=== PATIENT | female | born 1945 | race Caucasian/White ===

== ENCOUNTER 2016-11-09 03:08 | Inpatient (IN) | payer OTHER, BC ==
[2016-11-09 03:23] VITALS: BMI 29.2
[2016-11-09] MEDS ORDERED: SODIUM CHLORIDE 1,000 ML IV STA (03:28)
[2016-11-09] MEDS ORDERED: methylPREDNISolone NA SUCC 125 MG/2 ML VIAL IVPB ONE (03:28)
[2016-11-09] MEDS: ALBUTEROL SO4 2.5/IPRATROPIUM 0.5 INH SOL 3 ML VIAL.NEB. NEB SCH ×4 (03:33→04:15)
[2016-11-09 04:14] LABS: BASOPHIL 1.5 % (0-2.0); EOSINOPHIL 2.9 % (0-4.5); MCH 30.6 pg (25.7-33.7); MCHC 33.2 g/dl (32.0-36.0); MEAN CELL VOLUME 92.1 fl (80-96); MEAN PLT VOLUME 7.7 fl (7.5-11.1); NEUTROPHILS 60.7 % (42.8-82.8); PLATELET COUNT 187 K/MM3 (134-434); RDW 13.5 % (11.6-15.6); WHITE BLOOD COUNT 6.5 K/mm3 (4.0-10.0)
[2016-11-09 04:20] LABS: URINE APPEARANCE CLOUDY; URINE BILIRUBIN NEGATIVE (NEGATIVE); URINE COLOR LTYELLOW; URINE GLUCOSE (UA) 3+ (NEGATIVE); URINE KETONE NEGATIVE (NEGATIVE); URINE NITRITE NEGATIVE (NEGATIVE); URINE UROBILINOGEN NEGATIVE E.U./dl (0.2-1.0)
[2016-11-09 04:21] LABS: URINE BLOOD 3+ (NEGATIVE); URINE LEUK ESTERASE 3+ (NEGATIVE); URINE PROTEIN 2+ (NEGATIVE)
[2016-11-09 04:24] LABS: URINE BACTERIA FEW /hpf (NONE SEEN); URINE MUCUS RARE; URINE RBC 262 /hpf (0-3); URINE WBC 175 /hpf (3-5)
[2016-11-09] MEDS ORDERED: methylPREDNISolone NA SUCC 125 MG/2 ML VIAL ONE (04:27)
[2016-11-09 04:36] LABS: ALBUMIN 3.7 g/dl (3.4-5.0); ANION GAP 14 (8-16); BILIRUBIN,TOTAL 0.4 mg/dL (0.2-1.0); CALCIUM 9.4 mg/dL (8.5-10.1); CO2 23 mmol/L (21-32); COCKROFT - GAULT 104.5585; CREATININE 0.7 mg/dL (0.55-1.02); GLUCOSE,RANDOM 262 mg/dL (74-106); SGOT/AST 34 U/L (15-37); SGPT/ALT 48 U/L (12-78); TOT PROT 7.5 g/dl (6.4-8.2)
[2016-11-09 04:38] LABS: ALK PHOS 98 U/L (45-117); TROPONIN I 0.09 ng/ml (0.00-0.05)
--- NOTE | 2016-11-09 05:02 | PDOC ---
History of Present Illness - General Chief Complaint: Chest Pain Stated Complaint: BACK PAIN/CHEST PAIN Time Seen by Provider: 11/09/16 03:19 History Source: Patient Exam Limitations: No Limitations - History of Present Illness Initial Comments: 11/09/16 04:57 71yo Female patient w/ PmHx: DM, Pancreatitis, 4 Stent placement w/ 1 closed stent presents to ED c/o Chest Pain, Diff breathing, Nausea x 2 weeks. She reports persistent coughing began today. Patient took Nitro x1 prior to arrival with no relief. Patient state she was being treated for UTI recently with Macrobid, but this medication makes her stomach upset, so she takes it every now and then. Patient denies fever, back pain, abd pain, dysuria, hematuria, rectal bleeding, or any other complaints at this time. Anticoagulation: Plavix. PCP- Dr. Alexander Presenting Symptoms: Chest Pain, Short of Breath, Other (Cough) Timing/Duration: reports: getting worse Severity/Quality: reports: moderate Location: reports: central Chest Pain Radiation: reports: no radiation Activities at Onset: reports: no specific activity Prior Chest Pain/Cardiac Workup: reports: Other (4 Stent Placement) Modifying Factors: worse with: antacids, breathing, coughing, defecating, eating , exercise, lying down, morphine, movement, nitroglycerin, oxygen, palpation, rest, other Nitro Today/Relief: Yes: 0.4 mg x 1, provided at home Past History - Travel Traveled outside of the country in the last 30 days: No Close contact w/someone who was outside of country & ill: No - Past Medical History Allergies/Adverse Reactions: Allergies Allergy/AdvReac Type Severity Reaction Status Date / Time levofloxacin [From Levaquin] Allergy Mild PAIN Verified 11/09/16 03:58 ciprofloxacin [From Cipro] Allergy PAIN Verified 11/09/16 03:58 doxycycline Allergy DIZZY Verified 11/09/16 03:58 Metronidazole HCl Allergy PAIN Verified 11/09/16 03:58 [From Flagyl] Penicillins Allergy Swelling Verified 11/09/16 03:58 Home Medications: Ambulatory Orders Azelastine/Fluticasone [Dymista Nasal [place]] 23 gm NS PRN 09/08/14 Docusate Sodium [Dulcolax Stool Softener] 1 tab PO ASDIR 09/08/14 Ergocalciferol (Vitamin D2) [Vitamin D2] 50,000 unit PO WEEKLY 02/28/16 Insulin Detemir [Levemir Flextouch] 22 unit SQ DAILY 02/28/16 Nitroglycerin Sublingual [Nitrostat -] 0.3 mg SL PRN 02/28/16 Insulin Aspart [Novolog] See Protocol SQ DAILY PRN MDD Sliding scale 04/21/16 Dexlansoprazole [Dexilant] 60 mg PO DAILY 04/24/16 Clopidogrel Bisulfate [Plavix -] 75 mg PO DAILY 11/09/16 Triamterene/Hydrochlorothiazid [Triamterene-Hctz 37.5-25 mg Cp] 1 each PO DAILY 11/09/16 Anemia: No Asthma: No Cancer: No Cardiac Disorders: Yes (4 stents, [place]) CVA: No COPD: Yes CHF: No Dementia: No Diabetes: No GI Disorders: Yes (CONSTIPATION,, EGD, H PYLORI) Disorders: No HTN: Yes Hypercholesterolemia: No Liver Disease: No Seizures: No Thyroid Disease: No - Surgical History Abdominal Surgery: No Appendectomy: Yes Cardiac Surgery: Yes (CARDIAC STENTS X 4) Cholecystectomy: Yes ('06) Lung Surgery: No Neurologic Surgery: No Orthopedic Surgery: No - Psycho/Social/Smoking Cessation Hx Anxiety: No Suicidal Ideation: No Smoking Status: Yes Smoking History: Current some day smoker Have you smoked in the past 12 months: Yes Number of Cigarettes Smoked Daily: 10 Information on smoking cessation initiated: No 'Breaking Loose' booklet given: 02/28/16 Hx Alcohol Use: No Drug/Substance Use Hx: No Substance Use Type: None Hx Substance Use Treatment: No Cardiac Specific PMH - Complaint Specific PMHX Abdominal Aortic Aneurysm: No Angina: No Cardiac Arrhythmia: No Cardiac Stent: No GERD: No Myocardial Infarction: No Pacemaker: No Pulmonary Embolus: No Valvular Heart Disease: No Peripheral Vascular Disease: No Review of Systems - Review of Systems Able to Perform ROS?: Yes Is the patient limited [place] proficient: No Constitutional: No: Chills, Diaphoresis, Fever Respiratory: Yes: Cough, Shortness of Breath, Wheezing. No: Hemoptysis Cardiac (ROS): Yes: Chest Pain, Edema. No: Lightheadedness, Palpitations, Syncope, Chest Tightness ABD/GI: No: Diarrhea, Nausea, Poor Appetite, Poor Fluid Intake, Rectal Bleeding , Vomiting, Abdominal cramping : No: Burning, Dysuria, Discharge, Frequency, Flank Pain, Hematuria, Pain Musculoskeletal: No: Back Pain Integumentary: No: Erythema, Rash, Sweating Neurological: No: Headache, Seizure, Dizziness All Other Systems: Reviewed and Negative *Physical Exam - Vital Signs Last Vital Signs Temp Pulse Resp BP Pulse Ox 97.3 F L 112 H 20 135/115 94 L 11/09/16 03:21 11/09/16 03:21 11/09/16 03:21 11/09/16 03:21 11/09/16 03:21 - Physical Exam General Appearance: Yes: Nourished, Appropriately Dressed, Mild Distress. No: Apparent Distress, Moderate Distress, Severe Distress HEENT: positive: EOMI, DONNA, Normal ENT Inspection, Normal Voice, Symmetrical, TMs Normal, Pharynx Normal. negative: Pharyngeal Erythema, Tonsillar Exudate, Tonsillar Erythema, Nasal Congestion, Rhinorrhea, Sinus Tenderness, TM Bulging, TM Dull, TM Erythema Neck: positive: Trachea midline, Supple. negative: Decreased range of motion, Stridor, Lymphadenopathy (R), Lymphadenopathy (L) Respiratory/Chest: positive: Wheezing Cardiovascular: positive: Tachycardia Gastrointestinal/Abdominal: positive: Normal Bowel Sounds, Soft. negative: Distended, Guarding, Rebound, Tenderness Musculoskeletal: positive: Normal Inspection. negative: CVA Tenderness Extremity: positive: Normal Capillary Refill, Normal Inspection, Normal Range of Motion. negative: Calf Tenderness, Erythema, Inflammation Integumentary: positive: Normal Color, Dry, Warm Neurologic: positive: builder beam II-XII NML intact, Fully Oriented, Alert, Normal Mood/ Affect, Normal Response, Motor Strength / ED Treatment Course - LABORATORY CBC & Chemistry Diagram: 11/09/16 03:33 11/09/16 03:33 - ADDITIONAL ORDERS Additional order review: Laboratory Results 11/09/16 11/09/16 04:11 03:33 Sodium 142 Potassium 3.8 Chloride 105 Carbon Dioxide 23 Anion Gap 14 BUN 14 Creatinine 0.7 Creat Clearance w eGFR > 60 Random Glucose 262 H D Calcium 9.4 Total Bilirubin 0.4 D AST 34 D ALT 48 D Alkaline Phosphatase 98 Creatine Kinase 114 Troponin I 0.09 H B-Natriuretic Peptide 138.66 H Total Protein 7.5 Albumin 3.7 Urine Color Ltyellow Urine Appearance Cloudy Urine pH 6.0 Ur Specific [place] 1.017 Urine Protein 2+ H Urine Glucose (UA) 3+ H Urine Ketones Negative Urine Blood 3+ H Urine Nitrite Negative Urine Bilirubin Negative Urine Urobilinogen Negative Ur Leukocyte Esterase 3+ H Urine RBC 262 Urine WBC 175 Ur Epithelial Cells Moderate Urine Bacteria Few Urine Mucus Rare 11/09/16 03:33 RBC 5.10 MCV 92.1 MCHC 33.2 RDW 13.5 MPV 7.7 Neutrophils % 60.7 D Lymphocytes % 21.4 D Monocytes % 13.5 H Eosinophils % 2.9 Basophils % 1.5 - RADIOLOGY Radiology Studies Ordered: Category Date Time Status CHEST PA & LAT [RAD] Stat Radiology 11/09/16 03:28 Taken - Medications Given in the ED: ED Medications Discontinued Medications Generic Name Dose Route Start Last Admin Trade Name Freq PRN Reason Stop Dose Admin Albuterol/Ipratropium 1 amp 11/09/16 03:30 11/09/16 04:15 Duoneb - NEB 11/09/16 04:16 1 amp Q15M AIDE Administration Sodium Chloride 1,000 mls @ 1,000 mls/hr 11/09/16 03:28 11/09/16 04:47 Normal Saline - IV 11/09/16 04:27 1,000 mls/hr ASDIR STA Administration Methylprednisolone Sodium Succinate 125 mg 11/09/16 03:28 11/09/16 04:00 Solu-Medrol - IVPB 11/09/16 03:29 125 mg ONCE ONE Administration *DC/Admit/Observation/Transfer Diagnosis at time of Disposition: Elevated troponin level, Bronchitis Chest pain Qualifiers: Chest pain type: other chest pain Qualified Code(s): R07.89 - Other chest pain ; R07.8 - Other chest pain - Discharge Dispostion Condition at time of disposition: Fair Admit: Yes
[2016-11-09] MEDS ORDERED: morphine CARPU-JECT 2 MG/1 ML DISP.SYRIN IVPUSH ONE (05:52)
[2016-11-09] MEDS ORDERED: CEFTRIAXONE 1 GM in DEXTROSE 5%-WATER - 50 ML IVPB ONE (05:52)
[2016-11-09] MEDS ORDERED: ONDANSETRON 4 MG/2 ML VIAL IVPB ONE (05:52)
[2016-11-09] MEDS ORDERED: ASPIRIN 81 MG CHEWABLE TABLETS PO ONE ×2 (06:00→14:10)
[2016-11-09] MEDS ORDERED: METOPROLOL TARTRATE 25 MG TABLET (FP) PO ONE (06:02)
[2016-11-09] MEDS ORDERED: ENOXAPARIN NA (PORCINE) 100 MG/1 ML DISP.SYRIN SQ ONE ×2 (06:02→06:19)
[2016-11-09] MEDS ORDERED: morphine CARPU-JECT 2 MG/1 ML DISP.SYRIN IVPUSH PRN (06:03)
[2016-11-09] MEDS ORDERED: ONDANSETRON 4 MG/2 ML VIAL IVPB PRN (06:03)
[2016-11-09] MEDS ORDERED: ASPIRIN 325 MG TABLET ONE (06:19)
[2016-11-09] MEDS ORDERED: METOPROLOL TARTRATE 25 MG TABLET (FP) ONE (06:19)
[2016-11-09] MEDS ORDERED: CEFTRIAXONE 50 ML ONE (06:20)
[2016-11-09 07:24] LABS: INR 1.15 (0.82-1.09); PROTHROMBIN TIME (PATIENT) 12.7 SEC (9.98-11.88)
[2016-11-09] MEDS ORDERED: ALBUTEROL SO4 2.5/IPRATROPIUM 0.5 INH SOL 3 ML VIAL.NEB. NEB PRN (07:58)
[2016-11-09] MEDS ORDERED: NITROGLYCERIN SUBLINGUAL 1/200 0.3 MG BTL SL SCH (08:00)
[2016-11-09] MEDS ORDERED: DOCUSATE SODIUM 100 MG CAPSULE (FP) PO SCH (08:00)
[2016-11-09] MEDS ORDERED: FAMOTIDINE 20 MG/50 ML IVPB 50 ML IVPB ONE (08:41)
[2016-11-09 08:57] LABS: MAGNESIUM 1.9 mg/dL (1.8-2.4)
[2016-11-09 08:58] LABS: TROPONIN I 0.46 ng/ml (0.00-0.05)
[2016-11-09] MEDS ORDERED: NITROGLYCERIN SUBLINGUAL 1/200 0.3 MG BTL SL PRN (09:06)
[2016-11-09] MEDS ORDERED: DIPYRIDAMOLE STRESS TEST 50 MG in DEXTROSE 5%-WATER - 40 ML IVPB ONE (10:30)
[2016-11-09] MEDS: DOCUSATE SODIUM 100 MG CAPSULE (FP) PO SCH ×2 (10:51→21:06)
[2016-11-09] MEDS: TRIAMTERENE AND HCTZ - 37.5 MG/25 MG CAPSULE PO SCH (10:51)
[2016-11-09] MEDS: INSULIN SLIDING SCALE (NOVOLOG) 1 VIAL SQ SCH ×3 (10:52→21:52)
[2016-11-09] MEDS: FLUTICASONE PROP 0.05% 16 GM NASAL SPRAY NS SCH ×2 (10:52→21:06)
[2016-11-09] MEDS: ASPIRIN COATED 81 MG TABLET.EC PO SCH (10:52)
[2016-11-09] MEDS: CLOPIDOGREL BISULFATE 75 MG TABLET (FP) PO SCH (10:52)
[2016-11-09] MEDS: PANTOPRAZOLE 40 MG TABLET (FP) PO SCH (10:52)
--- NOTE | 2016-11-09 13:25 | EKG ---
Test Reason : Blood Pressure : / mmHG Vent. Rate : 112 BPM Atrial Rate : 112 BPM P-R Int : 196 ms QRS Dur : 104 ms QT Int : 326 ms P-R-T Axes : 064 -45 096 degrees QTc Int : 444 ms SINUS TACHYCARDIA POSSIBLE LEFT ATRIAL ENLARGEMENT LEFT AXIS DEVIATION SEPTAL INFARCT (CITED ON OR BEFORE 20-MAR-2013) ABNORMAL ECG WHEN COMPARED WITH ECG OF 25-FEB-2014 18:43, VENT. RATE HAS INCREASED BY [address] NOW DEPRESSED IN LATERAL LEADS INVERTED T WAVES HAVE REPLACED NONSPECIFIC T WAVE ABNORMALITY IN LATERAL LEADS Confirmed by MOHAN QUIJANO MD ([id number]) on 11/09/2016 1:25:03 PM Referred By: Confirmed By:MOHAN QUIJANO MD
--- NOTE | 2016-11-09 13:35 | HP ---
Admitting History and Physical - Primary Care Physician PCP: Terri Thompson - Admission Chief Complaint: I was having heartburn History of Present Illness: Ms Ocasio is a pleasant 71 year old female who comes in with chest pain. She says she was recently diagnosed with a UTI and was taking bactrim. She has a lot of medication intolerance and says when she takes bactrim she gets heartburn. Last night she took the bactrim and went to bed. She woke with burning in her stomach and chest. She said it radiated to her neck, jaw, and both arms. She had shortness of breath associated with it. She had nausea but no vomiting. She says the pain and shortness of breath became so severe she had to come in. The pain is still present. She denies fevers, chills, lightheadedness, dizziness, passing out, diarrhea, difficulty or pain on urination, or swelling. History Source: Patient Limitations to Obtaining History: No Limitations - Past Medical History Cardiovascular: Yes: CAD Renal/: Yes: Renal Calculi Endocrine: Yes: Diabetes Mellitus - Past Surgical History Past Surgical History: Yes: Cholecystectomy, Stent - Smoking History Smoking history: Current some day smoker Have you smoked in the past 12 months: Yes Aproximately how many cigarettes per day: 10 - Alcohol/Substance Use Hx Alcohol Use: No History of Substance Use: reports: None - Social History ADL: Independent History of Recent Travel: No Home Medications - Allergies Allergies/Adverse Reactions: Allergies Allergy/AdvReac Type Severity Reaction Status Date / Time levofloxacin [From Levaquin] Allergy Mild PAIN Verified 11/09/16 03:58 ciprofloxacin [From Cipro] Allergy PAIN Verified 11/09/16 03:58 doxycycline Allergy DIZZY Verified 11/09/16 03:58 Metronidazole HCl Allergy PAIN Verified 11/09/16 03:58 [From Flagyl] Penicillins Allergy Swelling Verified 11/09/16 03:58 - Home Medications Home Medications: Ambulatory Orders Azelastine/Fluticasone [Dymista Nasal [place]] 23 gm NS PRN 09/08/14 Docusate Sodium [Dulcolax Stool Softener] 1 tab PO ASDIR 09/08/14 Ergocalciferol (Vitamin D2) [Vitamin D2] 50,000 unit PO WEEKLY 02/28/16 Insulin Detemir [Levemir Flextouch] 22 unit SQ DAILY 02/28/16 Nitroglycerin Sublingual [Nitrostat -] 0.3 mg SL PRN 02/28/16 Insulin Aspart [Novolog] See Protocol SQ DAILY PRN MDD Sliding scale 04/21/16 Dexlansoprazole [Dexilant] 60 mg PO DAILY 04/24/16 Clopidogrel Bisulfate [Plavix -] 75 mg PO DAILY 11/09/16 Triamterene/Hydrochlorothiazid [Triamterene-Hctz 37.5-25 mg Cp] 1 each PO DAILY 11/09/16 Family Disease History - Family Disease History Family Disease History: Diabetes: Mother, Heart Disease: Mother, CA: Father, Mother Review of Systems Findings/Remarks: full review of systems obtained, as per HPI and otherwise negative Physical Examination Vital Signs: Vital Signs Temperature 97.3 F L 11/09/16 03:21 Pulse Rate 95 H 11/09/16 07:30 Respiratory Rate 21 11/09/16 07:30 Blood Pressure 116/96 11/09/16 07:30 O2 Sat by Pulse Oximetry (%) 95 11/09/16 07:30 Constitutional: Yes: Well Nourished, No Distress, Calm Eyes: Yes: Conjunctiva Clear, EOM Intact, PERRL HENT: Yes: Atraumatic, Normocephalic Cardiovascular: Yes: Regular Rate and Rhythm. No: Gallop, Murmur, Rub Respiratory: Yes: Regular, CTA Bilaterally. No: Rales, Rhonchi, Wheezes Gastrointestinal: Yes: Normal Bowel Sounds, Soft. No: Distention, Tenderness Extremities: Yes: WNL Edema: No Labs: Laboratory Results - last 24 hr 11/09/16 11/09/16 11/09/16 03:33 03:33 04:11 WBC 6.5 RBC 5.10 Hgb 15.6 H Hct 47.0 H MCV 92.1 MCHC 33.2 RDW 13.5 Plt Count 187 D MPV 7.7 Neutrophils % 60.7 D Lymphocytes % 21.4 D Monocytes % 13.5 H Eosinophils % 2.9 Basophils % 1.5 INR PTT (Actin FS) Sodium 142 Potassium 3.8 Chloride 105 Carbon Dioxide 23 Anion Gap 14 BUN 14 Creatinine 0.7 Creat Clearance w eGFR > 60 Random Glucose 262 H D Calcium 9.4 Phosphorus Magnesium Total Bilirubin 0.4 D AST 34 D ALT 48 D Alkaline Phosphatase 98 Creatine Kinase 114 Troponin I 0.09 H B-Natriuretic Peptide 138.66 H Total Protein 7.5 Albumin 3.7 Urine Color Ltyellow Urine Appearance Cloudy Urine pH 6.0 Ur Specific [place] 1.017 Urine Protein 2+ H Urine Glucose (UA) 3+ H Urine Ketones Negative Urine Blood 3+ H Urine Nitrite Negative Urine Bilirubin Negative Urine Urobilinogen Negative Ur Leukocyte Esterase 3+ H Urine RBC 262 Urine WBC 175 Ur Epithelial Cells Moderate Urine Bacteria Few Urine Mucus Rare 11/09/16 11/09/16 11/09/16 06:57 06:57 08:15 WBC RBC Hgb Hct MCV MCHC RDW Plt Count MPV Neutrophils % Lymphocytes % Monocytes % Eosinophils % Basophils % INR 1.15 H PTT (Actin FS) 40.3 H Sodium Potassium Chloride Carbon Dioxide Anion Gap BUN Creatinine Creat Clearance w eGFR Random Glucose Calcium Phosphorus 3.0 Magnesium 1.9 Total Bilirubin AST ALT Alkaline Phosphatase Creatine Kinase 129 Troponin I 0.46 H B-Natriuretic Peptide Total Protein Albumin Urine Color Urine Appearance Urine pH Ur Specific [place] Urine Protein Urine Glucose (UA) Urine Ketones Urine Blood Urine Nitrite Urine Bilirubin Urine Urobilinogen Ur Leukocyte Esterase Urine RBC Urine WBC Ur Epithelial Cells Urine Bacteria Urine Mucus 11/09/16 12:50 WBC RBC Hgb Hct MCV MCHC RDW Plt Count MPV Neutrophils % Lymphocytes % Monocytes % Eosinophils % Basophils % INR PTT (Actin FS) Sodium Potassium Chloride Carbon Dioxide Anion Gap BUN Creatinine Creat Clearance w eGFR Random Glucose Calcium Phosphorus Magnesium Total Bilirubin AST ALT Alkaline Phosphatase Creatine Kinase 121 Troponin I 1.20 H* B-Natriuretic Peptide Total Protein Albumin Urine Color Urine Appearance Urine pH Ur Specific [place] Urine Protein Urine Glucose (UA) Urine Ketones Urine Blood Urine Nitrite Urine Bilirubin Urine Urobilinogen Ur Leukocyte Esterase Urine RBC Urine WBC Ur Epithelial Cells Urine Bacteria Urine Mucus Imaging - Results Chest X-ray: Report Reviewed, Image Reviewed EKG: Image Reviewed Problem List - Problems (1) NSTEMI (non-ST elevated myocardial infarction) Assessment/Plan: -patient presented with chest pain, found to have NSTEMI -admit to telemetry -cardiology consulted -patient with multiple "intolerances", will d/w cardiology about proper medication use Code(s): I21.4 - NON-ST ELEVATION (NSTEMI) MYOCARDIAL INFARCTION (2) UTI (urinary tract infection) Assessment/Plan: -taking bactrim at home -urinalysis positive for UTI -change to rocephin -follow up urine culture Code(s): N39.0 - URINARY TRACT INFECTION, SITE NOT SPECIFIED (3) HTN (hypertension) Assessment/Plan: -continue triamterene/HCTZ -metoprolol added for NSTEMI Code(s): I10 - ESSENTIAL (PRIMARY) HYPERTENSION (4) Diabetes mellitus Assessment/Plan: -diabetic diet -SSI Code(s): E11.9 - TYPE 2 DIABETES MELLITUS WITHOUT COMPLICATIONS Qualifiers: Diabetes mellitus type: type 2 Diabetes mellitus termite control servicer insulin use : with penitentiary use (5) CAD (coronary artery disease) Assessment/Plan: -with 4 stents placed Code(s): I25.10 - ATHSCL HEART DISEASE OF [place] CORONARY ARTERY W/O ANG PCTRS
[2016-11-09 13:44] LABS: TROPONIN I 1.2 ng/ml (0.00-0.05)
[2016-11-09] MEDS ORDERED: CLOPIDOGREL BISULFATE 75 MG TABLET (FP) PO ONE (14:11)
--- NOTE | 2016-11-09 15:49 | CON.CARD ---
Cardiology Consult (text) - Consultation Consultation Note: cc: CP 71 smoker with h/o CAD s/p multiple PCI, chronic pain syndrome with chronic pain of chest, throat, back, abdomen, joints, mouth, HTN, HL, copd, fatty liver , congenital pancreatic abnormality, IDDM, grade I esophageal varices without hx of cirrhosis, gastritis, and recent hematuria p/w recurrent cp + throat CP/burning radiating to left shoulder and back while dancing at a wedding this weekend. associated fatigue. resolved with rest. Two further severe episodes that woke her from sleep in the night. Worse than her usual pain and progressive in frequency. Also with cough, congestion, wheezing over the past few days. no f/c/s, n/v/d, headache, rash. + chronic joint pain and burning paresthesias of mouth. Recently resumed 1/2 tab of plavix QOD and with recurrence of hematuria (last episode a few days ago). Has workup ongoing with urology. pmhx/pshx :per hpi fam hx: mother with mi in 70's social hx: + tobacco ros: per hpi Ambulatory Orders Azelastine/Fluticasone [Dymista Nasal [place]] 23 gm NS PRN 09/08/14 Docusate Sodium [Dulcolax Stool Softener] 1 tab PO ASDIR 09/08/14 Ergocalciferol (Vitamin D2) [Vitamin D2] 50,000 unit PO WEEKLY 02/28/16 Insulin Detemir [Levemir Flextouch] 22 unit SQ DAILY 02/28/16 Nitroglycerin Sublingual [Nitrostat -] 0.3 mg SL PRN 02/28/16 Insulin Aspart [Novolog] See Protocol SQ DAILY PRN MDD Sliding scale 04/21/16 Dexlansoprazole [Dexilant] 60 mg PO DAILY 04/24/16 Clopidogrel Bisulfate [Plavix -] 75 mg PO DAILY 11/09/16 Triamterene/Hydrochlorothiazid [Triamterene-Hctz 37.5-25 mg Cp] 1 each PO DAILY 11/09/16 Current Medications Albuterol/Ipratropium (Duoneb -) 1 amp NEB Q4H PRN PRN Reason: SHORTNESS OF BREATH Aspirin (Ecotrin -) 162 mg PO DAILY AIDE Last Admin: 11/09/16 10:52 Dose: Not Given Clopidogrel Bisulfate (Plavix -) 75 mg PO DAILY [facility] Last Admin: 11/09/16 10:52 Dose: 75 mg Docusate Sodium (Colace -) 100 mg PO BID [facility] Last Admin: 11/09/16 10:51 Dose: Not Given Fluticasone Propionate (Flonase -) 1 spray NS BID [facility] Last Admin: 11/09/16 10:52 Dose: Not Given Ceftriaxone Sodium (Rocephin 1gm Ivpb (Pre-Docked)) 50 mls @ 100 mls/hr IVPB DAILY [facility] Insulin Aspart (Novolog Vial Sliding Scale -) 1 vial SQ ACHS AIDE PRN Reason: Protocol Last Admin: 11/09/16 10:52 Dose: Not Given Metoprolol Tartrate (Lopressor -) 25 mg PO BID [facility] Morphine Sulfate (Morphine Injection -) 2 mg IVPUSH Q4H PRN PRN Reason: PAIN Nitroglycerin (Nitrostat -) 0.4 mg SL Q5M PRN PRN Reason: FOR CHEST PAIN Non-Formulary Medication (Ergocalciferol (Vitamin D2) [Vitamin D2]) 50,000 unit PO WEEKLY [facility] Ondansetron HCl (Zofran Injection) 4 mg IVPB Q6H PRN PRN Reason: NAUSEA Pantoprazole Sodium (Protonix -) 40 mg PO DAILY [facility] Last Admin: 11/09/16 10:52 Dose: 40 mg Triamterene/HCTZ (Dyazide 25/37.5mg) 1 cap PO DAILY [facility] Last Admin: 11/09/16 10:51 Dose: Not Given Vital Signs - 24 hr 11/09/16 11/09/16 11/09/16 03:21 07:30 12:50 Temperature 97.3 F L Pulse Rate 112 H Pulse Rate [ 95 H 84 Apical] Respiratory 20 21 16 Rate Blood Pressure 135/115 Blood Pressure 116/96 131/75 [Left Arm] O2 Sat by Pulse 94 L 95 95 Oximetry (%) 11/09/16 15:00 Temperature Pulse Rate Pulse Rate [ 87 Apical] Respiratory 18 Rate Blood Pressure Blood Pressure 140/81 [Left Arm] O2 Sat by Pulse 97 Oximetry (%) Intake & Output 11/07/16 11/08/16 11/09/16 11/10/16 07:59 07:59 07:59 07:59 Weight 204 lb nad, calm jvd flat, neck supple bibasilar trace rales, nl effort rrr nl s1, s2 no mrg + bs soft nt nd ttp of generalized body ext with e/c/c + dp/pt aaoxe no jaundice, diaphoresis. CBC, BMP 11/09/16 03:33 11/09/16 03:33 Laboratory Tests 11/09/16 11/09/16 11/09/16 03:33 04:11 08:15 Magnesium 1.9 Total Bilirubin 0.4 D AST 34 D ALT 48 D Alkaline Phosphatase 98 Creatine Kinase 114 129 Troponin I 0.09 H 0.46 H B-Natriuretic Peptide 138.66 H Albumin 3.7 Urine Protein 2+ H Urine Glucose (UA) 3+ H Urine Blood 3+ H Ur Leukocyte Esterase 3+ H Urine RBC 262 11/09/16 12:50 Magnesium Total Bilirubin AST ALT Alkaline Phosphatase Creatine Kinase 121 Troponin I 1.20 H* B-Natriuretic Peptide Albumin Urine Protein Urine Glucose (UA) Urine Blood Ur Leukocyte Esterase Urine RBC prior med intolerances: plavix/ASA--diffuse, severe pain ("whole body on fire") and nausea every day for 12 mo of taking this; also recent hematuria crestor--body on fire, nausea, dizzy zocor--severe diarrhea simvastatin, atorva, prava--nausea, "something closes up and hard to breathe...i can feel it in my blood" ranexa: stomach upset Ziac--severe MANZANO, pancreatitis Bystolic--"i felt sick" Echo nl lv/rv/valves EKG: stach. lae. anterolateral twi (new) tele: nsr [facility] 07/24 (staged PCI): 70-80% dRCA--Xience; +IVUS of mLAD--Xience; prior stents patent [facility] 06/22: 50-60% mLAD, 90% D1--Taxus; 60-70% OM1, 90-95% high lateral--Xience x 2; 30-50% mRCA, 60-70% dRCA; nl EDP and EF MPI 03/31 (pers): no STs; medium/moderate ischemia IW/inferolateral; nl EF; no TID 71 smoker with h/o CAD s/p multiple PCI, chronic pain syndrome with chronic pain of chest, throat, back, abdomen, joints, mouth, HTN, HL, copd, fatty liver , congenital pancreatic abnormality, IDDM, grade I esophageal varices without hx of cirrhosis, gastritis, and recent hematuria p/w recurrent cp CAD: - patient with recent inferior/inflat ischemia on stress test this past fall. But had managed medically due to multiple med intolerances. Recently Dr. Ayers had been considering further ischemic evaluation b/c of ongoing throat discomfort (could not exclude angina). However had been deferring due to recent hematuria. - Patient with known CAD as above, now with recurrence of chest discomfort at rest with mild ekg changes and mildly elevated troponin. Will treat as NSTEMI with ASA, plavix, hep drip, statin as tolerated. Patient with multiple medication intolerances and currently being worked up for ongoing hematuria as above. Discussed with her outpatient financial sales consultant and will plan for diagnostic cardiac catheterization only (if 3vd, pt may be candidate for cabg which would circumvent need for anti-platelet therapy). Otherwise, will at least know extent of CAD disease and can come up with plan for subsequent intervention once hematuria is resolved (assuming patient willing to adhere to regimen). Discussed with patient and patient amenable to plan - monitor for recurrence of hematuria - patient with acute intermittent red urine (currently with RBC's, but in past years + blood on dip without rbc's) with associated abdominal discomfort, chronic pain and paresthesia. Will send spot urine for pbg to screen for porphyria. HTN - controlled on current regimen HL - will try statin
[2016-11-09] MEDS ORDERED: ACETAMINOPHEN 325 MG TABLET (FP) PO PRN (16:21)
[2016-11-09] MEDS: METOPROLOL TARTRATE 25 MG TABLET (FP) PO SCH ×2 (17:17→21:06)
[2016-11-09] MEDS ORDERED: HEPARIN NA (PORCINE) 5,000 UNITS/ML 1ML VIAL IVPUSH PRN (19:03)
[2016-11-09] MEDS: HEPARIN - 25,000 UNIT in SODIUM CHLORIDE 495 ML IV SCH (21:12)
[2016-11-09 22:05] LABS: TROPONIN I 1.26 ng/ml (0.00-0.05)
[2016-11-09] MEDS ORDERED: NITROGLYCERIN SUBLINGUAL 1/150 0.4 MG TAB ONE (22:29)
[2016-11-10] MEDS ORDERED: NITROGLYCERIN 2% OINTMENT - 1GM PACKET TD ONE (03:15)
[2016-11-10] MEDS ORDERED: NITROGLYCERIN 2% OINTMENT - 1GM PACKET TD PRN (03:29)
[2016-11-10] MEDS ORDERED: PT OWN MED DRAWER 7, Y5N ONE ×2 (03:40→09:51)
[2016-11-10] MEDS: INSULIN SLIDING SCALE (NOVOLOG) 1 VIAL SQ SCH ×2 (06:04→12:23)
[2016-11-10 06:36] LABS: MCH 30.6 pg (25.7-33.7); MCHC 33.9 g/dl (32.0-36.0); MEAN CELL VOLUME 90.4 fl (80-96); MEAN PLT VOLUME 7.6 fl (7.5-11.1); PLATELET COUNT 238 K/MM3 (134-434); RDW 13.5 % (11.6-15.6); WHITE BLOOD COUNT 11.4 K/mm3 (4.0-10.0)
[2016-11-10 07:00] LABS: ANION GAP 10 (8-16); BILIRUBIN,TOTAL 0.6 mg/dL (0.2-1.0); CALCIUM 9.2 mg/dL (8.5-10.1); CHOLESTEROL 226 mg/dL (50-200); CO2 26 mmol/L (21-32); CREATININE 0.9 mg/dL (0.55-1.02); GLUCOSE,RANDOM 150 mg/dL (74-106); LDL CHOLESTEROL (ONLY SJRH) 163 mg/dL (5-100); SGOT/AST 28 U/L (15-37); SGPT/ALT 42 U/L (12-78); TOT PROT 7.5 g/dl (6.4-8.2)
[2016-11-10 07:13] LABS: ALK PHOS 81 U/L (45-117)
[2016-11-10 07:18] VITALS: BP 114/60; PULSE 78; TEMP 97.8
[2016-11-10 07:18] LABS: COCKROFT - GAULT 82.195
[2016-11-10 07:20] LABS: TROPONIN I 1.06 ng/ml (0.00-0.05)
[2016-11-10] MEDS ORDERED: CEFTRIAXONE 50 ML IVPB SCH (10:00)
[2016-11-10] MEDS: DOCUSATE SODIUM 100 MG CAPSULE (FP) PO SCH (10:08)
[2016-11-10] MEDS: CLOPIDOGREL BISULFATE 75 MG TABLET (FP) PO SCH (10:08)
[2016-11-10] MEDS: ASPIRIN COATED 81 MG TABLET.EC PO SCH (10:09)
[2016-11-10] MEDS: PANTOPRAZOLE 40 MG TABLET (FP) PO SCH (10:09)
[2016-11-10] MEDS: TRIAMTERENE AND HCTZ - 37.5 MG/25 MG CAPSULE PO SCH (10:10)
[2016-11-10] MEDS: FLUTICASONE PROP 0.05% 16 GM NASAL SPRAY NS SCH (10:18)
[2016-11-10] MEDS: METOPROLOL TARTRATE 25 MG TABLET (FP) PO SCH (10:19)
--- NOTE | 2016-11-10 10:46 | PN ---
Progress Note (short form) - Note Progress Note: s: no palps dizzy sob; still with intermittent cp/jaw pain overnight o: Vital Signs Period Temp Pulse Resp BP Sys/Johnson Pulse Ox Last 24 Hr 97.8 F-98.0 F 76-87 16-20 114-142/60-84 95-97 nad, calm jvd flat, neck supple cta bl nl eff rrr nl s1, s2 no mrg + bs soft nt nd ext without e/c/c aaox3 no jaundice, diaphoresis. Current Medications Generic Name Dose Route Start Last Admin Trade Name Freq PRN Reason Stop Dose Admin Acetaminophen 650 mg 11/09/16 16:21 11/09/16 17:05 Tylenol - PO 650 mg Q4H PRN Administration FEVER OR PAIN Albuterol/Ipratropium 1 amp 11/09/16 07:58 Duoneb - NEB Q4H PRN SHORTNESS OF BREATH Aspirin 162 mg 11/09/16 10:00 11/10/16 10:09 Ecotrin - PO 162 mg DAILY AIDE Administration Clopidogrel Bisulfate 75 mg 11/09/16 10:00 11/10/16 10:08 Plavix - PO 75 mg DAILY AIDE Administration Docusate Sodium 100 mg 11/09/16 10:00 11/10/16 10:08 Colace - PO 100 mg BID AIDE Administration Fluticasone Propionate 1 spray 11/09/16 10:00 11/10/16 10:18 Flonase - NS 1 spray BID AIDE Administration Heparin Sodium (Porcine) 1,000 unit 11/09/16 19:03 Heparin - IVPUSH PRN PRN Heparin Ceftriaxone Sodium 50 mls @ 100 mls/hr 11/10/16 10:00 11/10/16 10:12 Rocephin 1gm Ivpb (Pre-Docked) IVPB 100 mls/hr DAILY AIDE Administration Heparin Sodium (Porcine) 25, 500 mls @ 20 mls/hr 11/09/16 19:15 11/10/16 04:55 000 unit/ Sodium Chloride IV 950 unit/hr TITR AIDE Titration Protocol 1,000 UNIT/HR Insulin Aspart 1 vial 11/09/16 11:00 11/10/16 06:04 Novolog Vial Sliding Scale - SQ Not Given ACHS AIDE Protocol Metoprolol Tartrate 25 mg 11/09/16 18:00 11/10/16 10:19 Lopressor - PO Not Given BID AIDE Morphine Sulfate 2 mg 11/09/16 06:03 11/10/16 01:40 Morphine Injection - IVPUSH 2 mg Q4H PRN Administration PAIN Nitroglycerin 0.4 mg 11/09/16 09:06 Nitrostat - SL Q5M PRN FOR CHEST PAIN Nitroglycerin 1 inch 11/10/16 03:29 11/10/16 03:35 Nitro-Bid 2% Paste - TD 1 inch Q6H PRN Administration Non-Formulary Medication 50,000 unit 11/09/16 08:00 Ergocalciferol (Vitamin D2) [Vitamin D2] PO WEEKLY AIDE Ondansetron HCl 4 mg 11/09/16 06:03 11/10/16 03:57 Zofran Injection IVPB 4 mg Q6H PRN Administration NAUSEA Pantoprazole Sodium 40 mg 11/09/16 10:00 11/10/16 10:09 Protonix - PO 40 mg DAILY AIDE Administration Triamterene/HCTZ 1 cap 11/09/16 10:00 11/10/16 10:10 Dyazide 25/37.5mg PO 1 cap DAILY AIDE Administration CBC, BMP 11/10/16 05:35 11/10/16 05:35 prior med intolerances: plavix/ASA--diffuse, severe pain ("whole body on fire") and nausea every day for 12 mo of taking this; also recent hematuria crestor--body on fire, nausea, dizzy zocor--severe diarrhea simvastatin, atorva, prava--nausea, "something closes up and hard to breathe...i can feel it in my blood" ranexa: stomach upset Ziac--severe MANZANO, pancreatitis Bystolic--"i felt sick" Echo nl lv/rv/valves EKG: stach. lae. anterolateral twi (new) tele: nsr [facility] 07/24 (staged PCI): 70-80% dRCA--Xience; +IVUS of mLAD--Xience; prior stents patent [facility] 06/22: 50-60% mLAD, 90% D1--Taxus; 60-70% OM1, 90-95% high lateral--Xience x 2; 30-50% mRCA, 60-70% dRCA; nl EDP and EF MPI 03/31 (pers): no STs; medium/moderate ischemia IW/inferolateral; nl EF; no TID a/p: 71 smoker with h/o CAD s/p multiple PCI, chronic pain syndrome with chronic pain of chest, throat, back, abdomen, joints, mouth, HTN, HL, copd, fatty liver, congenital pancreatic abnormality, IDDM, grade I esophageal varices without hx of cirrhosis, gastritis, and recent hematuria p/w recurrent cp CAD: - patient with recent inferior/inflat ischemia on stress test this past fall. But had managed medically due to multiple med intolerances. Recently Dr. Ayers had been considering further ischemic evaluation b/c of ongoing throat discomfort (could not exclude angina). However had been deferring due to recent hematuria. - Patient with known CAD as above, now with recurrence of chest discomfort at rest with mild ekg changes and mildly elevated troponin. Will treat as NSTEMI with ASA, plavix, hep drip, statin as tolerated. Patient with multiple medication intolerances and currently being worked up for ongoing hematuria as above. Discussed with her outpatient respiratory care technician and will plan for diagnostic cardiac catheterization only (if 3vd, pt may be candidate for cabg which would circumvent need for anti-platelet therapy). Otherwise, will at least know extent of CAD disease and can come up with plan for subsequent intervention once hematuria is resolved (assuming patient willing to adhere to regimen). Discussed with patient and patient amenable to plan--scheduled for cath today at [facility]. HTN - controlled on current regimen HL - intolerant to statin
--- NOTE | 2016-11-10 11:16 | EKG ---
Test Reason : Blood Pressure : / mmHG Vent. Rate : 076 BPM Atrial Rate : 076 BPM P-R Int : 204 ms QRS Dur : 108 ms QT Int : 422 ms P-R-T Axes : 037 -28 060 degrees QTc Int : 474 ms NORMAL SINUS RHYTHM NONSPECIFIC T WAVE ABNORMALITY POOR R WAVE PROGRESSION PROLONGED QT ABNORMAL ECG Confirmed by EDUARDO DAVIS MD ([id number]) on 11/10/2016 11:15:48 AM Referred By: ТАТЬЯНА MORRIS Confirmed By:EDUARDO DAVIS MD
[2016-11-10] MEDS: HEPARIN - 25,000 UNIT in SODIUM CHLORIDE 495 ML IV SCH (11:44)
--- NOTE | 2016-11-13 16:20 | DS ---
Physical Examination Vital Signs: Vital Signs Temperature 97.8 F 11/10/16 06:00 Pulse Rate 78 11/10/16 06:00 Respiratory Rate 20 11/10/16 06:00 Blood Pressure 114/60 11/10/16 06:00 O2 Sat by Pulse Oximetry (%) 96 11/10/16 09:00 Constitutional: Yes: Well Nourished, No Distress, Calm Cardiovascular: Yes: Regular Rate and Rhythm. No: Gallop, Murmur, Rub Respiratory: Yes: Regular, Diminished. No: Rales, Rhonchi, Wheezes Gastrointestinal: Yes: Normal Bowel Sounds, Soft. No: Distention, Tenderness Extremities: Yes: WNL Edema: No Labs: CBC, BMP 11/10/16 05:35 11/10/16 05:35 Discharge Summary Reason For Visit: CHEST PAIN BRONCHITIS ELEVATED TROPONIN Hospital Course: (1) NSTEMI (non-ST elevated myocardial infarction) Code(s): I21.4 - NON-ST ELEVATION (NSTEMI) MYOCARDIAL INFARCTION (2) UTI (urinary tract infection) Code(s): N39.0 - URINARY TRACT INFECTION, SITE NOT SPECIFIED (3) HTN (hypertension) Code(s): I10 - ESSENTIAL (PRIMARY) HYPERTENSION (4) Diabetes mellitus Code(s): E11.9 - TYPE 2 DIABETES MELLITUS WITHOUT COMPLICATIONS Qualifiers: Diabetes mellitus type: type 2 Diabetes mellitus mcfp insulin use : with mcfp use (5) CAD (coronary artery disease) Code(s): I25.10 - ATHSCL HEART DISEASE OF [place] CORONARY ARTERY W/O ANG PCTRS Ms Ocasio is a pleasant 71 year old female who presented with NSTEMI and also a UTI. She was started on rocephin which she tolerated. She underwent stress test and it was found to be abnormal. Because of this she was transferred to [facility] for cardiac catheterization. Condition: Fair - Instructions Referrals: Terri Thompson MD [Primary Care Provider] - Disposition: TRANSFER ACUTE CARE/OTHER HOSP - Home Medications Comprehensive Discharge Medication List: Ambulatory Orders Azelastine/Fluticasone [Dymista Nasal [place]] 23 gm NS PRN 09/08/14 Docusate Sodium [Dulcolax Stool Softener] 1 tab PO ASDIR 09/08/14 Ergocalciferol (Vitamin D2) [Vitamin D2] 50,000 unit PO WEEKLY 02/28/16 Insulin Detemir [Levemir Flextouch] 25 unit SQ DAILY 02/28/16 Nitroglycerin Sublingual [Nitrostat -] 0.3 mg SL PRN 02/28/16 Insulin Aspart [Novolog] See Protocol SQ DAILY PRN MDD Sliding scale 04/21/16 Dexlansoprazole [Dexilant] 60 mg PO DAILY 04/24/16 Clopidogrel Bisulfate [Plavix -] 75 mg PO DAILY 11/09/16 Triamterene/Hydrochlorothiazid [Triamterene-Hctz 37.5-25 mg Cp] 1 each PO DAILY 11/09/16
== END 2016-11-10 13:54 | disposition short-term general hospital (02) | DRG 281 ==
LOC: JER 03:08 → JERBED 06:12 → UNDOADMIN 06:37 → JERBED 06:37 → J4S 15:55
PROVIDERS: ADMIT Internal Medicine; ATTEND Internal Medicine
DX: I21.4 Non-ST elevation (NSTEMI) myocardial infarction (principal); N39.0 Urinary tract infection, site not specified; Q45.3 Other congenital malformations of pancreas and pancreatic duct; I85.00 Esophageal varices without bleeding; I25.10 Atherosclerotic heart disease of native coronary artery without angina pectoris; N20.0 Calculus of kidney; E11.9 Type 2 diabetes mellitus without complications; I10 Essential (primary) hypertension; G89.4 Chronic pain syndrome; J44.9 Chronic obstructive pulmonary disease, unspecified; K76.0 Fatty (change of) liver, not elsewhere classified; K29.60 Other gastritis without bleeding; E78.5 Hyperlipidemia, unspecified; F17.210 Nicotine dependence, cigarettes, uncomplicated; Z95.5 Presence of coronary angioplasty implant and graft
CPT/HCPCS: 36415; 71020-TC; 78452-TC; 80053; 80061; 81003; 81015; 82550; 83721; 83735; 83880; 84100; 84110; 84484; 85025; 85027; 85610; 85730; 87086; 93005; 93010; 93017; 93306-TC; 99285-25; A9502; J1245; J1644

== ENCOUNTER 2016-12-05 07:49 | Inpatient (IN) | payer OTHER, BC ==
[2016-12-05 08:05] VITALS: BMI 30.4
--- NOTE | 2016-12-05 08:18 | PDOC ---
History of Present Illness - General History Source: Patient, Old Records Exam Limitations: No Limitations <Kaya Harrison - Last Filed: 12/05/16 14:03> <Darrion Rowan - Last Filed: 12/05/16 14:53> - General Chief Complaint: Chest Pain Stated Complaint: NAUSEA, SOB, DIZZINESS Time Seen by Provider: 12/05/16 08:16 - History of Present Illness Initial Comments: 12/05/16 08:38 The patient is a 71-year-old woman, accompanied by her neighbor, with a significant past medical history of hypertension, [id number] myocardial infarction (November 10 2016; s/p 2 stent placements), diabetes mellitus, chronic constipation, H. Pylori and pancreatitis who presents to the emergency department via walk-in for further evaluation of shortness of breath. Patient reports that ever since her [place] and stent placement, she has been feeling mildly short of breath. She also reports experiencing right sided chest pressure constant sensations that radiate up to her neck since her surgery. She reports explaining this to her Automobile Service Station Attendant. She states that over the past week, as she reports orthopnea and states that she has been needing to sleep in an upright position with 2-3 pillows for her shortness of breath. She denies fever, chills , cough, hemoptysis, diaphoresis, headache, jaw/ back pain lower extremity pain/ swelling, calf tenderness/pain. She also reports her chronic constipation. She notes associated symptoms of diffuse abdominal discomfort. He last bowel movement was a few days ago. She denies nausea, vomiting, diarrhea, dysuria, hematuria, urinary frequency and urgency, flank pain. Allergies: Levofloxacin. Ciprofloxacin. Doxycycline. Metronidazole. Penicillin. Past Surgical History: Stent Placement x6 (2 were placed recently at [facility] as a result of an [place] in 11/10/2016). Esophagogastroduodenoscopy Social History: Former smoker (half a pack/day for 30 years). No EtOH and recreational drug use. Primary Care Physician: Dr. Terri Thompson Automobile Service Station Attendant: Dr. Naveen Ayers (Kaya Harrison) Past History <Kaya Harrison - Last Filed: 12/05/16 14:03> - Past Medical History Anemia: No Asthma: No Cancer: No Cardiac Disorders: Yes (4 stents, [place]) CVA: No COPD: Yes CHF: No Dementia: No Diabetes: No GI Disorders: Yes (CONSTIPATION,, EGD, H PYLORI) Disorders: No HTN: Yes Hypercholesterolemia: No Liver Disease: No Seizures: No Thyroid Disease: No - Surgical History Abdominal Surgery: No Appendectomy: Yes Cardiac Surgery: Yes (CARDIAC STENTS X 4) Cholecystectomy: Yes ('06) Lung Surgery: No Neurologic Surgery: No Orthopedic Surgery: No - Immunization History Immunization Up to Date: No - Psycho/Social/Smoking Cessation Hx Anxiety: No Suicidal Ideation: No Smoking Status: Yes Smoking History: Former smoker Have you smoked in the past 12 months: No Number of Cigarettes Smoked Daily: 10 Information on smoking cessation initiated: No 'Breaking Loose' booklet given: 11/09/16 Hx Alcohol Use: No Drug/Substance Use Hx: No Substance Use Type: None Hx Substance Use Treatment: No <Darrion Rowan - Last Filed: 12/05/16 14:53> - Past Medical History Allergies/Adverse Reactions: Allergies Allergy/AdvReac Type Severity Reaction Status Date / Time levofloxacin [From Levaquin] Allergy Mild PAIN Verified 12/05/16 08:05 ciprofloxacin [From Cipro] Allergy PAIN Verified 12/05/16 08:05 doxycycline Allergy DIZZY Verified 12/05/16 08:05 Metronidazole HCl Allergy PAIN Verified 12/05/16 08:05 [From Flagyl] Penicillins Allergy Swelling Verified 12/05/16 08:05 Home Medications: Ambulatory Orders Albuterol Sulfate Inhaler - [Ventolin Hfa Inhaler -] 1 - 2 inh PO QID 12/05/16 Bimatoprost [Lumigan] 1 drop OU DAILY 12/05/16 Clopidogrel Bisulfate [Plavix -] 75 mg PO DAILY 12/05/16 Docusate Sodium [Dulcolax Stool Softener] 100 mg PO DAILY PRN 12/05/16 Ergocalciferol [Drisdol -] 50,000 unit PO Q7D@1000 12/05/16 Insulin (Levemir) [Levemir Flexpen -] 0 units SQ BID 12/05/16 Insulin (Novolog) [Novolog Flexpen] 0 units SQ AC 12/05/16 Metoprolol Succinate [Toprol Xl -] 25 mg PO DAILY 12/05/16 Olopatadine HCl [Pazeo] 1 drop OP DAILY 12/05/16 Pantoprazole Sodium [Protonix] 40 mg PO DAILY 12/05/16 Cardiac Specific PMH - Complaint Specific PMHX Abdominal Aortic Aneurysm: No Angina: No Cardiac Arrhythmia: No Cardiac Stent: No GERD: No Pacemaker: No Pulmonary Embolus: No Valvular Heart Disease: No Peripheral Vascular Disease: No <Darrion Rowan - Last Filed: 12/05/16 14:53> Review of Systems - Review of Systems Able to Perform ROS?: Yes <Kaya Harrison - Last Filed: 12/05/16 14:03> <Darrion Rowan - Last Filed: 12/05/16 14:53> - Review of Systems Comments:: 12/05/16 08:38 CONSTITUTIONAL: No fever, no chills, no fatigue EYES: No visual changes ENT: No ear pain, no sore throat CARDIOVASCULAR: Yes: Chest pressure. No palpitations RESPIRATORY: Yes: Shortness of breath. No cough. GI: Yes: Abdominal pain. Chronic constipation. No nausea, no vomiting, no diarrhea GENITOURINARY: No dysuria, no frequency, no hematuria MUSKULOSKELETAL: No back pain, no joint pain, no myalgias SKIN: No rash NEURO: No headache (Kaya Harrison) *Physical Exam <Kaya Harrison - Last Filed: 12/05/16 14:03> <Darrion Rowan - Last Filed: 12/05/16 14:53> - Vital Signs Last Vital Signs Temp Pulse Resp BP Pulse Ox 97.9 F 80 20 116/73 95 12/05/16 08:02 12/05/16 12:13 12/05/16 12:13 12/05/16 12:13 12/05/16 12:13 - Physical Exam Comments: 12/05/16 12:58 EXAMINATION CONSTITUTIONAL: Awake and alert, obese, in no apparent distress HEAD: Normocephalic; atraumatic EYES: PERRL; patient is unable to completely abduct the eyeball on the left consistent with partial cranial nerve palsy; ENMT: External appears normal; normal oropharynx NECK: Supple; non-tender; no JVD CARD: Normal S1, S2; 1/6 se murmur, no rubs, or gallops RESP: Normal chest excursion with respiration; breath sounds clear and equal bilaterally; no wheezes, rhonchi, or rales ABD: Soft, non-distended; non-tender; no palpable organomegaly, no palpable hernias EXT: Normal ROM in all four extremities; non-tender to palpation; distal pulses intact; no edema SKIN: Warm, dry, no rash NEURO: No focal neurological deficiencies. (Darrion Rowan) Heart Score/ECG Review <Kaya Harrison - Last Filed: 12/05/16 14:03> <Darrion oRwan - Last Filed: 12/05/16 14:53> #1 12/05/16 09:48 Reviewed and interpreted by Dr. Darrion Rowan IMPRESSION: Sinus rhythm with a rate of 71 bpm with 1rst degree AV block ( Kaya Harrison) ED Treatment Course - LABORATORY CBC & Chemistry Diagram: 12/05/16 08:37 12/05/16 08:37 <Kaya Harrison - Last Filed: 12/05/16 14:03> - LABORATORY CBC & Chemistry Diagram: 12/05/16 08:37 12/05/16 08:37 <Darrion Rowan - Last Filed: 12/05/16 14:53> - ADDITIONAL ORDERS Additional order review: Laboratory Results 12/05/16 12/05/16 12/05/16 08:39 08:37 08:37 INR 1.12 D-Dimer < 200 Sodium 141 Potassium 3.9 Chloride 103 Carbon Dioxide 29 Anion Gap 9 BUN 15 D Creatinine 0.8 Creat Clearance w eGFR > 60 Random Glucose 139 H Calcium 9.3 Total Bilirubin 0.5 AST 24 ALT 39 Alkaline Phosphatase 81 Creatine Kinase 84 Troponin I < 0.02 Total Protein 7.6 Albumin 4.0 Lipase 474 H 12/05/16 08:37 RBC 5.04 MCV 92.2 MCHC 33.8 RDW 14.1 MPV 7.6 Neutrophils % 53.1 Lymphocytes % 30.4 D Monocytes % 11.7 H Eosinophils % 3.4 Basophils % 1.4 - RADIOLOGY Radiology Studies Ordered: Category Date Time Status CHEST X-RAY PORTABLE* [RAD] Stat Radiology 12/05/16 08:34 Completed Radiograph Interpretation: 12/05/16 09:35 EXAM: RAD/CHEST X-RAY PORTABLE Interpreted by Dr. Tello Meza IMPRESSION: Paranasal study November 09, 2016. Unchanged contour of the cardiomediastinal silhouette. Limited evaluation of the lung parenchyma in the left lower lung zone, obscured by the cardiac silhouette, left breast. No airspace opacities are seen in the visualized lungs. Bilateral platelike atelectasis No evidence of CHF, pneumothorax. No large pleural effusion is seen within limitation of examination. Intact visualized osseous structures. EKG leads are noted. (Kaya Harrison) - Medications Given in the ED: ED Medications Discontinued Medications Generic Name Dose Route Start Last Admin Trade Name Freq PRN Reason Stop Dose Admin Al Hydroxide/Mg Hydroxide 30 ml 12/05/16 08:36 12/05/16 08:55 Mylanta Oral Suspension - PO 12/05/16 08:37 30 ml ONCE ONE Administration Aspirin 324 mg 12/05/16 08:34 12/05/16 08:54 Asa - PO 12/05/16 08:35 324 mg ONCE ONE Administration Clopidogrel Bisulfate 75 mg 12/05/16 08:35 12/05/16 08:55 Plavix - PO 12/05/16 08:36 75 mg ONCE ONE Administration Nitroglycerin 1 inch 12/05/16 08:35 12/05/16 08:55 Nitro-Bid 2% Paste - TD 12/05/16 08:36 1 inch ONCE ONE Administration Ondansetron HCl 8 mg 12/05/16 11:45 12/05/16 11:47 Zofran Injection IVPB 12/05/16 11:46 8 mg ONCE ONE Administration Ranitidine HCl 150 mg 12/05/16 08:36 12/05/16 08:55 Zantac - PO 12/05/16 08:37 150 mg ONCE ONE Administration Medical Decision Making <Kaya Harrison - Last Filed: 12/05/16 14:03> <Darrion Rowan - Last Filed: 12/05/16 14:53> - Medical Decision Making 12/05/16 09:53 Paged Automobile Service Station Attendant, Dr. Naveen Ayers. Informed that Dr. Juliana Khan is covering. 09:[address] Juliana Khan. Immediate response. Case was discussed. 12/05/16 10:[address] Vern Noble. Immediate response. Case was discussed. 12/05/16 14:[address] Juliana Khan. (Kaya Harrison) *DC/Admit/Observation/Transfer <Kaya Harrison - Last Filed: 12/05/16 14:03> - Discharge Dispostion Admit: Yes <Darrion Rowan - Last Filed: 12/05/16 14:53> Diagnosis at time of Disposition: Nausea Chest pain Qualifiers: Chest pain type: unspecified Qualified Code(s): R07.9 - Chest pain, unspecified - Discharge Dispostion Condition at time of disposition: Fair - Referrals Referrals: Terri Thompson MD [Primary Care Provider] - - Attestations Scribe Attestion: 12/05/16 08:39 Documentation prepared by Kaya Harrison, acting as medical billing and coding specialist for Darrion Rowan MD. (Kaya Harrison) Physician Attestion: 12/05/16 12:58 The documentation was prepared by the scribe under my direct supervision. I have reviewed the documentation which correctly represents the findings, medical decision-making and critical action taken by me. (Darrion Rowan)
[2016-12-05] MEDS ORDERED: ASPIRIN 81 MG CHEWABLE TABLETS PO ONE (08:34)
[2016-12-05] MEDS ORDERED: NITROGLYCERIN 2% OINTMENT - 1GM PACKET TD ONE ×2 (08:35→08:46)
[2016-12-05] MEDS ORDERED: CLOPIDOGREL BISULFATE 75 MG TABLET (FP) PO ONE (08:35)
[2016-12-05] MEDS ORDERED: MAG HYDROX/AL HYDROX/SIMETH 30 ML UNIT-DOSE CUP PO ONE (08:36)
[2016-12-05] MEDS ORDERED: RANITIDINE HCL 150 MG TABLET (FP) PO ONE (08:36)
[2016-12-05] MEDS ORDERED: ASPIRIN 81 MG CHEWABLE TABLETS ONE (08:45)
[2016-12-05] MEDS ORDERED: RANITIDINE HCL 150 MG TABLET (FP) ONE (08:45)
[2016-12-05] MEDS ORDERED: CLOPIDOGREL BISULFATE 75 MG TABLET (FP) ONE (08:46)
[2016-12-05] MEDS ORDERED: MAG HYDROX/AL HYDROX/SIMETH 30 ML UNIT-DOSE CUP ONE (08:47)
[2016-12-05 09:08] LABS: BASOPHIL 1.4 % (0-2.0); EOSINOPHIL 3.4 % (0-4.5); MCH 31.2 pg (25.7-33.7); MCHC 33.8 g/dl (32.0-36.0); MEAN CELL VOLUME 92.2 fl (80-96); MEAN PLT VOLUME 7.6 fl (7.5-11.1); NEUTROPHILS 53.1 % (42.8-82.8); PLATELET COUNT 190 K/MM3 (134-434); RDW 14.1 % (11.6-15.6)
[2016-12-05 09:26] LABS: ANION GAP 9 (8-16); BILIRUBIN,TOTAL 0.5 mg/dL (0.2-1.0); CALCIUM 9.3 mg/dL (8.5-10.1); CO2 29 mmol/L (21-32); CREATININE 0.8 mg/dL (0.55-1.02); GLUCOSE,RANDOM 139 mg/dL (74-106); SGOT/AST 24 U/L (15-37); SGPT/ALT 39 U/L (12-78); TOT PROT 7.6 g/dl (6.4-8.2)
[2016-12-05 09:29] LABS: ALK PHOS 81 U/L (45-117); TROPONIN I < 0.02 ng/ml (0.00-0.05)
[2016-12-05 10:32] LABS: INR 1.12 (0.82-1.09); PROTHROMBIN TIME (PATIENT) 12.4 SEC (9.98-11.88)
--- NOTE | 2016-12-05 11:18 | EKG ---
Test Reason : Blood Pressure : / mmHG Vent. Rate : 071 BPM Atrial Rate : 071 BPM P-R Int : 220 ms QRS Dur : 102 ms QT Int : 422 ms P-R-T Axes : 064 -27 040 degrees QTc Int : 458 ms SINUS RHYTHM WITH 1ST DEGREE A-V BLOCK CANNOT RULE OUT SEPTAL INFARCT , AGE UNDETERMINED ABNORMAL ECG WHEN COMPARED WITH ECG OF 10-NOV-2016 08:32, T WAVE VARIATION Confirmed by ROBERTO STEIN, DEX ([id number]) on 12/05/2016 11:18:29 AM Referred By: Confirmed By:DEX MEJIA MD
[2016-12-05] MEDS ORDERED: ONDANSETRON 4 MG/2 ML VIAL IVPB ONE (11:45)
[2016-12-05] MEDS ORDERED: ONDANSETRON 4 MG/2 ML VIAL ONE (11:50)
--- NOTE | 2016-12-05 12:19 | CON.CARD ---
Cardiology Consult (text) - Consultation Consultation Note: cc: CP 71 smoker with h/o CAD s/p multiple PCI (most recent in October), chronic pain syndrome with chronic pain of chest, throat, back, abdomen, joints, mouth, HTN, HL, copd, fatty liver, congenital pancreatic abnormality, IDDM, grade I esophageal varices without hx of cirrhosis, gastritis, and recent hematuria p/w abdominal pain. + throat CP/burning radiating to right shoulder and back. different from prior anginal sx's. Sx's for the past week. + associated nausea and soft stools no response to ntg in the past. + chronic joint pain and burning paresthesias of mouth. 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 no headache, rash. no orthopnea, pnd, le edema, palps, dizziness, sob. endorses adherence to DAPT and statin pmhx/pshx :per hpi fam hx: mother with mi in 70's social hx: + tobacco ros: per hpi Ambulatory Orders Albuterol Sulfate Inhaler - [Ventolin Hfa Inhaler -] 1 - 2 inh PO QID 12/05/16 Bimatoprost [Lumigan] 1 drop OU DAILY 12/05/16 Clopidogrel Bisulfate [Plavix -] 75 mg PO DAILY 12/05/16 Docusate Sodium [Dulcolax Stool Softener] 100 mg PO DAILY PRN 12/05/16 Ergocalciferol [Drisdol -] 50,000 unit PO Q7D@1000 12/05/16 Insulin (Levemir) [Levemir Flexpen -] 0 units SQ BID 12/05/16 Insulin (Novolog) [Novolog Flexpen] 0 units SQ AC 12/05/16 Metoprolol Succinate [Toprol Xl -] 25 mg PO DAILY 12/05/16 Olopatadine HCl [Pazeo] 1 drop OP DAILY 12/05/16 Pantoprazole Sodium [Protonix] 40 mg PO DAILY 12/05/16 Vital Signs - 24 hr 12/05/16 12/05/16 08:02 12:13 Temperature 97.9 F Pulse Rate 75 Pulse Rate [ 80 Left Radial] Respiratory 20 20 Rate Blood Pressure 155/91 Blood Pressure 116/73 [Right Arm] O2 Sat by Pulse 95 95 Oximetry (%) Intake & Output 12/03/16 12/04/16 12/05/16 12/06/16 07:59 07:59 07:59 07:59 Weight 200 lb nad, calm jvd flat, neck supple bibasilar trace rales, nl effort rrr nl s1, s2 no mrg + bs soft nt nd ext with e/c/c + dp/pt, no carotid bruits aaox3 no jaundice, diaphoresis. CBC, BMP 12/05/16 08:37 12/05/16 08:37 Laboratory Tests 11/10/16 12/05/16 12/05/16 05:35 08:37 08:37 INR D-Dimer < 200 Total Bilirubin 0.5 AST 24 ALT 39 Creatine Kinase 84 Troponin I < 0.02 Albumin 4.0 Total LDL Cholesterol 163 H Lipase 474 H 12/05/16 08:39 INR 1.12 D-Dimer Total Bilirubin AST ALT Creatine Kinase Troponin I Albumin Total LDL Cholesterol Lipase prior med intolerances: plavix/ASA--diffuse, severe pain ("whole body on fire") and nausea every day for 12 mo of taking this; also recent hematuria crestor--body on fire, nausea, dizzy zocor--severe diarrhea simvastatin, atorva, prava--nausea, "something closes up and hard to breathe...i can feel it in my blood" ranexa: stomach upset Ziac--severe MANZANO, pancreatitis Bystolic--"i felt sick" EKG: sr, av delay. leftward axis. ivcd. anterior q waves tele: nsr Echo 10/2016 nl lv/rv/valves [facility] 10/30: 70-80% pRCA--Synergy ROGE; 30-50% mRCA; 90-95% thrombotic dRCA-- Synergy ROGE; 70-80% pLAD; patent mLAD stent; patent D1 stent with 50-60% D1 disease; 60-70% OM1 (SMALL VESSEL); 80-90% ISR (prior xience) in [place]; EDP 15, EF 50%; mild HK diaphragmatic and posterobasal monahan [facility] 07/24 (staged PCI): 70-80% dRCA--Xience; +IVUS of mLAD--Xience; prior stents patent [facility] 06/22: 50-60% mLAD, 90% D1--Taxus; 60-70% OM1, 90-95% high lateral--Xience x 2; 30-50% mRCA, 60-70% dRCA; nl EDP and EF MPI 03/31 (pers): no STs; medium/moderate ischemia IW/inferolateral; nl EF; no TID 71 smoker with h/o CAD s/p multiple PCI (most recent in October), chronic pain syndrome with chronic pain of chest, throat, back, abdomen, joints, mouth, HTN, HL, copd, fatty liver, congenital pancreatic abnormality, IDDM, grade I esophageal varices without hx of cirrhosis, gastritis, and recent hematuria p/w abdominal pain. CP/CAD - recent stent in October. Sx's atypical, would likely have more of an acute event if this were in stent thrombosis, but at risk for cardiac event. Con't jany - con't dapt, statin, bb - lipase elevated. work up per pmd. HTN - controlled on current regimen HL - statin If patient rules out can be safe for discharge from CV perspective in the morning. Follow up with emergency room nurse.
--- NOTE | 2016-12-05 15:31 | HP ---
CHIEF COMPLAINT: Chest Pain PCP: Jay Ayers HISTORY OF PRESENT ILLNESS: The patient is a 71-year-old woman, accompanied by her neighbor, with a significant past medical history of hypertension, [id number] myocardial infarction (November 10 2016; s/p 2 stent placements and 4 more back in 2007 and 2008), insulin diabetes mellitus, chronic constipation, H. Pylori and pancreatitis who presents to the emergency department via walk-in for further evaluation of shortness of breath. Patient reports that ever since her MS and stent placement, she has been feeling mildly short of breath. She also reports experiencing right sided chest pressure constant sensations that radiate up to her neck since her surgery. She reports explaining this to her Surgical Technologist. She states that over the past week, as she reports orthopnea and states that she has been needing to sleep in an upright position with 2-3 pillows for her shortness of breath. She denies fever, chills, cough, hemoptysis, diaphoresis, headache, jaw/ back pain lower extremity pain/swelling, calf tenderness/pain. She also reports her chronic constipation. She notes associated symptoms of diffuse abdominal discomfort. He last bowel movement was a few days ago. She denies nausea, vomiting, diarrhea, dysuria, hematuria, urinary frequency and urgency, flank pain. Allergies: Levofloxacin. Ciprofloxacin. Doxycycline. Metronidazole. Penicillin. Past Surgical History: Stent Placement x6 (2 were placed recently at [facility] as a result of an MS in 11/10/2016). Esophagogastroduodenoscopy Social History: Former smoker (half a pack/day for 30 years). No EtOH and recreational drug use. ER course was notable for: (1) chest pain, first trop neg (2) cardiology saw patient requesting obs/telel for three trop trend and observation of pt (3) Recent Travel: PMH: smoker with h/o CAD s/p multiple PCI (most recent in October), chronic pain syndrome with chronic pain of chest, throat, back, abdomen, joints, mouth, HTN, HL, copd, fatty liver, congenital pancreatic abnormality, IDDM, grade I esophageal varices without hx of cirrhosis, gastritis, and recent hematuria p/w abdominal pain. Family History: Allergies levofloxacin [From Levaquin] Allergy (Mild, Verified 12/05/16 08:05) PAIN PAIN ALL OVER THE BODY ciprofloxacin [From Cipro] Allergy (Verified 12/05/16 08:05) PAIN PAIN ALL OVER BODY doxycycline Allergy (Verified 12/05/16 08:05) DIZZY Metronidazole HCl [From Flagyl] Allergy (Verified 12/05/16 08:05) PAIN PAIN ALL OVER BODY. SENSATION THAT THROAT IS CLOSING Penicillins Allergy (Verified 12/05/16 08:05) Swelling THROAT CLOSE HOME MEDICATIONS: Home Medications Medication Instructions Recorded Albuterol Sulfate Inhaler - 1 - 2 inh PO QID 12/05/16 [Ventolin Hfa Inhaler -] Bimatoprost [Lumigan] 1 drop OU DAILY 12/05/16 Clopidogrel Bisulfate [Plavix -] 75 mg PO DAILY 12/05/16 Docusate Sodium [Dulcolax Stool 100 mg PO DAILY PRN 12/05/16 Softener] Ergocalciferol [Drisdol -] 50,000 unit PO Q7D@1000 12/05/16 Insulin (Levemir) [Levemir Flexpen 0 units SQ BID 12/05/16 -] Insulin (Novolog) [Novolog Flexpen] 0 units SQ AC 12/05/16 Metoprolol Succinate [Toprol Xl -] 25 mg PO DAILY 12/05/16 Olopatadine HCl [Pazeo] 1 drop OP DAILY 12/05/16 Pantoprazole Sodium [Protonix] 40 mg PO DAILY 12/05/16 REVIEW OF SYSTEMS CONSTITUTIONAL: Absent: fever, chills, diaphoresis, generalized weakness, malaise, loss of appetite, weight change HEENT: Absent: rhinorrhea, nasal congestion, throat pain, throat swelling, difficulty swallowing, mouth swelling, ear pain, eye pain, visual changes CARDIOVASCULAR: Absent: (+)chest pain, syncope, palpitations, irregular heart rate, lightheadedness, peripheral edema RESPIRATORY: Absent: cough,(+) shortness of breath, dyspnea with exertion,(+)orthopnea, wheezing, stridor, hemoptysis GASTROINTESTINAL: Absent: abdominal pain, abdominal distension, nausea, vomiting, diarrhea, (+) chronic constipation, melena, hematochezia GENITOURINARY: Absent: dysuria, frequency, urgency, hesitancy, hematuria, flank pain, genital pain MUSCULOSKELETAL: Absent: myalgia, arthralgia, joint swelling, back pain, neck pain SKIN: Absent: rash, itching, pallor HEMATOLOGIC/IMMUNOLOGIC: Absent: easy bleeding, easy bruising, lymphadenopathy, frequent infections ENDOCRINE: Absent: unexplained weight gain, unexplained weight loss, heat intolerance, cold intolerance NEUROLOGIC: Absent: headache, focal weakness or paresthesias, dizziness, unsteady gait, seizure, mental status changes, bladder or bowel incontinence PSYCHIATRIC: Absent: anxiety, depression, suicidal or homicidal ideation, hallucinations. PHYSICAL EXAMINATION GENERAL: Awake, alert, and fully oriented, in no acute distress. HEAD: Normal with no signs of trauma. NECK: Normal range of motion, supple without lymphadenopathy, JVD, or masses. LUNGS: Breath sounds equal, clear to auscultation bilaterally. No wheezes, and no crackles. No accessory muscle use. HEART: Regular rate and rhythm, normal S1 and S2 without murmur, rub or gallop. ABDOMEN: Soft, nontender, not distended, normoactive bowel sounds, no guarding, no rebound, no masses. No hepatomegaly or splenomegaly. MUSCULOSKELETAL: Normal range of motion at all joints. No bony deformities or tenderness. No CVA tenderness. UPPER EXTREMITIES: 2+ pulses, warm, well-perfused. No cyanosis. No clubbing. No peripheral edema. LOWER EXTREMITIES: 2+ pulses, warm, well-perfused. No calf tenderness. No peripheral edema. NEUROLOGICAL: Cranial nerves II-XII intact. Normal speech. Normal gait. PSYCHIATRIC: Cooperative. Good eye contact. Appropriate mood and affect. SKIN: Warm, dry, normal turgor, no rashes or lesions noted, normal capillary refill. ASSESSMENT/PLAN: This 71 yr old female presents with c/o chest pain from jaw to abdominal area. Recent stent placement in October. EKG WNL, First trop neg 1. Chest pain -trend trops x 3 -appreciate ruby engineer consult and note. -tele obs -monitor labs 2. History of pancreatitis -trend lipase, currently hx shows this is lower end for pt trend Visit type - Emergency Visit Emergency Visit: Yes ED Registration Date: 12/05/16 Care time: The patient presented to the Emergency Department on the above date and was hospitalized for further evaluation of their emergent condition. - New Patient This patient is new to me today: Yes Date on this admission: 12/05/16 - Critical Care Critical Care patient: No
[2016-12-05] MEDS ORDERED: ALBUTEROL SO4 6.7 GM HFA INHALER IH PRN ×2 (17:07→18:00)
[2016-12-05] MEDS: ACETAMINOPHEN 325 MG TABLET (FP) PO PRN (19:50)
[2016-12-05] MEDS: ERGOCALCIFEROL (VITAMIN D2) 50,000 UNIT CAPSULE (FP) PO SCH (20:01)
[2016-12-05] MEDS: INSULIN SLIDING SCALE (NOVOLOG) 1 VIAL SQ SCH (21:10)
[2016-12-05] MEDS: LATANOPROST 0.005% OPHTH SOLN 2.5ML BOTTLE OU SCH (21:10)
[2016-12-05] MEDS ORDERED: INSULIN SLIDING SCALE (NOVOLOG) 1 VIAL SQ SCH ×3 (22:00)
[2016-12-06] MEDS: ACETAMINOPHEN 325 MG TABLET (FP) PO PRN (02:08)
[2016-12-06] MEDS: DOCUSATE SODIUM 100 MG CAPSULE (FP) PO PRN (02:09)
[2016-12-06] MEDS: INSULIN SLIDING SCALE (NOVOLOG) 1 VIAL SQ SCH ×4 (06:33→22:19)
[2016-12-06 07:36] LABS: ANION GAP 12 (8-16); CO2 26 mmol/L (21-32); COCKROFT - GAULT 79.7215; CREATININE 0.9 mg/dL (0.55-1.02); GLUCOSE,RANDOM 143 mg/dL (74-106)
[2016-12-06 07:37] LABS: MCH 31.9 pg (25.7-33.7); MCHC 34.7 g/dl (32.0-36.0); MEAN CELL VOLUME 92.1 fl (80-96); MEAN PLT VOLUME 7.7 fl (7.5-11.1); PLATELET COUNT 174 K/MM3 (134-434); RDW 13.9 % (11.6-15.6); WHITE BLOOD COUNT 5.9 K/mm3 (4.0-10.0)
[2016-12-06 07:39] LABS: TROPONIN I < 0.02 ng/ml (0.00-0.05)
[2016-12-06] MEDS: CLOPIDOGREL BISULFATE 75 MG TABLET (FP) PO SCH (09:12)
[2016-12-06] MEDS: METOPROLOL SUCCINATE 25 MG TAB.SR.24H (FP) PO SCH (09:12)
[2016-12-06] MEDS: PANTOPRAZOLE 40 MG TABLET (FP) PO SCH (09:12)
[2016-12-06] MEDS: ASPIRIN COATED 81 MG TABLET.EC PO SCH (09:12)
[2016-12-06] MEDS ORDERED: PATIENT'S OWN MEDICATION (NON-FORMULARY) (Olopatadine Hcl [Pazeo] 1 DROP) OP SCH (10:00)
--- NOTE | 2016-12-06 11:52 | PN ---
Progress Note (short form) - Note Progress Note: s: no palps dizzy loc le edema; still with congestion in chest and sinuses, + cough. still with abd pain o: Vital Signs Period Temp Pulse Resp BP Sys/Johnson Pulse Ox Last 24 Hr 97.7 F-98.7 F 72-88 18-20 113-137/63-78 95-95 nad, calm jvd flat, neck supple cta bl, nl effort rrr nl s1, s2 no mrg + bs soft nt nd ext without e/c/c aaox3 no jaundice, diaphoresis. Current Medications Generic Name Dose Route Start Last Admin Trade Name Freq PRN Reason Stop Dose Admin Acetaminophen 650 mg 12/05/16 16:35 12/06/16 02:08 Tylenol - PO 650 mg Q4H PRN Administration FEVER OR PAIN Albuterol Sulfate 1 puff 12/05/16 18:00 Ventolin Hfa Inhaler - IH Q6H PRN Albuterol Sulfate 2 puff 12/05/16 17:27 Ventolin Hfa Inhaler - IH Q6H PRN SHORTNESS OF BREATH Aspirin 81 mg 12/06/16 10:00 12/06/16 09:12 Ecotrin - PO 81 mg DAILY AIDE Administration Atorvastatin Calcium 20 mg 12/06/16 22:00 Lipitor - PO HS AIDE Clopidogrel Bisulfate 75 mg 12/06/16 10:00 12/06/16 09:12 Plavix - PO 75 mg DAILY AIDE Administration Docusate Sodium 100 mg 12/05/16 16:26 12/06/16 02:09 Colace - PO 100 mg DAILY PRN Administration CONSTIPATION Ergocalciferol 50,000 unit 12/05/16 17:30 12/05/16 20:01 Drisdol - PO 50,000 unit Tu@1000 AIDE Administration Insulin Aspart 1 vial 12/05/16 22:00 12/06/16 11:17 Novolog Vial Sliding Scale - SQ Not Given ACHS [facility] Protocol Latanoprost 1 drop 12/05/16 22:00 12/05/16 21:10 Xalatan 0.005% Eye Drops - OU 1 drop HS AIDE Administration Metoprolol Succinate 25 mg 12/06/16 10:00 12/06/16 09:12 Toprol Xl - PO 25 mg DAILY AIDE Administration Non-Formulary Medication 1 drop 12/06/16 10:00 Olopatadine Hcl [Pazeo] OP DAILY AIDE Pantoprazole Sodium 40 mg 12/06/16 10:00 12/06/16 09:12 Protonix - PO 40 mg DAILY AIDE Administration CBC, BMP 12/06/16 05:35 12/06/16 05:35 prior med intolerances: plavix/ASA--diffuse, severe pain ("whole body on fire") and nausea every day for 12 mo of taking this; also recent hematuria crestor--body on fire, nausea, dizzy zocor--severe diarrhea simvastatin, atorva, prava--nausea, "something closes up and hard to breathe...i can feel it in my blood" ranexa: stomach upset Ziac--severe MANZANO, pancreatitis Bystolic--"i felt sick" EKG: sr, av delay. leftward axis. ivcd. anterior q waves tele: sr, occ pvcs Echo 10/2016 nl lv/rv/valves [facility] 10/30: 70-80% pRCA--Synergy ROGE; 30-50% mRCA; 90-95% thrombotic dRCA-- Synergy ROGE; 70-80% pLAD; patent mLAD stent; patent D1 stent with 50-60% D1 disease; 60-70% OM1 (SMALL VESSEL); 80-90% ISR (prior xience) in [place]; EDP 15, EF 50%; mild HK diaphragmatic and posterobasal monahan [facility] 07/24 (staged PCI): 70-80% dRCA--Xience; +IVUS of mLAD--Xience; prior stents patent [facility] 06/22: 50-60% mLAD, 90% D1--Taxus; 60-70% OM1, 90-95% high lateral--Xience x 2; 30-50% mRCA, 60-70% dRCA; nl EDP and EF MPI 03/31 (pers): no STs; medium/moderate ischemia IW/inferolateral; nl EF; no TID a/p: 71 smoker with h/o CAD s/p multiple PCI (most recent in October), chronic pain syndrome with chronic pain of chest, throat, back, abdomen, joints, mouth, HTN, HL, copd, fatty liver, congenital pancreatic abnormality, IDDM, grade I esophageal varices without hx of cirrhosis, gastritis, and recent hematuria p/w abdominal pain. CP/CAD - recent stent in October. Sx's now atypical. - trop neg x3 - no signs acs - con't dapt, statin, bb HTN - controlled on current regimen HL - cont statin pts current nonspecific symptoms do not seem cardiac related. cardiac poole remains stable
--- NOTE | 2016-12-06 16:15 | PN ---
Progress Note, Physician Chief Complaint: Ms Ocasio has a lot of non-specific complaints. She says she has sinus pain and cannot breathe. She says she has pain that extends from the front of her face down to her feet, including chest and abdominal pain. She says she cannot walk secondary to the pain. She says she felt a "pop" in her abdomen prior to admission which caused back pain. She says that there has been blood in her urine as well. - Current Medication List Current Medications: Active Medications Acetaminophen (Tylenol -) 650 mg PO Q4H PRN PRN Reason: FEVER OR PAIN Last Admin: 12/06/16 02:08 Dose: 650 mg Albuterol Sulfate (Ventolin Hfa Inhaler -) 1 puff IH Q6H PRN Albuterol Sulfate (Ventolin Hfa Inhaler -) 2 puff IH Q6H PRN PRN Reason: SHORTNESS OF BREATH Aspirin (Ecotrin -) 81 mg PO DAILY [facility] Last Admin: 12/06/16 09:12 Dose: 81 mg Atorvastatin Calcium (Lipitor -) 20 mg PO HS [facility] Clopidogrel Bisulfate (Plavix -) 75 mg PO DAILY [facility] Last Admin: 12/06/16 09:12 Dose: 75 mg Docusate Sodium (Colace -) 100 mg PO DAILY PRN PRN Reason: CONSTIPATION Last Admin: 12/06/16 02:09 Dose: 100 mg Ergocalciferol (Drisdol -) 50,000 unit PO Tu@1000 [facility] Last Admin: 12/05/16 20:01 Dose: 50,000 unit Insulin Aspart (Novolog Vial Sliding Scale -) 1 vial SQ ACHS [facility] PRN Reason: Protocol Last Admin: 12/06/16 11:17 Dose: Not Given Latanoprost (Xalatan 0.005% Eye Drops -) 1 drop OU HS [facility] Last Admin: 12/05/16 21:10 Dose: 1 drop Metoprolol Succinate (Toprol Xl -) 25 mg PO DAILY [facility] Last Admin: 12/06/16 09:12 Dose: 25 mg Non-Formulary Medication (Olopatadine Hcl [Pazeo]) 1 drop OP DAILY [facility] Pantoprazole Sodium (Protonix -) 40 mg PO DAILY [facility] Last Admin: 12/06/16 09:12 Dose: 40 mg - Objective Vital Signs: Vital Signs Temperature 98.4 F 12/06/16 14:45 Pulse Rate 92 H 12/06/16 14:45 Respiratory Rate 20 12/06/16 14:45 Blood Pressure 119/65 12/06/16 14:45 O2 Sat by Pulse Oximetry (%) 95 12/05/16 17:15 Constitutional: Yes: Well Nourished, No Distress, Calm Cardiovascular: Yes: Regular Rate and Rhythm. No: Gallop, Murmur, Rub Respiratory: Yes: Regular, CTA Bilaterally. No: Rales, Rhonchi, Wheezes Gastrointestinal: Yes: Normal Bowel Sounds, Soft. No: Distention, Tenderness Extremities: Yes: WNL Edema: No Labs: CBC, BMP 12/06/16 05:35 12/06/16 05:35 INR, PTT INR 1.12 (0.82-1.09) 12/05/16 08:39 Problem List - Problems (1) Chest pain Assessment/Plan: -appreciate cardiology assistance -cardiac enzymes negative -cleared from a cardiology standpoint Code(s): R07.9 - CHEST PAIN, UNSPECIFIED Qualifiers: Chest pain type: unspecified Qualified Code(s): R07.9 - Chest pain, unspecified (2) Abdominal pain Assessment/Plan: -difficult to ascertain, as she has multiple areas of pain that is very diffuse and non-specific -has been followed by Dr Noble, will place a consult for evaluation Code(s): R10.9 - UNSPECIFIED ABDOMINAL PAIN (3) Bronchitis Assessment/Plan: -lung exam clear -normal saturations and not appearing short of breath -monitor Code(s): J40 - BRONCHITIS, NOT SPECIFIED ACUTE OR CHRONIC (4) CAD (coronary artery disease) Assessment/Plan: -continue home regimen Code(s): I25.10 - ATHSCL HEART DISEASE OF [place] CORONARY ARTERY W/O ANG PCTRS (5) Diabetes mellitus Assessment/Plan: -continue home regimen -diabetic diet Code(s): E11.9 - TYPE 2 DIABETES MELLITUS WITHOUT COMPLICATIONS Qualifiers: Diabetes mellitus type: type 2 Diabetes mellitus correction insulin use : with correction use (6) HTN (hypertension) Assessment/Plan: -continue toprol xl Code(s): I10 - ESSENTIAL (PRIMARY) HYPERTENSION (7) Hematuria Assessment/Plan: -from history -will check urinalysis Code(s): R31.9 - HEMATURIA, UNSPECIFIED
[2016-12-06] MEDS ORDERED: ONDANSETRON 4 MG/2 ML VIAL IVPB PRN (18:56)
[2016-12-06] MEDS ORDERED: ATORVASTATIN CA 20 MG TABLET (FP) PO SCH (22:00)
[2016-12-06] MEDS: traMADol HCL 50 MG TABLET PO PRN (22:18)
[2016-12-06] MEDS: LATANOPROST 0.005% OPHTH SOLN 2.5ML BOTTLE OU SCH (22:19)
[2016-12-07] MEDS: INSULIN SLIDING SCALE (NOVOLOG) 1 VIAL SQ SCH ×4 (06:12→21:51)
[2016-12-07 07:56] LABS: CALCIUM 9.2 mg/dL (8.5-10.1); COCKROFT - GAULT 89.692; CREATININE 0.8 mg/dL (0.55-1.02); MAGNESIUM 2.2 mg/dL (1.8-2.4); PHOSPHOROUS 3.4 mg/dL (2.5-4.9)
[2016-12-07 08:14] LABS: BASOPHIL 0.8 % (0-2.0); EOSINOPHIL 2.5 % (0-4.5); MCH 31.4 pg (25.7-33.7); MCHC 33.9 g/dl (32.0-36.0); MEAN CELL VOLUME 92.4 fl (80-96); MEAN PLT VOLUME 7.8 fl (7.5-11.1); PLATELET COUNT 171 K/MM3 (134-434); RDW 13.5 % (11.6-15.6); WHITE BLOOD COUNT 5.5 K/mm3 (4.0-10.0)
[2016-12-07] MEDS: DOCUSATE SODIUM 100 MG CAPSULE (FP) PO PRN (09:07)
[2016-12-07] MEDS: ASPIRIN COATED 81 MG TABLET.EC PO SCH (09:08)
[2016-12-07] MEDS: traMADol HCL 50 MG TABLET PO PRN (09:08)
[2016-12-07] MEDS: METOPROLOL SUCCINATE 25 MG TAB.SR.24H (FP) PO SCH (09:08)
[2016-12-07] MEDS: PANTOPRAZOLE 40 MG TABLET (FP) PO SCH (09:08)
[2016-12-07] MEDS: CLOPIDOGREL BISULFATE 75 MG TABLET (FP) PO SCH (09:08)
--- NOTE | 2016-12-07 11:53 | PN ---
Progress Note (short form) - Note Progress Note: s: no palps dizzy loc le edema; still with congestion in chest and sinuses, + cough. still with abd pain o: Vital Signs Period Temp Pulse Resp BP Sys/Johnson Pulse Ox Last 24 Hr 97.6 F-98.5 F 75-92 18-20 119-136/65-90 96-96 nad calm jvd flat, neck supple cta bl, nl effort rrr nl s1, s2 no mrg + bs soft nt nd ext without e/c/c aaox3 no jaundice, diaphoresis. Current Medications Generic Name Dose Route Start Last Admin Trade Name Freq PRN Reason Stop Dose Admin Acetaminophen 650 mg 12/05/16 16:35 12/06/16 02:08 Tylenol - PO 650 mg Q4H PRN Administration FEVER OR PAIN Albuterol Sulfate 1 puff 12/05/16 18:00 Ventolin Hfa Inhaler - IH Q6H PRN Albuterol Sulfate 2 puff 12/05/16 17:27 Ventolin Hfa Inhaler - IH Q6H PRN SHORTNESS OF BREATH Aspirin 81 mg 12/06/16 10:00 12/07/16 09:08 Ecotrin - PO 81 mg DAILY AIDE Administration Atorvastatin Calcium 20 mg 12/06/16 22:00 12/06/16 22:19 Lipitor - PO Not Given HS AIDE Clopidogrel Bisulfate 75 mg 12/06/16 10:00 12/07/16 09:08 Plavix - PO 75 mg DAILY AIDE Administration Docusate Sodium 100 mg 12/05/16 16:26 12/07/16 09:07 Colace - PO 100 mg DAILY PRN Administration CONSTIPATION Ergocalciferol 50,000 unit 12/05/16 17:30 12/05/16 20:01 Drisdol - PO 50,000 unit Tu@1000 AIDE Administration Insulin Aspart 1 vial 12/05/16 22:00 12/07/16 11:36 Novolog Vial Sliding Scale - SQ Not Given ACHS [facility] Protocol Latanoprost 1 drop 12/05/16 22:00 12/06/16 22:19 Xalatan 0.005% Eye Drops - OU 1 drop HS AIDE Administration Metoprolol Succinate 25 mg 12/06/16 10:00 12/07/16 09:08 Toprol Xl - PO 25 mg DAILY AIDE Administration Non-Formulary Medication 1 drop 12/06/16 10:00 Olopatadine Hcl [Pazeo] OP DAILY AIDE Ondansetron HCl 4 mg 12/06/16 18:56 Zofran Injection IVPB Q6H PRN NAUSEA AND/OR VOMITING Pantoprazole Sodium 40 mg 12/06/16 10:00 12/07/16 09:08 Protonix - PO 40 mg DAILY AIDE Administration Tramadol HCl 50 mg 12/06/16 18:56 12/07/16 09:08 Ultram - PO 50 mg Q8H PRN Administration CBC, BMP 12/07/16 05:35 12/07/16 05:35 prior med intolerances: plavix/ASA--diffuse, severe pain ("whole body on fire") and nausea every day for 12 mo of taking this; also recent hematuria crestor--body on fire, nausea, dizzy zocor--severe diarrhea simvastatin, atorva, prava--nausea, "something closes up and hard to breathe...i can feel it in my blood" ranexa: stomach upset Ziac--severe MANZANO, pancreatitis Bystolic--"i felt sick" EKG: sr, av delay. leftward axis. ivcd. anterior q waves tele: sr Echo 10/2016 nl lv/rv/valves [facility] 10/30: 70-80% pRCA--Synergy ROGE; 30-50% mRCA; 90-95% thrombotic dRCA-- Synergy ROGE; 70-80% pLAD; patent mLAD stent; patent D1 stent with 50-60% D1 disease; 60-70% OM1 (SMALL VESSEL); 80-90% ISR (prior xience) in [place]; EDP 15, EF 50%; mild HK diaphragmatic and posterobasal monahan [facility] 07/24 (staged PCI): 70-80% dRCA--Xience; +IVUS of mLAD--Xience; prior stents patent [facility] 06/22: 50-60% mLAD, 90% D1--Taxus; 60-70% OM1, 90-95% high lateral--Xience x 2; 30-50% mRCA, 60-70% dRCA; nl EDP and EF MPI 03/31 (pers): no STs; medium/moderate ischemia IW/inferolateral; nl EF; no TID a/p: 71 smoker with h/o CAD s/p multiple PCI (most recent in October), chronic pain syndrome with chronic pain of chest, throat, back, abdomen, joints, mouth, HTN, HL, copd, fatty liver, congenital pancreatic abnormality, IDDM, grade I esophageal varices without hx of cirrhosis, gastritis, and recent hematuria p/w abdominal pain. CP/CAD - recent stent in October. Sx's now atypical. - trop neg x3 - no signs acs - con't dapt, bb HTN - controlled on current regimen HL - pt reports that no longer on statin, now getting injections of praluent as outpt pts current nonspecific symptoms do not seem cardiac related. cardiac poole remains stable dc tele
--- NOTE | 2016-12-07 14:39 | DS ---
Physical Examination Vital Signs: Vital Signs Temperature 98.5 F 12/07/16 07:38 Pulse Rate 81 12/07/16 07:38 Respiratory Rate 18 12/07/16 07:41 Blood Pressure 122/73 12/07/16 07:38 O2 Sat by Pulse Oximetry (%) 96 12/07/16 07:41 Constitutional: Yes: Well Nourished, No Distress, Calm Cardiovascular: Yes: Regular Rate and Rhythm. No: Gallop, Murmur, Rub Respiratory: Yes: Regular, CTA Bilaterally. No: Rales, Rhonchi, Wheezes Gastrointestinal: Yes: Normal Bowel Sounds, Soft. No: Distention, Tenderness Extremities: Yes: WNL Edema: No Labs: CBC, BMP 12/07/16 05:35 12/07/16 05:35 Discharge Summary Reason For Visit: CHEST PAIN Current Active Problems Abdominal pain (Acute) Chest pain (Acute) Hematuria (Acute) Nausea (Acute) Hospital Course: (1) Chest pain Code(s): R07.9 - CHEST PAIN, UNSPECIFIED Qualifiers: Chest pain type: unspecified Qualified Code(s): R07.9 - Chest pain, unspecified (2) Abdominal pain Code(s): R10.9 - UNSPECIFIED ABDOMINAL PAIN (3) Bronchitis Code(s): J40 - BRONCHITIS, NOT SPECIFIED ACUTE OR CHRONIC (4) CAD (coronary artery disease) Code(s): I25.10 - ATHSCL HEART DISEASE OF [place] CORONARY ARTERY W/O ANG PCTRS (5) Diabetes mellitus Code(s): E11.9 - TYPE 2 DIABETES MELLITUS WITHOUT COMPLICATIONS Qualifiers: Diabetes mellitus type: type 2 Diabetes mellitus ad terminal makeup operator insulin use : with residential use (6) HTN (hypertension) Code(s): I10 - ESSENTIAL (PRIMARY) HYPERTENSION (7) Hematuria Code(s): R31.9 - HEMATURIA, UNSPECIFIED Ms Ocasio is a 71 year old female who comes in with diffuse pain. She was admitted for chest pain and admitted under observation. She was seen by cardiology and cleared. Since she has abdominal pain, Dr Noble was consulted as she follows with him as an outpatient. I am awaiting recommendation. She says she has pain from head to toe, that she cannot walk, and that she cannot breathe. However her lungs were clear and she has normal saturations on room air. She is also ambulating in the torres. At this point since all her labs are normal and her vital signs are normal she is safe for discharge home with follow up. Condition: Good - Instructions Diet, Activity, Other Instructions: resume previous diet and activity Referrals: Terri Thompson MD [Primary Care Provider] - Vern Noble MD [Staff Physician] - Disposition: HOME - Home Medications Comprehensive Discharge Medication List: Ambulatory Orders Albuterol Sulfate Inhaler - [Ventolin HFA Inhaler -] 1 - 2 inh PO QID 12/05/16 Bimatoprost [Lumigan] 1 drop OU DAILY 12/05/16 Clopidogrel Bisulfate [Plavix -] 75 mg PO DAILY 12/05/16 Docusate Sodium [Dulcolax Stool Softener] 100 mg PO DAILY PRN 12/05/16 Ergocalciferol [Drisdol -] 50,000 unit PO Q7D@1000 12/05/16 Insulin (Levemir) [Levemir Flexpen -] 0 units SQ BID 12/05/16 Insulin (Novolog) [Novolog Flexpen -] 0 units SQ AC 12/05/16 Metoprolol Succinate [Toprol XL -] 25 mg PO DAILY 12/05/16 Olopatadine HCl [Pazeo] 1 drop OP DAILY 12/05/16 Pantoprazole Sodium [Protonix] 40 mg PO DAILY 12/05/16 Aspirin Coated [Ecotrin -] 81 mg PO DAILY tab.ec 12/07/16 Atorvastatin Ca [Lipitor] 20 mg PO HS #30 tablet 12/07/16
[2016-12-07] MEDS ORDERED: MAGNESIUM HYDROX 2400MG/30ML ORAL SUSPENSION 30 ML CUP PO ONE (19:32)
--- NOTE | 2016-12-07 19:46 | CON.GI ---
Consult Consult Specialty:: GASTROENTEROLOGY Reason for Consultation:: ABDOMINAL PAIN - History of Present Illness Chief Complaint: ABDOMINAL PAIN History of Present Illness: 71 YEAR OLD FEMALE WITH PANCREATIC DIVISUM/RECURRENT PANCREATITIS / CHRONIC ABDOMINAL PAIN/IBS AND CAD/STENTS ADMITTED WITH CHEST PAIN AND ABDOMINAL PAIN. HER DESCRIPTION OF HER ABDOMINAL PAIN I HAVE HEARD BEFORE. HER DESCRIPTIONS ARE CONFUSING AND VAGUE AND THEY HAVE BEEN THIS WAY FOR YEARS. SHE HAS PANCREATIC DIVISIUM BUT HAS ONLY HAD ONE EPISODE OF SIGNIFICANT PANCREATITIS. I FOLLOW HER WITH CT AND MRI'S. THESE STUDIES HAVE NEVER REVEALED A PANCREATIC MASS. SHE HAS HAD AN ENDOSCOPIC ULTRASOUND WHICH WAS ALSO NEGATIVE FOR MASS. SHE DOES HAVE CONSTIPATION AND REFLUX. SHE STATES THAT SHE HAS DIFFICULTY WITH BM BUT NO RECTAL BLEEDING. SHE IS ALSO COMPLAINING OF NAUSEA. HER LIPASE IS SLIGHTLY ELEVATED (400'S). SHE IS ON NEW MEDICATIONS INCLUDING TRAMADOL. SHE HAS A NEW CN6 PALSY. - History Source History Provided By: Patient Limitations to Obtaining History: No Limitations - Past Medical History Cardio/Vascular: Yes: CAD Gastrointestinal: Yes: Constipation, GERD, Irritable Bowel Disease, Pancreatitis , Other (PANCREATIC DIVISUM) Renal/: Yes: Renal Calculi Endocrine: Yes: Diabetes Mellitus - Past Surgical History Past Surgical History: Yes: Cholecystectomy, Stent - Alcohol/Substance Use Hx Alcohol Use: No History of Substance Use: reports: None - Smoking History Smoking history: Former smoker Have you smoked in the past 12 months: No Aproximately how many cigarettes per day: 10 - Social History ADL: Independent History of Recent Travel: No Home Medications - Allergies Allergies/Adverse Reactions: Allergies Allergy/AdvReac Type Severity Reaction Status Date / Time levofloxacin [From Levaquin] Allergy Mild PAIN Verified 12/05/16 08:05 ciprofloxacin [From Cipro] Allergy PAIN Verified 12/05/16 08:05 doxycycline Allergy DIZZY Verified 12/05/16 08:05 Metronidazole HCl Allergy PAIN Verified 12/05/16 08:05 [From Flagyl] Penicillins Allergy Swelling Verified 12/05/16 08:05 - Home Medications Home Medications: Ambulatory Orders Albuterol Sulfate Inhaler - [Ventolin HFA Inhaler -] 1 - 2 inh PO QID 12/05/16 Bimatoprost [Lumigan] 1 drop OU DAILY 12/05/16 Clopidogrel Bisulfate [Plavix -] 75 mg PO DAILY 12/05/16 Docusate Sodium [Dulcolax Stool Softener] 100 mg PO DAILY PRN 12/05/16 Ergocalciferol [Drisdol -] 50,000 unit PO Q7D@1000 12/05/16 Insulin (Levemir) [Levemir Flexpen -] 0 units SQ BID 12/05/16 Insulin (Novolog) [Novolog Flexpen -] 0 units SQ AC 12/05/16 Metoprolol Succinate [Toprol XL -] 25 mg PO DAILY 12/05/16 Olopatadine HCl [Pazeo] 1 drop OP DAILY 12/05/16 Pantoprazole Sodium [Protonix] 40 mg PO DAILY 12/05/16 Aspirin Coated [Ecotrin -] 81 mg PO DAILY tab.ec 12/07/16 Atorvastatin Ca [Lipitor] 20 mg PO HS #30 tablet 12/07/16 Family Disease History - Family Disease History Family Disease History: Diabetes: Mother, Heart Disease: Mother, CA: Father, Mother Review of Systems - Review of Systems Constitutional: reports: Malaise, Weakness Eyes: reports: Other (CN 6 PALSY) Neck: reports: Decreased ROM, Pain on Movement Cardiovascular: reports: Chest Pain, Shortness of Breath Respiratory: reports: SOB, SOB on Exertion Gastrointestinal: reports: Abdominal Pain, Constipation, Nausea Genitourinary: reports: Burning, Other ("URINE SMELLS LIKE FISH!") Musculoskeletal: reports: Back Pain, Extremity Pain, Muscle Pain, Muscle Cramps Neurological: reports: Headache, Other (CHANGE IN VISION WITH CRANIAL NERVE 6 PALSY) Hematology/Lymphatic: reports: No Symptoms Psychiatric: reports: Anxiety Physical Exam-GI Vital Signs: Vital Signs Temperature 98 F 12/07/16 14:00 Pulse Rate 70 12/07/16 14:00 Respiratory Rate 20 12/07/16 16:00 Blood Pressure 127/69 12/07/16 14:00 O2 Sat by Pulse Oximetry (%) 96 12/07/16 16:00 Constitutional: Yes: Well Nourished, Calm, Anxious Eyes: Yes: Conjunctiva Clear, Other (LEFT EYE DEVIATION) Neck: Yes: WNL Cardiovascular: Yes: Regular Rate and Rhythm Respiratory: Yes: Regular Gastrointestinal Inspection: Yes: Distention ...Auscultate: Yes: Normoactive Bowel Sounds ...Palpate: Yes: Soft, Other (NO TENDERNESS) Musculoskeletal: Yes: WNL Extremities: Yes: WNL Neurological: Yes: Alert, Oriented Psychiatric: Yes: WNL Labs: CBC, BMP 12/07/16 05:35 12/07/16 05:35 INR, PTT INR 1.12 (0.82-1.09) 12/05/16 08:39 Laboratory Tests 12/05/16 12/07/16 12/07/16 08:39 05:35 05:35 WBC 5.5 RBC 4.68 Hgb 14.7 Hct 43.2 MCV 92.4 MCHC 33.9 RDW 13.5 Plt Count 171 MPV 7.8 Neutrophils % 47.0 Lymphocytes % 39.2 D Monocytes % 10.5 H Eosinophils % 2.5 Basophils % 0.8 INR 1.12 Sodium 142 Potassium 3.9 Chloride 102 Carbon Dioxide 29 Anion Gap 11 BUN 23 H D Creatinine 0.8 Random Glucose 142 H Calcium 9.2 Phosphorus 3.4 Magnesium 2.2 Problem List - Problems (1) Constipation Assessment/Plan: HER SYMPTOMS ARE CHRONIC BUT HAVE WORSENED PROBABLY DUE TO STRESS, CONSTIPATION AND MEDICATIONS. HER LIPASE IS SLIGHTLY ELEVATED AND I HAVE ORDERED A CT SCAN FOR THE EVENING TO RULE OUT OTHER CAUSES OF HER PAIN. I AGREE WITH MIRALAX DAILY AND I HAVE GIVEN HER A DOSE OF MOM TONIGHT. IF CT SCAN IS UNREVEALING SHE CAN BE DISCHARGED IN THE AM. Code(s): K59.00 - CONSTIPATION, UNSPECIFIED (2) GERD (gastroesophageal reflux disease) Code(s): K21.9 - GASTRO-ESOPHAGEAL REFLUX DISEASE WITHOUT ESOPHAGITIS (3) Pancreatic divisum Code(s): Q45.3 - [facility] CONGENITAL MALFORMATIONS OF PANCREAS AND PANCREATIC DUCT (4) Chronic pancreatitis Code(s): K86.1 - OTHER CHRONIC PANCREATITIS (5) IBS (irritable bowel syndrome) Code(s): K58.9 - IRRITABLE BOWEL SYNDROME WITHOUT DIARRHEA (6) Abdominal pain Code(s): R10.9 - UNSPECIFIED ABDOMINAL PAIN (7) Chest pain Code(s): R07.9 - CHEST PAIN, UNSPECIFIED Qualifiers: Chest pain type: unspecified Qualified Code(s): R07.9 - Chest pain, unspecified (8) Nausea Code(s): R11.0 - NAUSEA (9) Diabetes mellitus Code(s): E11.9 - TYPE 2 DIABETES MELLITUS WITHOUT COMPLICATIONS Qualifiers: Diabetes mellitus type: type 2 Diabetes mellitus 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
[2016-12-07] MEDS: LATANOPROST 0.005% OPHTH SOLN 2.5ML BOTTLE OU SCH (21:50)
[2016-12-08] MEDS: ACETAMINOPHEN 325 MG TABLET (FP) PO PRN (02:11)
[2016-12-08 02:32] LABS: URINE APPEARANCE CLOUDY; URINE BILIRUBIN NEGATIVE (NEGATIVE); URINE COLOR DKYELLOW; URINE GLUCOSE (UA) NEGATIVE (NEGATIVE); URINE KETONE NEGATIVE (NEGATIVE); URINE NITRITE POSITIVE (NEGATIVE); URINE UROBILINOGEN NEGATIVE E.U./dl (0.2-1.0)
[2016-12-08 02:33] LABS: URINE BLOOD 3+ (NEGATIVE); URINE LEUK ESTERASE 3+ (NEGATIVE); URINE PROTEIN 2+ (NEGATIVE)
[2016-12-08 02:41] LABS: CALCIUM OXALATE CRYSTALS MODERATE /hpf (NONE SEEN); URINE BACTERIA MODERATE /hpf (NONE SEEN); URINE MUCUS RARE; URINE RBC 136 /hpf (0-3); URINE WBC 405 /hpf (3-5)
[2016-12-08] MEDS: DOCUSATE SODIUM 100 MG CAPSULE (FP) PO PRN (05:33)
[2016-12-08] MEDS: INSULIN SLIDING SCALE (NOVOLOG) 1 VIAL SQ SCH ×4 (06:02→21:46)
[2016-12-08] MEDS: PANTOPRAZOLE 40 MG TABLET (FP) PO SCH (09:15)
[2016-12-08] MEDS: CLOPIDOGREL BISULFATE 75 MG TABLET (FP) PO SCH (09:15)
[2016-12-08] MEDS: METOPROLOL SUCCINATE 25 MG TAB.SR.24H (FP) PO SCH (09:15)
[2016-12-08] MEDS: ASPIRIN COATED 81 MG TABLET.EC PO SCH (09:15)
[2016-12-08] MEDS ORDERED: PT OWN MED DRAWER 7, Y5N ONE ×2 (10:59→21:53)
[2016-12-08] MEDS ORDERED: BISACODYL 10 MG SUPP.RECT RC ONE (11:00)
--- NOTE | 2016-12-08 11:22 | PN ---
Progress Note (short form) - Note Progress Note: s: no palps dizzy loc le edema; still with congestion in chest and sinuses, + cough. still with abd pain o: Vital Signs Period Temp Pulse Resp BP Sys/Johnson Pulse Ox Last 24 Hr 97.5 F-98.0 F 63-79 18-20 127-146/69-80 96-96 nad calm jvd flat, neck supple cta bl, nl effort rrr nl s1, s2 no mrg + bs soft nt nd ext without e/c/c aaox3 no jaundice, diaphoresis. Current Medications Generic Name Dose Route Start Last Admin Trade Name Freq PRN Reason Stop Dose Admin Acetaminophen 650 mg 12/05/16 16:35 12/08/16 02:11 Tylenol - PO 650 mg Q4H PRN Administration FEVER OR PAIN Albuterol Sulfate 1 puff 12/05/16 18:00 Ventolin Hfa Inhaler - IH Q6H PRN Albuterol Sulfate 2 puff 12/05/16 17:27 Ventolin Hfa Inhaler - IH Q6H PRN SHORTNESS OF BREATH Aspirin 81 mg 12/06/16 10:00 12/08/16 09:15 Ecotrin - PO 81 mg DAILY AIDE Administration Clopidogrel Bisulfate 75 mg 12/06/16 10:00 12/08/16 09:15 Plavix - PO 75 mg DAILY AIDE Administration Docusate Sodium 100 mg 12/05/16 16:26 12/08/16 05:33 Colace - PO 100 mg DAILY PRN Administration CONSTIPATION Ergocalciferol 50,000 unit 12/05/16 17:30 12/05/16 20:01 Drisdol - PO 50,000 unit Tu@1000 AIDE Administration Insulin Aspart 1 vial 12/05/16 22:00 12/08/16 06:02 Novolog Vial Sliding Scale - SQ Not Given ACHS [facility] Protocol Latanoprost 1 drop 12/05/16 22:00 12/07/16 21:50 Xalatan 0.005% Eye Drops - OU 1 drop HS AIDE Administration Metoprolol Succinate 25 mg 12/06/16 10:00 12/08/16 09:15 Toprol Xl - PO 25 mg DAILY AIDE Administration Non-Formulary Medication 1 drop 12/06/16 10:00 Olopatadine Hcl [Pazeo] OP DAILY AIDE Ondansetron HCl 4 mg 12/06/16 18:56 Zofran Injection IVPB Q6H PRN NAUSEA AND/OR VOMITING Pantoprazole Sodium 40 mg 12/06/16 10:00 12/08/16 09:15 Protonix - PO 40 mg DAILY AIDE Administration Polyethylene Glycol 17 gm 12/08/16 10:00 Miralax (For Daily Use) - PO DAILY AIDE Tramadol HCl 50 mg 12/06/16 18:56 12/07/16 09:08 Ultram - PO 50 mg Q8H PRN Administration CBC, BMP 12/07/16 05:35 12/07/16 05:35 prior med intolerances: plavix/ASA--diffuse, severe pain ("whole body on fire") and nausea every day for 12 mo of taking this; also recent hematuria crestor--body on fire, nausea, dizzy zocor--severe diarrhea simvastatin, atorva, prava--nausea, "something closes up and hard to breathe...i can feel it in my blood" ranexa: stomach upset Ziac--severe MANZANO, pancreatitis Bystolic--"i felt sick" EKG: sr, av delay. leftward axis. ivcd. anterior q waves tele: sr (nsvt 5 beats) Echo 10/2016 nl lv/rv/valves [facility] 10/30: 70-80% pRCA--Synergy ROGE; 30-50% mRCA; 90-95% thrombotic dRCA-- Synergy ROGE; 70-80% pLAD; patent mLAD stent; patent D1 stent with 50-60% D1 disease; 60-70% OM1 (SMALL VESSEL); 80-90% ISR (prior xience) in Ramus; EDP 15, EF 50%; mild HK diaphragmatic and posterobasal monahan [facility] 07/24 (staged PCI): 70-80% dRCA--Xience; +IVUS of mLAD--Xience; prior stents patent [facility] 06/22: 50-60% mLAD, 90% D1--Taxus; 60-70% OM1, 90-95% high lateral--Xience x 2; 30-50% mRCA, 60-70% dRCA; nl EDP and EF [facility] 03/31 (pers): no STs; medium/moderate ischemia IW/inferolateral; nl EF; no TID a/p: 71 smoker with h/o CAD s/p multiple PCI (most recent in October), chronic pain syndrome with chronic pain of chest, throat, back, abdomen, joints, mouth, HTN, HL, copd, fatty liver, congenital pancreatic abnormality, IDDM, grade I esophageal varices without hx of cirrhosis, gastritis, and recent hematuria p/w abdominal pain. CP/CAD - recent stent in October. Sx's now atypical. - trop neg x3 - no signs acs - con't dapt, bb HTN - controlled on current regimen HL - pt reports that no longer on statin, now getting injections of praluent as outpt pts current nonspecific symptoms do not seem cardiac related (ct with renal stone and hydro, ?cause). cardiac poole remains stable dc tele
[2016-12-08] MEDS: POLYETHYLENE GLYCOL 3350 119 GM BTL PO SCH (11:25)
--- NOTE | 2016-12-08 11:37 | PN ---
Progress Note, Physician Chief Complaint: Ms Ocasio still complains of diffuse pain. She says she is having pain in her chest, stomach, back, and legs. - Current Medication List Current Medications: Active Medications Acetaminophen (Tylenol -) 650 mg PO Q4H PRN PRN Reason: FEVER OR PAIN Last Admin: 12/08/16 02:11 Dose: 650 mg Albuterol Sulfate (Ventolin Hfa Inhaler -) 1 puff IH Q6H PRN Albuterol Sulfate (Ventolin Hfa Inhaler -) 2 puff IH Q6H PRN PRN Reason: SHORTNESS OF BREATH Aspirin (Ecotrin -) 81 mg PO DAILY [facility] Last Admin: 12/08/16 09:15 Dose: 81 mg Clopidogrel Bisulfate (Plavix -) 75 mg PO DAILY [facility] Last Admin: 12/08/16 09:15 Dose: 75 mg Docusate Sodium (Colace -) 100 mg PO DAILY PRN PRN Reason: CONSTIPATION Last Admin: 12/08/16 05:33 Dose: 100 mg Ergocalciferol (Drisdol -) 50,000 unit PO Tu@1000 [facility] Last Admin: 12/05/16 20:01 Dose: 50,000 unit Insulin Aspart (Novolog Vial Sliding Scale -) 1 vial SQ ACHS [facility] PRN Reason: Protocol Last Admin: 12/08/16 11:31 Dose: Not Given Latanoprost (Xalatan 0.005% Eye Drops -) 1 drop OU HS [facility] Last Admin: 12/07/16 21:50 Dose: 1 drop Metoprolol Succinate (Toprol Xl -) 25 mg PO DAILY [facility] Last Admin: 12/08/16 09:15 Dose: 25 mg Non-Formulary Medication (Olopatadine Hcl [Pazeo]) 1 drop OP DAILY [facility] Ondansetron HCl (Zofran Injection) 4 mg IVPB Q6H PRN PRN Reason: NAUSEA AND/OR VOMITING Pantoprazole Sodium (Protonix -) 40 mg PO DAILY [facility] Last Admin: 12/08/16 09:15 Dose: 40 mg Polyethylene Glycol (Miralax (For Daily Use) -) 17 gm PO DAILY [facility] Last Admin: 12/08/16 11:25 Dose: 17 gm Tramadol HCl (Ultram -) 50 mg PO Q8H PRN Last Admin: 12/07/16 09:08 Dose: 50 mg - Objective Vital Signs: Vital Signs Temperature 97.5 F L 12/08/16 05:00 Pulse Rate 68 12/08/16 05:00 Respiratory Rate 20 12/08/16 05:00 Blood Pressure 140/75 12/08/16 05:00 O2 Sat by Pulse Oximetry (%) 96 12/07/16 21:00 Constitutional: Yes: Well Nourished, No Distress, Calm Cardiovascular: Yes: Regular Rate and Rhythm. No: Gallop, Murmur, Rub Respiratory: Yes: Regular, CTA Bilaterally. No: Rales, Rhonchi, Wheezes Gastrointestinal: Yes: Normal Bowel Sounds, Soft. No: Distention, Tenderness Extremities: Yes: WNL Edema: No Labs: CBC, BMP 12/07/16 05:35 12/07/16 05:35 INR, PTT INR 1.12 (0.82-1.09) 12/05/16 08:39 Problem List - Problems (1) Hydronephrosis Code(s): N13.30 - UNSPECIFIED HYDRONEPHROSIS Qualifiers: Hydronephrosis type: with ureteral calculous obstruction Qualified Code(s): N13.2 - Hydronephrosis with renal and ureteral calculous obstruction (2) Nephrolithiasis Code(s): N20.0 - CALCULUS OF KIDNEY (3) Chest pain Code(s): R07.9 - CHEST PAIN, UNSPECIFIED Qualifiers: Chest pain type: unspecified Qualified Code(s): R07.9 - Chest pain, unspecified (4) Abdominal pain Code(s): R10.9 - UNSPECIFIED ABDOMINAL PAIN (5) Bronchitis Code(s): J40 - BRONCHITIS, NOT SPECIFIED ACUTE OR CHRONIC (6) CAD (coronary artery disease) Code(s): I25.10 - ATHSCL HEART DISEASE OF [place] CORONARY ARTERY W/O ANG PCTRS (7) Diabetes mellitus Code(s): E11.9 - TYPE 2 DIABETES MELLITUS WITHOUT COMPLICATIONS Qualifiers: Diabetes mellitus type: type 2 Diabetes mellitus 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 cause of pain -consult urology Code(s): R07.9 - CHEST PAIN, UNSPECIFIED Qualifiers: Chest pain type: unspecified Qualified Code(s): R07.9 - Chest pain, unspecified (2) Abdominal pain Assessment/Plan: -appreciate GI assistance Code(s): R10.9 - UNSPECIFIED ABDOMINAL PAIN (3) Bronchitis Assessment/Plan: -lung exam clear -normal saturations and not appearing short of breath -monitor Code(s): J40 - BRONCHITIS, NOT SPECIFIED ACUTE OR CHRONIC (4) CAD (coronary artery disease) Assessment/Plan: -continue home regimen Code(s): I25.10 - ATHSCL HEART DISEASE OF [place] CORONARY ARTERY W/O ANG PCTRS (5) Diabetes mellitus Assessment/Plan: -continue home regimen -diabetic diet Code(s): E11.9 - TYPE 2 DIABETES MELLITUS WITHOUT COMPLICATIONS Qualifiers: Diabetes mellitus type: type 2 Diabetes mellitus 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
--- NOTE | 2016-12-08 15:18 | CONSULT ---
Consult Consult Specialty:: urology Referred by:: medicine Reason for Consultation:: obstructing stone - History of Present Illness Chief Complaint: right sided flank pain History of Present Illness: 71 year old female with history of nephrolithiasis who noticed right sided flank pain radiating to the groin last night with chills. Urine is nitrite positive today. CT done today reveals a 2.0cm stone with mild hydronephrosis. - History Source History Provided By: Patient Limitations to Obtaining History: No Limitations - Past Medical History Cardio/Vascular: Yes: CAD Gastrointestinal: Yes: Constipation, GERD, Irritable Bowel Disease, Pancreatitis , Other (PANCREATIC DIVISUM) Renal/: Yes: Renal Calculi Endocrine: Yes: Diabetes Mellitus - Past Surgical History Past Surgical History: Yes: Cholecystectomy, Stent - Alcohol/Substance Use Hx Alcohol Use: No History of Substance Use: reports: None - Smoking History Smoking history: Former smoker Have you smoked in the past 12 months: No Aproximately how many cigarettes per day: 10 - Social History ADL: Independent History of Recent Travel: No Home Medications - Allergies Allergies/Adverse Reactions: Allergies Allergy/AdvReac Type Severity Reaction Status Date / Time levofloxacin [From Levaquin] Allergy Mild PAIN Verified 12/05/16 08:05 ciprofloxacin [From Cipro] Allergy PAIN Verified 12/05/16 08:05 doxycycline Allergy DIZZY Verified 12/05/16 08:05 Metronidazole HCl Allergy PAIN Verified 12/05/16 08:05 [From Flagyl] Penicillins Allergy Swelling Verified 12/05/16 08:05 - Home Medications Home Medications: Ambulatory Orders Albuterol Sulfate Inhaler - [Ventolin HFA Inhaler -] 1 - 2 inh PO QID 12/05/16 Bimatoprost [Lumigan] 1 drop OU DAILY 12/05/16 Clopidogrel Bisulfate [Plavix -] 75 mg PO DAILY 12/05/16 Docusate Sodium [Dulcolax Stool Softener] 100 mg PO DAILY PRN 12/05/16 Ergocalciferol [Drisdol -] 50,000 unit PO Q7D@1000 12/05/16 Insulin (Levemir) [Levemir Flexpen -] 0 units SQ BID 12/05/16 Insulin (Novolog) [Novolog Flexpen -] 0 units SQ AC 12/05/16 Metoprolol Succinate [Toprol XL -] 25 mg PO DAILY 12/05/16 Olopatadine HCl [Pazeo] 1 drop OP DAILY 12/05/16 Pantoprazole Sodium [Protonix] 40 mg PO DAILY 12/05/16 Aspirin Coated [Ecotrin -] 81 mg PO DAILY tab.ec 12/07/16 Atorvastatin Ca [Lipitor] 20 mg PO HS #30 tablet 12/07/16 Family Disease History - Family Disease History Family Disease History: Diabetes: Mother, Heart Disease: Mother, CA: Father, Mother Review of Systems - Review of Systems Constitutional: reports: Chills, Diaphoresis Genitourinary: reports: Burning, Dysuria, Flank Pain Physical Exam Vital Signs: Vital Signs Temperature 98.1 F 12/08/16 14:00 Pulse Rate 76 12/08/16 14:00 Respiratory Rate 20 12/08/16 14:00 Blood Pressure 133/70 12/08/16 14:00 O2 Sat by Pulse Oximetry (%) 96 12/08/16 08:00 Constitutional: Yes: Well Nourished Renal/: Yes: CVA Tenderness - Right. No: Bladder Distention, CVA Tenderness - Left, [place] Present Imaging - Results Cat Scan: Report Reviewed Problem List - Problems (1) Hydronephrosis Assessment/Plan: needs a stent Code(s): N13.30 - UNSPECIFIED HYDRONEPHROSIS Qualifiers: Hydronephrosis type: with ureteral calculous obstruction Qualified Code(s): N13.2 - Hydronephrosis with renal and ureteral calculous obstruction (2) UTI (urinary tract infection) Assessment/Plan: nitrite positive urine with subjective signs of infection and obstructing calculus. She is at high risk to develop urosepsis and needs emergent decompression. She is on antiplatelet agents so retrograde ureteral stenting is required. OR called. Code(s): N39.0 - URINARY TRACT INFECTION, SITE NOT SPECIFIED (3) Calculus of ureter Assessment/Plan: see above Code(s): N20.1 - CALCULUS OF URETER
--- NOTE | 2016-12-08 15:33 | PN ---
GI Progress Note Subjective: GASTROENTEROLOGY CT WITH RENAL PELVIS STONE AND HYDRONEPHROSIS PLUS URINE IS POSITIVE FOR NITRATES RIGHT FLANK PAIN WITH FEVER LAST NIGHT - Objective Vital Signs: Vital Signs Temperature 98.1 F 12/08/16 14:00 Pulse Rate 76 12/08/16 14:00 Respiratory Rate 20 12/08/16 14:00 Blood Pressure 133/70 12/08/16 14:00 O2 Sat by Pulse Oximetry (%) 96 12/08/16 08:00 Constitutional: Well Nourished Eyes: Yes: WNL HENT: Yes: WNL Neck: Yes: WNL Cardiovascular: Yes: Regular Rate and Rhythm Respiratory: Yes: Regular Gastrointestinal Inspection: Yes: WNL ...Auscultate: Yes: Normoactive Bowel Sounds ...Palpate: Yes: Soft Extremities: Yes: WNL Labs: INR, PTT INR 1.12 (0.82-1.09) 12/05/16 08:39 Problem List - Problems (1) Calculus of ureter Assessment/Plan: SYNDROME APPEARS TO BE RELATED TO RENAL STONE, OBSTRUCTION. PER UROLOGY FOR DECOMPRESSION TODAY THIS ALL APPEARS TO BE NON GI RELATED WILL SIGN OFF CASE TODAY. RECALL NEEDED Code(s): N20.1 - CALCULUS OF URETER (2) Hematuria Code(s): R31.9 - HEMATURIA, UNSPECIFIED (3) Hydronephrosis Code(s): N13.30 - UNSPECIFIED HYDRONEPHROSIS Qualifiers: Hydronephrosis type: with ureteral calculous obstruction Qualified Code(s): N13.2 - Hydronephrosis with renal and ureteral calculous obstruction (4) Constipation Code(s): K59.00 - CONSTIPATION, UNSPECIFIED (5) GERD (gastroesophageal reflux disease) Code(s): K21.9 - GASTRO-ESOPHAGEAL REFLUX DISEASE WITHOUT ESOPHAGITIS (6) Pancreatic divisum Code(s): Q45.3 - OTH CONGENITAL MALFORMATIONS OF PANCREAS AND PANCREATIC DUCT (7) Chronic pancreatitis Code(s): K86.1 - OTHER CHRONIC PANCREATITIS (8) IBS (irritable bowel syndrome) Code(s): K58.9 - IRRITABLE BOWEL SYNDROME WITHOUT DIARRHEA (9) Abdominal pain Code(s): R10.9 - UNSPECIFIED ABDOMINAL PAIN (10) Chest pain Code(s): R07.9 - CHEST PAIN, UNSPECIFIED Qualifiers: Chest pain type: unspecified Qualified Code(s): R07.9 - Chest pain, unspecified (11) Nausea Code(s): R11.0 - NAUSEA (12) Diabetes mellitus Code(s): E11.9 - TYPE 2 DIABETES MELLITUS WITHOUT COMPLICATIONS Qualifiers: Diabetes mellitus type: type 2 Diabetes mellitus 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
[2016-12-08] MEDS ORDERED: DESFLURANE GAS 240 ML BOTTLE IH ONE (16:26)
[2016-12-08] MEDS ORDERED: ROCURONIUM BROMIDE 50 MG/5 ML VIAL ONE (16:53)
[2016-12-08] MEDS ORDERED: PROPOFOL 20 ML ONE (16:53)
[2016-12-08] MEDS ORDERED: ETOMIDATE 20 MG/10 ML AMPUL IVPUSH ONE ×2 (16:53)
[2016-12-08] MEDS ORDERED: INSULIN (NOVOLOG) ASPART 100 UNITS/ML 10ML VIAL ONE (16:56)
[2016-12-08] MEDS ORDERED: CLINDAMYCIN 600 MG PREMIX BAG IVPB ONE (17:26)
[2016-12-08] MEDS ORDERED: CLINDAMYCIN PHOSPHATE 600 MG/4 ML VIAL ONE (17:27)
[2016-12-08] MEDS ORDERED: NEOSTIGMINE METHYLSULFATE 0.5 MG/1 ML - 10 ML MDV ONE (17:35)
[2016-12-08] MEDS ORDERED: CEFTRIAXONE 1 MG in DEXTROSE 5%-WATER - 50 ML IVPB ONE (17:47)
[2016-12-08] MEDS ORDERED: METOPROLOL TARTRATE 5 MG/5 ML VIAL ONE (17:59)
[2016-12-08] MEDS ORDERED: ONDANSETRON 4 MG/2 ML VIAL ONE (18:14)
[2016-12-08] MEDS ORDERED: ALBUTEROL SO4 2.5/IPRATROPIUM 0.5 INH SOL 3 ML VIAL.NEB. NEB ONE (18:15)
[2016-12-08] MEDS ORDERED: METOPROLOL TARTRATE 5 MG/5 ML VIAL IVPUSH ONE (18:15)
[2016-12-08] MEDS ORDERED: ONDANSETRON 4 MG/2 ML VIAL IVPUSH PRN ×2 (18:15→21:03)
[2016-12-08] MEDS ORDERED: LACTATED RINGERS SOLUTION 1,000 ML IV SCH (18:15)
[2016-12-08] MEDS ORDERED: CEFTRIAXONE 50 ML ONE (18:58)
[2016-12-08] MEDS ORDERED: ONDANSETRON 4 MG/2 ML VIAL IVPB STA (21:06)
[2016-12-08] MEDS: LATANOPROST 0.005% OPHTH SOLN 2.5ML BOTTLE OU SCH (22:24)
[2016-12-08] MEDS: traMADol HCL 50 MG TABLET PO PRN (23:08)
[2016-12-09] MEDS: INSULIN SLIDING SCALE (NOVOLOG) 1 VIAL SQ SCH ×3 (06:34→22:23)
[2016-12-09 08:16] LABS: BASOPHIL 0.5 % (0-2.0); EOSINOPHIL 1.8 % (0-4.5); MCH 31.8 pg (25.7-33.7); MCHC 34.2 g/dl (32.0-36.0); MEAN PLT VOLUME 7.6 fl (7.5-11.1); NEUTROPHILS 61.4 % (42.8-82.8); PLATELET COUNT 167 K/MM3 (134-434); RDW 14.1 % (11.6-15.6); WHITE BLOOD COUNT 6.9 K/mm3 (4.0-10.0)
[2016-12-09 09:57] LABS: CALCIUM 8.8 mg/dL (8.5-10.1); COCKROFT - GAULT 89.692; CREATININE 0.8 mg/dL (0.55-1.02); MAGNESIUM 2.4 mg/dL (1.8-2.4); PHOSPHOROUS 2.9 mg/dL (2.5-4.9)
--- NOTE | 2016-12-09 11:43 | PN ---
Progress Note (short form) - Note Progress Note: afebrile s/p rt stent placement yesterday urine dark brown abd soft may d/c mulligan in am tomorrow
--- NOTE | 2016-12-09 11:51 | PN ---
Progress Note (short form) - Note Progress Note: No fever No pain Has nasal and head congestion O/E Vital Signs Period Temp Pulse Resp BP Sys/Johnson Pulse Ox Last 24 Hr 97.4 F-98.6 F 64-86 16-24 112-162/60-90 94-98 Heart regular Lungs VN, b/l ll rales+ Abd soft' Ext b/l trace edema+ Current Medications Acetaminophen (Tylenol -) 650 mg PO Q4H PRN PRN Reason: FEVER OR PAIN Last Admin: 12/08/16 02:11 Dose: 650 mg Albuterol Sulfate (Ventolin Hfa Inhaler -) 1 puff IH Q6H PRN Albuterol Sulfate (Ventolin Hfa Inhaler -) 2 puff IH Q6H PRN PRN Reason: SHORTNESS OF BREATH Aspirin (Ecotrin -) 81 mg PO DAILY [facility] Last Admin: 12/08/16 09:15 Dose: 81 mg Clopidogrel Bisulfate (Plavix -) 75 mg PO DAILY [facility] Last Admin: 12/08/16 09:15 Dose: 75 mg Docusate Sodium (Colace -) 100 mg PO DAILY PRN PRN Reason: CONSTIPATION Last Admin: 12/08/16 05:33 Dose: 100 mg Ergocalciferol (Drisdol -) 50,000 unit PO Tu@1000 [facility] Last Admin: 12/05/16 20:01 Dose: 50,000 unit Fentanyl (Sublimaze Injection -) 50 mcg IVPUSH [id number] PRN PRN Reason: PAIN Stop: 12/11/16 18:16 Fluticasone Propionate (Flonase -) 1 spray NS BID [facility] Furosemide (Lasix Injection -) 60 mg IVPUSH DAILY ONE Stop: 12/09/16 11:43 Insulin Aspart (Novolog Vial Sliding Scale -) 1 vial SQ ACHS [facility] PRN Reason: Protocol Last Admin: 12/09/16 06:34 Dose: Not Given Latanoprost (Xalatan 0.005% Eye Drops -) 1 drop OU HS [facility] Last Admin: 12/08/16 22:24 Dose: 1 drop Metoprolol Succinate (Toprol Xl -) 25 mg PO DAILY [facility] Last Admin: 12/08/16 09:15 Dose: 25 mg Non-Formulary Medication (Olopatadine Hcl [Pazeo]) 1 drop OP DAILY [facility] Ondansetron HCl (Zofran Injection) 4 mg IVPB Q6H PRN PRN Reason: NAUSEA AND/OR VOMITING Last Admin: 12/08/16 18:15 Dose: 4 mg Pantoprazole Sodium (Protonix -) 40 mg PO DAILY [facility] Last Admin: 12/08/16 09:15 Dose: 40 mg Polyethylene Glycol (Miralax (For Daily Use) -) 17 gm PO DAILY [facility] Last Admin: 12/08/16 11:25 Dose: 17 gm Tramadol HCl (Ultram -) 50 mg PO Q8H PRN Last Admin: 12/08/16 23:08 Dose: 50 mg Laboratory Results - last 24 hr 12/08/16 12/08/16 12/09/16 11:27 21:45 05:43 WBC 6.9 RBC 4.29 Hgb 13.7 Hct 39.9 MCV 93.0 MCHC 34.2 RDW 14.1 Plt Count 167 MPV 7.6 Neutrophils % 61.4 D Lymphocytes % 24.9 D Monocytes % 11.4 H Eosinophils % 1.8 Basophils % 0.5 Sodium Potassium Chloride Carbon Dioxide Anion Gap BUN Creatinine POC Glucometer 145 130 Random Glucose Calcium Phosphorus Magnesium 12/09/16 12/09/16 05:43 05:52 WBC RBC Hgb Hct MCV MCHC RDW Plt Count MPV Neutrophils % Lymphocytes % Monocytes % Eosinophils % Basophils % Sodium 143 Potassium 3.9 Chloride 106 Carbon Dioxide 29 Anion Gap 8 BUN 12 D Creatinine 0.8 POC Glucometer 114 Random Glucose 117 H Calcium 8.8 Phosphorus 2.9 Magnesium 2.4 A&P Assessment/Plan (1) Ureterolithiasis with hydronephrosis Assessment/Plan: s/p surgery Code(s): R07.9 - CHEST PAIN, UNSPECIFIED Qualifiers: Chest pain type: unspecified Qualified Code(s): R07.9 - Chest pain, unspecified (2) Abdominal pain Assessment/Plan: -resolved Code(s): R10.9 - UNSPECIFIED ABDOMINAL PAIN 3.Nasal congestion. Flonase prn (4) CAD (coronary artery disease) Assessment/Plan: -continue home regimen Code(s): I25.10 - ATHSCL HEART DISEASE OF [place] CORONARY ARTERY W/O ANG PCTRS (5) Diabetes mellitus Assessment/Plan: -continue home regimen -diabetic diet Code(s): E11.9 - TYPE 2 DIABETES MELLITUS WITHOUT COMPLICATIONS Qualifiers: Diabetes mellitus type: type 2 Diabetes mellitus fci insulin use : with middle or intermediate school principal use (6) HTN (hypertension) Assessment/Plan: -continue toprol xl Code(s): I10 - ESSENTIAL (PRIMARY) HYPERTENSION (7) Hematuria Assessment/Plan: -suspect secondary to ureterolithiasis Code(s): R31.9 - HEMATURIA, UNSPECIFIED 8. CHF Stop hte IVF and prn Lasix
[2016-12-09] MEDS: CLOPIDOGREL BISULFATE 75 MG TABLET (FP) PO SCH (12:04)
[2016-12-09] MEDS: ASPIRIN COATED 81 MG TABLET.EC PO SCH (12:04)
[2016-12-09] MEDS: PANTOPRAZOLE 40 MG TABLET (FP) PO SCH (12:05)
[2016-12-09] MEDS: METOPROLOL SUCCINATE 25 MG TAB.SR.24H (FP) PO SCH (12:05)
[2016-12-09] MEDS ORDERED: FUROSEMIDE 40 MG/4 ML INJECTABLE VIAL IVPUSH ONE (12:15)
[2016-12-09] MEDS: POLYETHYLENE GLYCOL 3350 119 GM BTL PO SCH (12:38)
[2016-12-09] MEDS ORDERED: BENZOCAINE/MENTH/CETYLPYRD CL 1 EACH LOZENGE MM PRN (14:30)
--- NOTE | 2016-12-09 18:20 | PN ---
Progress Note, Physician Chief Complaint: s/p cystoscopy and right ureter stenting History of Present Illness: post op day one - Current Medication List Current Medications: Active Medications Acetaminophen (Tylenol -) 650 mg PO Q4H PRN PRN Reason: FEVER OR PAIN Last Admin: 12/08/16 02:11 Dose: 650 mg Albuterol Sulfate (Ventolin Hfa Inhaler -) 1 puff IH Q6H PRN Albuterol Sulfate (Ventolin Hfa Inhaler -) 2 puff IH Q6H PRN PRN Reason: SHORTNESS OF BREATH Aspirin (Ecotrin -) 81 mg PO DAILY [facility] Last Admin: 12/09/16 12:04 Dose: 81 mg Benzocaine/Menthol (Cepacol Lozenge -) 1 each MM PRN PRN PRN Reason: SORE THROAT Clopidogrel Bisulfate (Plavix -) 75 mg PO DAILY [facility] Last Admin: 12/09/16 12:04 Dose: 75 mg Docusate Sodium (Colace -) 100 mg PO DAILY PRN PRN Reason: CONSTIPATION Last Admin: 12/08/16 05:33 Dose: 100 mg Ergocalciferol (Drisdol -) 50,000 unit PO Tu@1000 [facility] Last Admin: 12/05/16 20:01 Dose: 50,000 unit Fentanyl (Sublimaze Injection -) 50 mcg IVPUSH [id number] PRN PRN Reason: PAIN Stop: 12/11/16 18:16 Fluticasone Propionate (Flonase -) 1 spray NS BID [facility] Insulin Aspart (Novolog Vial Sliding Scale -) 1 vial SQ ACHS [facility] PRN Reason: Protocol Last Admin: 12/09/16 13:51 Dose: Not Given Latanoprost (Xalatan 0.005% Eye Drops -) 1 drop OU HS [facility] Last Admin: 12/08/16 22:24 Dose: 1 drop Metoprolol Succinate (Toprol Xl -) 25 mg PO DAILY [facility] Last Admin: 12/09/16 12:05 Dose: 25 mg Non-Formulary Medication (Olopatadine Hcl [Pazeo]) 1 drop OP DAILY [facility] Ondansetron HCl (Zofran Injection) 4 mg IVPB Q6H PRN PRN Reason: NAUSEA AND/OR VOMITING Last Admin: 12/08/16 18:15 Dose: 4 mg Pantoprazole Sodium (Protonix -) 40 mg PO DAILY [facility] Last Admin: 12/09/16 12:05 Dose: 40 mg Polyethylene Glycol (Miralax (For Daily Use) -) 17 gm PO DAILY [facility] Last Admin: 12/09/16 12:38 Dose: 17 gm Potassium Chloride (K-Dur -) 20 meq PO DAILY [facility] Tramadol HCl (Ultram -) 50 mg PO Q8H PRN Last Admin: 12/08/16 23:08 Dose: 50 mg - Objective Vital Signs: Vital Signs Temperature 97.8 F 12/09/16 14:00 Pulse Rate 78 12/09/16 14:00 Respiratory Rate 20 12/09/16 14:00 Blood Pressure 112/68 12/09/16 14:00 O2 Sat by Pulse Oximetry (%) 94 L 12/09/16 08:13 Constitutional: Yes: Well Nourished Cardiovascular: Yes: WNL Respiratory: Yes: On Nasal O2 Gastrointestinal: Yes: WNL Labs: CBC, BMP 12/09/16 05:43 12/09/16 05:43 INR, PTT INR 1.12 (0.82-1.09) 12/05/16 08:39 Assessment/Plan Patient reports sore throat, explained the difficulty intubating, will order cepacol for pain relief. Her saturations remain in the low 90's despite O2 therapy, has been treated with lasix, ordered incentive spirometry. No other anesthetic considerations. Consult the dept of anesthesia if the throat pain does no subside.
[2016-12-09] MEDS ORDERED: PT OWN MED DRAWER 7, Y5N ONE (21:49)
[2016-12-09] MEDS ORDERED: traMADol HCL 50 MG TABLET PO PRN (22:14)
[2016-12-09] MEDS: LATANOPROST 0.005% OPHTH SOLN 2.5ML BOTTLE OU SCH (22:40)
[2016-12-09] MEDS: FLUTICASONE PROP 0.05% 16 GM NASAL SPRAY NS SCH (22:40)
[2016-12-10] MEDS: FLUTICASONE PROP 0.05% 16 GM NASAL SPRAY NS SCH ×3 (08:05→21:22)
[2016-12-10] MEDS: INSULIN SLIDING SCALE (NOVOLOG) 1 VIAL SQ SCH ×5 (08:05→21:22)
[2016-12-10] MEDS: ALBUTEROL SO4 6.7 GM HFA INHALER IH PRN (08:22)
[2016-12-10] MEDS: CLOPIDOGREL BISULFATE 75 MG TABLET (FP) PO SCH (09:16)
[2016-12-10] MEDS: POLYETHYLENE GLYCOL 3350 119 GM BTL PO SCH (09:16)
[2016-12-10] MEDS: PANTOPRAZOLE 40 MG TABLET (FP) PO SCH (09:17)
[2016-12-10] MEDS: ASPIRIN COATED 81 MG TABLET.EC PO SCH (09:17)
[2016-12-10] MEDS: METOPROLOL SUCCINATE 25 MG TAB.SR.24H (FP) PO SCH (09:18)
[2016-12-10] MEDS ORDERED: POTASSIUM CHLORIDE TABS 20 MEQ TABLET.ER (FP) PO SCH (10:00)
--- NOTE | 2016-12-10 15:07 | PN ---
Progress Note (short form) - Note Progress Note: cc: abd pain s: sob worsened. Received IV lasix today with some improvement. diffuse pain persists. no palps, dizziness o: - Current Medication List Current Medications Acetaminophen (Tylenol -) 650 mg PO Q4H PRN PRN Reason: FEVER OR PAIN Last Admin: 12/08/16 02:11 Dose: 650 mg Albuterol Sulfate (Ventolin Hfa Inhaler -) 1 puff IH Q6H PRN Albuterol Sulfate (Ventolin Hfa Inhaler -) 2 puff IH Q6H PRN PRN Reason: SHORTNESS OF BREATH Aspirin (Ecotrin -) 81 mg PO DAILY [facility] Last Admin: 12/08/16 09:15 Dose: 81 mg Clopidogrel Bisulfate (Plavix -) 75 mg PO DAILY [facility] Last Admin: 12/08/16 09:15 Dose: 75 mg Docusate Sodium (Colace -) 100 mg PO DAILY PRN PRN Reason: CONSTIPATION Last Admin: 12/08/16 05:33 Dose: 100 mg Ergocalciferol (Drisdol -) 50,000 unit PO Tu@1000 [facility] Last Admin: 12/05/16 20:01 Dose: 50,000 unit Fentanyl (Sublimaze Injection -) 50 mcg IVPUSH [id number] PRN PRN Reason: PAIN Stop: 12/11/16 18:16 Fluticasone Propionate (Flonase -) 1 spray NS BID [facility] Furosemide (Lasix Injection -) 60 mg IVPUSH DAILY ONE Stop: 12/09/16 11:43 Insulin Aspart (Novolog Vial Sliding Scale -) 1 vial SQ ACHS [facility] PRN Reason: Protocol Last Admin: 12/09/16 06:34 Dose: Not Given Latanoprost (Xalatan 0.005% Eye Drops -) 1 drop OU HS [facility] Last Admin: 12/08/16 22:24 Dose: 1 drop Metoprolol Succinate (Toprol Xl -) 25 mg PO DAILY [facility] Last Admin: 12/08/16 09:15 Dose: 25 mg Non-Formulary Medication (Olopatadine Hcl [Pazeo]) 1 drop OP DAILY [facility] Ondansetron HCl (Zofran Injection) 4 mg IVPB Q6H PRN PRN Reason: NAUSEA AND/OR VOMITING Last Admin: 12/08/16 18:15 Dose: 4 mg Pantoprazole Sodium (Protonix -) 40 mg PO DAILY [facility] Last Admin: 12/08/16 09:15 Dose: 40 mg Polyethylene Glycol (Miralax (For Daily Use) -) 17 gm PO DAILY [facility] Last Admin: 12/08/16 11:25 Dose: 17 gm Tramadol HCl (Ultram -) 50 mg PO Q8H PRN Last Admin: 12/08/16 23:08 Dose: 50 mg Vital Signs Period Temp Pulse Resp BP Sys/Johnson Pulse Ox Last 24 Hr 97.4 F-98.6 F 64-86 16-24 112-162/60-90 94-98 nad calm jvd flat, neck supple trace basilar rales, nl effort rrr nl s1, s2 no mrg + bs soft nt nd ext without e/c/c aaox3 no jaundice, diaphoresis. Laboratory Tests 12/09/16 12/09/16 05:43 05:43 WBC 6.9 Hgb 13.7 Plt Count 167 Sodium 143 Potassium 3.9 Chloride 106 Carbon Dioxide 29 Anion Gap 8 BUN 12 D Creatinine 0.8 Magnesium 2.4 prior med intolerances: plavix/ASA--diffuse, severe pain ("whole body on fire") and nausea every day for 12 mo of taking this; also recent hematuria crestor--body on fire, nausea, dizzy zocor--severe diarrhea simvastatin, atorva, prava--nausea, "something closes up and hard to breathe...i can feel it in my blood" ranexa: stomach upset Ziac--severe MANZANO, pancreatitis Bystolic--"i felt sick" EKG: sr, av delay. leftward axis. ivcd. anterior q waves tele: sr with freq pvc's Echo 10/2016 nl lv/rv/valves [facility] 10/30: 70-80% pRCA--Synergy ROGE; 30-50% mRCA; 90-95% thrombotic dRCA-- Synergy ROGE; 70-80% pLAD; patent mLAD stent; patent D1 stent with 50-60% D1 disease; 60-70% OM1 (SMALL VESSEL); 80-90% ISR (prior xience) in [place]; EDP 15, EF 50%; mild HK diaphragmatic and posterobasal monahan [facility] 07/24 (staged PCI): 70-80% dRCA--Xience; +IVUS of mLAD--Xience; prior stents patent [facility] 06/22: 50-60% mLAD, 90% D1--Taxus; 60-70% OM1, 90-95% high lateral--Xience x 2; 30-50% mRCA, 60-70% dRCA; nl EDP and EF MPI 03/31 (pers): no STs; medium/moderate ischemia IW/inferolateral; nl EF; no TID a/p: 71 smoker with h/o CAD s/p multiple PCI (most recent in October), chronic pain syndrome with chronic pain of chest, throat, back, abdomen, joints, mouth, HTN, HL, copd, fatty liver, congenital pancreatic abnormality, IDDM, grade I esophageal varices without hx of cirrhosis, gastritis, and recent hematuria p/w abdominal pain. CP/CAD - recent stent in October. Sx's now atypical. - trop neg x3 - no signs acs - con't dapt, bb - lyte repletion prn sob - after cystoscopy --> sob which improved after IV lasix today. No sig pulm edema on visualized portions of lung bases on recent abd ct. Not on diuretic regimen at home. - con't to monitor. HTN - controlled on current regimen HL - pt reports that no longer on statin, now getting injections of praluent as outpt pts current nonspecific symptoms do not seem cardiac related (ct with renal stone and hydro, ?cause). cardiac poole remains stable dc tele
--- NOTE | 2016-12-10 15:13 | PN ---
Progress Note (short form) - Note Progress Note: Feels about the same but with multiple complaints of left throat pain, vaginal pain, left hip and leg pain Does feel that here are many things going wrong with her and feels overwhelmed O/E Vital Signs Period Temp Pulse Resp BP Sys/Johnson Pulse Ox Last 24 Hr 97.7 F-98.8 F 66-82 18-20 113-140/48-85 94-94 Heart regular Lungs clearer Abd sot Ext maximino edema Current Medications Acetaminophen (Tylenol -) 650 mg PO Q4H PRN PRN Reason: FEVER OR PAIN Last Admin: 12/08/16 02:11 Dose: 650 mg Albuterol Sulfate (Ventolin Hfa Inhaler -) 1 puff IH Q6H PRN Albuterol Sulfate (Ventolin Hfa Inhaler -) 2 puff IH Q6H PRN PRN Reason: SHORTNESS OF BREATH Last Admin: 12/10/16 08:22 Dose: 2 puff Aspirin (Ecotrin -) 81 mg PO DAILY [facility] Last Admin: 12/10/16 09:17 Dose: 81 mg Benzocaine/Menthol (Cepacol Lozenge -) 1 each MM PRN PRN PRN Reason: SORE THROAT Clopidogrel Bisulfate (Plavix -) 75 mg PO DAILY [facility] Last Admin: 12/10/16 09:16 Dose: 75 mg Docusate Sodium (Colace -) 100 mg PO DAILY PRN PRN Reason: CONSTIPATION Last Admin: 12/08/16 05:33 Dose: 100 mg Ergocalciferol (Drisdol -) 50,000 unit PO Tu@1000 [facility] Last Admin: 12/05/16 20:01 Dose: 50,000 unit Fentanyl (Sublimaze Injection -) 50 mcg IVPUSH [id number] PRN PRN Reason: PAIN Stop: 12/11/16 18:16 Fluticasone Propionate (Flonase -) 1 spray NS BID [facility] Last Admin: 12/10/16 09:15 Dose: 1 spray Insulin Aspart (Novolog Vial Sliding Scale -) 1 vial SQ ACHS [facility] PRN Reason: Protocol Last Admin: 12/10/16 13:37 Dose: Not Given Latanoprost (Xalatan 0.005% Eye Drops -) 1 drop OU HS [facility] Last Admin: 12/09/16 22:40 Dose: Not Given Metoprolol Succinate (Toprol Xl -) 25 mg PO DAILY [facility] Last Admin: 12/10/16 09:18 Dose: 25 mg Non-Formulary Medication (Olopatadine Hcl [Pazeo]) 1 drop OP DAILY [facility] Ondansetron HCl (Zofran Injection) 4 mg IVPB Q6H PRN PRN Reason: NAUSEA AND/OR VOMITING Last Admin: 12/08/16 18:15 Dose: 4 mg Pantoprazole Sodium (Protonix -) 40 mg PO DAILY [facility] Last Admin: 12/10/16 09:17 Dose: 40 mg Polyethylene Glycol (Miralax (For Daily Use) -) 17 gm PO DAILY [facility] Last Admin: 12/10/16 09:16 Dose: 17 gm Potassium Chloride (K-Dur -) 20 meq PO DAILY [facility] Last Admin: 12/10/16 09:18 Dose: 20 meq Tramadol HCl (Ultram -) 50 mg PO Q8H PRN Last Admin: 12/09/16 22:29 Dose: 50 mg Laboratory Results - last 24 hr 12/09/16 12/09/16 12/10/16 17:27 22:20 05:55 POC Glucometer 173 145 131 12/10/16 11:34 POC Glucometer 214 A&P Assessment/Plan (1) Ureterolithiasis with hydronephrosis Assessment/Plan: s/p surgery Code(s): R07.9 - CHEST PAIN, UNSPECIFIED Qualifiers: Chest pain type: unspecified Qualified Code(s): R07.9 - Chest pain, unspecified (2) Abdominal pain Assessment/Plan: -resolved Code(s): R10.9 - UNSPECIFIED ABDOMINAL PAIN 3.Nasal congestion. Flonase prn (4) CAD (coronary artery disease) Assessment/Plan: -continue home regimen Code(s): I25.10 - ATHSCL HEART DISEASE OF [place] CORONARY ARTERY W/O ANG PCTRS (5) Diabetes mellitus Assessment/Plan: -continue home regimen -diabetic diet Code(s): E11.9 - TYPE 2 DIABETES MELLITUS WITHOUT COMPLICATIONS Qualifiers: Diabetes mellitus type: type 2 Diabetes mellitus exterminator helper insulin use : with assisted use (6) HTN (hypertension) Assessment/Plan: -continue toprol xl Code(s): I10 - ESSENTIAL (PRIMARY) HYPERTENSION (7) Hematuria Assessment/Plan: -suspect secondary to ureterolithiasis Code(s): R31.9 - HEMATURIA, UNSPECIFIED 8. CHF Resolving cheange to po lasix 9. Multiple complaints and they are chronic OP ? [facility]
--- NOTE | 2016-12-10 15:14 | PN ---
Progress Note (short form) - Note Progress Note: cc: abd pain s: Received IV lasix yesterday and started on po lasix today with improvement in sob. diffuse pain persists. no palps, dizziness o: Current Medications Acetaminophen (Tylenol -) 650 mg PO Q4H PRN PRN Reason: FEVER OR PAIN Last Admin: 12/08/16 02:11 Dose: 650 mg Albuterol Sulfate (Ventolin Hfa Inhaler -) 1 puff IH Q6H PRN Albuterol Sulfate (Ventolin Hfa Inhaler -) 2 puff IH Q6H PRN PRN Reason: SHORTNESS OF BREATH Last Admin: 12/10/16 08:22 Dose: 2 puff Aspirin (Ecotrin -) 81 mg PO DAILY [facility] Last Admin: 12/10/16 09:17 Dose: 81 mg Benzocaine/Menthol (Cepacol Lozenge -) 1 each MM PRN PRN PRN Reason: SORE THROAT Clopidogrel Bisulfate (Plavix -) 75 mg PO DAILY [facility] Last Admin: 12/10/16 09:16 Dose: 75 mg Docusate Sodium (Colace -) 100 mg PO DAILY PRN PRN Reason: CONSTIPATION Last Admin: 12/08/16 05:33 Dose: 100 mg Ergocalciferol (Drisdol -) 50,000 unit PO Tu@1000 [facility] Last Admin: 12/05/16 20:01 Dose: 50,000 unit Fentanyl (Sublimaze Injection -) 50 mcg IVPUSH [id number] PRN PRN Reason: PAIN Stop: 12/11/16 18:16 Fluticasone Propionate (Flonase -) 1 spray NS BID [facility] Last Admin: 12/10/16 09:15 Dose: 1 spray Insulin Aspart (Novolog Vial Sliding Scale -) 1 vial SQ ACHS [facility] PRN Reason: Protocol Last Admin: 12/10/16 13:37 Dose: Not Given Latanoprost (Xalatan 0.005% Eye Drops -) 1 drop OU HS [facility] Last Admin: 12/09/16 22:40 Dose: Not Given Metoprolol Succinate (Toprol Xl -) 25 mg PO DAILY [facility] Last Admin: 12/10/16 09:18 Dose: 25 mg Non-Formulary Medication (Olopatadine Hcl [Pazeo]) 1 drop OP DAILY [facility] Ondansetron HCl (Zofran Injection) 4 mg IVPB Q6H PRN PRN Reason: NAUSEA AND/OR VOMITING Last Admin: 12/08/16 18:15 Dose: 4 mg Pantoprazole Sodium (Protonix -) 40 mg PO DAILY [facility] Last Admin: 12/10/16 09:17 Dose: 40 mg Polyethylene Glycol (Miralax (For Daily Use) -) 17 gm PO DAILY [facility] Last Admin: 12/10/16 09:16 Dose: 17 gm Potassium Chloride (K-Dur -) 20 meq PO DAILY [facility] Last Admin: 12/10/16 09:18 Dose: 20 meq Tramadol HCl (Ultram -) 50 mg PO Q8H PRN Last Admin: 12/09/16 22:29 Dose: 50 mg Vital Signs - 24 hr 12/09/16 12/09/16 12/09/16 17:00 21:00 22:00 Temperature 98.8 F 98.6 F Pulse Rate 79 82 Respiratory 18 20 20 Rate Blood Pressure 120/70 113/52 O2 Sat by Pulse 94 L Oximetry (%) 12/10/16 12/10/16 12/10/16 00:00 02:00 06:00 Temperature 98.7 F 97.8 F Pulse Rate 81 66 Respiratory 20 20 20 Rate Blood Pressure 125/48 140/72 O2 Sat by Pulse 94 L Oximetry (%) 12/10/16 12/10/16 12/10/16 07:00 08:00 10:00 Temperature 97.7 F Pulse Rate 69 69 Respiratory 20 20 20 Rate Blood Pressure 125/85 125/85 O2 Sat by Pulse Oximetry (%) 12/10/16 12/10/16 11:00 15:09 Temperature 97.6 F Pulse Rate 68 68 Respiratory 20 20 Rate Blood Pressure 132/85 143/79 O2 Sat by Pulse Oximetry (%) Intake & Output 12/08/16 12/09/16 12/10/16 12/11/16 07:59 07:59 07:59 07:59 Intake Total 980 3860 360 670 Output Total 1600 2300 400 Balance 980 2260 -1940 270 nad calm jvd flat, neck supple trace basilar rales, nl effort rrr nl s1, s2 no mrg + bs soft nt nd ext without e/c/c aaox3 no jaundice, diaphoresis. no CBC, BMP prior med intolerances: plavix/ASA--diffuse, severe pain ("whole body on fire") and nausea every day for 12 mo of taking this; also recent hematuria crestor--body on fire, nausea, dizzy zocor--severe diarrhea simvastatin, atorva, prava--nausea, "something closes up and hard to breathe...i can feel it in my blood" ranexa: stomach upset Ziac--severe MANZANO, pancreatitis Bystolic--"i felt sick" EKG: sr, av delay. leftward axis. ivcd. anterior q waves tele: sr Echo 10/2016 nl lv/rv/valves [facility] 10/30: 70-80% pRCA--Synergy ROGE; 30-50% mRCA; 90-95% thrombotic dRCA-- Synergy ROGE; 70-80% pLAD; patent mLAD stent; patent D1 stent with 50-60% D1 disease; 60-70% OM1 (SMALL VESSEL); 80-90% ISR (prior xience) in [place]; EDP 15, EF 50%; mild HK diaphragmatic and posterobasal monahan [facility] 07/24 (staged PCI): 70-80% dRCA--Xience; +IVUS of mLAD--Xience; prior stents patent [facility] 06/22: 50-60% mLAD, 90% D1--Taxus; 60-70% OM1, 90-95% high lateral--Xience x 2; 30-50% mRCA, 60-70% dRCA; nl EDP and EF MPI 03/31 (pers): no STs; medium/moderate ischemia IW/inferolateral; nl EF; no TID a/p: 71 smoker with h/o CAD s/p multiple PCI (most recent in October), chronic pain syndrome with chronic pain of chest, throat, back, abdomen, joints, mouth, HTN, HL, copd, fatty liver, congenital pancreatic abnormality, IDDM, grade I esophageal varices without hx of cirrhosis, gastritis, and recent hematuria p/w abdominal pain. CP/CAD - recent stent in October. Sx's now atypical. - trop neg x3 - no signs acs - con't dapt, bb - lyte repletion prn sob - after cystoscopy --> sob which improved after IV lasix No sig pulm edema on visualized portions of lung bases on recent abd ct. ?atelectasis. Not on diuretic regimen at home. - repeat bmp and CXR today and reassess need for diuretic regimen. - con't to monitor. HTN - controlled on current regimen HL - pt reports that no longer on statin, now getting injections of praluent as outpt pts current nonspecific symptoms do not seem cardiac related (ct with renal stone and hydro, ?cause). cardiac poole remains stable dc tele
[2016-12-10] MEDS: POTASSIUM CHLORIDE TABS 10 MEQ TABLET.ER (FP) PO SCH (16:17)
[2016-12-10] MEDS: FUROSEMIDE 20 MG TABLET (FP) PO SCH (16:17)
[2016-12-10] MEDS: DOCUSATE SODIUM 100 MG CAPSULE (FP) PO PRN (16:18)
[2016-12-10 19:38] LABS: CALCIUM 9.2 mg/dL (8.5-10.1); COCKROFT - GAULT 89.692; CREATININE 0.8 mg/dL (0.55-1.02)
[2016-12-10] MEDS: LATANOPROST 0.005% OPHTH SOLN 2.5ML BOTTLE OU SCH (21:23)
[2016-12-11] MEDS: ACETAMINOPHEN 325 MG TABLET (FP) PO PRN (03:30)
[2016-12-11] MEDS: INSULIN SLIDING SCALE (NOVOLOG) 1 VIAL SQ SCH ×4 (06:44→21:55)
[2016-12-11 08:36] LABS: CALCIUM 9.1 mg/dL (8.5-10.1)
[2016-12-11 08:37] LABS: COCKROFT - GAULT 102.5015; CREATININE 0.7 mg/dL (0.55-1.02)
[2016-12-11] MEDS: POTASSIUM CHLORIDE TABS 10 MEQ TABLET.ER (FP) PO SCH (10:06)
[2016-12-11] MEDS: ASPIRIN COATED 81 MG TABLET.EC PO SCH (10:06)
[2016-12-11] MEDS: FUROSEMIDE 20 MG TABLET (FP) PO SCH (10:06)
[2016-12-11] MEDS: METOPROLOL SUCCINATE 25 MG TAB.SR.24H (FP) PO SCH (10:06)
[2016-12-11] MEDS: CLOPIDOGREL BISULFATE 75 MG TABLET (FP) PO SCH (10:06)
[2016-12-11] MEDS: PANTOPRAZOLE 40 MG TABLET (FP) PO SCH (10:06)
[2016-12-11] MEDS: ALBUTEROL SO4 6.7 GM HFA INHALER IH PRN (10:07)
[2016-12-11] MEDS: POLYETHYLENE GLYCOL 3350 119 GM BTL PO SCH (10:09)
[2016-12-11] MEDS: FLUTICASONE PROP 0.05% 16 GM NASAL SPRAY NS SCH ×2 (10:09→21:53)
--- NOTE | 2016-12-11 14:55 | PN ---
Progress Note (short form) - Note Progress Note: Has multiple non specific complaints O/E Vital Signs Period Temp Pulse Resp BP Sys/Johnson Pulse Ox Last 24 Hr 97.6 F-98.8 F 67-72 18-20 110-151/61-80 92 Heart regular Lungs clear Abd soft Ext no edema Current Medications Acetaminophen (Tylenol -) 650 mg PO Q4H PRN PRN Reason: FEVER OR PAIN Last Admin: 12/11/16 03:30 Dose: 650 mg Albuterol Sulfate (Ventolin Hfa Inhaler -) 1 puff IH Q6H PRN Albuterol Sulfate (Ventolin Hfa Inhaler -) 2 puff IH Q6H PRN PRN Reason: SHORTNESS OF BREATH Last Admin: 12/11/16 10:07 Dose: 2 puff Aspirin (Ecotrin -) 81 mg PO DAILY [facility] Last Admin: 12/11/16 10:06 Dose: 81 mg Benzocaine/Menthol (Cepacol Lozenge -) 1 each MM PRN PRN PRN Reason: SORE THROAT Last Admin: 12/10/16 16:18 Dose: 1 each Clopidogrel Bisulfate (Plavix -) 75 mg PO DAILY [facility] Last Admin: 12/11/16 10:06 Dose: 75 mg Docusate Sodium (Colace -) 100 mg PO DAILY PRN PRN Reason: CONSTIPATION Last Admin: 12/10/16 16:18 Dose: 100 mg Ergocalciferol (Drisdol -) 50,000 unit PO Tu@1000 [facility] Last Admin: 12/05/16 20:01 Dose: 50,000 unit Fentanyl (Sublimaze Injection -) 50 mcg IVPUSH [id number] PRN PRN Reason: PAIN Stop: 12/11/16 18:16 Fluticasone Propionate (Flonase -) 1 spray NS BID [facility] Last Admin: 12/11/16 10:09 Dose: 1 spray Furosemide (Lasix -) 20 mg PO DAILY [facility] Last Admin: 12/11/16 10:06 Dose: 20 mg Insulin Aspart (Novolog Vial Sliding Scale -) 1 vial SQ ACHS [facility] PRN Reason: Protocol Last Admin: 12/11/16 12:04 Dose: Not Given Latanoprost (Xalatan 0.005% Eye Drops -) 1 drop OU HS [facility] Last Admin: 05/28/17 21:23 Dose: 1 drop Metoprolol Succinate (Toprol Xl -) 25 mg PO DAILY [facility] Last Admin: 12/11/16 10:06 Dose: 25 mg Non-Formulary Medication (Olopatadine Hcl [Pazeo]) 1 drop OP DAILY [facility] Ondansetron HCl (Zofran Injection) 4 mg IVPB Q6H PRN PRN Reason: NAUSEA AND/OR VOMITING Last Admin: 12/08/16 18:15 Dose: 4 mg Pantoprazole Sodium (Protonix -) 40 mg PO DAILY [facility] Last Admin: 12/11/16 10:06 Dose: 40 mg Polyethylene Glycol (Miralax (For Daily Use) -) 17 gm PO DAILY [facility] Last Admin: 12/11/16 10:09 Dose: Not Given Potassium Chloride (K-Dur -) 10 meq PO DAILY [facility] Last Admin: 12/11/16 10:06 Dose: 10 meq Tramadol HCl (Ultram -) 50 mg PO Q8H PRN Last Admin: 12/09/16 22:29 Dose: 50 mg Laboratory Results - last 24 hr 12/10/16 12/10/16 12/10/16 16:22 18:30 21:21 Sodium 140 Potassium 3.8 Chloride 102 Carbon Dioxide 30 Anion Gap 8 BUN 15 D Creatinine 0.8 POC Glucometer 119 149 Random Glucose 184 H D Calcium 9.2 12/11/16 12/11/16 12/11/16 05:40 06:20 10:55 Sodium 142 Potassium 4.1 Chloride 102 Carbon Dioxide 29 Anion Gap 11 BUN 15 Creatinine 0.7 POC Glucometer 135 140 Random Glucose 143 H D Calcium 9.1 Assessment/Plan (1) Ureterolithiasis with hydronephrosis Assessment/Plan: s/p surgery Code(s): R07.9 - CHEST PAIN, UNSPECIFIED Qualifiers: Chest pain type: unspecified Qualified Code(s): R07.9 - Chest pain, unspecified (2) Abdominal pain Assessment/Plan: -resolved Code(s): R10.9 - UNSPECIFIED ABDOMINAL PAIN 3.Nasal congestion. Flonase prn (4) CAD (coronary artery disease) Assessment/Plan: -continue home regimen Code(s): I25.10 - ATHSCL HEART DISEASE OF [place] CORONARY ARTERY W/O ANG PCTRS (5) Diabetes mellitus Assessment/Plan: -continue home regimen -diabetic diet Code(s): E11.9 - TYPE 2 DIABETES MELLITUS WITHOUT COMPLICATIONS Qualifiers: Diabetes mellitus type: type 2 Diabetes mellitus retirement insulin use : with retirement use (6) HTN (hypertension) Assessment/Plan: -continue toprol xl Code(s): I10 - ESSENTIAL (PRIMARY) HYPERTENSION (7) Hematuria Assessment/Plan: -suspect secondary to ureterolithiasis Code(s): R31.9 - HEMATURIA, UNSPECIFIED 8. CHF Resolving cheange to po lasix 9. Multiple complaints syndrome The patient is ready for discharge and for OP f/u to address these complaints Possible retrial of Cymbalta as OP
--- NOTE | 2016-12-11 15:56 | PN ---
Progress Note (short form) - Note Progress Note: cc: abd pain s: diffuse pain persists. no palps, dizziness. endorses sob, but then describes it as pain in her mouth and abdomen, symptoms unclear. o: Current Medications Acetaminophen (Tylenol -) 650 mg PO Q4H PRN PRN Reason: FEVER OR PAIN Last Admin: 12/11/16 03:30 Dose: 650 mg Albuterol Sulfate (Ventolin Hfa Inhaler -) 1 puff IH Q6H PRN Albuterol Sulfate (Ventolin Hfa Inhaler -) 2 puff IH Q6H PRN PRN Reason: SHORTNESS OF BREATH Last Admin: 12/11/16 10:07 Dose: 2 puff Aspirin (Ecotrin -) 81 mg PO DAILY [facility] Last Admin: 12/11/16 10:06 Dose: 81 mg Benzocaine/Menthol (Cepacol Lozenge -) 1 each MM PRN PRN PRN Reason: SORE THROAT Last Admin: 12/10/16 16:18 Dose: 1 each Clopidogrel Bisulfate (Plavix -) 75 mg PO DAILY [facility] Last Admin: 12/11/16 10:06 Dose: 75 mg Docusate Sodium (Colace -) 100 mg PO DAILY PRN PRN Reason: CONSTIPATION Last Admin: 12/10/16 16:18 Dose: 100 mg Ergocalciferol (Drisdol -) 50,000 unit PO Tu@1000 [facility] Last Admin: 12/05/16 20:01 Dose: 50,000 unit Fentanyl (Sublimaze Injection -) 50 mcg IVPUSH [id number] PRN PRN Reason: PAIN Stop: 12/11/16 18:16 Fluticasone Propionate (Flonase -) 1 spray NS BID [facility] Last Admin: 12/11/16 10:09 Dose: 1 spray Furosemide (Lasix -) 20 mg PO DAILY [facility] Last Admin: 12/11/16 10:06 Dose: 20 mg Insulin Aspart (Novolog Vial Sliding Scale -) 1 vial SQ ACHS [facility] PRN Reason: Protocol Last Admin: 12/11/16 12:04 Dose: Not Given Latanoprost (Xalatan 0.005% Eye Drops -) 1 drop OU HS [facility] Last Admin: 12/10/16 21:23 Dose: 1 drop Metoprolol Succinate (Toprol Xl -) 25 mg PO DAILY [facility] Last Admin: 12/11/16 10:06 Dose: 25 mg Non-Formulary Medication (Olopatadine Hcl [Pazeo]) 1 drop OP DAILY [facility] Ondansetron HCl (Zofran Injection) 4 mg IVPB Q6H PRN PRN Reason: NAUSEA AND/OR VOMITING Last Admin: 12/08/16 18:15 Dose: 4 mg Pantoprazole Sodium (Protonix -) 40 mg PO DAILY [facility] Last Admin: 12/11/16 10:06 Dose: 40 mg Polyethylene Glycol (Miralax (For Daily Use) -) 17 gm PO DAILY [facility] Last Admin: 12/11/16 10:09 Dose: Not Given Potassium Chloride (K-Dur -) 10 meq PO DAILY [facility] Last Admin: 12/11/16 10:06 Dose: 10 meq Tramadol HCl (Ultram -) 50 mg PO Q8H PRN Last Admin: 12/09/16 22:29 Dose: 50 mg Vital Signs - 24 hr 12/10/16 12/10/16 12/10/16 17:00 21:00 22:00 Temperature 98.6 F 98.8 F Pulse Rate 71 70 Respiratory 18 20 20 Rate Blood Pressure 136/80 110/74 O2 Sat by Pulse 92 L Oximetry (%) 12/11/16 12/11/16 12/11/16 02:52 07:00 09:00 Temperature 97.6 F 98.7 F Pulse Rate 72 72 Respiratory 18 20 20 Rate Blood Pressure 145/61 137/76 O2 Sat by Pulse Oximetry (%) 12/11/16 10:00 Temperature 98.1 F Pulse Rate 67 Respiratory 20 Rate Blood Pressure 151/79 O2 Sat by Pulse Oximetry (%) Intake & Output 12/09/16 12/10/16 12/11/16 12/12/16 07:59 07:59 07:59 07:59 Intake Total 3860 360 1150 20 Output Total 1600 2300 400 Balance 2260 -1940 750 20 nad calm jvd flat, neck supple ctab, nl effort rrr nl s1, s2 no mrg + bs soft nt nd ext without e/c/c aaox3 no jaundice, diaphoresis. BMP 12/11/16 05:40 prior med intolerances: plavix/ASA--diffuse, severe pain ("whole body on fire") and nausea every day for 12 mo of taking this; also recent hematuria crestor--body on fire, nausea, dizzy zocor--severe diarrhea simvastatin, atorva, prava--nausea, "something closes up and hard to breathe...i can feel it in my blood" ranexa: stomach upset Ziac--severe MANZANO, pancreatitis Bystolic--"i felt sick" EKG: sr, av delay. leftward axis. ivcd. anterior q waves tele: sr CXR 12/11: No fluid/congestion. Improved aeration. basilar scarring/ atelectasis. Echo 10/2016 nl lv/rv/valves [facility] 10/30: 70-80% pRCA--Synergy ROGE; 30-50% mRCA; 90-95% thrombotic dRCA-- Synergy ROGE; 70-80% pLAD; patent mLAD stent; patent D1 stent with 50-60% D1 disease; 60-70% OM1 (SMALL VESSEL); 80-90% ISR (prior xience) in Ramus; EDP 15, EF 50%; mild HK diaphragmatic and posterobasal monahan [facility] 07/24 (staged PCI): 70-80% dRCA--Xience; +IVUS of mLAD--Xience; prior stents patent [facility] 06/22: 50-60% mLAD, 90% D1--Taxus; 60-70% OM1, 90-95% high lateral--Xience x 2; 30-50% mRCA, 60-70% dRCA; nl EDP and EF MPI 03/31 (pers): no STs; medium/moderate ischemia IW/inferolateral; nl EF; no TID a/p: 71 smoker with h/o CAD s/p multiple PCI (most recent in October), chronic pain syndrome with chronic pain of chest, throat, back, abdomen, joints, mouth, HTN, HL, copd, fatty liver, congenital pancreatic abnormality, IDDM, grade I esophageal varices without hx of cirrhosis, gastritis, and recent hematuria p/w abdominal pain. CP/CAD - recent stent in October. Sx's now atypical. - trop neg x3 - no signs acs - con't dapt, bb - lyte repletion prn sob - after cystoscopy --> sob which improved after IV lasix No sig pulm edema on visualized portions of lung bases on recent abd ct. ?atelectasis. Not on diuretic regimen at home. - repeat bmp stable. CXR without edema. Ok to stop diuretics. - con't to monitor. HTN - controlled on current regimen HL - pt reports that no longer on statin, now getting injections of praluent as outpt pts current nonspecific symptoms do not seem cardiac related (ct with renal stone and hydro, ?cause). cardiac poole remains stable, ok to dc tele
[2016-12-11] MEDS ORDERED: MAGNESIUM HYDROX 2400MG/30ML ORAL SUSPENSION 30 ML CUP PO ONE (18:09)
[2016-12-11] MEDS: LATANOPROST 0.005% OPHTH SOLN 2.5ML BOTTLE OU SCH (21:53)
[2016-12-12] MEDS: INSULIN SLIDING SCALE (NOVOLOG) 1 VIAL SQ SCH ×2 (06:34→11:17)
[2016-12-12] MEDS: ERGOCALCIFEROL (VITAMIN D2) 50,000 UNIT CAPSULE (FP) PO SCH ×2 (08:59→10:24)
[2016-12-12] MEDS: PANTOPRAZOLE 40 MG TABLET (FP) PO SCH (08:59)
[2016-12-12] MEDS: CLOPIDOGREL BISULFATE 75 MG TABLET (FP) PO SCH (08:59)
[2016-12-12] MEDS: ASPIRIN COATED 81 MG TABLET.EC PO SCH (08:59)
[2016-12-12] MEDS: FLUTICASONE PROP 0.05% 16 GM NASAL SPRAY NS SCH (08:59)
[2016-12-12] MEDS: METOPROLOL SUCCINATE 25 MG TAB.SR.24H (FP) PO SCH (08:59)
[2016-12-12] MEDS: POLYETHYLENE GLYCOL 3350 119 GM BTL PO SCH (08:59)
[2016-12-12 10:33] VITALS: BP 139/98; PULSE 74; TEMP 98
--- NOTE | 2016-12-12 10:55 | PN ---
Progress Note (short form) - Note Progress Note: cc: abd pain s: diffuse pain persists. no palps, dizziness. endorses sob, but then describes it as pain in her mouth and abdomen, symptoms unclear. o: Current Medications Acetaminophen (Tylenol -) 650 mg PO Q4H PRN PRN Reason: FEVER OR PAIN Last Admin: 12/11/16 03:30 Dose: 650 mg Albuterol Sulfate (Ventolin Hfa Inhaler -) 1 puff IH Q6H PRN Albuterol Sulfate (Ventolin Hfa Inhaler -) 2 puff IH Q6H PRN PRN Reason: SHORTNESS OF BREATH Last Admin: 12/11/16 10:07 Dose: 2 puff Aspirin (Ecotrin -) 81 mg PO DAILY [facility] Last Admin: 12/12/16 08:59 Dose: 81 mg Benzocaine/Menthol (Cepacol Lozenge -) 1 each MM PRN PRN PRN Reason: SORE THROAT Last Admin: 12/10/16 16:18 Dose: 1 each Clopidogrel Bisulfate (Plavix -) 75 mg PO DAILY [facility] Last Admin: 12/12/16 08:59 Dose: 75 mg Docusate Sodium (Colace -) 100 mg PO DAILY PRN PRN Reason: CONSTIPATION Last Admin: 12/10/16 16:18 Dose: 100 mg Ergocalciferol (Drisdol -) 50,000 unit PO Tu@1000 [facility] Last Admin: 12/12/16 10:24 Dose: 50,000 unit Fluticasone Propionate (Flonase -) 1 spray NS BID [facility] Last Admin: 12/12/16 08:59 Dose: 1 spray Insulin Aspart (Novolog Vial Sliding Scale -) 1 vial SQ ACHS [facility] PRN Reason: Protocol Last Admin: 12/12/16 06:34 Dose: Not Given Latanoprost (Xalatan 0.005% Eye Drops -) 1 drop OU HS [facility] Last Admin: 12/11/16 21:53 Dose: Not Given Metoprolol Succinate (Toprol Xl -) 25 mg PO DAILY [facility] Last Admin: 12/12/16 08:59 Dose: 25 mg Non-Formulary Medication (Olopatadine Hcl [Pazeo]) 1 drop OP DAILY [facility] Ondansetron HCl (Zofran Injection) 4 mg IVPB Q6H PRN PRN Reason: NAUSEA AND/OR VOMITING Last Admin: 12/08/16 18:15 Dose: 4 mg Pantoprazole Sodium (Protonix -) 40 mg PO DAILY [facility] Last Admin: 12/12/16 08:59 Dose: 40 mg Polyethylene Glycol (Miralax (For Daily Use) -) 17 gm PO DAILY [facility] Last Admin: 12/12/16 08:59 Dose: Not Given Tramadol HCl (Ultram -) 50 mg PO Q8H PRN Last Admin: 12/09/16 22:29 Dose: 50 mg Vital Signs - 24 hr 12/11/16 12/11/16 12/12/16 18:00 22:00 06:00 Temperature 98 F 100 F H 98.6 F Pulse Rate 78 74 68 Respiratory 20 22 20 Rate Blood Pressure 125/63 150/75 132/70 12/12/16 12/12/16 09:00 10:00 Temperature 98.0 F Pulse Rate 74 Respiratory 20 20 Rate Blood Pressure 139/98 Intake & Output 12/10/16 12/11/16 12/12/16 12/13/16 07:59 07:59 07:59 07:59 Intake Total 360 1150 20 60 Output Total 2300 400 Balance -1940 750 20 60 nad calm jvd flat, neck supple ctab, nl effort rrr nl s1, s2 no mrg + bs soft nt nd ext without e/c/c aaox3 no jaundice, diaphoresis. no CBC, BMP prior med intolerances: plavix/ASA--diffuse, severe pain ("whole body on fire") and nausea every day for 12 mo of taking this; also recent hematuria crestor--body on fire, nausea, dizzy zocor--severe diarrhea simvastatin, atorva, prava--nausea, "something closes up and hard to breathe...i can feel it in my blood" ranexa: stomach upset Ziac--severe MANZANO, pancreatitis Bystolic--"i felt sick" EKG: sr, av delay. leftward axis. ivcd. anterior q waves tele: sr CXR 12/11: No fluid/congestion. Improved aeration. basilar scarring/ atelectasis. Echo 10/2016 nl lv/rv/valves [facility] 10/30: 70-80% pRCA--Synergy ROGE; 30-50% mRCA; 90-95% thrombotic dRCA-- Synergy ROGE; 70-80% pLAD; patent mLAD stent; patent D1 stent with 50-60% D1 disease; 60-70% OM1 (SMALL VESSEL); 80-90% ISR (prior xience) in Ramus; EDP 15, EF 50%; mild HK diaphragmatic and posterobasal monahan [facility] 07/24 (staged PCI): 70-80% dRCA--Xience; +IVUS of mLAD--Xience; prior stents patent [facility] 06/22: 50-60% mLAD, 90% D1--Taxus; 60-70% OM1, 90-95% high lateral--Xience x 2; 30-50% mRCA, 60-70% dRCA; nl EDP and EF MPI 03/31 (pers): no STs; medium/moderate ischemia IW/inferolateral; nl EF; no TID a/p: 71 smoker with h/o CAD s/p multiple PCI (most recent in October), chronic pain syndrome with chronic pain of chest, throat, back, abdomen, joints, mouth, HTN, HL, copd, fatty liver, congenital pancreatic abnormality, IDDM, grade I esophageal varices without hx of cirrhosis, gastritis, and recent hematuria p/w abdominal pain. CP/CAD - recent stent in October. Sx's now atypical. - trop neg x3 - no signs acs - con't dapt, bb - lyte repletion prn sob - after cystoscopy --> sob which improved after IV lasix No sig pulm edema on visualized portions of lung bases on recent abd ct. ?atelectasis. Not on diuretic regimen at home. - repeat bmp stable. CXR without edema. Ok to stop diuretics. - con't to monitor. HTN - controlled on current regimen HL - pt reports that no longer on statin, now getting injections of praluent as outpt pts current nonspecific symptoms do not seem cardiac related (ct with renal stone and hydro, ?cause). cardiac poole remains stable, ok to dc tele
[2016-12-12] MEDS ORDERED: BISACODYL 10 MG SUPP.RECT RC ONE (11:53)
--- NOTE | 2016-12-12 11:58 | DS ---
Physical Examination Vital Signs: Vital Signs Temperature 98.0 F 12/12/16 10:00 Pulse Rate 74 12/12/16 10:00 Respiratory Rate 20 12/12/16 10:00 Blood Pressure 139/98 12/12/16 10:00 O2 Sat by Pulse Oximetry (%) 92 L 12/10/16 21:00 Constitutional: Yes: Well Nourished, No Distress Cardiovascular: Yes: Regular Rate and Rhythm. No: Gallop, Murmur, Rub Respiratory: Yes: Regular, CTA Bilaterally. No: Rales, Rhonchi, Wheezes Gastrointestinal: Yes: Normal Bowel Sounds, Soft. No: Distention, Tenderness Extremities: Yes: WNL Edema: No Labs: CBC, BMP 12/09/16 05:43 12/11/16 05:40 Discharge Summary Reason For Visit: CHEST PAIN Current Active Problems Abdominal pain (Acute) Calculus of ureter (Acute) Chest pain (Acute) Chronic pancreatitis (Acute) Constipation (Acute) GERD (gastroesophageal reflux disease) (Acute) Hematuria (Acute) Hydronephrosis (Acute) IBS (irritable bowel syndrome) (Acute) Nausea (Acute) Nephrolithiasis (Acute) Pancreatic divisum (Acute) Hospital Course: Ms Ocaiso is a 71 year old female who came in with multiple complaints and was found to have ureterolithiasis and hydronephrosis. She was originally admitted under observation and ruled out as one of her complaints was chest pain. She was seen by cardiology and cleared. She had multiple pain complaints and at one time said she hurt from her forehead to her foot. However she also complained of abdominal pain and has seen Dr Noble in the past. He saw her and ordered a CT scan where ureterolithiasis and hydronephrosis was found. She was seen by urology and taken to the OR for removal of stone and stent placement. She was found to have a UTI and was given rocephin and clindamycin. She shows no signs of sepsis. She still has multiple complaints but has been stable. Currently she is safe for discharge home. 37 minutes spent in preparation of this discharge Condition: Good - Instructions Diet, Activity, Other Instructions: resume previous diet and activity Referrals: Terri Thompson MD [Primary Care Provider] - Vern Noble MD [Staff Physician] - Naveen Ayers MD [Staff Physician] - Cameron Lyn MD [Staff Physician] - Disposition: HOME - Home Medications Comprehensive Discharge Medication List: Ambulatory Orders Albuterol Sulfate Inhaler - [Ventolin HFA Inhaler -] 1 - 2 inh PO QID 12/05/16 Bimatoprost [Lumigan] 1 drop OU DAILY 12/05/16 Clopidogrel Bisulfate [Plavix -] 75 mg PO DAILY 12/05/16 Docusate Sodium [Dulcolax Stool Softener] 100 mg PO DAILY PRN 12/05/16 Ergocalciferol [Drisdol -] 50,000 unit PO Q7D@1000 12/05/16 Insulin (Levemir) [Levemir Flexpen -] 0 units SQ BID 12/05/16 Insulin (Novolog) [Novolog Flexpen -] 0 units SQ AC 12/05/16 Metoprolol Succinate [Toprol XL -] 25 mg PO DAILY 12/05/16 Olopatadine HCl [Pazeo] 1 drop OP DAILY 12/05/16 Pantoprazole Sodium [Protonix] 40 mg PO DAILY 12/05/16 Aspirin Coated [Ecotrin -] 81 mg PO DAILY tab.ec 12/07/16 Atorvastatin Ca [Lipitor] 20 mg PO HS #30 tablet 12/07/16 Sulfamethoxazole/Trimethoprim [Bactrim Ds -] 1 tab PO BID #14 tablet 12/12/16
--- NOTE | 2016-12-27 11:53 | OP ---
DATE OF OPERATION: 12/08/2016 PREOPERATIVE DIAGNOSES: 1. Right ureteral calculus. 2. Right hydronephrosis. 3. Sepsis. POSTOPERATIVE DIAGNOSES: 1. Right ureteral calculus. 2. Right hydronephrosis. 3. Sepsis. PROCEDURE: 1. Cystoscopy. 2. Right ureteral stent placement. SURGEON: Cameron Lyn MD ANESTHESIA: General. ANESTHESIOLOGIST: José Antonio Smith MD PREOPERATIVE INDICATIONS: The patient is a 71-year-old female with history of stones. She comes in with chest pain but also findings of urosepsis. She has fevers, elevated white count. She is noted to have an obstructing stone in the right renal pelvis. She comes to the OR. OPERATION: Patient was brought to the OR, placed on the table in supine position, given general anesthesia and IV antibiotics, and placed in the modified lithotomy position. The groins were prepped and draped sterilely. Cystoscopy was performed. The right UO was visualized. A wire was passed up into the right kidney under fluoroscopic guidance. Over that, a 6 x 26 double-J ureteral stent was placed. One loop seen in the upper pole, 1 loop in the bladder. The bladder was emptied. The patient was woken up. CAMERON LYN M.D. [id number]
== END 2016-12-12 13:27 | disposition home or self-care (01) | DRG 693 ==
LOC: JER 07:49 → JERBED 14:53 → J4W 16:40 → OBSVTOIN 12-08 12:32
PROVIDERS: ADMIT Internal Medicine; ATTEND Internal Medicine
PROC: 0T768DZ Dilation of Right Ureter with Intraluminal Device, Via Natural or Artificial Opening Endoscopic (ICD-10-PCS; principal; 2016-12-08 16:30)
DX: N13.2 Hydronephrosis with renal and ureteral calculous obstruction (principal); I21.4 Non-ST elevation (NSTEMI) myocardial infarction; Q45.3 Other congenital malformations of pancreas and pancreatic duct; K86.1 Other chronic pancreatitis; I85.00 Esophageal varices without bleeding; R07.89 Other chest pain; J44.9 Chronic obstructive pulmonary disease, unspecified; E11.9 Type 2 diabetes mellitus without complications; I25.10 Atherosclerotic heart disease of native coronary artery without angina pectoris; K76.0 Fatty (change of) liver, not elsewhere classified; K59.00 Constipation, unspecified; N39.0 Urinary tract infection, site not specified; K29.70 Gastritis, unspecified, without bleeding; J40 Bronchitis, not specified as acute or chronic; R31.9 Hematuria, unspecified; G89.4 Chronic pain syndrome; K21.9 Gastro-esophageal reflux disease without esophagitis; K58.8 Other irritable bowel syndrome; I11.0 Hypertensive heart disease with heart failure; I50.9 Heart failure, unspecified; Z87.891 Personal history of nicotine dependence; Z79.4 Long term (current) use of insulin; Z95.5 Presence of coronary angioplasty implant and graft
CPT/HCPCS: 36415; 71010-TC; 71020-TC; 74176-TC; 80048; 80053; 81003; 81015; 82550; 83690; 83735; 84100; 84484; 85025; 85027; 85379; 85610; 93005; 93010; 94010; 94760; 97116-GP; 99285-25; G0378; Q9967

== ENCOUNTER 2017-02-01 14:56 | Inpatient (IN) | payer OTHER, BC ==
[2017-02-01 15:00] VITALS: BMI 29.5
--- NOTE | 2017-02-01 16:19 | PDOC ---
History of Present Illness - History of Present Illness Initial Comments: 02/01/17 16:22 The patient is a 71-year-old woman, with a significant past medical history of hypertension, non ST-elevation myocardial infarction (November 10 2016;status post 2 stents placed), diabetes mellitus, chronic constipation, right hydronephrosis and calculus status post stent placement, H. Pylori and pancreatitis who presents to the emergency department via EMS for further evaluation of abdominal pain. Patient reports that ever since she was diagnosed with hydronephrosis back in October and a stent was placed, she has been experiencing suprapubic abdominal pressure sensations with associated nausea, dysuria, hematuria and flank pain. She states that her abdominal pain radiates up to her armpits and into her head. She also reports that she had an appointment with her PCP, Dr. Thompson, approximately 3 days ago, for which she was found to have a urinary tract infection. She also has a procedure scheduled for tomorrow with her urologist, Dr. Lyn for removal of her stent and stone. She denies fever, chills, diaphoresis, generalized weakness. She denies chest pain, shortness of breath, cough She denies vomiting, diarrhea, urinary frequency and urgency, vaginal discharge/ vaginal bleeding Allergies: Levofloxacin. Penicillin. Ciprofloxacin. Doxycycline. Metronidazole. Past Surgical History: Stent placement x6. (2 recently at [facility] as a result of an MT on 11/10/2016). Esophagogastroduodenoscopy. Cholecystectomy. Appendectomy. Social History: Former smoked (smoked approximately half a pack/day for 30 years ). No EtOH and recreational drug use. Primary Care Physician: Dr. Terri Thompson Urologist: Dr. Cameron Lyn [phone] Rental Car Ferry Driver: Dr. Naveen Ayers [phone] <Kaya Harrison - Last Filed: 02/01/17 16:43> <Nyla Akins - Last Filed: 02/01/17 17:44> <Vern Greer - Last Filed: 02/01/17 20:22> - General Chief Complaint: Pain, Acute Stated Complaint: BACK PAIN (KIDNEY STONES) Time Seen by Provider: 02/01/17 15:07 Past History <Kaya Harrison - Last Filed: 02/01/17 16:43> - Past Medical History Anemia: No Asthma: No Cancer: No Cardiac Disorders: Yes (4 stents, MT) CVA: No COPD: Yes CHF: No Dementia: No Diabetes: No GI Disorders: Yes (CONSTIPATION,, EGD, H PYLORI) Disorders: (Ongoing work-up for hematuria w/urologist) HTN: Yes Hypercholesterolemia: Yes Kidney Stones: Yes (stent) Liver Disease: No Seizures: No Thyroid Disease: No - Surgical History Abdominal Surgery: No Appendectomy: Yes Cardiac Surgery: Yes (CARDIAC STENTS X 4) Cholecystectomy: Yes ('06) Lung Surgery: No Neurologic Surgery: No Orthopedic Surgery: No - Immunization History Immunization Up to Date: No - Psycho/Social/Smoking Cessation Hx Anxiety: No Suicidal Ideation: No Smoking Status: Yes Smoking History: Never smoked Have you smoked in the past 12 months: No Number of Cigarettes Smoked Daily: 10 Information on smoking cessation initiated: No 'Breaking Loose' booklet given: 12/05/16 Hx Alcohol Use: No Drug/Substance Use Hx: No Substance Use Type: None Hx Substance Use Treatment: No <Nyla Akins - Last Filed: 02/01/17 17:44> <Vern Greer - Last Filed: 02/01/17 20:22> - Past Medical History Allergies/Adverse Reactions: Allergies Allergy/AdvReac Type Severity Reaction Status Date / Time levofloxacin [From Levaquin] Allergy Mild PAIN Verified 12/05/16 08:05 ciprofloxacin [From Cipro] Allergy PAIN Verified 12/05/16 08:05 doxycycline Allergy DIZZY Verified 12/05/16 08:05 Metronidazole HCl Allergy PAIN Verified 12/05/16 08:05 [From Flagyl] Penicillins Allergy Swelling Verified 12/05/16 08:05 Home Medications: Ambulatory Orders Albuterol Sulfate Inhaler - [Ventolin HFA Inhaler -] 1 - 2 inh PO QID PRN Bimatoprost [Lumigan] 1 drop OU DAILY 12/05/16 Docusate Sodium [Dulcolax Stool Softener] 100 mg PO DAILY PRN 12/05/16 Ergocalciferol [Drisdol -] 50,000 unit PO Q7D@1000 12/05/16 Insulin (Levemir) [Levemir Flexpen -] 0 units SQ DAILY 12/05/16 Insulin (Novolog) [Novolog Flexpen -] 0 units SQ AC 12/05/16 Metoprolol Succinate [Toprol XL -] 25 mg PO DAILY 12/05/16 Olopatadine HCl [Pazeo] 1 drop OP DAILY 12/05/16 Pantoprazole Sodium [Protonix] 40 mg PO DAILY 12/05/16 Aspirin Coated [Ecotrin -] 81 mg PO DAILY tab.ec 12/07/16 Review of Systems - Review of Systems Able to Perform ROS?: Yes Comments:: 02/01/17 16:23 GENERAL/CONSTITUTIONAL: No: fever, chills, weakness, loss of appetite. HEAD, EYES, EARS, NOSE AND THROAT: No: change in vision, ear pain, discharge, sore throat, throat swelling. CARDIOVASCULAR: No: chest pain, lightheadedness, palpitations, syncope RESPIRATORY: No: cough, shortness of breath, wheezing, hemoptysis, stridor. GASTROINTESTINAL: Yes: Abdominal Pain. Nausea. No: vomiting, diarrhea, rectal bleeding, constipation. GENITOURINARY: Yes: Hematuria. Dysuria. Flank Pain No: frequency, urgency. MUSCULOSKELETAL: No: back pain, neck pain, joint pain, muscle swelling or pain SKIN AND BREASTS: No: lesions, pallor, rash or easy bruising. NEUROLOGIC: Yes: Headache. No: vertigo, paresthesias, weakness ENDOCRINE: No: unexplained weight gain or loss HEMATOLOGIC/LYMPHATIC: No: anemia, easy bleeding, swelling nodes <Kaya Harrison - Last Filed: 02/01/17 16:43> *Physical Exam - Vital Signs Last Vital Signs Temp Pulse Resp BP Pulse Ox 98.4 F 93 H 18 140/87 96 02/01/17 14:58 02/01/17 14:58 02/01/17 14:58 02/01/17 14:58 02/01/17 14:58 - Physical Exam Comments: 02/01/17 16:23 GENERAL: The patient is in no acute distress. Appears uncomfortable. HEAD: Normal with no signs of trauma. EYES: PERRLA, EOMI, sclera anicteric, conjunctiva clear. ENT: Ears normal, nares patent, oropharynx clear without exudates. Moist mucous membranes. NECK: Normal range of motion, supple without lymphadenopathy, JVD, or masses. LUNGS: Bilateral bibasilar inspiratory crackles. HEART: Regular rate and rhythm, normal S1 and S2 without murmur, rub or gallop. ABDOMEN: Soft, lower abdominal discomfort to palpation, normoactive bowel sounds. No guarding, no rebound. No CVA tenderness. - Carson's punch, bilaterally. EXTREMITIES: Normal range of motion, no edema. No clubbing or cyanosis. No erythema, or tenderness. NEUROLOGICAL: Cranial nerves II through XII grossly intact. Normal speech. No focal neurological deficits. MUSCULOSKELETAL: Back non-tender to palpation, no CVA tenderness SKIN: Warm, Dry, normal turgor, no rashes or lesions noted. <Kaya Harrison - Last Filed: 02/01/17 16:43> - Vital Signs Last Vital Signs Temp Pulse Resp BP Pulse Ox 98.4 F 93 H 18 140/87 96 02/01/17 14:58 02/01/17 14:58 02/01/17 14:58 02/01/17 14:58 02/01/17 14:58 <Nyla Akins - Last Filed: 02/01/17 17:44> - Vital Signs Last Vital Signs Temp Pulse Resp BP Pulse Ox 98.4 F 93 H 18 140/87 96 02/01/17 14:58 02/01/17 14:58 02/01/17 14:58 02/01/17 14:58 02/01/17 14:58 <Vern Greer - Last Filed: 02/01/17 20:22> ED Treatment Course - LABORATORY CBC & Chemistry Diagram: 02/01/17 16:04 02/01/17 16:04 <Kaya Harrison - Last Filed: 02/01/17 16:43> - LABORATORY CBC & Chemistry Diagram: 02/01/17 16:04 02/01/17 16:04 <Nyla Akins - Last Filed: 02/01/17 17:44> - LABORATORY CBC & Chemistry Diagram: 02/01/17 16:04 02/01/17 16:04 - ADDITIONAL ORDERS Additional order review: Laboratory Results 02/01/17 02/01/17 16:04 16:04 Sodium 140 Potassium 3.7 Chloride 103 Carbon Dioxide 29 Anion Gap 8 BUN 19 H D Creatinine 0.8 Creat Clearance w eGFR > 60 Random Glucose 241 H D Calcium 9.2 Total Bilirubin 0.3 D AST 20 ALT 24 D Alkaline Phosphatase 70 Total Protein 7.6 Albumin 3.6 Urine Color Debi Urine Appearance Slcloudy Urine pH 8.0 D Ur Specific [place] 1.020 Urine Protein 2+ H Urine Glucose (UA) 1+ H Urine Ketones Trace H Urine Blood 3+ H Urine Nitrite Positive Urine Bilirubin Negative Urine Urobilinogen 4.0 e.u/dl H Ur Leukocyte Esterase 1+ H D 02/01/17 16:04 RBC 4.66 MCV 91.9 MCHC 33.0 RDW 13.1 MPV 7.2 L Neutrophils % 65.0 Lymphocytes % 23.3 Monocytes % 8.3 Eosinophils % 2.3 Basophils % 1.1 - Medications Given in the ED: ED Medications Discontinued Medications Generic Name Dose Route Start Last Admin Trade Name Freq PRN Reason Stop Dose Admin Linezolid 600 mg/ 300 mls @ 300 mls/hr 02/01/17 17:43 02/01/17 19:25 Miscellaneous IVPB 02/01/17 18:42 300 mls/hr NOW ONE Administration Protocol Morphine Sulfate 4 mg 02/01/17 17:42 02/01/17 18:21 Morphine Injection - IVPUSH 02/01/17 17:43 4 mg ONCE ONE Administration <Vern Greer - Last Filed: 02/01/17 20:22> Medical Decision Making - Medical Decision Making 02/01/17 16:[address] Lyn <Kaya Harrison - Last Filed: 02/01/17 16:43> - Medical Decision Making 02/01/17 16:19 A portion of this note was documented by scribe services under my direction. I have reviewed the details of the note, within reason, and agree with the documentation with the following case summary and management plan written by me. Nursing documentation reviewed and incorporated into medical decision making 02/01/17 16:52 This is a 71 yo F who presents to the ER with lower abdominal pain/pressure Pt has a history of kidney stone s/p stent in November Pt symptoms have been present since the stent Pt had had hematuria No fevers or chills Pt states that she has had pelvic pressure 02/01/17 16:58 Laboratory Tests 02/01/17 16:04 WBC 7.1 Hgb 14.1 Hct 42.8 Plt Count 342 D Neutrophils % 65.0 Lymphocytes % 23.[address] He The patient can be Admitted She was supposed to be on Zyvox she was unable to get this because the pharmacy didn't have it He requested that pt be placed on Zyvox Pt should have KUB 02/01/17 17:02 02/01/17 17:47 Pt signed out to Dr. Greer 02/01/17 17:48 <Nyla Akins - Last Filed: 02/01/17 17:44> - Medical Decision Making 02/01/17 20:[address] Mulligan- <Vern Greer - Last Filed: 02/01/17 20:22> *DC/Admit/Observation/Transfer - Attestations Scribe Attestion: 02/01/17 16:23 Documentation prepared by Kaya Harrison, acting as medical insurance coder for Nyla Akins MD. <Kaya Harrison - Last Filed: 02/01/17 16:43> <Nyla Akins - Last Filed: 02/01/17 17:44> - Discharge Dispostion Admit: Yes <Vern Greer - Last Filed: 02/01/17 20:22> Diagnosis at time of Disposition: UTI (urinary tract infection) Qualifiers: Urinary tract infection type: site unspecified Hematuria presence: without hematuria Qualified Code(s): N39.0 - Urinary tract infection, site not specified - Discharge Dispostion Condition at time of disposition: Improved
[2017-02-01 16:21] LABS: URINE APPEARANCE SLCLOUDY; URINE BILIRUBIN NEGATIVE (NEGATIVE); URINE BLOOD 3+ (NEGATIVE); URINE COLOR AMBER; URINE GLUCOSE (UA) 1+ (NEGATIVE); URINE KETONE TRACE (NEGATIVE); URINE NITRITE POSITIVE (NEGATIVE); URINE UROBILINOGEN 4.0 E.U/dl mg/dL (0.2-1.0)
[2017-02-01 16:28] LABS: BASOPHIL 1.1 % (0-2.0); EOSINOPHIL 2.3 % (0-4.5); MCH 30.3 pg (25.7-33.7); MEAN CELL VOLUME 91.9 fl (80-96); MEAN PLT VOLUME 7.2 fl (7.5-11.1); PLATELET COUNT 342 K/MM3 (134-434); RDW 13.1 % (11.6-15.6); WHITE BLOOD COUNT 7.1 K/mm3 (4.0-10.0)
[2017-02-01 17:05] LABS: ALBUMIN 3.6 g/dl (3.4-5.0); ALK PHOS 70 U/L (45-117); ANION GAP 8 (8-16); BILIRUBIN,TOTAL 0.3 mg/dL (0.2-1.0); CALCIUM 9.2 mg/dL (8.5-10.1); CO2 29 mmol/L (21-32); CREATININE 0.8 mg/dL (0.55-1.02); GLUCOSE,RANDOM 241 mg/dL (74-106); SGOT/AST 20 U/L (15-37); SGPT/ALT 24 U/L (12-78); TOT PROT 7.6 g/dl (6.4-8.2)
[2017-02-01 17:36] LABS: URINE LEUK ESTERASE 1+ (NEGATIVE); URINE PROTEIN 2+ (NEGATIVE)
[2017-02-01] MEDS ORDERED: morphine CARPU-JECT 4 MG/1 ML DISP.SYRIN IVPUSH ONE (17:42)
[2017-02-01] MEDS ORDERED: LINEZOLID 600 MG PREMIX BAG 600 MG in PREMIX 300 IVPB ONE (17:43)
[2017-02-01] MEDS ORDERED: morphine CARPU-JECT 4 MG/1 ML DISP.SYRIN ONE (18:11)
[2017-02-01 21:53] LABS: URINE RBC 4097 /hpf (0-3); URINE WBC 72 /hpf (3-5)
[2017-02-02] MEDS: ACETAMINOPHEN 325 MG TABLET (FP) PO PRN ×3 (00:28→21:06)
[2017-02-02] MEDS: oxyCODONE HCL 5 MG TABLET PO PRN ×2 (00:29→10:13)
[2017-02-02] MEDS ORDERED: GLYCERIN 1 RECTAL SUPPOSITORY, ADULT RC ONE ×2 (09:24→17:37)
[2017-02-02] MEDS: ONDANSETRON 4 MG/2 ML VIAL IVPB PRN ×2 (10:12→15:45)
--- NOTE | 2017-02-02 10:18 | EKG ---
Test Reason : Blood Pressure : / mmHG Vent. Rate : 087 BPM Atrial Rate : 087 BPM P-R Int : 200 ms QRS Dur : 100 ms QT Int : 420 ms P-R-T Axes : 055 -30 038 degrees QTc Int : 505 ms NORMAL SINUS RHYTHM POSSIBLE LEFT ATRIAL ENLARGEMENT LEFT AXIS DEVIATION SEPTAL INFARCT (CITED ON OR BEFORE 05-DEC-2016) ABNORMAL ECG WHEN COMPARED WITH ECG OF 05-DEC-2016 08:10, NO SIGNIFICANT CHANGE WAS FOUND Confirmed by MD JADA, WAN ([id number]) on 02/02/2017 10:17:47 AM Referred By: Confirmed By:WAN ELIAS MD
[2017-02-02] MEDS ORDERED: DOCUSATE SODIUM 100 MG CAPSULE (FP) PO PRN ×2 (14:01→17:37)
[2017-02-02] MEDS ORDERED: ALBUTEROL SO4 6.7 GM HFA INHALER IH PRN ×2 (14:01→17:37)
[2017-02-02] MEDS ORDERED: DESFLURANE GAS 240 ML BOTTLE IH ONE (14:07)
[2017-02-02] MEDS ORDERED: LINEZOLID 600 MG PREMIX BAG 300 ML IVPB STA ×2 (14:09→17:37)
--- NOTE | 2017-02-02 14:11 | HP ---
Admitting History and Physical - Primary Care Physician PCP: Terri Thompson - Admission Chief Complaint: I have a kidney stone History of Present Illness: Ms Ocasio is a 71 year old female who was sent in for stone removal and stent replacement. She says she was feeling sick at home. She says she was having fevers at home. She was having nausea, vomiting, fatigue, and weakness. She was found to have a UTI that was resistant and had a stone. She presents here and is s/p lithotripsy and stent replacement. She is groggy on exam secondary to anesthesia so unable to obtain further history. History Source: Patient Limitations to Obtaining History: Other (s/p intervention, groggy from anesthesia) - Past Medical History Cardiovascular: Yes: CAD Gastrointestinal: Yes: Constipation, GERD, Irritable Bowel Disease, Pancreatitis , Other (PANCREATIC DIVISUM) Renal/: Yes: Renal Calculi Endocrine: Yes: Diabetes Mellitus - Past Surgical History Past Surgical History: Yes: Cholecystectomy, Stent - Smoking History Smoking history: Never smoked Have you smoked in the past 12 months: No Aproximately how many cigarettes per day: 10 - Alcohol/Substance Use Hx Alcohol Use: No History of Substance Use: reports: None - Social History Usual Living Arrangement: Yes: Alone ADL: Independent History of Recent Travel: No Home Medications - Allergies Allergies/Adverse Reactions: Allergies Allergy/AdvReac Type Severity Reaction Status Date / Time levofloxacin [From Levaquin] Allergy Mild PAIN Verified 12/05/16 08:05 ciprofloxacin [From Cipro] Allergy PAIN Verified 12/05/16 08:05 doxycycline Allergy DIZZY Verified 12/05/16 08:05 Metronidazole HCl Allergy PAIN Verified 12/05/16 08:05 [From Flagyl] Penicillins Allergy Swelling Verified 12/05/16 08:05 - Home Medications Home Medications: Ambulatory Orders Albuterol Sulfate Inhaler - [Ventolin HFA Inhaler -] 1 - 2 inh PO QID PRN Bimatoprost [Lumigan] 1 drop OU DAILY 12/05/16 Docusate Sodium [Dulcolax Stool Softener] 100 mg PO DAILY PRN 12/05/16 Ergocalciferol [Drisdol -] 50,000 unit PO Q7D@1000 12/05/16 Insulin (Levemir) [Levemir Flexpen -] 0 units SQ DAILY 12/05/16 Insulin (Novolog) [Novolog Flexpen -] 0 units SQ AC 12/05/16 Metoprolol Succinate [Toprol XL -] 25 mg PO DAILY 12/05/16 Olopatadine HCl [Pazeo] 1 drop OP DAILY 12/05/16 Pantoprazole Sodium [Protonix] 40 mg PO DAILY 12/05/16 Aspirin Coated [Ecotrin -] 81 mg PO DAILY tab.ec 12/07/16 Family Disease History - Family Disease History Family Disease History: Diabetes: Mother, Heart Disease: Mother, CA: Father, Mother Review of Systems Findings/Remarks: Review of systems attempted but limited secondary to being s/p intervention Physical Examination Vital Signs: Vital Signs Temperature 98.4 F 02/02/17 05:50 Pulse Rate 80 02/02/17 05:50 Respiratory Rate 18 02/02/17 05:50 Blood Pressure 150/75 02/02/17 05:50 O2 Sat by Pulse Oximetry (%) 98 02/01/17 23:40 Constitutional: Yes: Well Nourished, No Distress, Calm Eyes: Yes: Conjunctiva Clear, EOM Intact HENT: Yes: Atraumatic, Normocephalic Cardiovascular: Yes: Regular Rate and Rhythm. No: Gallop, Murmur, Rub Respiratory: Yes: Regular, CTA Bilaterally. No: Rales, Rhonchi, Wheezes Gastrointestinal: Yes: Normal Bowel Sounds, Soft. No: Distention, Tenderness Extremities: Yes: WNL Edema: No Labs: Laboratory Results - last 24 hr 02/01/17 02/01/17 16:04 16:04 Sodium 140 Potassium 3.7 Chloride 103 Carbon Dioxide 29 Anion Gap 8 BUN 19 H D Creatinine 0.8 Creat Clearance w eGFR > 60 Random Glucose 241 H D Calcium 9.2 Total Bilirubin 0.3 D AST 20 ALT 24 D Alkaline Phosphatase 70 Total Protein 7.6 Albumin 3.6 Urine Color Debi Urine Appearance Slcloudy Urine pH 8.0 D Ur Specific [place] 1.020 Urine Protein 2+ H Urine Glucose (UA) 1+ H Urine Ketones Trace H Urine Blood 3+ H Urine Nitrite Positive Urine Bilirubin Negative Urine Urobilinogen 4.0 e.u/dl H Ur Leukocyte Esterase 1+ H D Urine RBC 4097 Urine WBC 72 Ur Epithelial Cells Rare Imaging - Results Chest X-ray: Report Reviewed, Image Reviewed Problem List - Problems (1) Calculus of ureter Assessment/Plan: -s/p lithotripsy and catheter replacement -urology following -gentle hydration Code(s): N20.1 - CALCULUS OF URETER (2) UTI (urinary tract infection) Assessment/Plan: -case d/w ID -VRE -started on zyvox Code(s): N39.0 - URINARY TRACT INFECTION, SITE NOT SPECIFIED Qualifiers: Urinary tract infection type: site unspecified Hematuria presence: without hematuria Qualified Code(s): N39.0 - Urinary tract infection, site not specified (3) Chronic pancreatitis Assessment/Plan: -monitor -if has abdominal pain, consult Dr Noble who knows the patient Code(s): K86.1 - OTHER CHRONIC PANCREATITIS (4) Pancreatic divisum Assessment/Plan: -as above Code(s): Q45.3 - OTH CONGENITAL MALFORMATIONS OF PANCREAS AND PANCREATIC DUCT (5) CAD (coronary artery disease) Assessment/Plan: -quiescent -hold aspirin until cleared by urology Code(s): I25.10 - ATHSCL HEART DISEASE OF [place] CORONARY ARTERY W/O ANG PCTRS (6) Diabetes mellitus Assessment/Plan: -diabetic diet -SSI Code(s): E11.9 - TYPE 2 DIABETES MELLITUS WITHOUT COMPLICATIONS Qualifiers: Diabetes mellitus type: type 2 Diabetes mellitus skilled nursing insulin use : with 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
[2017-02-02] MEDS ORDERED: SODIUM CHLORIDE 1,000 ML IV SCH ×2 (14:15→17:37)
--- NOTE | 2017-02-02 14:15 | CONSULT ---
Consult Consult Specialty:: infectious diseases Reason for Consultation:: geni urine - History of Present Illness Chief Complaint: kidney stone History of Present Illness: 71-year-old woman, with a significant past medical history of hypertension, Non- ST-elevation myocardial infarction (November 10 2016; s/p 2 stent placements and 4 more back in 2007 and 2008), insulin diabetes mellitus, chronic constipation, H. Pylori and pancreatitis who is being admitted for stent removal and lithotripsy Patient had a positive u/a done as an outpatient which showed vre and was started on zyox Paient now going to the operating room for the procedure has no complaints at the moment. - History Source History Provided By: Patient, Medical Record Limitations to Obtaining History: No Limitations - Past Medical History Cardio/Vascular: Yes: CAD Gastrointestinal: Yes: Constipation, GERD, Irritable Bowel Disease, Pancreatitis , Other (PANCREATIC DIVISUM) Renal/: Yes: Renal Calculi Endocrine: Yes: Diabetes Mellitus - Past Surgical History Past Surgical History: Yes: Cholecystectomy, Stent - Alcohol/Substance Use Hx Alcohol Use: No History of Substance Use: reports: None - Smoking History Smoking history: Never smoked Have you smoked in the past 12 months: No Aproximately how many cigarettes per day: 10 - Social History ADL: Independent History of Recent Travel: No Home Medications - Allergies Allergies/Adverse Reactions: Allergies Allergy/AdvReac Type Severity Reaction Status Date / Time levofloxacin [From Levaquin] Allergy Mild PAIN Verified 12/05/16 08:05 ciprofloxacin [From Cipro] Allergy PAIN Verified 12/05/16 08:05 doxycycline Allergy DIZZY Verified 12/05/16 08:05 Metronidazole HCl Allergy PAIN Verified 12/05/16 08:05 [From Flagyl] Penicillins Allergy Swelling Verified 12/05/16 08:05 - Home Medications Home Medications: Ambulatory Orders Albuterol Sulfate Inhaler - [Ventolin HFA Inhaler -] 1 - 2 inh PO QID PRN Bimatoprost [Lumigan] 1 drop OU DAILY 12/05/16 Docusate Sodium [Dulcolax Stool Softener] 100 mg PO DAILY PRN 12/05/16 Ergocalciferol [Drisdol -] 50,000 unit PO Q7D@1000 12/05/16 Insulin (Levemir) [Levemir Flexpen -] 0 units SQ DAILY 12/05/16 Insulin (Novolog) [Novolog Flexpen -] 0 units SQ AC 12/05/16 Metoprolol Succinate [Toprol XL -] 25 mg PO DAILY 12/05/16 Olopatadine HCl [Pazeo] 1 drop OP DAILY 12/05/16 Pantoprazole Sodium [Protonix] 40 mg PO DAILY 12/05/16 Aspirin Coated [Ecotrin -] 81 mg PO DAILY tab.ec 12/07/16 Family Disease History - Family Disease History Family Disease History: Diabetes: Mother, Heart Disease: Mother, CA: Father, Mother Review of Systems - Review of Systems Constitutional: reports: No Symptoms Eyes: reports: No Symptoms HENT: reports: No Symptoms Neck: reports: No Symptoms Cardiovascular: reports: No Symptoms Respiratory: reports: No Symptoms Gastrointestinal: reports: No Symptoms Genitourinary: reports: Other Breasts: reports: No Symptoms Reported Musculoskeletal: reports: No Symptoms Integumentary: reports: No Symptoms Neurological: reports: No Symptoms Endocrine: reports: No Symptoms Hematology/Lymphatic: reports: No Symptoms Psychiatric: reports: No Symptoms Physical Exam Vital Signs: Vital Signs Temperature 98.4 F 02/02/17 05:50 Pulse Rate 80 02/02/17 05:50 Respiratory Rate 18 02/02/17 05:50 Blood Pressure 150/75 02/02/17 05:50 O2 Sat by Pulse Oximetry (%) 98 02/01/17 23:40 Constitutional: Yes: Well Nourished, No Distress, Calm Eyes: Yes: Conjunctiva Clear HENT: Yes: Atraumatic, Normocephalic Neck: Yes: Supple, Trachea Midline Cardiovascular: Yes: Regular Rate and Rhythm Respiratory: Yes: Regular, CTA Bilaterally Gastrointestinal: Yes: Normal Bowel Sounds, Soft Musculoskeletal: Yes: WNL Extremities: Yes: WNL Neurological: Yes: Alert, Oriented Psychiatric: Yes: Alert, Oriented Imaging - Results Chest X-ray: Report Reviewed, Image Reviewed X-ray: Report Reviewed, Image Reviewed Assessment/Plan Imaging - Results Chest X-ray: Report Reviewed, Image Reviewed Problem List - Problems (1) Calculus of ureter Code(s): N20.1 - CALCULUS OF URETER (2) UTI (urinary tract infection) Code(s): N39.0 - URINARY TRACT INFECTION, SITE NOT SPECIFIED Qualifiers: Urinary tract infection type: site unspecified Hematuria presence: without hematuria Qualified Code(s): N39.0 - Urinary tract infection, site not specified (3) Chronic pancreatitis Code(s): K86.1 - OTHER CHRONIC PANCREATITIS (4) Pancreatic divisum Code(s): Q45.3 - OTH CONGENITAL MALFORMATIONS OF PANCREAS AND PANCREATIC DUCT (5) CAD (coronary artery disease) Code(s): I25.10 - ATHSCL HEART DISEASE OF [place] CORONARY ARTERY W/O ANG PCTRS (6) Diabetes mellitus Code(s): E11.9 - TYPE 2 DIABETES MELLITUS WITHOUT COMPLICATIONS Qualifiers: Diabetes mellitus type: type 2 Diabetes mellitus long-term insulin use : with 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
[2017-02-02] MEDS ORDERED: LINEZOLID IVPB ONE (14:58)
[2017-02-02] MEDS ORDERED: PROMETHAZINE HCL 25 MG/1 ML VIAL IVPUSH PRN ×2 (15:37→17:37)
[2017-02-02] MEDS ORDERED: ONDANSETRON 4 MG/2 ML VIAL ONE (15:39)
[2017-02-02] MEDS ORDERED: LACTATED RINGERS SOLUTION 1,000 ML IV SCH ×2 (15:45→17:37)
[2017-02-02] MEDS ORDERED: PROMETHAZINE HCL 25 MG/1 ML VIAL ONE (15:53)
[2017-02-02] MEDS ORDERED: INSULIN SLIDING SCALE (NOVOLOG) 1 VIAL SQ SCH (16:30)
[2017-02-02] MEDS ORDERED: oxyCODONE HCL 5 MG TABLET PO PRN (17:37)
[2017-02-02] MEDS ORDERED: INSULIN (NOVOLOG) ASPART 100 UNITS/ML 10ML VIAL ONE (20:31)
[2017-02-02] MEDS: INSULIN SLIDING SCALE (NOVOLOG) 1 VIAL SQ SCH (21:42)
[2017-02-02] MEDS: LATANOPROST 0.005% OPHTH SOLN 2.5ML BOTTLE OU SCH (21:46)
[2017-02-02] MEDS ORDERED: LATANOPROST 0.005% OPHTH SOLN 2.5ML BOTTLE OU SCH (22:00)
[2017-02-03] MEDS: LINEZOLID 600 MG PREMIX BAG 300 ML IVPB SCH ×2 (01:24→15:06)
[2017-02-03] MEDS ORDERED: LINEZOLID 600 MG PREMIX BAG 300 ML IVPB SCH (02:00)
[2017-02-03] MEDS: ACETAMINOPHEN 325 MG TABLET (FP) PO PRN (05:18)
[2017-02-03] MEDS: INSULIN SLIDING SCALE (NOVOLOG) 1 VIAL SQ SCH ×4 (06:27→21:08)
[2017-02-03 07:33] LABS: ANION GAP 9 (8-16); CALCIUM 8.6 mg/dL (8.5-10.1); CO2 28 mmol/L (21-32); CREATININE 0.9 mg/dL (0.55-1.02); GLUCOSE,RANDOM 131 mg/dL (74-106); MAGNESIUM 2.3 mg/dL (1.8-2.4); PHOSPHOROUS 2.8 mg/dL (2.5-4.9)
[2017-02-03 07:36] LABS: BASOPHIL 0.8 % (0-2.0); EOSINOPHIL 1.4 % (0-4.5); MCH 30.8 pg (25.7-33.7); MEAN CELL VOLUME 90.5 fl (80-96); MEAN PLT VOLUME 7.1 fl (7.5-11.1); NEUTROPHILS 73.2 % (42.8-82.8); PLATELET COUNT 282 K/MM3 (134-434); RDW 13.2 % (11.6-15.6); WHITE BLOOD COUNT 9.8 K/mm3 (4.0-10.0)
[2017-02-03] MEDS ORDERED: HYDROCORTISONE ACETATE 25 MG/SUPP.RECT RC PRN (08:54)
[2017-02-03] MEDS: PANTOPRAZOLE 40 MG TABLET (FP) PO SCH (09:35)
[2017-02-03] MEDS: METOPROLOL SUCCINATE 25 MG TAB.SR.24H (FP) PO SCH (09:35)
[2017-02-03] MEDS ORDERED: PATIENT'S OWN MEDICATION (NON-FORMULARY) (Olopatadine Hcl [Pazeo] 1 DROP) OP SCH ×2 (10:00)
[2017-02-03] MEDS ORDERED: METOPROLOL SUCCINATE 25 MG TAB.SR.24H (FP) PO SCH (10:00)
[2017-02-03] MEDS ORDERED: PANTOPRAZOLE 40 MG TABLET (FP) PO SCH (10:00)
--- NOTE | 2017-02-03 10:54 | PN ---
Progress Note (short form) - Note Progress Note: Afebrile VSS abd- soft, urine clear. patient complains of a pain that goes from her perineum to her neck. Imp- S/P laser lithotripsy. DC mulligan KUB continue antibiotics.
[2017-02-03] MEDS: KETOROLAC TROMETHAMINE 30 MG/1 ML VIAL IVPUSH PRN (11:45)
--- NOTE | 2017-02-03 12:07 | OP ---
DATE OF OPERATION: 02/02/2017 PREOPERATIVE DIAGNOSIS: Right renal pelvis stone. POSTOPERATIVE DIAGNOSIS: Right renal pelvis stone. PROCEDURE: Right ureteroscopy, laser lithotripsy, ureteral stent replacement, and retrograde pyelogram. ANESTHESIA: General, Dr. Mcneill. FINDINGS: A large stone in the renal pelvis. SPECIMEN: Old ureteral stent. ESTIMATED BLOOD LOSS: Minimal. DRAIN: A 6 x 26 double-J ureteral stent and a Mendoza catheter. PREOPERATIVE INDICATIONS: The patient is a 71-year-old female who has a history of an obstructing septic stone on the right. She had a ureteral stent placed emergently. She has recently had coronary stenting for [place], and she continues to be on antiplatelet agents. She is now approximately 3 months from the stenting, and Cardiology has cleared her to have a procedure. She is not amenable to a at this time because of the need for antiplatelet agents and has requested an attempt at breaking the stone. DESCRIPTION OF OPERATION: The patient was brought to the OR, placed on the table in supine position, given general anesthesia and IV antibiotics, and placed in the modified lithotomy position. The groin was prepped and draped sterilely. Cystoscopy was performed. The bladder appeared to be normal. No tumors were seen. The right ureteral stent was visualized. It was removed. A wire was passed up into the right kidney. A ureteral access sheath was slowly and easily passed up into the renal pelvis. A flexible ureteroscope was passed into the renal pelvis. Stone was visualized. Using the holmium laser fiber, this stone was broken up. This was done, and a large amount of the medial aspect of the stone was broken up. The visualization became poor due to stone fragments. No evidence of bleeding was seen. A wire was passed up into the upper pole, and a 6 x 26 double-J ureteral stent was placed with 1 loop in the upper pole seen on fluoroscopy and another loop in the bladder. A Mendoza catheter was then placed for postoperative drainage. The patient tolerated the procedure well. She was woken up. Makenna [id number]
--- NOTE | 2017-02-03 12:31 | PN ---
Progress Note, Physician Chief Complaint: Patient complains of back pain, abdominal pain, neck pain, and general malaise. no sob. - Current Medication List Current Medications: Active Medications Acetaminophen (Tylenol -) 325 mg PO Q6H PRN PRN Reason: PAIN Last Admin: 02/03/17 05:18 Dose: 325 mg Albuterol Sulfate (Ventolin Hfa Inhaler -) 2 puff IH QID PRN PRN Reason: ASTHMA Docusate Sodium (Colace -) 100 mg PO DAILY PRN PRN Reason: CONSTIPATION Fentanyl (Sublimaze Injection -) 50 mcg IVPUSH [id number] PRN PRN Reason: PAIN Stop: 02/05/17 15:38 Hydrocortisone Acetate (Anusol Hc Suppository -) 25 mg RC DAILY PRN Linezolid (Zyvox 600 Mg Premix Bag (Restricted To Id) -) 300 mls @ 300 mls/hr IVPB Q12H AIDE PRN Reason: Protocol Last Admin: 02/03/17 01:24 Dose: 300 mls/hr Insulin Aspart (Novolog Vial Sliding Scale -) 1 vial SQ ACHS AIDE PRN Reason: Protocol Last Admin: 02/03/17 11:36 Dose: Not Given Ketorolac Tromethamine (Toradol Injection -) 30 mg IVPUSH Q6H PRN PRN Reason: PAIN Stop: 02/08/17 10:47 Last Admin: 02/03/17 11:45 Dose: 30 mg Latanoprost (Xalatan 0.005% Eye Drops -) 1 drop OU HS [facility] Last Admin: 02/02/17 21:46 Dose: 1 drop Metoprolol Succinate (Toprol Xl -) 25 mg PO DAILY [facility] Last Admin: 02/03/17 09:35 Dose: 25 mg Non-Formulary Medication (Olopatadine Hcl [Pazeo]) 1 drop OP DAILY [facility] Ondansetron HCl (Zofran Injection) 4 mg IVPB Q6H PRN PRN Reason: NAUSEA Oxycodone HCl (Roxicodone -) 5 mg PO Q6H PRN PRN Reason: PAIN Last Admin: 02/02/17 21:06 Dose: 5 mg Pantoprazole Sodium (Protonix -) 40 mg PO DAILY [facility] Last Admin: 02/03/17 09:35 Dose: 40 mg - Objective Vital Signs: Vital Signs Temperature 98 F 02/03/17 10:00 Pulse Rate 76 02/03/17 10:00 Respiratory Rate 20 02/03/17 10:00 Blood Pressure 147/56 02/03/17 10:00 O2 Sat by Pulse Oximetry (%) 95 02/03/17 10:00 Constitutional: Yes: Well Nourished, No Distress, Calm Cardiovascular: Yes: Regular Rate and Rhythm. No: Gallop, Murmur, Rub Respiratory: Yes: Regular, CTA Bilaterally. No: Rales, Rhonchi, Wheezes Gastrointestinal: Yes: Normal Bowel Sounds, Soft. No: Distention, Tenderness Extremities: Yes: WNL Edema: No Labs: CBC, BMP 02/03/17 05:50 02/03/17 05:50 Problem List - Problems (1) Calculus of ureter Code(s): N20.1 - CALCULUS OF URETER (2) UTI (urinary tract infection) Code(s): N39.0 - URINARY TRACT INFECTION, SITE NOT SPECIFIED Qualifiers: Urinary tract infection type: site unspecified Hematuria presence: without hematuria Qualified Code(s): N39.0 - Urinary tract infection, site not specified (3) Chronic pancreatitis Code(s): K86.1 - OTHER CHRONIC PANCREATITIS (4) Pancreatic divisum Code(s): Q45.3 - OTH CONGENITAL MALFORMATIONS OF PANCREAS AND PANCREATIC DUCT (5) CAD (coronary artery disease) Code(s): I25.10 - ATHSCL HEART DISEASE OF [place] CORONARY ARTERY W/O ANG PCTRS (6) Diabetes mellitus Code(s): E11.9 - TYPE 2 DIABETES MELLITUS WITHOUT COMPLICATIONS Qualifiers: Diabetes mellitus type: type 2 Diabetes mellitus mcfp insulin use : with terminal carman use (7) HTN (hypertension) Code(s): I10 - ESSENTIAL (PRIMARY) HYPERTENSION Assessment/Plan (1) Calculus of ureter Assessment/Plan: -s/p lithotripsy and catheter replacement -urology following -still with pain, obtain abdominal x-ray Code(s): N20.1 - CALCULUS OF URETER (2) UTI (urinary tract infection) Assessment/Plan: -urine culture contaminant, repeat -continue xyvox per ID Code(s): N39.0 - URINARY TRACT INFECTION, SITE NOT SPECIFIED Qualifiers: Urinary tract infection type: site unspecified Hematuria presence: without hematuria Qualified Code(s): N39.0 - Urinary tract infection, site not specified (3) Chronic pancreatitis Assessment/Plan: -stable -monitor Code(s): K86.1 - OTHER CHRONIC PANCREATITIS (4) Pancreatic divisum Assessment/Plan: -as above Code(s): Q45.3 - OTH CONGENITAL MALFORMATIONS OF PANCREAS AND PANCREATIC DUCT (5) CAD (coronary artery disease) Assessment/Plan: -quiescent -hold aspirin until cleared by urology Code(s): I25.10 - ATHSCL HEART DISEASE OF [place] CORONARY ARTERY W/O ANG PCTRS (6) Diabetes mellitus Assessment/Plan: -diabetic diet -SSI Code(s): E11.9 - TYPE 2 DIABETES MELLITUS WITHOUT COMPLICATIONS Qualifiers: Diabetes mellitus type: type 2 Diabetes mellitus mcfp insulin use : with mcfp use (7) HTN (hypertension) Assessment/Plan: -continue toprol xl Code(s): I10 - ESSENTIAL (PRIMARY) HYPERTENSION
--- NOTE | 2017-02-03 18:37 | PN ---
Progress Note, Physician History of Present Illness: Events noted Pt c/o nonspecific generalized pain Currently no n/v/d Afebrile, without chills - Current Medication List Current Medications: Active Medications Acetaminophen (Tylenol -) 325 mg PO Q6H PRN PRN Reason: PAIN Last Admin: 02/03/17 05:18 Dose: 325 mg Albuterol Sulfate (Ventolin Hfa Inhaler -) 2 puff IH QID PRN PRN Reason: ASTHMA Docusate Sodium (Colace -) 100 mg PO DAILY PRN PRN Reason: CONSTIPATION Fentanyl (Sublimaze Injection -) 50 mcg IVPUSH [id number] PRN PRN Reason: PAIN Stop: 02/05/17 15:38 Hydrocortisone Acetate (Anusol Hc Suppository -) 25 mg RC DAILY PRN Linezolid (Zyvox 600 Mg Premix Bag (Restricted To Id) -) 300 mls @ 300 mls/hr IVPB Q12H AIDE PRN Reason: Protocol Last Admin: 02/03/17 15:06 Dose: 300 mls/hr Insulin Aspart (Novolog Vial Sliding Scale -) 1 vial SQ ACHS AIDE PRN Reason: Protocol Last Admin: 02/03/17 18:02 Dose: Not Given Ketorolac Tromethamine (Toradol Injection -) 30 mg IVPUSH Q6H PRN PRN Reason: PAIN Stop: 02/08/17 10:47 Last Admin: 02/03/17 11:45 Dose: 30 mg Latanoprost (Xalatan 0.005% Eye Drops -) 1 drop OU HS [facility] Last Admin: 02/02/17 21:46 Dose: 1 drop Metoprolol Succinate (Toprol Xl -) 25 mg PO DAILY [facility] Last Admin: 02/03/17 09:35 Dose: 25 mg Non-Formulary Medication (Olopatadine Hcl [Pazeo]) 1 drop OP DAILY [facility] Ondansetron HCl (Zofran Injection) 4 mg IVPB Q6H PRN PRN Reason: NAUSEA Oxycodone HCl (Roxicodone -) 5 mg PO Q6H PRN PRN Reason: PAIN Last Admin: 02/02/17 21:06 Dose: 5 mg Pantoprazole Sodium (Protonix -) 40 mg PO DAILY [facility] Last Admin: 02/03/17 09:35 Dose: 40 mg - Objective Vital Signs: Vital Signs Temperature 98.3 F 02/03/17 18:00 Pulse Rate 73 02/03/17 18:00 Respiratory Rate 20 02/03/17 18:00 Blood Pressure 113/67 02/03/17 18:00 O2 Sat by Pulse Oximetry (%) 95 02/03/17 10:00 Constitutional: Yes: No Distress Gastrointestinal: Yes: Normal Bowel Sounds, Soft Genitourinary: Yes: Other (pressure near Rt flank) Labs: CBC, BMP 02/03/17 05:50 02/03/17 05:50 Problem List - Problems (1) Calculus of ureter Code(s): N20.1 - CALCULUS OF URETER (2) Hydronephrosis Code(s): N13.30 - UNSPECIFIED HYDRONEPHROSIS Qualifiers: Hydronephrosis type: with ureteral calculous obstruction Qualified Code(s): N13.2 - Hydronephrosis with renal and ureteral calculous obstruction (3) UTI (urinary tract infection) Code(s): N39.0 - URINARY TRACT INFECTION, SITE NOT SPECIFIED Qualifiers: Urinary tract infection type: site unspecified Hematuria presence: without hematuria Qualified Code(s): N39.0 - Urinary tract infection, site not specified (4) Diabetes mellitus Code(s): E11.9 - TYPE 2 DIABETES MELLITUS WITHOUT COMPLICATIONS Qualifiers: Diabetes mellitus type: type 2 Diabetes mellitus correction insulin use : with intermission coordinator use Assessment/Plan Ureteral stone s/p lithotripsy, stent placement continue zyvox repeat urine culture ordered urology follow up pt currently stable
--- NOTE | 2017-02-03 20:34 | PN ---
Progress Note (short form) - Note Progress Note: ANESTHESIOLOGY POST-OP CHECK 71F s/p cystoscopy, ureteroscopy, laser lithotripsy and ureteral stent under general anesthesia , POD #1. PT c/o of some neck , back and lower abdominal pain 5/10 severity and tolerable. Pt is sitting on edge of bed conversing with with roommate. Some mild nausea but tolerating PO diet. Vital Signs Temperature 98.3 F 02/03/17 18:00 Pulse Rate 73 02/03/17 18:00 Respiratory Rate 20 02/03/17 18:00 Blood Pressure 113/67 02/03/17 18:00 O2 Sat by Pulse Oximetry (%) 95 02/03/17 10:00 Active Medications Acetaminophen (Tylenol -) 325 mg PO Q6H PRN PRN Reason: PAIN Last Admin: 02/03/17 05:18 Dose: 325 mg Albuterol Sulfate (Ventolin Hfa Inhaler -) 2 puff IH QID PRN PRN Reason: ASTHMA Docusate Sodium (Colace -) 100 mg PO DAILY PRN PRN Reason: CONSTIPATION Fentanyl (Sublimaze Injection -) 50 mcg IVPUSH [id number] PRN PRN Reason: PAIN Stop: 02/05/17 15:38 Hydrocortisone Acetate (Anusol Hc Suppository -) 25 mg RC DAILY PRN Linezolid (Zyvox 600 Mg Premix Bag (Restricted To Id) -) 300 mls @ 300 mls/hr IVPB Q12H AIDE PRN Reason: Protocol Last Admin: 02/03/17 15:06 Dose: 300 mls/hr Insulin Aspart (Novolog Vial Sliding Scale -) 1 vial SQ ACHS AIDE PRN Reason: Protocol Last Admin: 02/03/17 18:02 Dose: Not Given Ketorolac Tromethamine (Toradol Injection -) 30 mg IVPUSH Q6H PRN PRN Reason: PAIN Stop: 02/08/17 10:47 Last Admin: 02/03/17 11:45 Dose: 30 mg Latanoprost (Xalatan 0.005% Eye Drops -) 1 drop OU HS [facility] Last Admin: 02/02/17 21:46 Dose: 1 drop Metoprolol Succinate (Toprol Xl -) 25 mg PO DAILY [facility] Last Admin: 02/03/17 09:35 Dose: 25 mg Non-Formulary Medication (Olopatadine Hcl [Pazeo]) 1 drop OP DAILY [facility] Ondansetron HCl (Zofran Injection) 4 mg IVPB Q6H PRN PRN Reason: NAUSEA Oxycodone HCl (Roxicodone -) 5 mg PO Q6H PRN PRN Reason: PAIN Last Admin: 02/02/17 21:06 Dose: 5 mg Pantoprazole Sodium (Protonix -) 40 mg PO DAILY [facility] Last Admin: 02/03/17 09:35 Dose: 40 mg Gen :Awake, alert, no apparent distress No apparent anesthesia complications, pain controlled. Continue management as per primary team.
[2017-02-03] MEDS: LATANOPROST 0.005% OPHTH SOLN 2.5ML BOTTLE OU SCH (21:15)
[2017-02-04] MEDS ORDERED: PT OWN MED DRAWER 7, Y5N ONE ×2 (00:51→20:58)
[2017-02-04] MEDS: ACETAMINOPHEN 325 MG TABLET (FP) PO PRN (00:57)
[2017-02-04] MEDS: LINEZOLID 600 MG PREMIX BAG 300 ML IVPB SCH ×2 (01:10→14:33)
[2017-02-04] MEDS: KETOROLAC TROMETHAMINE 30 MG/1 ML VIAL IVPUSH PRN (02:23)
[2017-02-04] MEDS: ONDANSETRON 4 MG/2 ML VIAL IVPB PRN (04:50)
[2017-02-04] MEDS: INSULIN SLIDING SCALE (NOVOLOG) 1 VIAL SQ SCH ×4 (06:25→21:49)
[2017-02-04 07:48] LABS: EOSINOPHIL 2.6 % (0-4.5); MCH 30.8 pg (25.7-33.7); MEAN CELL VOLUME 90.3 fl (80-96); NEUTROPHILS 57.8 % (42.8-82.8); PLATELET COUNT 257 K/MM3 (134-434); RDW 12.9 % (11.6-15.6)
[2017-02-04 08:23] LABS: ANION GAP 7 (8-16); CO2 30 mmol/L (21-32); GLUCOSE,RANDOM 127 mg/dL (74-106); MAGNESIUM 2.3 mg/dL (1.8-2.4); PHOSPHOROUS 3.5 mg/dL (2.5-4.9)
[2017-02-04] MEDS: PANTOPRAZOLE 40 MG TABLET (FP) PO SCH (09:44)
[2017-02-04] MEDS: METOPROLOL SUCCINATE 25 MG TAB.SR.24H (FP) PO SCH (09:44)
[2017-02-04] MEDS: DOCUSATE SODIUM 100 MG CAPSULE (FP) PO SCH ×2 (10:37→21:25)
--- NOTE | 2017-02-04 10:47 | PN ---
Progress Note, Physician Chief Complaint: Patient continues to have multiple non-specific complaints. She complains of headache, sinus congestion, nausea, back pain, leg pain, and foot pain. - Current Medication List Current Medications: Active Medications Acetaminophen (Tylenol -) 325 mg PO Q6H PRN PRN Reason: PAIN Last Admin: 02/04/17 00:57 Dose: 325 mg Albuterol Sulfate (Ventolin Hfa Inhaler -) 2 puff IH QID PRN PRN Reason: ASTHMA Docusate Sodium (Colace -) 100 mg PO BID [facility] Last Admin: 02/04/17 10:37 Dose: Not Given Fentanyl (Sublimaze Injection -) 50 mcg IVPUSH [id number] PRN PRN Reason: PAIN Stop: 02/05/17 15:38 Hydrocortisone Acetate (Anusol Hc Suppository -) 25 mg RC DAILY PRN Linezolid (Zyvox 600 Mg Premix Bag (Restricted To Id) -) 300 mls @ 300 mls/hr IVPB Q12H AIDE PRN Reason: Protocol Last Admin: 02/04/17 01:10 Dose: 300 mls/hr Insulin Aspart (Novolog Vial Sliding Scale -) 1 vial SQ ACHS AIDE PRN Reason: Protocol Last Admin: 02/04/17 06:25 Dose: Not Given Ketorolac Tromethamine (Toradol Injection -) 30 mg IVPUSH Q6H PRN PRN Reason: PAIN Stop: 02/08/17 10:47 Last Admin: 02/04/17 02:23 Dose: 30 mg Latanoprost (Xalatan 0.005% Eye Drops -) 1 drop OU HS [facility] Last Admin: 02/03/17 21:15 Dose: 1 drop Metoprolol Succinate (Toprol Xl -) 25 mg PO DAILY [facility] Last Admin: 02/04/17 09:44 Dose: 25 mg Non-Formulary Medication (Olopatadine Hcl [Pazeo]) 1 drop OP DAILY [facility] Ondansetron HCl (Zofran Injection) 4 mg IVPB Q6H PRN PRN Reason: NAUSEA Last Admin: 02/04/17 04:50 Dose: 4 mg Oxycodone HCl (Roxicodone -) 5 mg PO Q6H PRN PRN Reason: PAIN Last Admin: 02/02/17 21:06 Dose: 5 mg Pantoprazole Sodium (Protonix -) 40 mg PO DAILY [facility] Last Admin: 02/04/17 09:44 Dose: 40 mg Polyethylene Glycol (Miralax (For Daily Use) -) 17 gm PO BID [facility] - Objective Vital Signs: Vital Signs Temperature 97.6 F 02/04/17 05:41 Pulse Rate 66 02/04/17 05:41 Respiratory Rate 20 02/04/17 05:41 Blood Pressure 128/79 02/04/17 05:41 O2 Sat by Pulse Oximetry (%) 94 L 02/03/17 20:46 Constitutional: Yes: Well Nourished, No Distress, Calm Cardiovascular: Yes: Regular Rate and Rhythm. No: Gallop, Murmur, Rub Respiratory: Yes: Regular, CTA Bilaterally. No: Rales, Rhonchi, Wheezes Gastrointestinal: Yes: Normal Bowel Sounds, Soft. No: Distention, Tenderness Extremities: Yes: WNL Edema: No Labs: CBC, BMP 02/04/17 06:10 02/04/17 06:10 Problem List - Problems (1) Calculus of ureter Code(s): N20.1 - CALCULUS OF URETER (2) UTI (urinary tract infection) Code(s): N39.0 - URINARY TRACT INFECTION, SITE NOT SPECIFIED Qualifiers: Urinary tract infection type: site unspecified Hematuria presence: without hematuria Qualified Code(s): N39.0 - Urinary tract infection, site not specified (3) Chronic pancreatitis Code(s): K86.1 - OTHER CHRONIC PANCREATITIS (4) Pancreatic divisum Code(s): Q45.3 - OTH CONGENITAL MALFORMATIONS OF PANCREAS AND PANCREATIC DUCT (5) CAD (coronary artery disease) Code(s): I25.10 - ATHSCL HEART DISEASE OF [place] CORONARY ARTERY W/O ANG PCTRS (6) Diabetes mellitus Code(s): E11.9 - TYPE 2 DIABETES MELLITUS WITHOUT COMPLICATIONS Qualifiers: Diabetes mellitus type: type 2 Diabetes mellitus detention insulin use : with terminal operations supervisor use (7) HTN (hypertension) Code(s): I10 - ESSENTIAL (PRIMARY) HYPERTENSION Assessment/Plan (1) Calculus of ureter Assessment/Plan: -s/p lithotripsy and catheter replacement -urology following -abdominal x-ray unchanged Code(s): N20.1 - CALCULUS OF URETER (2) UTI (urinary tract infection) Assessment/Plan: -urine culture contaminant, repeat -continue xyvox per ID Code(s): N39.0 - URINARY TRACT INFECTION, SITE NOT SPECIFIED Qualifiers: Urinary tract infection type: site unspecified Hematuria presence: without hematuria Qualified Code(s): N39.0 - Urinary tract infection, site not specified (3) Chronic pancreatitis Assessment/Plan: -stable -monitor Code(s): K86.1 - OTHER CHRONIC PANCREATITIS (4) Pancreatic divisum Assessment/Plan: -as above Code(s): Q45.3 - OTH CONGENITAL MALFORMATIONS OF PANCREAS AND PANCREATIC DUCT (5) CAD (coronary artery disease) Assessment/Plan: -quiescent -can restart aspirin on discharge Code(s): I25.10 - ATHSCL HEART DISEASE OF [place] CORONARY ARTERY W/O ANG PCTRS (6) Diabetes mellitus Assessment/Plan: -diabetic diet -SSI Code(s): E11.9 - TYPE 2 DIABETES MELLITUS WITHOUT COMPLICATIONS Qualifiers: Diabetes mellitus type: type 2 Diabetes mellitus detention insulin use : with terminal operations supervisor use (7) HTN (hypertension) Assessment/Plan: -continue toprol xl Code(s): I10 - ESSENTIAL (PRIMARY) HYPERTENSION
[2017-02-04] MEDS: POLYETHYLENE GLYCOL 3350 119 GM BTL PO SCH ×3 (12:27→21:49)
--- NOTE | 2017-02-04 17:59 | PN ---
Progress Note, Physician History of Present Illness: Pt is afebrile, alert, conversive c/o discomfort in Rt side of her body No chills, tolerating antibiotics - Current Medication List Current Medications: Active Medications Acetaminophen (Tylenol -) 325 mg PO Q6H PRN PRN Reason: PAIN Last Admin: 02/04/17 00:57 Dose: 325 mg Albuterol Sulfate (Ventolin Hfa Inhaler -) 2 puff IH QID PRN PRN Reason: ASTHMA Docusate Sodium (Colace -) 100 mg PO BID [facility] Last Admin: 02/04/17 10:37 Dose: Not Given Fentanyl (Sublimaze Injection -) 50 mcg IVPUSH [id number] PRN PRN Reason: PAIN Stop: 02/05/17 15:38 Hydrocortisone Acetate (Anusol Hc Suppository -) 25 mg RC DAILY PRN Linezolid (Zyvox 600 Mg Premix Bag (Restricted To Id) -) 300 mls @ 300 mls/hr IVPB Q12H AIDE PRN Reason: Protocol Last Admin: 02/04/17 14:33 Dose: 300 mls/hr Insulin Aspart (Novolog Vial Sliding Scale -) 1 vial SQ ACHS AIDE PRN Reason: Protocol Last Admin: 02/04/17 17:43 Dose: 2 units Ketorolac Tromethamine (Toradol Injection -) 30 mg IVPUSH Q6H PRN PRN Reason: PAIN Stop: 02/08/17 10:47 Last Admin: 02/04/17 02:23 Dose: 30 mg Latanoprost (Xalatan 0.005% Eye Drops -) 1 drop OU HS [facility] Last Admin: 02/03/17 21:15 Dose: 1 drop Metoprolol Succinate (Toprol Xl -) 25 mg PO DAILY [facility] Last Admin: 02/04/17 09:44 Dose: 25 mg Non-Formulary Medication (Olopatadine Hcl [Pazeo]) 1 drop OP DAILY [facility] Ondansetron HCl (Zofran Injection) 4 mg IVPB Q6H PRN PRN Reason: NAUSEA Last Admin: 02/04/17 04:50 Dose: 4 mg Oxycodone HCl (Roxicodone -) 5 mg PO Q6H PRN PRN Reason: PAIN Last Admin: 02/02/17 21:06 Dose: 5 mg Pantoprazole Sodium (Protonix -) 40 mg PO DAILY [facility] Last Admin: 02/04/17 09:44 Dose: 40 mg Polyethylene Glycol (Miralax (For Daily Use) -) 17 gm PO BID [facility] Last Admin: 02/04/17 12:27 Dose: 17 gm - Objective Vital Signs: Vital Signs Temperature 98.5 F 02/04/17 14:51 Pulse Rate 72 02/04/17 14:51 Respiratory Rate 20 02/04/17 14:51 Blood Pressure 136/83 02/04/17 14:51 O2 Sat by Pulse Oximetry (%) 97 02/04/17 09:00 Constitutional: Yes: No Distress Cardiovascular: Yes: WNL Gastrointestinal: Yes: Normal Bowel Sounds, Soft Genitourinary: Yes: CVA Tenderness - Right (mild Rt flank discomfort) Labs: CBC, BMP 02/04/17 06:10 02/04/17 06:10 Problem List - Problems (1) Calculus of ureter Code(s): N20.1 - CALCULUS OF URETER (2) Hydronephrosis Code(s): N13.30 - UNSPECIFIED HYDRONEPHROSIS Qualifiers: Hydronephrosis type: with ureteral calculous obstruction Qualified Code(s): N13.2 - Hydronephrosis with renal and ureteral calculous obstruction (3) UTI (urinary tract infection) Code(s): N39.0 - URINARY TRACT INFECTION, SITE NOT SPECIFIED Qualifiers: Urinary tract infection type: site unspecified Hematuria presence: without hematuria Qualified Code(s): N39.0 - Urinary tract infection, site not specified (4) Diabetes mellitus Code(s): E11.9 - TYPE 2 DIABETES MELLITUS WITHOUT COMPLICATIONS Qualifiers: Diabetes mellitus type: type 2 Diabetes mellitus mcfp insulin use : with watermaster use (5) Nephrolithiasis Code(s): N20.0 - CALCULUS OF KIDNEY Assessment/Plan Ureteral stone s/p lithotripsy, stent placement VRE UTI continue zyvox repeat urine culture results still pending urology follow up pt currently stable
[2017-02-04] MEDS ORDERED: INSULIN (NOVOLOG) ASPART 100 UNITS/ML 10ML VIAL ONE (20:58)
[2017-02-04] MEDS: LATANOPROST 0.005% OPHTH SOLN 2.5ML BOTTLE OU SCH (21:25)
[2017-02-05] MEDS ORDERED: PT OWN MED DRAWER 7, Y5N ONE ×2 (01:18→09:19)
[2017-02-05] MEDS: LINEZOLID 600 MG PREMIX BAG 300 ML IVPB SCH ×2 (01:26→14:03)
[2017-02-05] MEDS: ONDANSETRON 4 MG/2 ML VIAL IVPB PRN (04:23)
[2017-02-05] MEDS: INSULIN SLIDING SCALE (NOVOLOG) 1 VIAL SQ SCH ×4 (06:23→21:30)
[2017-02-05] MEDS ORDERED: LORazepam 1 MG TABLET PO ONE (06:30)
[2017-02-05 07:13] LABS: MCHC 34.1 g/dl (32.0-36.0); MEAN CELL VOLUME 90.8 fl (80-96); NEUTROPHILS 61.9 % (42.8-82.8); PLATELET COUNT 266 K/MM3 (134-434); RDW 13.2 % (11.6-15.6); WHITE BLOOD COUNT 7.4 K/mm3 (4.0-10.0)
[2017-02-05] MEDS: DOCUSATE SODIUM 100 MG CAPSULE (FP) PO SCH ×2 (09:30→21:30)
[2017-02-05] MEDS: PANTOPRAZOLE 40 MG TABLET (FP) PO SCH (09:30)
[2017-02-05] MEDS: POLYETHYLENE GLYCOL 3350 119 GM BTL PO SCH ×2 (09:30→21:31)
[2017-02-05] MEDS: METOPROLOL SUCCINATE 25 MG TAB.SR.24H (FP) PO SCH (09:30)
[2017-02-05 12:53] LABS: ANION GAP 7 (8-16); CALCIUM 9.3 mg/dL (8.5-10.1); CO2 30 mmol/L (21-32); CREATININE 0.8 mg/dL (0.55-1.02); GLUCOSE,RANDOM 133 mg/dL (74-106); MAGNESIUM 2.3 mg/dL (1.8-2.4); PHOSPHOROUS 2.6 mg/dL (2.5-4.9)
--- NOTE | 2017-02-05 15:40 | PN ---
Progress Note, Physician History of Present Illness: patient doing well no new issues says she does not feel well clinically patient stable - Current Medication List Current Medications: Active Medications Acetaminophen (Tylenol -) 325 mg PO Q6H PRN PRN Reason: PAIN Last Admin: 02/04/17 00:57 Dose: 325 mg Albuterol Sulfate (Ventolin Hfa Inhaler -) 2 puff IH QID PRN PRN Reason: ASTHMA Docusate Sodium (Colace -) 100 mg PO BID [facility] Last Admin: 02/05/17 09:30 Dose: 100 mg Hydrocortisone Acetate (Anusol Hc Suppository -) 25 mg RC DAILY PRN Insulin Aspart (Novolog Vial Sliding Scale -) 1 vial SQ ACHS AIDE PRN Reason: Protocol Last Admin: 02/05/17 11:32 Dose: Not Given Ketorolac Tromethamine (Toradol Injection -) 30 mg IVPUSH Q6H PRN PRN Reason: PAIN Stop: 02/08/17 10:47 Last Admin: 02/04/17 02:23 Dose: 30 mg Latanoprost (Xalatan 0.005% Eye Drops -) 1 drop OU HS [facility] Last Admin: 02/04/17 21:25 Dose: 1 drop Linezolid (Zyvox (Restricted To Id) -) 600 mg PO BID [facility] Metoprolol Succinate (Toprol Xl -) 25 mg PO DAILY [facility] Last Admin: 02/05/17 09:30 Dose: 25 mg Non-Formulary Medication (Olopatadine Hcl [Pazeo]) 1 drop OP DAILY [facility] Ondansetron HCl (Zofran Injection) 4 mg IVPB Q6H PRN PRN Reason: NAUSEA Last Admin: 02/05/17 04:23 Dose: 4 mg Oxycodone HCl (Roxicodone -) 5 mg PO Q6H PRN PRN Reason: PAIN Last Admin: 02/02/17 21:06 Dose: 5 mg Pantoprazole Sodium (Protonix -) 40 mg PO DAILY [facility] Last Admin: 02/05/17 09:30 Dose: 40 mg Polyethylene Glycol (Miralax (For Daily Use) -) 17 gm PO BID [facility] Last Admin: 02/05/17 09:30 Dose: 17 gm - Objective Vital Signs: Vital Signs Temperature 98.7 F 02/05/17 14:47 Pulse Rate 72 02/05/17 14:47 Respiratory Rate 18 02/05/17 14:47 Blood Pressure 100/52 02/05/17 14:47 O2 Sat by Pulse Oximetry (%) 96 02/05/17 10:18 Constitutional: Yes: No Distress, Calm Cardiovascular: Yes: S1, S2 Respiratory: Yes: Regular, CTA Bilaterally Gastrointestinal: Yes: Normal Bowel Sounds, Soft Musculoskeletal: Yes: WNL Extremities: Yes: WNL Neurological: Yes: Alert, Oriented Psychiatric: Yes: Alert, Oriented Labs: CBC, BMP 02/05/17 05:40 02/05/17 05:40 Assessment/Plan Imaging - Results Chest X-ray: Report Reviewed, Image Reviewed Problem List - Problems (1) Calculus of ureter Code(s): N20.1 - CALCULUS OF URETER (2) UTI (urinary tract infection) Code(s): N39.0 - URINARY TRACT INFECTION, SITE NOT SPECIFIED Qualifiers: Urinary tract infection type: site unspecified Hematuria presence: without hematuria Qualified Code(s): N39.0 - Urinary tract infection, site not specified (3) Chronic pancreatitis Code(s): K86.1 - OTHER CHRONIC PANCREATITIS (4) Pancreatic divisum Code(s): Q45.3 - OTH CONGENITAL MALFORMATIONS OF PANCREAS AND PANCREATIC DUCT (5) CAD (coronary artery disease) Code(s): I25.10 - ATHSCL HEART DISEASE OF [place] CORONARY ARTERY W/O ANG PCTRS (6) Diabetes mellitus Code(s): E11.9 - TYPE 2 DIABETES MELLITUS WITHOUT COMPLICATIONS Qualifiers: Diabetes mellitus type: type 2 Diabetes mellitus keno terminal operator insulin use : with keno terminal operator use (7) HTN (hypertension) Code(s): I10 - ESSENTIAL (PRIMARY) HYPERTENSION plan changed zyox to oral rest continue current mgmt patient will need it for another 10 days will have to repeat urine after that patient has a new stent in place
--- NOTE | 2017-02-05 15:45 | PN ---
Progress Note, Physician Chief Complaint: Ms Ocasio complains of something "bursting" in her nose which caused post nasal drip and shortness of breath. She says she has a headache. She says she has back pain. Last night she says she had burning pain in her foot that radiated up her back. - Current Medication List Current Medications: Active Medications Acetaminophen (Tylenol -) 325 mg PO Q6H PRN PRN Reason: PAIN Last Admin: 02/04/17 00:57 Dose: 325 mg Albuterol Sulfate (Ventolin Hfa Inhaler -) 2 puff IH QID PRN PRN Reason: ASTHMA Docusate Sodium (Colace -) 100 mg PO BID [facility] Last Admin: 02/05/17 09:30 Dose: 100 mg Hydrocortisone Acetate (Anusol Hc Suppository -) 25 mg RC DAILY PRN Insulin Aspart (Novolog Vial Sliding Scale -) 1 vial SQ ACHS AIDE PRN Reason: Protocol Last Admin: 02/05/17 11:32 Dose: Not Given Ketorolac Tromethamine (Toradol Injection -) 30 mg IVPUSH Q6H PRN PRN Reason: PAIN Stop: 02/08/17 10:47 Last Admin: 02/04/17 02:23 Dose: 30 mg Latanoprost (Xalatan 0.005% Eye Drops -) 1 drop OU HS [facility] Last Admin: 02/04/17 21:25 Dose: 1 drop Linezolid (Zyvox (Restricted To Id) -) 600 mg PO BID [facility] Metoprolol Succinate (Toprol Xl -) 25 mg PO DAILY [facility] Last Admin: 02/05/17 09:30 Dose: 25 mg Non-Formulary Medication (Olopatadine Hcl [Pazeo]) 1 drop OP DAILY [facility] Ondansetron HCl (Zofran Injection) 4 mg IVPB Q6H PRN PRN Reason: NAUSEA Last Admin: 02/05/17 04:23 Dose: 4 mg Oxycodone HCl (Roxicodone -) 5 mg PO Q6H PRN PRN Reason: PAIN Last Admin: 02/02/17 21:06 Dose: 5 mg Pantoprazole Sodium (Protonix -) 40 mg PO DAILY [facility] Last Admin: 02/05/17 09:30 Dose: 40 mg Polyethylene Glycol (Miralax (For Daily Use) -) 17 gm PO BID [facility] Last Admin: 02/05/17 09:30 Dose: 17 gm - Objective Vital Signs: Vital Signs Temperature 98.7 F 02/05/17 14:47 Pulse Rate 72 02/05/17 14:47 Respiratory Rate 18 02/05/17 14:47 Blood Pressure 100/52 02/05/17 14:47 O2 Sat by Pulse Oximetry (%) 96 02/05/17 10:18 Constitutional: Yes: Well Nourished, No Distress, Calm Cardiovascular: Yes: Regular Rate and Rhythm. No: Gallop, Murmur, Rub Respiratory: Yes: Regular, CTA Bilaterally. No: Rales, Rhonchi, Wheezes Gastrointestinal: Yes: Normal Bowel Sounds, Soft. No: Distention, Tenderness Extremities: Yes: WNL Edema: No Labs: CBC, BMP 02/05/17 05:40 02/05/17 05:40 Problem List - Problems (1) Calculus of ureter Code(s): N20.1 - CALCULUS OF URETER (2) UTI (urinary tract infection) Code(s): N39.0 - URINARY TRACT INFECTION, SITE NOT SPECIFIED Qualifiers: Urinary tract infection type: site unspecified Hematuria presence: without hematuria Qualified Code(s): N39.0 - Urinary tract infection, site not specified (3) Chronic pancreatitis Code(s): K86.1 - OTHER CHRONIC PANCREATITIS (4) Pancreatic divisum Code(s): Q45.3 - OTH CONGENITAL MALFORMATIONS OF PANCREAS AND PANCREATIC DUCT (5) CAD (coronary artery disease) Code(s): I25.10 - ATHSCL HEART DISEASE OF [place] CORONARY ARTERY W/O ANG PCTRS (6) Diabetes mellitus Code(s): E11.9 - TYPE 2 DIABETES MELLITUS WITHOUT COMPLICATIONS Qualifiers: Diabetes mellitus type: type 2 Diabetes mellitus skilled nursing insulin use : with skilled nursing use (7) HTN (hypertension) Code(s): I10 - ESSENTIAL (PRIMARY) HYPERTENSION Assessment/Plan (1) Calculus of ureter Assessment/Plan: -urology following -will need outpatient procedure for removal of stone and stent Code(s): N20.1 - CALCULUS OF URETER (2) UTI (urinary tract infection) Assessment/Plan: -urine culture repeated -continue xyvox per ID -can change to oral xyvox and discharge tomorrow Code(s): N39.0 - URINARY TRACT INFECTION, SITE NOT SPECIFIED Qualifiers: Urinary tract infection type: site unspecified Hematuria presence: without hematuria Qualified Code(s): N39.0 - Urinary tract infection, site not specified (3) Chronic pancreatitis Assessment/Plan: -stable -monitor Code(s): K86.1 - OTHER CHRONIC PANCREATITIS (4) Pancreatic divisum Assessment/Plan: -as above Code(s): Q45.3 - OTH CONGENITAL MALFORMATIONS OF PANCREAS AND PANCREATIC DUCT (5) CAD (coronary artery disease) Assessment/Plan: -quiescent -can restart aspirin on discharge Code(s): I25.10 - ATHSCL HEART DISEASE OF [place] CORONARY ARTERY W/O ANG PCTRS (6) Diabetes mellitus Assessment/Plan: -diabetic diet -SSI Code(s): E11.9 - TYPE 2 DIABETES MELLITUS WITHOUT COMPLICATIONS Qualifiers: Diabetes mellitus type: type 2 Diabetes mellitus account administrator insulin use : with skilled nursing use (7) HTN (hypertension) Assessment/Plan: -continue toprol xl Code(s): I10 - ESSENTIAL (PRIMARY) HYPERTENSION
[2017-02-05] MEDS: LATANOPROST 0.005% OPHTH SOLN 2.5ML BOTTLE OU SCH (21:31)
[2017-02-05] MEDS: LINEZOLID 600 MG TABLET (RESTRICTED TO ID) PO SCH (21:34)
[2017-02-06] MEDS: INSULIN SLIDING SCALE (NOVOLOG) 1 VIAL SQ SCH ×4 (06:16→21:38)
[2017-02-06 07:49] LABS: BASOPHIL 1.3 % (0-2.0); EOSINOPHIL 2.3 % (0-4.5); MCHC 34.2 g/dl (32.0-36.0); MEAN CELL VOLUME 90.7 fl (80-96); MEAN PLT VOLUME 7.1 fl (7.5-11.1); NEUTROPHILS 62.8 % (42.8-82.8); PLATELET COUNT 268 K/MM3 (134-434)
[2017-02-06 08:05] LABS: ANION GAP 7 (8-16); CALCIUM 9.5 mg/dL (8.5-10.1); CHOLESTEROL 176 mg/dL (50-200); CO2 32 mmol/L (21-32); CREATININE 0.8 mg/dL (0.55-1.02); GLUCOSE,RANDOM 140 mg/dL (74-106); LDL CHOLESTEROL (ONLY SJRH) 112 mg/dL (5-100); MAGNESIUM 2.3 mg/dL (1.8-2.4); PHOSPHOROUS 3.2 mg/dL (2.5-4.9)
[2017-02-06] MEDS ORDERED: PT OWN MED DRAWER 7, Y5N ONE (09:54)
[2017-02-06] MEDS: LINEZOLID 600 MG TABLET (RESTRICTED TO ID) PO SCH ×2 (09:57→21:40)
[2017-02-06] MEDS: METOPROLOL SUCCINATE 25 MG TAB.SR.24H (FP) PO SCH (09:58)
[2017-02-06] MEDS: DOCUSATE SODIUM 100 MG CAPSULE (FP) PO SCH ×2 (09:58→21:38)
[2017-02-06] MEDS: PANTOPRAZOLE 40 MG TABLET (FP) PO SCH (09:58)
[2017-02-06] MEDS: POLYETHYLENE GLYCOL 3350 119 GM BTL PO SCH ×2 (09:58→21:38)
--- NOTE | 2017-02-06 13:10 | PN ---
Progress Note, Physician Chief Complaint: Ms Ocasio continues to have multiple non-specific complaints. She complains of diffuse pain including her sinus, headache, abdomen, and foot pain. Says she feels like she has poison in her body. Only specific complaint is that she is constipated. - Current Medication List Current Medications: Active Medications Acetaminophen (Tylenol -) 325 mg PO Q6H PRN PRN Reason: PAIN Last Admin: 02/04/17 00:57 Dose: 325 mg Albuterol Sulfate (Ventolin Hfa Inhaler -) 2 puff IH QID PRN PRN Reason: ASTHMA Docusate Sodium (Colace -) 100 mg PO BID [facility] Last Admin: 02/06/17 09:58 Dose: 100 mg Hydrocortisone Acetate (Anusol Hc Suppository -) 25 mg RC DAILY PRN Last Admin: 02/06/17 09:57 Dose: 25 mg Insulin Aspart (Novolog Vial Sliding Scale -) 1 vial SQ ACHS AIDE PRN Reason: Protocol Last Admin: 02/06/17 12:36 Dose: Not Given Ketorolac Tromethamine (Toradol Injection -) 30 mg IVPUSH Q6H PRN PRN Reason: PAIN Stop: 02/08/17 10:47 Last Admin: 02/04/17 02:23 Dose: 30 mg Lactulose (Cephulac (Oral Use)) 20 gm PO QID [facility] Latanoprost (Xalatan 0.005% Eye Drops -) 1 drop OU HS [facility] Last Admin: 02/05/17 21:31 Dose: Not Given Linezolid (Zyvox (Restricted To Id) -) 600 mg PO BID [facility] Last Admin: 02/06/17 09:57 Dose: 600 mg Metoprolol Succinate (Toprol Xl -) 25 mg PO DAILY [facility] Last Admin: 02/06/17 09:58 Dose: 25 mg Non-Formulary Medication (Olopatadine Hcl [Pazeo]) 1 drop OP DAILY [facility] Ondansetron HCl (Zofran Injection) 4 mg IVPB Q6H PRN PRN Reason: NAUSEA Last Admin: 02/05/17 04:23 Dose: 4 mg Pantoprazole Sodium (Protonix -) 40 mg PO DAILY [facility] Last Admin: 02/06/17 09:58 Dose: 40 mg Polyethylene Glycol (Miralax (For Daily Use) -) 17 gm PO BID [facility] Last Admin: 02/06/17 09:58 Dose: 17 gm - Objective Vital Signs: Vital Signs Temperature 98.2 F 02/06/17 06:00 Pulse Rate 73 02/06/17 09:45 Respiratory Rate 20 02/06/17 06:00 Blood Pressure 133/70 02/06/17 06:00 O2 Sat by Pulse Oximetry (%) 95 02/06/17 09:45 Constitutional: Yes: No Distress, Calm, Obese Cardiovascular: Yes: Regular Rate and Rhythm. No: Gallop, Murmur, Rub Respiratory: Yes: Regular, CTA Bilaterally. No: Rales, Rhonchi, Wheezes Gastrointestinal: Yes: Normal Bowel Sounds, Soft. No: Distention, Tenderness Extremities: Yes: WNL Edema: No Labs: CBC, BMP 02/06/17 06:00 02/06/17 06:00 Problem List - Problems (1) Calculus of ureter Code(s): N20.1 - CALCULUS OF URETER (2) UTI (urinary tract infection) Code(s): N39.0 - URINARY TRACT INFECTION, SITE NOT SPECIFIED Qualifiers: Urinary tract infection type: site unspecified Hematuria presence: without hematuria Qualified Code(s): N39.0 - Urinary tract infection, site not specified (3) Chronic pancreatitis Code(s): K86.1 - OTHER CHRONIC PANCREATITIS (4) Pancreatic divisum Code(s): Q45.3 - OTH CONGENITAL MALFORMATIONS OF PANCREAS AND PANCREATIC DUCT (5) CAD (coronary artery disease) Code(s): I25.10 - ATHSCL HEART DISEASE OF [place] CORONARY ARTERY W/O ANG PCTRS (6) Diabetes mellitus Code(s): E11.9 - TYPE 2 DIABETES MELLITUS WITHOUT COMPLICATIONS Qualifiers: Diabetes mellitus type: type 2 Diabetes mellitus long-term insulin use : with long-term use (7) HTN (hypertension) Code(s): I10 - ESSENTIAL (PRIMARY) HYPERTENSION Assessment/Plan (1) Calculus of ureter Assessment/Plan: -urology following -will need outpatient procedure for removal of stone and stent Code(s): N20.1 - CALCULUS OF URETER (2) UTI (urinary tract infection) Assessment/Plan: -urine culture repeated -urine growing pansensitive e. coli -case d/w ID -because of multiple allergies, started on aztreonam Code(s): N39.0 - URINARY TRACT INFECTION, SITE NOT SPECIFIED Qualifiers: Urinary tract infection type: site unspecified Hematuria presence: without hematuria Qualified Code(s): N39.0 - Urinary tract infection, site not specified (3) Chronic pancreatitis Assessment/Plan: -stable -monitor Code(s): K86.1 - OTHER CHRONIC PANCREATITIS (4) Pancreatic divisum Assessment/Plan: -as above Code(s): Q45.3 - OTH CONGENITAL MALFORMATIONS OF PANCREAS AND PANCREATIC DUCT (5) CAD (coronary artery disease) Assessment/Plan: -quiescent -can restart aspirin on discharge Code(s): I25.10 - ATHSCL HEART DISEASE OF [place] CORONARY ARTERY W/O ANG PCTRS (6) Diabetes mellitus Assessment/Plan: -diabetic diet -SSI Code(s): E11.9 - TYPE 2 DIABETES MELLITUS WITHOUT COMPLICATIONS Qualifiers: Diabetes mellitus type: type 2 Diabetes mellitus long-term insulin use : with buttermaker helper use (7) HTN (hypertension) Assessment/Plan: -continue toprol xl Code(s): I10 - ESSENTIAL (PRIMARY) HYPERTENSION (8) Constipation -add lactulose
--- NOTE | 2017-02-06 13:45 | PATH ---
Surgical Pathology Report Patient Name: COY ARENAS Med. Rec. #: [id number] /Age/Gender: 1945 (Age: 71) / F Account: [id number] Location: [facility] Taken: 02/05/2017 Received: 02/05/2017 Reported: 02/06/2017 Physicians: Cameron Lyn M.D. Specimen(s) Received OLD RIGHT URETERAL STENT Clinical History Right ureteral stone Final Diagnosis OLD URETERAL STENT, RIGHT, REPLACEMENT: STENT (GROSS EXAM). Electronically Signed Ramiro Silver M.D. Gross Description Received without fixative, labeled "old right ureteral stent" is a 35 cm in length blue plastic device consistent with a stent. Also there a 3 cm in length fragment of blue plastic tube with an attached calcified material. No soft tissue is attached. No sections are submitted. The specimen gross examination only. AF/02/05/2017 final/02/05/2017
[2017-02-06] MEDS: LACTULOSE 20 GM/30 ML UDC (FOR ORAL USE ONLY) PO SCH ×3 (14:29→21:38)
--- NOTE | 2017-02-06 14:35 | PN ---
Progress Note, Physician History of Present Illness: patient doing well no new issues - Current Medication List Current Medications: Active Medications Acetaminophen (Tylenol -) 325 mg PO Q6H PRN PRN Reason: PAIN Last Admin: 02/04/17 00:57 Dose: 325 mg Albuterol Sulfate (Ventolin Hfa Inhaler -) 2 puff IH QID PRN PRN Reason: ASTHMA Docusate Sodium (Colace -) 100 mg PO BID [facility] Last Admin: 02/06/17 09:58 Dose: 100 mg Hydrocortisone Acetate (Anusol Hc Suppository -) 25 mg RC DAILY PRN Last Admin: 02/06/17 09:57 Dose: 25 mg Insulin Aspart (Novolog Vial Sliding Scale -) 1 vial SQ ACHS AIDE PRN Reason: Protocol Last Admin: 02/06/17 12:36 Dose: Not Given Ketorolac Tromethamine (Toradol Injection -) 30 mg IVPUSH Q6H PRN PRN Reason: PAIN Stop: 02/08/17 10:47 Last Admin: 02/04/17 02:23 Dose: 30 mg Lactulose (Cephulac (Oral Use)) 20 gm PO QID [facility] Last Admin: 02/06/17 14:29 Dose: 20 gm Latanoprost (Xalatan 0.005% Eye Drops -) 1 drop OU HS [facility] Last Admin: 02/05/17 21:31 Dose: Not Given Linezolid (Zyvox (Restricted To Id) -) 600 mg PO BID [facility] Last Admin: 02/06/17 09:57 Dose: 600 mg Metoprolol Succinate (Toprol Xl -) 25 mg PO DAILY [facility] Last Admin: 02/06/17 09:58 Dose: 25 mg Non-Formulary Medication (Olopatadine Hcl [Pazeo]) 1 drop OP DAILY [facility] Ondansetron HCl (Zofran Injection) 4 mg IVPB Q6H PRN PRN Reason: NAUSEA Last Admin: 02/05/17 04:23 Dose: 4 mg Pantoprazole Sodium (Protonix -) 40 mg PO DAILY [facility] Last Admin: 02/06/17 09:58 Dose: 40 mg Polyethylene Glycol (Miralax (For Daily Use) -) 17 gm PO BID [facility] Last Admin: 02/06/17 09:58 Dose: 17 gm - Objective Vital Signs: Vital Signs Temperature 99.0 F 02/06/17 14:04 Pulse Rate 75 02/06/17 14:04 Respiratory Rate 18 02/06/17 14:04 Blood Pressure 118/75 02/06/17 14:04 O2 Sat by Pulse Oximetry (%) 95 02/06/17 09:45 Constitutional: Yes: No Distress, Calm Cardiovascular: Yes: Regular Rate and Rhythm Respiratory: Yes: Regular, CTA Bilaterally Gastrointestinal: Yes: Normal Bowel Sounds, Soft Musculoskeletal: Yes: WNL Extremities: Yes: WNL Neurological: Yes: Alert, Oriented Psychiatric: Yes: Alert, Oriented Labs: CBC, BMP 02/06/17 06:00 02/06/17 06:00 Assessment/Plan Imaging - Results Chest X-ray: Report Reviewed, Image Reviewed Problem List - Problems (1) Calculus of ureter Code(s): N20.1 - CALCULUS OF URETER (2) UTI (urinary tract infection) Code(s): N39.0 - URINARY TRACT INFECTION, SITE NOT SPECIFIED Qualifiers: Urinary tract infection type: site unspecified Hematuria presence: without hematuria Qualified Code(s): N39.0 - Urinary tract infection, site not specified (3) Chronic pancreatitis Code(s): K86.1 - OTHER CHRONIC PANCREATITIS (4) Pancreatic divisum Code(s): Q45.3 - OTH CONGENITAL MALFORMATIONS OF PANCREAS AND PANCREATIC DUCT (5) CAD (coronary artery disease) Code(s): I25.10 - ATHSCL HEART DISEASE OF [place] CORONARY ARTERY W/O ANG PCTRS (6) Diabetes mellitus Code(s): E11.9 - TYPE 2 DIABETES MELLITUS WITHOUT COMPLICATIONS Qualifiers: Diabetes mellitus type: type 2 Diabetes mellitus ad terminal makeup operator insulin use : with ad terminal makeup operator use (7) HTN (hypertension) Code(s): I10 - ESSENTIAL (PRIMARY) HYPERTENSION patients urine now showing ecoli,probably coming from the [facility] urine plan continue zyox peck tart ceftriaxone rest as per primary stable
[2017-02-06] MEDS ORDERED: CEFTRIAXONE 1 GM in DEXTROSE 5%-WATER - 50 ML IVPB SCH (14:45)
[2017-02-06] MEDS: AZTREONAM 1 GM in DEXTROSE 5%-WATER - 50 ML IVPB SCH (17:40)
[2017-02-06] MEDS: LATANOPROST 0.005% OPHTH SOLN 2.5ML BOTTLE OU SCH (21:38)
[2017-02-07] MEDS ORDERED: PT OWN MED DRAWER 7, Y5N ONE ×3 (02:26→11:13)
[2017-02-07] MEDS: AZTREONAM 1 GM in DEXTROSE 5%-WATER - 50 ML IVPB SCH ×3 (02:29→18:22)
[2017-02-07] MEDS: INSULIN SLIDING SCALE (NOVOLOG) 1 VIAL SQ SCH ×4 (06:32→21:24)
[2017-02-07] MEDS: DOCUSATE SODIUM 100 MG CAPSULE (FP) PO SCH ×2 (09:09→21:24)
[2017-02-07] MEDS: METOPROLOL SUCCINATE 25 MG TAB.SR.24H (FP) PO SCH (09:09)
[2017-02-07] MEDS: LINEZOLID 600 MG TABLET (RESTRICTED TO ID) PO SCH ×2 (09:09→21:24)
[2017-02-07] MEDS: PANTOPRAZOLE 40 MG TABLET (FP) PO SCH (09:09)
[2017-02-07] MEDS: LACTULOSE 20 GM/30 ML UDC (FOR ORAL USE ONLY) PO SCH (09:10)
[2017-02-07] MEDS ORDERED: LACTULOSE 20 GM/30 ML UDC (FOR ORAL USE ONLY) PO PRN (10:41)
--- NOTE | 2017-02-07 10:43 | PN ---
Progress Note, Physician Chief Complaint: Ms Ocasio's complaints have not changed, remain non-specific with multiple pain complaints. No cp, sob, n/v. - Current Medication List Current Medications: Active Medications Acetaminophen (Tylenol -) 325 mg PO Q6H PRN PRN Reason: PAIN Last Admin: 02/04/17 00:57 Dose: 325 mg Albuterol Sulfate (Ventolin Hfa Inhaler -) 2 puff IH QID PRN PRN Reason: ASTHMA Docusate Sodium (Colace -) 100 mg PO BID [facility] Last Admin: 02/07/17 09:09 Dose: 100 mg Hydrocortisone Acetate (Anusol Hc Suppository -) 25 mg RC DAILY PRN Last Admin: 02/06/17 09:57 Dose: 25 mg Aztreonam 1 gm/ Dextrose 50 mls @ 100 mls/hr IVPB Q8H-IV [facility] Last Admin: 02/07/17 02:29 Dose: 100 mls/hr Insulin Aspart (Novolog Vial Sliding Scale -) 1 vial SQ ACHS AIDE PRN Reason: Protocol Last Admin: 02/07/17 06:32 Dose: Not Given Ketorolac Tromethamine (Toradol Injection -) 30 mg IVPUSH Q6H PRN PRN Reason: PAIN Stop: 02/08/17 10:47 Last Admin: 02/04/17 02:23 Dose: 30 mg Lactulose (Cephulac (Oral Use)) 20 gm PO QID PRN PRN Reason: CONSTIPATION Latanoprost (Xalatan 0.005% Eye Drops -) 1 drop OU HS [facility] Last Admin: 02/06/17 21:38 Dose: Not Given Linezolid (Zyvox (Restricted To Id) -) 600 mg PO BID [facility] Last Admin: 02/07/17 09:09 Dose: 600 mg Metoprolol Succinate (Toprol Xl -) 25 mg PO DAILY [facility] Last Admin: 02/07/17 09:09 Dose: 25 mg Non-Formulary Medication (Olopatadine Hcl [Pazeo]) 1 drop OP DAILY [facility] Ondansetron HCl (Zofran Injection) 4 mg IVPB Q6H PRN PRN Reason: NAUSEA Last Admin: 02/05/17 04:23 Dose: 4 mg Pantoprazole Sodium (Protonix -) 40 mg PO DAILY [facility] Last Admin: 02/07/17 09:09 Dose: 40 mg Polyethylene Glycol (Miralax (For Daily Use) -) 17 gm PO BID [facility] Last Admin: 02/06/17 21:38 Dose: 17 gm - Objective Vital Signs: Vital Signs Temperature 98.3 F 02/07/17 06:13 Pulse Rate 79 02/07/17 06:13 Respiratory Rate 20 02/07/17 06:13 Blood Pressure 117/62 02/07/17 06:13 O2 Sat by Pulse Oximetry (%) 95 02/06/17 21:00 Constitutional: Yes: Well Nourished, No Distress, Calm Cardiovascular: Yes: Regular Rate and Rhythm. No: Gallop, Murmur, Rub Respiratory: Yes: Regular, CTA Bilaterally. No: Rales, Rhonchi, Wheezes Gastrointestinal: Yes: Normal Bowel Sounds, Soft. No: Distention, Tenderness Extremities: Yes: WNL Edema: No Labs: CBC, BMP 02/06/17 06:00 02/06/17 06:00 Problem List - Problems (1) Calculus of ureter Code(s): N20.1 - CALCULUS OF URETER (2) UTI (urinary tract infection) Code(s): N39.0 - URINARY TRACT INFECTION, SITE NOT SPECIFIED Qualifiers: Urinary tract infection type: site unspecified Hematuria presence: without hematuria Qualified Code(s): N39.0 - Urinary tract infection, site not specified (3) Chronic pancreatitis Code(s): K86.1 - OTHER CHRONIC PANCREATITIS (4) Pancreatic divisum Code(s): Q45.3 - OTH CONGENITAL MALFORMATIONS OF PANCREAS AND PANCREATIC DUCT (5) CAD (coronary artery disease) Code(s): I25.10 - ATHSCL HEART DISEASE OF [place] CORONARY ARTERY W/O ANG PCTRS (6) Diabetes mellitus Code(s): E11.9 - TYPE 2 DIABETES MELLITUS WITHOUT COMPLICATIONS Qualifiers: Diabetes mellitus type: type 2 Diabetes mellitus detention insulin use : with detention use (7) HTN (hypertension) Code(s): I10 - ESSENTIAL (PRIMARY) HYPERTENSION Assessment/Plan (1) Calculus of ureter Assessment/Plan: -urology following -will need outpatient procedure for removal of stone and stent Code(s): N20.1 - CALCULUS OF URETER (2) UTI (urinary tract infection) Assessment/Plan: -urine culture repeated -urine growing pansensitive e. coli -continue aztreonam day 2 Code(s): N39.0 - URINARY TRACT INFECTION, SITE NOT SPECIFIED Qualifiers: Urinary tract infection type: site unspecified Hematuria presence: without hematuria Qualified Code(s): N39.0 - Urinary tract infection, site not specified (3) Chronic pancreatitis Assessment/Plan: -stable -monitor Code(s): K86.1 - OTHER CHRONIC PANCREATITIS (4) Pancreatic divisum Assessment/Plan: -as above Code(s): Q45.3 - OTH CONGENITAL MALFORMATIONS OF PANCREAS AND PANCREATIC DUCT (5) CAD (coronary artery disease) Assessment/Plan: -quiescent -restart aspirin Code(s): I25.10 - ATHSCL HEART DISEASE OF [place] CORONARY ARTERY W/O ANG PCTRS (6) Diabetes mellitus Assessment/Plan: -diabetic diet -SSI Code(s): E11.9 - TYPE 2 DIABETES MELLITUS WITHOUT COMPLICATIONS Qualifiers: Diabetes mellitus type: type 2 Diabetes mellitus detention insulin use : with intermission coordinator use (7) HTN (hypertension) Assessment/Plan: -continue toprol xl Code(s): I10 - ESSENTIAL (PRIMARY) HYPERTENSION (8) Constipation -+bm -make lactulose prn
[2017-02-07] MEDS: POLYETHYLENE GLYCOL 3350 119 GM BTL PO SCH ×2 (12:16→21:29)
--- NOTE | 2017-02-07 14:02 | PN ---
Progress Note, Physician History of Present Illness: patient says she does not feel well has generalized pain clinically she is stable - Current Medication List Current Medications: Active Medications Acetaminophen (Tylenol -) 325 mg PO Q6H PRN PRN Reason: PAIN Last Admin: 02/04/17 00:57 Dose: 325 mg Albuterol Sulfate (Ventolin Hfa Inhaler -) 2 puff IH QID PRN PRN Reason: ASTHMA Aspirin (Ecotrin -) 81 mg PO DAILY [facility] Docusate Sodium (Colace -) 100 mg PO BID [facility] Last Admin: 02/07/17 09:09 Dose: 100 mg Hydrocortisone Acetate (Anusol Hc Suppository -) 25 mg RC DAILY [facility] Last Admin: 02/06/17 09:57 Dose: 25 mg Aztreonam 1 gm/ Dextrose 50 mls @ 100 mls/hr IVPB Q8H-IV [facility] Last Admin: 02/07/17 12:30 Dose: 100 mls/hr Insulin Aspart (Novolog Vial Sliding Scale -) 1 vial SQ ACHS AIDE PRN Reason: Protocol Last Admin: 02/07/17 12:17 Dose: Not Given Lactulose (Cephulac (Oral Use)) 20 gm PO QID PRN PRN Reason: CONSTIPATION Latanoprost (Xalatan 0.005% Eye Drops -) 1 drop OU HS [facility] Last Admin: 02/06/17 21:38 Dose: Not Given Linezolid (Zyvox (Restricted To Id) -) 600 mg PO BID [facility] Last Admin: 02/07/17 09:09 Dose: 600 mg Metoprolol Succinate (Toprol Xl -) 25 mg PO DAILY [facility] Last Admin: 02/07/17 09:09 Dose: 25 mg Non-Formulary Medication (Olopatadine Hcl [Pazeo]) 1 drop OP DAILY [facility] Ondansetron HCl (Zofran Injection) 4 mg IVPB Q6H PRN PRN Reason: NAUSEA Last Admin: 02/05/17 04:23 Dose: 4 mg Pantoprazole Sodium (Protonix -) 40 mg PO DAILY [facility] Last Admin: 02/07/17 09:09 Dose: 40 mg Polyethylene Glycol (Miralax (For Daily Use) -) 17 gm PO BID [facility] Last Admin: 02/07/17 12:16 Dose: Not Given - Objective Vital Signs: Vital Signs Temperature 98.3 F 02/07/17 06:13 Pulse Rate 79 02/07/17 06:13 Respiratory Rate 20 02/07/17 06:13 Blood Pressure 117/62 02/07/17 06:13 O2 Sat by Pulse Oximetry (%) 95 02/06/17 21:00 Constitutional: Yes: Calm, Mild Distress Cardiovascular: Yes: Regular Rate and Rhythm Respiratory: Yes: Regular, CTA Bilaterally Gastrointestinal: Yes: Normal Bowel Sounds, Soft Musculoskeletal: Yes: WNL Extremities: Yes: WNL Neurological: Yes: Alert, Oriented Psychiatric: Yes: Alert, Oriented Labs: CBC, BMP 02/06/17 06:00 02/06/17 06:00 Assessment/Plan Imaging - Results Chest X-ray: Report Reviewed, Image Reviewed Problem List - Problems (1) Calculus of ureter Code(s): N20.1 - CALCULUS OF URETER (2) UTI (urinary tract infection) Code(s): N39.0 - URINARY TRACT INFECTION, SITE NOT SPECIFIED Qualifiers: Urinary tract infection type: site unspecified Hematuria presence: without hematuria Qualified Code(s): N39.0 - Urinary tract infection, site not specified (3) Chronic pancreatitis Code(s): K86.1 - OTHER CHRONIC PANCREATITIS (4) Pancreatic divisum Code(s): Q45.3 - OTH CONGENITAL MALFORMATIONS OF PANCREAS AND PANCREATIC DUCT (5) CAD (coronary artery disease) Code(s): I25.10 - ATHSCL HEART DISEASE OF [place] CORONARY ARTERY W/O ANG PCTRS (6) Diabetes mellitus Code(s): E11.9 - TYPE 2 DIABETES MELLITUS WITHOUT COMPLICATIONS Qualifiers: Diabetes mellitus type: type 2 Diabetes mellitus [facility] insulin use : with long term care social worker use (7) HTN (hypertension) Code(s): I10 - ESSENTIAL (PRIMARY) HYPERTENSION patients urine now showing ecoli,probably coming from the [facility] urine plan continue zyox stop after 10 days continue ceftriaxone final plan awaited
[2017-02-07] MEDS: LATANOPROST 0.005% OPHTH SOLN 2.5ML BOTTLE OU SCH (21:24)
[2017-02-08] MEDS: AZTREONAM 1 GM in DEXTROSE 5%-WATER - 50 ML IVPB SCH ×3 (01:33→17:44)
[2017-02-08] MEDS: INSULIN SLIDING SCALE (NOVOLOG) 1 VIAL SQ SCH ×4 (06:22→21:03)
[2017-02-08 07:31] LABS: BASOPHIL 1.3 % (0-2.0); EOSINOPHIL 3.3 % (0-4.5); MCH 30.8 pg (25.7-33.7); MCHC 33.7 g/dl (32.0-36.0); MEAN CELL VOLUME 91.3 fl (80-96); MEAN PLT VOLUME 6.8 fl (7.5-11.1); NEUTROPHILS 57.7 % (42.8-82.8); PLATELET COUNT 230 K/MM3 (134-434); RDW 13.5 % (11.6-15.6); WHITE BLOOD COUNT 6.4 K/mm3 (4.0-10.0)
[2017-02-08 07:44] LABS: ANION GAP 9 (8-16); CALCIUM 9.4 mg/dL (8.5-10.1); CO2 30 mmol/L (21-32); CREATININE 0.7 mg/dL (0.55-1.02); GLUCOSE,RANDOM 134 mg/dL (74-106); MAGNESIUM 2.5 mg/dL (1.8-2.4); PHOSPHOROUS 3.5 mg/dL (2.5-4.9)
[2017-02-08] MEDS ORDERED: PT OWN MED DRAWER 7, Y5N ONE ×2 (09:15→17:54)
[2017-02-08] MEDS: DOCUSATE SODIUM 100 MG CAPSULE (FP) PO SCH ×2 (09:19→21:05)
[2017-02-08] MEDS: PANTOPRAZOLE 40 MG TABLET (FP) PO SCH (09:19)
[2017-02-08] MEDS: METOPROLOL SUCCINATE 25 MG TAB.SR.24H (FP) PO SCH (09:19)
[2017-02-08] MEDS: ASPIRIN COATED 81 MG TABLET.EC PO SCH (09:19)
[2017-02-08] MEDS: LINEZOLID 600 MG TABLET (RESTRICTED TO ID) PO SCH ×2 (09:20→21:04)
[2017-02-08] MEDS: POLYETHYLENE GLYCOL 3350 119 GM BTL PO SCH ×2 (11:55→21:03)
--- NOTE | 2017-02-08 15:00 | PN ---
Progress Note, Physician History of Present Illness: patient does not generally feel well now is c/o of vaginal itching - Current Medication List Current Medications: Active Medications Acetaminophen (Tylenol -) 325 mg PO Q6H PRN PRN Reason: PAIN Last Admin: 02/04/17 00:57 Dose: 325 mg Albuterol Sulfate (Ventolin Hfa Inhaler -) 2 puff IH QID PRN PRN Reason: ASTHMA Aspirin (Ecotrin -) 81 mg PO DAILY COUNTS [facility]CLUDE 234 BEDS AT THE [facility] Last Admin: 02/08/17 09:19 Dose: 81 mg Clotrimazole (Gyne-Lotrimin -) 1 applic VG HS COUNTS INCLUDE 234 BEDS AT THE [facility] Docusate Sodium (Colace -) 100 mg PO BID COUNTS INCLUDE 234 BEDS AT THE [facility] Last Admin: 02/08/17 09:19 Dose: 100 mg Hydrocortisone Acetate (Anusol Hc Suppository -) 25 mg RC DAILY PRN Last Admin: 02/06/17 09:57 Dose: 25 mg Aztreonam 1 gm/ Dextrose 50 mls @ 100 mls/hr IVPB Q8H-IV COUNTS INCLUDE 234 BEDS AT THE [facility] Last Admin: 02/08/17 09:19 Dose: 100 mls/hr Insulin Aspart (Novolog Vial Sliding Scale -) 1 vial SQ ACHS AIDE PRN Reason: Protocol Last Admin: 02/08/17 11:55 Dose: Not Given Lactulose (Cephulac (Oral Use)) 20 gm PO QID PRN PRN Reason: CONSTIPATION Latanoprost (Xalatan 0.005% Eye Drops -) 1 drop OU HS COUNTS INCLUDE 234 BEDS AT THE [facility] Last Admin: 02/07/17 21:24 Dose: 1 drop Linezolid (Zyvox (Restricted To Id) -) 600 mg PO BID COUNTS INCLUDE 234 BEDS AT THE [facility] Last Admin: 02/08/17 09:20 Dose: 600 mg Metoprolol Succinate (Toprol Xl -) 25 mg PO DAILY COUNTS INCLUDE 234 BEDS AT THE [facility] Last Admin: 02/08/17 09:19 Dose: 25 mg Non-Formulary Medication (Olopatadine Hcl [Pazeo]) 1 drop OP DAILY COUNTS INCLUDE 234 BEDS AT THE [facility] Ondansetron HCl (Zofran Injection) 4 mg IVPB Q6H PRN PRN Reason: NAUSEA Last Admin: 02/05/17 04:23 Dose: 4 mg Pantoprazole Sodium (Protonix -) 40 mg PO DAILY COUNTS INCLUDE 234 BEDS AT THE [facility] Last Admin: 02/08/17 09:19 Dose: 40 mg Polyethylene Glycol (Miralax (For Daily Use) -) 17 gm PO BID AIDE Last Admin: 02/08/17 11:55 Dose: Not Given - Objective Vital Signs: Vital Signs Temperature 98.7 F 02/08/17 14:11 Pulse Rate 79 02/08/17 14:11 Respiratory Rate 18 02/08/17 14:11 Blood Pressure 123/65 02/08/17 10:00 O2 Sat by Pulse Oximetry (%) 94 L 02/08/17 09:00 Constitutional: Yes: No Distress, Calm Cardiovascular: Yes: Regular Rate and Rhythm Respiratory: Yes: Regular, CTA Bilaterally Gastrointestinal: Yes: Normal Bowel Sounds, Soft Musculoskeletal: Yes: WNL Extremities: Yes: WNL Neurological: Yes: Alert, Oriented Psychiatric: Yes: Alert, Oriented Labs: CBC, BMP 02/08/17 06:00 02/08/17 06:00 Assessment/Plan Imaging - Results Chest X-ray: Report Reviewed, Image Reviewed Problem List - Problems (1) Calculus of ureter Code(s): N20.1 - CALCULUS OF URETER (2) UTI (urinary tract infection) Code(s): N39.0 - URINARY TRACT INFECTION, SITE NOT SPECIFIED Qualifiers: Urinary tract infection type: site unspecified Hematuria presence: without hematuria Qualified Code(s): N39.0 - Urinary tract infection, site not specified (3) Chronic pancreatitis Code(s): K86.1 - OTHER CHRONIC PANCREATITIS (4) Pancreatic divisum Code(s): Q45.3 - H CONGENITAL MALFORMATIONS OF PANCREAS AND PANCREATIC DUCT (5) CAD (coronary artery disease) Code(s): I25.10 - ATHSCL HEART DISEASE OF [place] CORONARY ARTERY W/O ANG PCTRS (6) Diabetes mellitus Code(s): E11.9 - TYPE 2 DIABETES MELLITUS WITHOUT COMPLICATIONS Qualifiers: Diabetes mellitus type: type 2 Diabetes mellitus long term care social worker insulin use : with long term care social worker use (7) HTN (hypertension) Code(s): I10 - ESSENTIAL (PRIMARY) HYPERTENSION patients urine now showing ecoli,probably coming from [facility] urine plan continue zyox stop after 10 days continue aztreonam we tasia stop aztreonam after saturdays dose rest continue as planned
--- NOTE | 2017-02-08 15:05 | PN ---
Progress Note, Physician Chief Complaint: Ms Ocasio has no new complaints, still very non-focal pain. No cp, sob, n/v. - Current Medication List Current Medications: Active Medications Acetaminophen (Tylenol -) 325 mg PO Q6H PRN PRN Reason: PAIN Last Admin: 02/04/17 00:57 Dose: 325 mg Albuterol Sulfate (Ventolin Hfa Inhaler -) 2 puff IH QID PRN PRN Reason: ASTHMA Aspirin (Ecotrin -) 81 mg PO DAILY [facility] Last Admin: 02/08/17 09:19 Dose: 81 mg Clotrimazole (Gyne-Lotrimin -) 1 applic VG HS [facility] Docusate Sodium (Colace -) 100 mg PO BID [facility] Last Admin: 02/08/17 09:19 Dose: 100 mg Hydrocortisone Acetate (Anusol Hc Suppository -) 25 mg RC DAILY PRN Last Admin: 02/06/17 09:57 Dose: 25 mg Aztreonam 1 gm/ Dextrose 50 mls @ 100 mls/hr IVPB Q8H-IV AIDE Last Admin: 02/08/17 09:19 Dose: 100 mls/hr Insulin Aspart (Novolog Vial Sliding Scale -) 1 vial SQ ACHS AIDE PRN Reason: Protocol Last Admin: 02/08/17 11:55 Dose: Not Given Lactulose (Cephulac (Oral Use)) 20 gm PO QID PRN PRN Reason: CONSTIPATION Latanoprost (Xalatan 0.005% Eye Drops -) 1 drop OU HS [facility] Last Admin: 02/07/17 21:24 Dose: 1 drop Linezolid (Zyvox (Restricted To Id) -) 600 mg PO BID [facility] Last Admin: 02/08/17 09:20 Dose: 600 mg Metoprolol Succinate (Toprol Xl -) 25 mg PO DAILY [facility] Last Admin: 02/08/17 09:19 Dose: 25 mg Non-Formulary Medication (Olopatadine Hcl [Pazeo]) 1 drop OP DAILY AIDE Ondansetron HCl (Zofran Injection) 4 mg IVPB Q6H PRN PRN Reason: NAUSEA Last Admin: 02/05/17 04:23 Dose: 4 mg Pantoprazole Sodium (Protonix -) 40 mg PO DAILY [facility] Last Admin: 02/08/17 09:19 Dose: 40 mg Polyethylene Glycol (Miralax (For Daily Use) -) 17 gm PO BID AIDE Last Admin: 02/08/17 11:55 Dose: Not Given - Objective Vital Signs: Vital Signs Temperature 98.7 F 02/08/17 14:11 Pulse Rate 79 02/08/17 14:11 Respiratory Rate 18 02/08/17 14:11 Blood Pressure 123/65 02/08/17 10:00 O2 Sat by Pulse Oximetry (%) 94 L 02/08/17 09:00 Constitutional: Yes: Well Nourished, No Distress, Calm Cardiovascular: Yes: Regular Rate and Rhythm. No: Gallop, Murmur, Rub Respiratory: Yes: Regular, CTA Bilaterally. No: Rales, Rhonchi, Wheezes Gastrointestinal: Yes: Normal Bowel Sounds, Soft. No: Distention, Tenderness Extremities: Yes: WNL Edema: No Labs: CBC, BMP 02/08/17 06:00 02/08/17 06:00 Problem List - Problems (1) Calculus of ureter Code(s): N20.1 - CALCULUS OF URETER (2) UTI (urinary tract infection) Code(s): N39.0 - URINARY TRACT INFECTION, SITE NOT SPECIFIED Qualifiers: Urinary tract infection type: site unspecified Hematuria presence: without hematuria Qualified Code(s): N39.0 - Urinary tract infection, site not specified (3) Chronic pancreatitis Code(s): K86.1 - OTHER CHRONIC PANCREATITIS (4) Pancreatic divisum Code(s): Q45.3 - OTH CONGENITAL MALFORMATIONS OF PANCREAS AND PANCREATIC DUCT (5) CAD (coronary artery disease) Code(s): I25.10 - ATHSCL HEART DISEASE OF [place] CORONARY ARTERY W/O ANG PCTRS (6) Diabetes mellitus Code(s): E11.9 - TYPE 2 DIABETES MELLITUS WITHOUT COMPLICATIONS Qualifiers: Diabetes mellitus type: type 2 Diabetes mellitus jail insulin use : with dry kiln loader use (7) HTN (hypertension) Code(s): I10 - ESSENTIAL (PRIMARY) HYPERTENSION Assessment/Plan (1) Calculus of ureter Assessment/Plan: -urology following -will need outpatient procedure for removal of stone and stent Code(s): N20.1 - CALCULUS OF URETER (2) UTI (urinary tract infection) Assessment/Plan: -urine culture repeated -urine growing pansensitive e. coli -continue aztreonam day 3, will continue over the weekend -continue linezolid Code(s): N39.0 - URINARY TRACT INFECTION, SITE NOT SPECIFIED Qualifiers: Urinary tract infection type: site unspecified Hematuria presence: without hematuria Qualified Code(s): N39.0 - Urinary tract infection, site not specified (3) Chronic pancreatitis Assessment/Plan: -stable -monitor Code(s): K86.1 - OTHER CHRONIC PANCREATITIS (4) Pancreatic divisum Assessment/Plan: -as above Code(s): Q45.3 - OTH CONGENITAL MALFORMATIONS OF PANCREAS AND PANCREATIC DUCT (5) CAD (coronary artery disease) Assessment/Plan: -quiescent -aspirin restarted Code(s): I25.10 - ATHSCL HEART DISEASE OF [place] CORONARY ARTERY W/O ANG PCTRS (6) Diabetes mellitus Assessment/Plan: -diabetic diet -SSI Code(s): E11.9 - TYPE 2 DIABETES MELLITUS WITHOUT COMPLICATIONS Qualifiers: Diabetes mellitus type: type 2 Diabetes mellitus jail insulin use : with jail use (7) HTN (hypertension) Assessment/Plan: -continue toprol xl Code(s): I10 - ESSENTIAL (PRIMARY) HYPERTENSION (8) Constipation -lactulose prn
[2017-02-08] MEDS: LATANOPROST 0.005% OPHTH SOLN 2.5ML BOTTLE OU SCH ×2 (21:04→21:07)
[2017-02-08] MEDS: CLOTRIMAZOLE 1% VAGINAL CREAM WITH APPLICATOR 45 GM TUBE VG SCH (21:05)
[2017-02-09] MEDS: AZTREONAM 1 GM in DEXTROSE 5%-WATER - 50 ML IVPB SCH ×3 (01:12→17:53)
[2017-02-09] MEDS: ACETAMINOPHEN 325 MG TABLET (FP) PO PRN (04:26)
[2017-02-09] MEDS: ONDANSETRON 4 MG/2 ML VIAL IVPB PRN (05:40)
[2017-02-09] MEDS: INSULIN SLIDING SCALE (NOVOLOG) 1 VIAL SQ SCH ×4 (06:09→21:28)
[2017-02-09 07:25] LABS: BASOPHIL 1.3 % (0-2.0); EOSINOPHIL 3.5 % (0-4.5); MCHC 34.1 g/dl (32.0-36.0); MEAN CELL VOLUME 90.8 fl (80-96); MEAN PLT VOLUME 6.8 fl (7.5-11.1); NEUTROPHILS 56.2 % (42.8-82.8); PLATELET COUNT 207 K/MM3 (134-434); RDW 13.6 % (11.6-15.6); WHITE BLOOD COUNT 5.9 K/mm3 (4.0-10.0)
[2017-02-09 08:25] LABS: ANION GAP 6 (8-16); CALCIUM 9.2 mg/dL (8.5-10.1); CO2 30 mmol/L (21-32); CREATININE 0.9 mg/dL (0.55-1.02); GLUCOSE,RANDOM 124 mg/dL (74-106); MAGNESIUM 2.3 mg/dL (1.8-2.4); PHOSPHOROUS 3.5 mg/dL (2.5-4.9)
[2017-02-09] MEDS ORDERED: PT OWN MED DRAWER 7, Y5N ONE ×2 (09:28→17:48)
[2017-02-09] MEDS: METOPROLOL SUCCINATE 25 MG TAB.SR.24H (FP) PO SCH (09:28)
[2017-02-09] MEDS: PANTOPRAZOLE 40 MG TABLET (FP) PO SCH (09:28)
[2017-02-09] MEDS: DOCUSATE SODIUM 100 MG CAPSULE (FP) PO SCH ×2 (09:29→21:27)
[2017-02-09] MEDS: ASPIRIN COATED 81 MG TABLET.EC PO SCH (09:29)
[2017-02-09] MEDS: LINEZOLID 600 MG TABLET (RESTRICTED TO ID) PO SCH ×2 (09:29→22:47)
[2017-02-09] MEDS: POLYETHYLENE GLYCOL 3350 119 GM BTL PO SCH ×2 (10:34→21:27)
--- NOTE | 2017-02-09 12:56 | PN ---
Progress Note, Physician History of Present Illness: patient doing well no new events - Current Medication List Current Medications: Active Medications Acetaminophen (Tylenol -) 325 mg PO Q6H PRN PRN Reason: PAIN Last Admin: 02/09/17 04:26 Dose: 325 mg Albuterol Sulfate (Ventolin Hfa Inhaler -) 2 puff IH QID PRN PRN Reason: ASTHMA Aspirin (Ecotrin -) 81 mg PO DAILY [facility] Last Admin: 02/09/17 09:29 Dose: 81 mg Clotrimazole (Gyne-Lotrimin -) 1 applic VG HS [facility] Stop: 02/14/17 22:01 Last Admin: 02/08/17 21:05 Dose: 1 applic Docusate Sodium (Colace -) 100 mg PO BID [facility] Last Admin: 02/09/17 09:29 Dose: Not Given Hydrocortisone Acetate (Anusol Hc Suppository -) 25 mg RC DAILY PRN Last Admin: 02/06/17 09:57 Dose: 25 mg Aztreonam 1 gm/ Dextrose 50 mls @ 100 mls/hr IVPB Q8H-IV [facility] Last Admin: 02/09/17 09:28 Dose: 100 mls/hr Insulin Aspart (Novolog Vial Sliding Scale -) 1 vial SQ ACHS AIDE PRN Reason: Protocol Last Admin: 02/09/17 12:45 Dose: Not Given Lactulose (Cephulac (Oral Use)) 20 gm PO QID PRN PRN Reason: CONSTIPATION Latanoprost (Xalatan 0.005% Eye Drops -) 1 drop OU HS [facility] Last Admin: 02/08/17 21:07 Dose: Not Given Linezolid (Zyvox (Restricted To Id) -) 600 mg PO BID [facility] Last Admin: 02/09/17 09:29 Dose: 600 mg Metoprolol Succinate (Toprol Xl -) 25 mg PO DAILY [facility] Last Admin: 02/09/17 09:28 Dose: 25 mg Non-Formulary Medication (Olopatadine Hcl [Pazeo]) 1 drop OP DAILY [facility] Ondansetron HCl (Zofran Injection) 4 mg IVPB Q6H PRN PRN Reason: NAUSEA Last Admin: 02/09/17 05:40 Dose: 4 mg Pantoprazole Sodium (Protonix -) 40 mg PO DAILY [facility] Last Admin: 02/09/17 09:28 Dose: 40 mg Polyethylene Glycol (Miralax (For Daily Use) -) 17 gm PO BID AIDE Last Admin: 02/09/17 10:34 Dose: Not Given - Objective Vital Signs: Vital Signs Temperature 98.1 F 02/09/17 10:00 Pulse Rate 77 02/09/17 10:00 Respiratory Rate 18 02/09/17 10:00 Blood Pressure 126/75 02/09/17 10:00 O2 Sat by Pulse Oximetry (%) 94 L 02/08/17 20:16 Constitutional: Yes: No Distress, Calm Cardiovascular: Yes: Regular Rate and Rhythm Respiratory: Yes: Regular, CTA Bilaterally Gastrointestinal: Yes: Normal Bowel Sounds, Soft Musculoskeletal: Yes: WNL Extremities: Yes: WNL Neurological: Yes: Alert, Oriented Labs: CBC, BMP 02/09/17 06:00 02/09/17 06:00 Assessment/Plan Imaging - Results Chest X-ray: Report Reviewed, Image Reviewed Problem List - Problems (1) Calculus of ureter Code(s): N20.1 - CALCULUS OF URETER (2) UTI (urinary tract infection) Code(s): N39.0 - URINARY TRACT INFECTION, SITE NOT SPECIFIED Qualifiers: Urinary tract infection type: site unspecified Hematuria presence: without hematuria Qualified Code(s): N39.0 - Urinary tract infection, site not specified (3) Chronic pancreatitis Code(s): K86.1 - OTHER CHRONIC PANCREATITIS (4) Pancreatic divisum Code(s): Q45.3 - OTH CONGENITAL MALFORMATIONS OF PANCREAS AND PANCREATIC DUCT (5) CAD (coronary artery disease) Code(s): I25.10 - ATHSCL HEART DISEASE OF [place] CORONARY ARTERY W/O ANG PCTRS (6) Diabetes mellitus Code(s): E11.9 - TYPE 2 DIABETES MELLITUS WITHOUT COMPLICATIONS Qualifiers: Diabetes mellitus type: type 2 Diabetes mellitus senior living insulin use : with senior living use (7) HTN (hypertension) Code(s): I10 - ESSENTIAL (PRIMARY) HYPERTENSION patients urine now showing ecoli,probably coming from the [facility] urine plan stop all abx after giving on sunday patient can go home on sunday rest as per primary team patient doing well
--- NOTE | 2017-02-09 14:03 | PN ---
Progress Note, Physician Chief Complaint: Ms Ocasio has no new complaints, still very non-focal pain. No cp, sob, n/v. - Current Medication List Current Medications: Active Medications Acetaminophen (Tylenol -) 325 mg PO Q6H PRN PRN Reason: PAIN Last Admin: 02/09/17 04:26 Dose: 325 mg Albuterol Sulfate (Ventolin Hfa Inhaler -) 2 puff IH QID PRN PRN Reason: ASTHMA Aspirin (Ecotrin -) 81 mg PO DAILY [facility] Last Admin: 02/09/17 09:29 Dose: 81 mg Clotrimazole (Gyne-Lotrimin -) 1 applic VG HS [facility] Stop: 02/14/17 22:01 Last Admin: 02/08/17 21:05 Dose: 1 applic Docusate Sodium (Colace -) 100 mg PO BID [facility] Last Admin: 02/09/17 09:29 Dose: Not Given Hydrocortisone Acetate (Anusol Hc Suppository -) 25 mg RC DAILY PRN Last Admin: 02/06/17 09:57 Dose: 25 mg Aztreonam 1 gm/ Dextrose 50 mls @ 100 mls/hr IVPB Q8H-IV [facility] Last Admin: 02/09/17 09:28 Dose: 100 mls/hr Insulin Aspart (Novolog Vial Sliding Scale -) 1 vial SQ ACHS AIDE PRN Reason: Protocol Last Admin: 02/09/17 12:45 Dose: Not Given Lactulose (Cephulac (Oral Use)) 20 gm PO QID PRN PRN Reason: CONSTIPATION Latanoprost (Xalatan 0.005% Eye Drops -) 1 drop OU HS [facility] Last Admin: 02/08/17 21:07 Dose: Not Given Linezolid (Zyvox (Restricted To Id) -) 600 mg PO BID [facility] Last Admin: 02/09/17 09:29 Dose: 600 mg Metoprolol Succinate (Toprol Xl -) 25 mg PO DAILY [facility] Last Admin: 02/09/17 09:28 Dose: 25 mg Non-Formulary Medication (Olopatadine Hcl [Pazeo]) 1 drop OP DAILY [facility] Ondansetron HCl (Zofran Injection) 4 mg IVPB Q6H PRN PRN Reason: NAUSEA Last Admin: 02/09/17 05:40 Dose: 4 mg Pantoprazole Sodium (Protonix -) 40 mg PO DAILY [facility] Last Admin: 02/09/17 09:28 Dose: 40 mg Polyethylene Glycol (Miralax (For Daily Use) -) 17 gm PO BID [facility] Last Admin: 02/09/17 10:34 Dose: Not Given - Objective Vital Signs: Vital Signs Temperature 98.1 F 02/09/17 10:00 Pulse Rate 77 02/09/17 10:00 Respiratory Rate 18 02/09/17 10:00 Blood Pressure 126/75 02/09/17 10:00 O2 Sat by Pulse Oximetry (%) 94 L 02/08/17 20:16 Constitutional: Yes: Well Nourished, No Distress, Calm Cardiovascular: Yes: Regular Rate and Rhythm. No: Gallop, Murmur, Rub Respiratory: Yes: Regular, CTA Bilaterally. No: Rales, Rhonchi, Wheezes Gastrointestinal: Yes: Normal Bowel Sounds, Soft. No: Distention, Tenderness Extremities: Yes: WNL Edema: No Labs: CBC, BMP 02/09/17 06:00 02/09/17 06:00 Problem List - Problems (1) Calculus of ureter Code(s): N20.1 - CALCULUS OF URETER (2) UTI (urinary tract infection) Code(s): N39.0 - URINARY TRACT INFECTION, SITE NOT SPECIFIED Qualifiers: Urinary tract infection type: site unspecified Hematuria presence: without hematuria Qualified Code(s): N39.0 - Urinary tract infection, site not specified (3) Chronic pancreatitis Code(s): K86.1 - OTHER CHRONIC PANCREATITIS (4) Pancreatic divisum Code(s): Q45.3 - OTH CONGENITAL MALFORMATIONS OF PANCREAS AND PANCREATIC DUCT (5) CAD (coronary artery disease) Code(s): I25.10 - ATHSCL HEART DISEASE OF [place] CORONARY ARTERY W/O ANG PCTRS (6) Diabetes mellitus Code(s): E11.9 - TYPE 2 DIABETES MELLITUS WITHOUT COMPLICATIONS Qualifiers: Diabetes mellitus type: type 2 Diabetes mellitus penitentiary insulin use : with penitentiary use (7) HTN (hypertension) Code(s): I10 - ESSENTIAL (PRIMARY) HYPERTENSION Assessment/Plan (1) Calculus of ureter Assessment/Plan: -urology following -will need outpatient procedure for removal of stone and stent Code(s): N20.1 - CALCULUS OF URETER (2) UTI (urinary tract infection) Assessment/Plan: -urine culture repeated -urine growing pansensitive e. coli -continue linezolid and aztreonam -ID following, plan for discharge on Sunday without home antibiotics Code(s): N39.0 - URINARY TRACT INFECTION, SITE NOT SPECIFIED Qualifiers: Urinary tract infection type: site unspecified Hematuria presence: without hematuria Qualified Code(s): N39.0 - Urinary tract infection, site not specified (3) Chronic pancreatitis Assessment/Plan: -stable -monitor Code(s): K86.1 - OTHER CHRONIC PANCREATITIS (4) Pancreatic divisum Assessment/Plan: -as above Code(s): Q45.3 - OTH CONGENITAL MALFORMATIONS OF PANCREAS AND PANCREATIC DUCT (5) CAD (coronary artery disease) Assessment/Plan: -quiescent -aspirin restarted Code(s): I25.10 - ATHSCL HEART DISEASE OF [place] CORONARY ARTERY W/O ANG PCTRS (6) Diabetes mellitus Assessment/Plan: -diabetic diet -SSI Code(s): E11.9 - TYPE 2 DIABETES MELLITUS WITHOUT COMPLICATIONS Qualifiers: Diabetes mellitus type: type 2 Diabetes mellitus penitentiary insulin use : 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
[2017-02-09] MEDS ORDERED: SODIUM CHLORIDE NASAL SPRAY 44 ML BOTTLE NS PRN (14:11)
[2017-02-09] MEDS ORDERED: oxyCODONE HCL 5 MG TABLET PO PRN (14:11)
[2017-02-09] MEDS: LATANOPROST 0.005% OPHTH SOLN 2.5ML BOTTLE OU SCH (21:27)
[2017-02-09] MEDS: CLOTRIMAZOLE 1% VAGINAL CREAM WITH APPLICATOR 45 GM TUBE VG SCH (22:46)
[2017-02-10] MEDS ORDERED: PT OWN MED DRAWER 7, Y5N ONE ×3 (00:30→17:26)
[2017-02-10] MEDS: AZTREONAM 1 GM in DEXTROSE 5%-WATER - 50 ML IVPB SCH ×3 (01:02→17:36)
[2017-02-10] MEDS: INSULIN SLIDING SCALE (NOVOLOG) 1 VIAL SQ SCH ×4 (06:19→22:17)
[2017-02-10 07:32] LABS: BASOPHIL 1.5 % (0-2.0); EOSINOPHIL 3.4 % (0-4.5); MCH 30.9 pg (25.7-33.7); MEAN CELL VOLUME 90.9 fl (80-96); MEAN PLT VOLUME 6.6 fl (7.5-11.1); NEUTROPHILS 55.8 % (42.8-82.8); PLATELET COUNT 190 K/MM3 (134-434); RDW 13.3 % (11.6-15.6); WHITE BLOOD COUNT 5.7 K/mm3 (4.0-10.0)
[2017-02-10 07:53] LABS: ANION GAP 6 (8-16); CO2 33 mmol/L (21-32); CREATININE 0.8 mg/dL (0.55-1.02); GLUCOSE,RANDOM 132 mg/dL (74-106); MAGNESIUM 2.3 mg/dL (1.8-2.4); PHOSPHOROUS 3.5 mg/dL (2.5-4.9)
--- NOTE | 2017-02-10 10:03 | PN ---
Progress Note, Physician History of Present Illness: patient doing well no new events - Current Medication List Current Medications: Active Medications Acetaminophen (Tylenol -) 325 mg PO Q6H PRN PRN Reason: PAIN Last Admin: 02/09/17 04:26 Dose: 325 mg Albuterol Sulfate (Ventolin Hfa Inhaler -) 2 puff IH QID PRN PRN Reason: ASTHMA Aspirin (Ecotrin -) 81 mg PO DAILY [facility] Last Admin: 02/09/17 09:29 Dose: 81 mg Clotrimazole (Gyne-Lotrimin -) 1 applic VG HS [facility] Stop: 02/14/17 22:01 Last Admin: 02/09/17 22:46 Dose: 1 applic Docusate Sodium (Colace -) 100 mg PO BID [facility] Last Admin: 02/09/17 21:27 Dose: Not Given Hydrocortisone Acetate (Anusol Hc Suppository -) 25 mg RC DAILY [facility] Last Admin: 02/06/17 09:57 Dose: 25 mg Aztreonam 1 gm/ Dextrose 50 mls @ 100 mls/hr IVPB Q8H-IV [facility] Last Admin: 02/10/17 01:02 Dose: 100 mls/hr Insulin Aspart (Novolog Vial Sliding Scale -) 1 vial SQ ACHS [facility] PRN Reason: Protocol Last Admin: 02/10/17 06:19 Dose: Not Given Lactulose (Cephulac (Oral Use)) 20 gm PO QID PRN PRN Reason: CONSTIPATION Latanoprost (Xalatan 0.005% Eye Drops -) 1 drop OU HS [facility] Last Admin: 02/09/17 21:27 Dose: Not Given Linezolid (Zyvox (Restricted To Id) -) 600 mg PO BID [facility] Last Admin: 02/09/17 22:47 Dose: 600 mg Metoprolol Succinate (Toprol Xl -) 25 mg PO DAILY [facility] Last Admin: 02/09/17 09:28 Dose: 25 mg Non-Formulary Medication (Olopatadine Hcl [Pazeo]) 1 drop OP DAILY [facility] Ondansetron HCl (Zofran Injection) 4 mg IVPB Q6H PRN PRN Reason: NAUSEA Last Admin: 02/09/17 05:40 Dose: 4 mg Oxycodone HCl (Roxicodone -) 5 mg PO Q4H PRN PRN Reason: PAIN Last Admin: 02/09/17 21:29 Dose: 5 mg Pantoprazole Sodium (Protonix -) 40 mg PO DAILY [facility] Last Admin: 02/09/17 09:28 Dose: 40 mg Polyethylene Glycol (Miralax (For Daily Use) -) 17 gm PO BID [facility] Last Admin: 02/09/17 21:27 Dose: Not Given Sodium Chloride ([place] Nasal [place] -) 2 spray NS BID PRN PRN Reason: NASAL CONGESTION - Objective Vital Signs: Vital Signs Temperature 97.9 F 02/10/17 05:47 Pulse Rate 79 02/10/17 05:47 Respiratory Rate 18 02/10/17 05:47 Blood Pressure 149/88 02/10/17 05:47 O2 Sat by Pulse Oximetry (%) 94 L 02/08/17 20:16 Constitutional: Yes: No Distress, Calm Cardiovascular: Yes: Regular Rate and Rhythm Respiratory: Yes: Regular, CTA Bilaterally Gastrointestinal: Yes: Normal Bowel Sounds, Soft Musculoskeletal: Yes: WNL Extremities: Yes: WNL Neurological: Yes: Alert, Oriented Psychiatric: Yes: Alert, Oriented Labs: CBC, BMP 02/10/17 06:00 02/10/17 06:00 Assessment/Plan Imaging - Results Chest X-ray: Report Reviewed, Image Reviewed Problem List - Problems (1) Calculus of ureter Code(s): N20.1 - CALCULUS OF URETER (2) UTI (urinary tract infection) Code(s): N39.0 - URINARY TRACT INFECTION, SITE NOT SPECIFIED Qualifiers: Urinary tract infection type: site unspecified Hematuria presence: without hematuria Qualified Code(s): N39.0 - Urinary tract infection, site not specified (3) Chronic pancreatitis Code(s): K86.1 - OTHER CHRONIC PANCREATITIS (4) Pancreatic divisum Code(s): Q45.3 - OTH CONGENITAL MALFORMATIONS OF PANCREAS AND PANCREATIC DUCT (5) CAD (coronary artery disease) Code(s): I25.10 - ATHSCL HEART DISEASE OF [place] CORONARY ARTERY W/O ANG PCTRS (6) Diabetes mellitus Code(s): E11.9 - TYPE 2 DIABETES MELLITUS WITHOUT COMPLICATIONS Qualifiers: Diabetes mellitus type: type 2 Diabetes mellitus half-way insulin use : with half-way use (7) HTN (hypertension) Code(s): I10 - ESSENTIAL (PRIMARY) HYPERTENSION patients urine now showing ecoli,probably coming from the [facility] urine plan continue current mgmt stop all abx tomorrow
[2017-02-10] MEDS: DOCUSATE SODIUM 100 MG CAPSULE (FP) PO SCH ×2 (10:29→22:14)
[2017-02-10] MEDS: ASPIRIN COATED 81 MG TABLET.EC PO SCH (10:29)
[2017-02-10] MEDS: PANTOPRAZOLE 40 MG TABLET (FP) PO SCH (10:29)
[2017-02-10] MEDS: METOPROLOL SUCCINATE 25 MG TAB.SR.24H (FP) PO SCH (10:29)
[2017-02-10] MEDS: POLYETHYLENE GLYCOL 3350 119 GM BTL PO SCH ×2 (10:30→22:15)
[2017-02-10] MEDS: LINEZOLID 600 MG TABLET (RESTRICTED TO ID) PO SCH ×2 (10:34→22:18)
[2017-02-10] MEDS ORDERED: SODIUM CHLORIDE NASAL SPRAY 44 ML BOTTLE NS PRN (12:14)
--- NOTE | 2017-02-10 12:14 | PN ---
Progress Note (short form) - Note Progress Note: Patient seen and examined Chart reviewed. Currently sitting up on the side of the bed, alert responsive and appropriate. Denies new chest discomfort, but has a complaint of discomfort in right shoulder, leg and the right side of the face. Labs, medications, progress and travel service consultant notes reviewed Selected Entries 02/10/17 05:47 Temperature 97.9 F Pulse Rate 79 Respiratory 18 Rate Blood Pressure 149/88 Laboratory Tests 02/10/17 02/10/17 06:00 06:00 WBC 5.7 Hgb 13.8 Hct 40.5 Plt Count 190 Sodium 140 Potassium 4.0 Chloride 101 Carbon Dioxide 33 H BUN 26 H D Creatinine 0.8 Random Glucose 132 H Calcium 9.0 Phosphorus 3.5 Magnesium 2.3 Chest clear Cor RRR Abd Soft No mass or tenderness Ext No edema No phlebitis Neuro No new focal deficit Assessment and Plan UTI with VREF and E Coli Ureteral stones post stent placement Chronic pancreatic disorder with pancreatitis divisum DM Stable IGT ASHD H/O multiple stents HTN Stable Constipation Stable Diffuse Pain Stable Head congestion Try nasal saline spray IBS Stable H/O Cholecystectomy Observe off of antibiotics Discharge planning
[2017-02-10 21:14] VITALS: PULSE 81
[2017-02-10] MEDS: LATANOPROST 0.005% OPHTH SOLN 2.5ML BOTTLE OU SCH (22:14)
[2017-02-10] MEDS: CLOTRIMAZOLE 1% VAGINAL CREAM WITH APPLICATOR 45 GM TUBE VG SCH (22:18)
[2017-02-11] MEDS: AZTREONAM 1 GM in DEXTROSE 5%-WATER - 50 ML IVPB SCH ×2 (01:32→09:24)
[2017-02-11] MEDS: ONDANSETRON 4 MG/2 ML VIAL IVPB PRN (02:08)
[2017-02-11] MEDS: INSULIN SLIDING SCALE (NOVOLOG) 1 VIAL SQ SCH (06:51)
[2017-02-11 09:24] VITALS: BP 142/76; TEMP 97.9
[2017-02-11] MEDS: ASPIRIN COATED 81 MG TABLET.EC PO SCH (09:24)
[2017-02-11] MEDS: POLYETHYLENE GLYCOL 3350 119 GM BTL PO SCH (09:24)
[2017-02-11] MEDS: DOCUSATE SODIUM 100 MG CAPSULE (FP) PO SCH (09:24)
[2017-02-11] MEDS: METOPROLOL SUCCINATE 25 MG TAB.SR.24H (FP) PO SCH (09:24)
[2017-02-11] MEDS: PANTOPRAZOLE 40 MG TABLET (FP) PO SCH (09:24)
[2017-02-11] MEDS: LINEZOLID 600 MG TABLET (RESTRICTED TO ID) PO SCH (09:28)
--- NOTE | 2017-02-11 09:37 | DS ---
Physical Examination Vital Signs: Vital Signs Temperature 97.9 F 02/11/17 09:23 Pulse Rate 81 02/11/17 09:23 Respiratory Rate 18 02/11/17 09:23 Blood Pressure 142/76 02/11/17 09:23 O2 Sat by Pulse Oximetry (%) 94 L 02/08/17 20:16 Constitutional: Yes: No Distress, Calm Eyes: No: Sclera Icterus Cardiovascular: Yes: Regular Rate and Rhythm Respiratory: Yes: CTA Bilaterally Gastrointestinal: Yes: Normal Bowel Sounds, Soft Labs: CBC, BMP 02/10/17 06:00 02/10/17 06:00 Discharge Summary Reason For Visit: URINARRY TRACT INFECTION Current Active Problems Calculus of ureter (Chronic) Constipation (Chronic) GERD (gastroesophageal reflux disease) (Chronic) IBS (irritable bowel syndrome) (Chronic) Nausea (Chronic) Nephrolithiasis (Chronic) Pancreatic divisum (Chronic) Hospital Course: Please refer to daily hospital progress notes and problem list. Condition: Good - Instructions Diet, Activity, Other Instructions: Low Na+ Diabetic Disposition: HOME - Home Medications Comprehensive Discharge Medication List: Ambulatory Orders Albuterol Sulfate Inhaler - [Ventolin HFA Inhaler -] 1 - 2 inh PO QID PRN Bimatoprost [Lumigan] 1 drop OU DAILY 12/05/16 Docusate Sodium [Dulcolax Stool Softener] 100 mg PO DAILY PRN 12/05/16 Ergocalciferol [Drisdol -] 50,000 unit PO Q7D@1000 12/05/16 Insulin (Levemir) [Levemir Flexpen -] 0 units SQ DAILY 12/05/16 Insulin (Novolog) [Novolog Flexpen -] 0 units SQ AC 12/05/16 Metoprolol Succinate [Toprol XL -] 25 mg PO DAILY 12/05/16 Olopatadine HCl [Pazeo] 1 drop OP DAILY 12/05/16 Pantoprazole Sodium [Protonix] 40 mg PO DAILY 12/05/16 Aspirin Coated [Ecotrin -] 81 mg PO DAILY tab.ec 12/07/16 Acetaminophen [Tylenol .Regular Strength -] 325 mg PO Q6H PRN #0 tablet Sodium Chloride Nasal [place] [[place] Nasal [place] -] 2 spray NS TID PRN #0 spray 02/11/17
--- NOTE | 2017-02-11 10:53 | PN ---
Progress Note, Physician History of Present Illness: redness of tongue otherwise patient doing well - Current Medication List Current Medications: Active Medications Acetaminophen (Tylenol -) 325 mg PO Q6H PRN PRN Reason: PAIN Last Admin: 02/09/17 04:26 Dose: 325 mg Albuterol Sulfate (Ventolin Hfa Inhaler -) 2 puff IH QID PRN PRN Reason: ASTHMA Aspirin (Ecotrin -) 81 mg PO DAILY [facility] Last Admin: 02/11/17 09:24 Dose: 81 mg Clotrimazole (Gyne-Lotrimin -) 1 applic VG [facility] Stop: 02/14/17 22:01 Last Admin: 02/10/17 22:18 Dose: Not Given Docusate Sodium (Colace -) 100 mg PO BID [facility] Last Admin: 02/11/17 09:24 Dose: 100 mg Hydrocortisone Acetate (Anusol Hc Suppository -) 25 mg RC DAILY PRN Last Admin: 02/06/17 09:57 Dose: 25 mg Aztreonam 1 gm/ Dextrose 50 mls @ 100 mls/hr IVPB Q8H-IV [facility] Last Admin: 02/11/17 09:24 Dose: Not Given Insulin Aspart (Novolog Vial Sliding Scale -) 1 vial SQ ACHS [facility] PRN Reason: Protocol Last Admin: 02/11/17 06:51 Dose: Not Given Lactulose (Cephulac (Oral Use)) 20 gm PO QID PRN PRN Reason: CONSTIPATION Latanoprost (Xalatan 0.005% Eye Drops -) 1 drop OU [facility] Last Admin: 02/10/17 22:14 Dose: Not Given Metoprolol Succinate (Toprol Xl -) 25 mg PO DAILY [facility] Last Admin: 02/11/17 09:24 Dose: 25 mg Non-Formulary Medication (Olopatadine Hcl [Pazeo]) 1 drop OP DAILY [facility] Ondansetron HCl (Zofran Injection) 4 mg IVPB Q6H PRN PRN Reason: NAUSEA Last Admin: 02/11/17 02:08 Dose: 4 mg Oxycodone HCl (Roxicodone -) 5 mg PO Q4H PRN PRN Reason: PAIN Last Admin: 02/09/17 21:29 Dose: 5 mg Pantoprazole Sodium (Protonix -) 40 mg PO DAILY [facility] Last Admin: 02/11/17 09:24 Dose: 40 mg Polyethylene Glycol (Miralax (For Daily Use) -) 17 gm PO BID AIDE Last Admin: 02/11/17 09:24 Dose: Not Given Sodium Chloride ([place] Nasal [place] -) 2 spray NS TID PRN PRN Reason: NASAL CONGESTION Last Admin: 02/10/17 17:37 Dose: 2 sprays - Objective Vital Signs: Vital Signs Temperature 97.9 F 02/11/17 09:23 Pulse Rate 81 02/11/17 09:23 Respiratory Rate 18 02/11/17 09:23 Blood Pressure 142/76 02/11/17 09:23 O2 Sat by Pulse Oximetry (%) 94 L 02/08/17 20:16 Constitutional: Yes: No Distress, Calm HENT: Yes: Other (reddish tongue) Cardiovascular: Yes: Regular Rate and Rhythm Respiratory: Yes: Regular, CTA Bilaterally Musculoskeletal: Yes: WNL Extremities: Yes: WNL Neurological: Yes: Alert, Oriented Psychiatric: Yes: Alert Labs: CBC, BMP 02/10/17 06:00 02/10/17 06:00 Assessment/Plan Imaging - Results Chest X-ray: Report Reviewed, Image Reviewed Problem List - Problems (1) Calculus of ureter Code(s): N20.1 - CALCULUS OF URETER (2) UTI (urinary tract infection) Code(s): N39.0 - URINARY TRACT INFECTION, SITE NOT SPECIFIED Qualifiers: Urinary tract infection type: site unspecified Hematuria presence: without hematuria Qualified Code(s): N39.0 - Urinary tract infection, site not specified (3) Chronic pancreatitis Code(s): K86.1 - OTHER CHRONIC PANCREATITIS (4) Pancreatic divisum Code(s): Q45.3 - OTH CONGENITAL MALFORMATIONS OF PANCREAS AND PANCREATIC DUCT (5) CAD (coronary artery disease) Code(s): I25.10 - ATHSCL HEART DISEASE OF [place] CORONARY ARTERY W/O ANG PCTRS (6) Diabetes mellitus Code(s): E11.9 - TYPE 2 DIABETES MELLITUS WITHOUT COMPLICATIONS Qualifiers: Diabetes mellitus type: type 2 Diabetes mellitus long term care administrator insulin use : with jail use (7) HTN (hypertension) Code(s): I10 - ESSENTIAL (PRIMARY) HYPERTENSION patients urine now showing ecoli,probably coming from the stone vre urine plan continue current mgmt nystatin swish and spit all abx stopped
[2017-02-11] MEDS ORDERED: NYSTATIN 500,000 UNITS TABLET PO SCH (14:00)
== END 2017-02-11 13:35 | disposition home or self-care (01) | DRG 669 ==
LOC: JER 14:56 → JERBED 20:20 → J7W 23:30
PROVIDERS: ADMIT Internal Medicine; ATTEND Internal Medicine
PROC: BT1DYZZ Fluoroscopy of Right Kidney, Ureter and Bladder using Other Contrast (ICD-10-PCS; 2017-02-02)
PROC: 0TC38ZZ Extirpation of Matter from Right Kidney Pelvis, Via Natural or Artificial Opening Endoscopic (ICD-10-PCS; principal; 2017-02-02 15:00)
PROC: 0TP98DZ Removal of Intraluminal Device from Ureter, Via Natural or Artificial Opening Endoscopic (ICD-10-PCS; 2017-02-02 15:00)
PROC: 0T768DZ Dilation of Right Ureter with Intraluminal Device, Via Natural or Artificial Opening Endoscopic (ICD-10-PCS; 2017-02-02 15:00)
DX: N13.2 Hydronephrosis with renal and ureteral calculous obstruction (principal); K86.1 Other chronic pancreatitis; N39.0 Urinary tract infection, site not specified; I10 Essential (primary) hypertension; E11.9 Type 2 diabetes mellitus without complications; K59.00 Constipation, unspecified; Z79.4 Long term (current) use of insulin; I25.10 Atherosclerotic heart disease of native coronary artery without angina pectoris; K58.9 Irritable bowel syndrome, unspecified; B96.20 Unspecified Escherichia coli [E. coli] as the cause of diseases classified elsewhere; K21.9 Gastro-esophageal reflux disease without esophagitis; Z88.0 Allergy status to penicillin
CPT/HCPCS: 36415; 71010-TC; 74000-TC; 76000-TC; 80048; 80053; 80061; 81003; 81015; 83721; 83735; 84100; 85025; 87086; 87186; 88300-TC; 93005; 93010; 94010; 94760; 97116-GP; 97161-GP; 99284-25

== ENCOUNTER 2018-03-29 16:50 | Inpatient (IN) | payer OTHER, BC ==
--- NOTE | 2018-03-29 17:08 | PDOC ---
Rapid Medical Evaluation Medical Evaluation: Allergies Allergy/AdvReac Type Severity Reaction Status Date / Time levofloxacin [From Levaquin] Allergy Mild PAIN Verified 12/05/16 08:05 ciprofloxacin [From Cipro] Allergy PAIN Verified 12/05/16 08:05 doxycycline Allergy DIZZY Verified 12/05/16 08:05 Metronidazole HCl Allergy PAIN Verified 12/05/16 08:05 [From Flagyl] Penicillins Allergy Swelling Verified 12/05/16 08:05 03/29/18 17:06 I have performed a brief in-person evaluation of this patient. The patient presents with a chief complaint of:chest pain x 3 days, worse w/ ambulation w/ sob and weakness. H/o sig cardiac disease w/ 8 stents, last stents placed 1 week ago at [facility]. Also c/o pain/itchy rash to legs this am. Newly on plavix. H/o HTN, HLD, IDDM Pertinent physical exam findings:stable w/ petechiae to legs b/l I have ordered the following:ekg/cxr/labs The patient will proceed to the ED for further evaluation. 03/29/18 17:13 Discharge Disposition - Diagnosis Chest pain Qualifiers: Chest pain type: unspecified Qualified Code(s): R07.9 - Chest pain, unspecified - Referrals - Patient Instructions - Post Discharge Activity
[2018-03-29 17:21] VITALS: BMI 31.0
--- NOTE | 2018-03-29 17:25 | PDOC ---
Attending Attestation - Resident Resident Name: JulissaRamiro - ED Attending Attestation I have performed the following: I have examined & evaluated the patient, The case was reviewed & discussed with the resident, I agree w/resident's findings & plan, Exceptions are as noted - HPI HPI: 03/29/18 17:24 The patient is a 72 year old female with past medical history significant for CAD s/p multiple PCI, s/p stents, recent OK s/p 2 stent placement last week at [facility], HTN, HLD, COPD, CHF, hx of shingles, Congenital pancreatic abnormality, IDDM, grade I esophageal varices w/o hx of cirrhosis, pancreatitis secondary to blood pressure medication complication, [id number] OK ( November 10, 2016, s/p stent placement) presents to the emergency department with a new onset of rash. The patient presents with a new onset of rash Bilaterally to the lower extremities. The patient states the rash is mildly painful and pruritus in character, with the sensation as if she has sand in her blood. The patient reports an additional complaint of chronic pain to the neck and upper/lower back for the past fe wmnths (no change). pt endorses some epgiastric/chest pdiscmfort, since her cath, but no changes. The patient reports she was hospitalized recently at [facility] for an OK s/p 2 stent placement. The patient states during hospitalization she was diagnosed with CHF , following difficulty breathing. The patient reports she was started on Plavix following discharge. The patient reports taking ASA in the morning. The patient reports a single episode of diarrhea earlier today. The patient reports earlier this week she was treated for a UTI. The patient reports finding blood in the toilet bowl today; suspect it may hav ebeen from her urine. Denies fever, chills, nausea, vomiting, shortness of breath. Denies CP or SOB on exertion. Denies blurry vision or diplopia. No numbness or tingling. Allergies: Levofloxacin. Ciprofloxacin. Doxycycline. Metronidazole. Penicillin. Past Surgical History: Stent Placement x8 (2 were placed at [facility] as a result of an OK in 11/10/2016, 2 placed last week at [facility]). Esophagogastroduodenoscopy Social History: Former smoker (half a pack/day for 30 years). No EtOH and recreational drug use. PCP: Dr. Terri Thompson Leather Staker: Dr. Naveen Miller ddx: rash - ?vasculitis vs med side effect will ck trops due to pts back pain ,but suspect this is chronic - Physicial Exam PE: 03/29/18 22:26 GENERAL: The patient is awake, alert, and fully oriented, Nontoxic - in no acute distress. LUNGS: Breath sounds equal, clear to auscultation bilaterally. No wheezes, no rhonchi, no rales. HEART: Regular rate and rhythm, without murmur, rub or gallop. ABDOMEN: Soft, nontender, No guarding, no rebound.No CVA tenderness EXTREMITIES: (+) Lower extremity: non blanching, raised,erythematous plaques on b/l anterior shins, slightly tender to palpation. Normal range of motion, no edema. No cyanosis. SKIN: no rashe besides shinsWarm, Dry, normal turgor, - Medical Decision Making 03/29/18 22:[address] miller requests observation Heart Score/ECG Review - ECG Impressions Comment:: 03/29/18 17:25 Twelve-lead EKG was performed and reviewed by me. There is normal sinus rhythm with a normal rate. rate of 67 1st edegree av block left axis deviation
[2018-03-29 17:57] LABS: BASO % 1.2 % (0-2.0); EOS % 3.1 % (0-4.5); HEMATOCRIT 43.2 % (32.4-45.2); HEMOGLOBIN 14.6 GM/dL (10.7-15.3); LYMPH % 31.5 % (8-40); MCHC 33.7 g/dl (32.0-36.0); MEAN CELL VOLUME 91.8 fl (80-96); MEAN PLT VOLUME 7.4 fl (7.5-11.1); MONO % 11.2 % (3.8-10.2); PLATELET COUNT 264 K/MM3 (134-434); RDW 13.5 % (11.6-15.6); WHITE BLOOD COUNT 6.3 K/mm3 (4.0-10.0)
[2018-03-29 18:23] LABS: INR 1.11 (0.83-1.09); PROTHROMBIN TIME (PATIENT) 12.5 SEC (9.7-13.0)
[2018-03-29 18:26] LABS: ACTIVATED PTT 33.2 SECONDS (25.2-36.5)
[2018-03-29 18:32] LABS: ALBUMIN 3.6 g/dl (3.4-5.0); ANION GAP 10 MMOL/L (8-16); BILIRUBIN,TOTAL 0.3 mg/dL (0.2-1.0); BLOOD UREA NITROGEN 12 mg/dL (7-18); CALCIUM 8.3 mg/dL (8.5-10.1); CHLORIDE 112 mmol/L (98-107); CO2 24 mmol/L (21-32); CREATININE 0.6 mg/dL (0.55-1.3); GLUCOSE,RANDOM 98 mg/dL (74-106); SGPT/ALT 35 U/L (13-61); SODIUM 146 mmol/L (136-145); TOT PROT 6.9 g/dl (6.4-8.2)
[2018-03-29 18:34] LABS: ALK PHOS 62 U/L (45-117)
[2018-03-29 18:53] LABS: POTASSIUM 4.1 mmol/L (3.5-5.1); SGOT/AST 29 U/L (15-37)
--- NOTE | 2018-03-29 19:03 | PDOC ---
History of Present Illness - General Chief Complaint: Chest Pain Stated Complaint: PCP SENT/CHEST PAIN Time Seen by Provider: 03/29/18 17:19 History Source: Patient Exam Limitations: No Limitations - History of Present Illness Initial Comments: 03/29/18 20:03 Ms Ocasio is a 72 yo F with a hx of CAD s/p 8 sents (2 stents placed 1 week ago) , 2x IA (Mar 18 2018, October 2016), HTN, HLD, and IDDM who presents to the emergency department with chest pain with exertion and new onset of rash bilateral LE. She states she has a basal level of chest pain and SOB, but over the past 3 days it has worsened and increased in severity when she exerts herself with associative SOB. The pain radiates to her upper back and is pressure in quality. In addition, she had a new onset of a rash today that is painful and itches. She recently began plavix on 03/18 and had her last heparin dose on 03/22. She denies recent illnesses. Denies the following: headaches, fevers, chills, nausea, vomiting, dysuria, hematuria, hemoptysis, diarrhea, and melena. Denies leg swelling, hx of DVT, prolonged rest immobilization, and recent travels. Size Roller Operator: Dr. Ayers Social: Denies tobacco, alcohol, and substance abuse Shx: cholecystectomy 2006 Meds: plavix, metoprolol, aspirin 81 mg. 03/29/18 20:08 Past History - Past Medical History Allergies/Adverse Reactions: Allergies Allergy/AdvReac Type Severity Reaction Status Date / Time levofloxacin [From Levaquin] Allergy Mild PAIN Verified 03/29/18 17:07 ciprofloxacin [From Cipro] Allergy PAIN Verified 03/29/18 17:07 doxycycline Allergy DIZZY Verified 03/29/18 17:07 Metronidazole HCl Allergy PAIN Verified 03/29/18 17:07 [From Flagyl] Penicillins Allergy Swelling Verified 03/29/18 17:07 Home Medications: Ambulatory Orders Albuterol Sulfate Inhaler - [Ventolin HFA Inhaler -] 1 - 2 inh PO QID PRN Bimatoprost [Lumigan] 1 drop OU DAILY 12/05/16 Docusate Sodium [Dulcoease] 100 mg PO DAILY PRN 12/05/16 Ergocalciferol [Vitamin D2] 50,000 unit PO Q7D@1000 12/05/16 Insulin (Levemir) [Levemir Flexpen -] 0 units SQ DAILY 12/05/16 Insulin (Novolog) [Novolog Flexpen -] 0 units SQ AC 12/05/16 Metoprolol Succinate [Toprol XL -] 25 mg PO DAILY 12/05/16 Olopatadine HCl [Pazeo] 1 drop OP DAILY 12/05/16 Pantoprazole Sodium [Protonix] 40 mg PO DAILY 12/05/16 Aspirin Coated [Ecotrin -] 81 mg PO DAILY tab.ec 12/07/16 Acetaminophen [Tylenol .Regular Strength -] 325 mg PO Q6H PRN #0 tablet Sodium Chloride Nasal [place] [[place] Nasal [place] -] 2 spray NS TID PRN #0 spray 02/11/17 Anemia: No Asthma: No Cancer: No Cardiac Disorders: Yes (4 stents, IA) CVA: No COPD: Yes CHF: No Dementia: No Diabetes: No GI Disorders: Yes (CONSTIPATION,, EGD, H PYLORI) Disorders: (Ongoing work-up for hematuria w/urologist) HTN: Yes Hypercholesterolemia: Yes Kidney Stones: Yes (stent) Liver Disease: No Seizures: No Thyroid Disease: No - Surgical History Abdominal Surgery: No Appendectomy: Yes Cardiac Surgery: Yes (CARDIAC STENTS X 4) Cholecystectomy: Yes ('06) Lung Surgery: No Neurologic Surgery: No Orthopedic Surgery: No - Immunization History Immunization Up to Date: No - Suicide/Smoking/Psychosocial Hx Smoking Status: Yes Smoking History: Former smoker Have you smoked in the past 12 months: Yes Number of Cigarettes Smoked Daily: 10 Information on smoking cessation initiated: Yes 'Breaking Loose' booklet given: 03/29/18 Hx Alcohol Use: No Drug/Substance Use Hx: No Substance Use Type: None Hx Substance Use Treatment: No Review of Systems - Review of Systems Able to Perform ROS?: Yes Constitutional: No: Chills, Diaphoresis, Fever, Weakness HEENTM: No: Eye Pain, Recent change in vision, Ear Pain, Nose Pain, Throat Pain , Mouth Pain Respiratory: No: Cough, Shortness of Breath Cardiac (ROS): Yes: Chest Pain. No: Lightheadedness, Palpitations, Syncope, Chest Tightness ABD/GI: No: Constipated, Diarrhea, Nausea, Rectal Bleeding, Vomiting, Tarry Stools : No: Burning, Dysuria, Flank Pain, Hematuria Musculoskeletal: No: Back Pain Integumentary: Yes: Lesions (bilateral anterior LE) Neurological: No: Headache, Numbness, Tingling, Tremors, Weakness Psychiatric: No: Stressors Endocrine: No: Increased Hunger Hematologic/Lymphatic: No: Anemia *Physical Exam - Vital Signs Last Vital Signs Temp Pulse Resp BP Pulse Ox 98.4 F 70 20 148/75 99 03/29/18 17:03/29/18 17:03/29/18 17:03/29/18 17:03/29/18 17:30 - Physical Exam General Appearance: Yes: Nourished, Appropriately Dressed HEENT: positive: EOMI, DONNA, Normal Voice, Symmetrical Neck: positive: Trachea midline. negative: Lymphadenopathy (R), Lymphadenopathy (L) Respiratory/Chest: positive: Lungs Clear, Normal Breath Sounds. negative: Chest Tender, Respiratory Distress, Accessory Muscle Use Cardiovascular: positive: Regular Rhythm, Regular Rate, S1, S2, Systolic Murmur (grade 1) Vascular Pulses: Dorsalis-Pedis (R): 3+, Doralis-Pedis (L): 3+ Gastrointestinal/Abdominal: positive: Normal Bowel Sounds, Tender (epigastric region), Soft Musculoskeletal: positive: Normal Inspection. negative: CVA Tenderness, Vertebral Tenderness Extremity: positive: Normal Capillary Refill, Normal Range of Motion, Other ( papules multiple located bilaterally on the LE. These were non blanching and painful to the touch. ). negative: Swelling, Calf Tenderness Integumentary: positive: Normal Color, Dry, Warm Neurologic: positive: automation/controls manager II-XII NML intact, Fully Oriented, Alert, Normal Mood/ Affect, Normal Response, Motor Strength 5/5 ED Treatment Course - LABORATORY CBC & Chemistry Diagram: 03/29/18 17:47 03/29/18 17:47 - ADDITIONAL ORDERS Additional order review: Laboratory Results 03/29/18 03/29/18 17:47 17:47 PT with INR 12.50 INR 1.11 H PTT (Actin FS) 33.2 Sodium 146 H Potassium 4.1 Chloride 112 H Carbon Dioxide 24 Anion Gap 10 BUN 12 Creatinine 0.6 Random Glucose 98 Calcium 8.3 L Total Bilirubin 0.3 AST 29 ALT 35 Alkaline Phosphatase 62 Creatine Kinase 120 Troponin I 0.30 H* Total Protein 6.9 Albumin 3.6 03/29/18 17:47 RBC 4.70 MCV 91.8 MCHC 33.7 RDW 13.5 MPV 7.4 L D Neutrophils % 53.0 Lymphocytes % 31.5 Monocytes % 11.2 H Eosinophils % 3.1 Basophils % 1.2 Medical Decision Making - Medical Decision Making 03/29/18 19:16 72 yo F with an extensive cardiac hx with most recent IA 1 week ago s/p 2 stents and initiation of plavix presents to the emergency department with chest pain with exertion and new onset of rash in the LE bilaterally. ddx: vasculitis (secondary vasculitis medication induced vs igA deposition vs cryptoglobulin vs rarer vasculitis), ACS, sincere syndrome, pleural effusions, PNA, pleuritis Initial vitals: Initial Vital Signs Temp Pulse Resp BP Pulse Ox 98.4 F 70 20 148/75 99 03/29/18 17:09 03/29/18 17:09 03/29/18 17:09 03/29/18 17:09 03/29/18 17:09 Work up: Laboratory Tests 03/29/18 03/29/18 03/29/18 17:47 17:47 17:47 WBC 6.3 RBC 4.70 Hgb 14.6 Hct 43.2 MCV 91.8 MCH 31.0 MCHC 33.7 RDW 13.5 Plt Count 264 D MPV 7.4 L D Absolute Neuts (auto) 3.3 Neutrophils % 53.0 Lymphocytes % 31.5 Monocytes % 11.2 H Eosinophils % 3.1 Basophils % 1.2 Nucleated RBC % 0 PT with INR 12.50 INR 1.11 H PTT (Actin FS) 33.2 Sodium 146 H Potassium 4.1 Chloride 112 H Carbon Dioxide 24 Anion Gap 10 BUN 12 Creatinine 0.6 Creat Clearance w eGFR No Result Required. Random Glucose 98 Calcium 8.3 L Total Bilirubin 0.3 AST 29 ALT 35 Alkaline Phosphatase 62 Creatine Kinase 120 CK-MB (CK-2) Troponin I 0.30 H* B-Natriuretic Peptide Total Protein 6.9 Albumin 3.6 Urine Color Urine Appearance Urine pH Ur Specific [place] Urine Protein Urine Glucose (UA) Urine Ketones Urine Blood Urine Nitrite Urine Bilirubin Urine Urobilinogen Ur Leukocyte Esterase Urine WBC (Auto) Urine RBC (Auto) Ur Epithelial Cells Urine Mucus Blood Type Antibody Screen 03/29/18 03/29/18 03/29/18 17:47 17:47 17:47 WBC RBC Hgb Hct MCV MCH MCHC RDW Plt Count MPV Absolute Neuts (auto) Neutrophils % Lymphocytes % Monocytes % Eosinophils % Basophils % Nucleated RBC % PT with INR INR PTT (Actin FS) Sodium Potassium Chloride Carbon Dioxide Anion Gap BUN Creatinine Creat Clearance w eGFR Random Glucose Calcium Total Bilirubin AST ALT Alkaline Phosphatase Creatine Kinase CK-MB (CK-2) 2.94 Troponin I B-Natriuretic Peptide 1313.46 H Total Protein Albumin Urine Color Urine Appearance Urine pH Ur Specific [place] Urine Protein Urine Glucose (UA) Urine Ketones Urine Blood Urine Nitrite Urine Bilirubin Urine Urobilinogen Ur Leukocyte Esterase Urine WBC (Auto) Urine RBC (Auto) Ur Epithelial Cells Urine Mucus Blood Type B POSITIVE Antibody Screen Negative 03/29/18 19:45 WBC RBC Hgb Hct MCV MCH MCHC RDW Plt Count MPV Absolute Neuts (auto) Neutrophils % Lymphocytes % Monocytes % Eosinophils % Basophils % Nucleated RBC % PT with INR INR PTT (Actin FS) Sodium Potassium Chloride Carbon Dioxide Anion Gap BUN Creatinine Creat Clearance w eGFR Random Glucose Calcium Total Bilirubin AST ALT Alkaline Phosphatase Creatine Kinase CK-MB (CK-2) Troponin I B-Natriuretic Peptide Total Protein Albumin Urine Color Yellow Urine Appearance Slcloudy Urine pH 5.0 D Ur Specific [place] 1.018 Urine Protein 1+ H Urine Glucose (UA) Negative Urine Ketones Negative Urine Blood 3+ H Urine Nitrite Negative Urine Bilirubin Negative Urine Urobilinogen Negative Ur Leukocyte Esterase 2+ H Urine WBC (Auto) 99 Urine RBC (Auto) 128 Ur Epithelial Cells Rare Urine Mucus Rare Blood Type Antibody Screen CXR does not show acute pathologies. Given her troponin is 0.30 in the setting of a wnl CKMB, likely this is a troponin decrease from her mI 1 week ago ( troponin elevations lasts for 10-[address] Ayers was consulted and he agreed to have her obs tele to observe her cardiac poole and to work up the rash. The patient was given 324 mg of aspirin in the department. Dispo: Admit to obs tele *DC/Admit/Observation/Transfer Diagnosis at time of Disposition: Chest pain Qualifiers: Chest pain type: unspecified Qualified Code(s): R07.9 - Chest pain, unspecified - Discharge Dispostion Decision to Admit order: Yes - Referrals - Patient Instructions - Post Discharge Activity
[2018-03-29] MEDS ORDERED: ASPIRIN 81 MG CHEWABLE TABLETS PO ONE (19:11)
[2018-03-29] MEDS ORDERED: ASPIRIN 325 MG TABLET ONE (19:43)
[2018-03-29 19:57] LABS: URINE APPEARANCE SLCLOUDY; URINE BILIRUBIN NEGATIVE (<2.0 mg/dL); URINE COLOR YELLOW; URINE GLUCOSE (UA) NEGATIVE (NEGATIVE); URINE KETONE NEGATIVE (NEGATIVE); URINE NITRITE NEGATIVE (NEGATIVE); URINE UROBILINOGEN NEGATIVE mg/dL (0.2-1.0)
[2018-03-29 20:05] LABS: URINE LEUK ESTERASE 2+ (NEGATIVE); URINE PROTEIN 1+ (NEGATIVE)
[2018-03-29 20:07] LABS: EPI CELLS RARE /HPF (FEW); URINE MUCUS RARE
[2018-03-29] MEDS ORDERED: diphenhydrAMINE HCL 25 MG CAPSULE (FP) PO ONE ×2 (21:27→21:49)
--- NOTE | 2018-03-29 21:34 | HP ---
CHIEF COMPLAINT: chest pain, rash PCP: Jay Cardio: Andria HISTORY OF PRESENT ILLNESS: This is a 72 year old female s/p recent UT last week s/p stent x 2 who presented to the ED with abdominal pain radiating through chest to arms and back pain since dc from [facility]. Pt also reports B/L lower leg rash x 1 day. She noticed the rash early in the day and reports some itching and burning to the area. She also reports that she feels like her urine infection isn't completely gone. ER course was notable for: (1) Trop + 0.30, ECG Recent Travel: pt denies PAST MEDICAL HISTORY: HTN, HLD, CAD s/p total of 8 stents, UT 03/18/18, 01/2017, DM, constipation, H. Pylori, kidney stones, pancreatic divisum PAST SURGICAL HISTORY: 8 stents, cholecystectomy 2006 Social History: Smokin/2 PPD x 50+ years, quit smoking last week Alcohol: pt denies Drugs: pt denies Family History: mother in her 70s, CHF, DM father s/p Lung CA sister complications of RA and meds Allergies levofloxacin [From Levaquin] Allergy (Mild, Verified 03/29/18 17:07) PAIN PAIN ALL OVER THE BODY ciprofloxacin [From Cipro] Allergy (Verified 03/29/18 17:07) PAIN PAIN ALL OVER BODY doxycycline Allergy (Verified 03/29/18 17:07) DIZZY Metronidazole HCl [From Flagyl] Allergy (Verified 03/29/18 17:07) PAIN PAIN ALL OVER BODY. SENSATION THAT THROAT IS CLOSING Penicillins Allergy (Verified 03/29/18 17:07) Swelling THROAT CLOSE HOME MEDICATIONS: 3 Medication Instructions Recorded Albuterol Sulfate Inhaler - 1 - 2 inh PO QID PRN 12/05/16 [Ventolin HFA Inhaler -] Bimatoprost [Lumigan] 1 drop OU DAILY 12/05/16 Docusate Sodium [Dulcoease] 100 mg PO DAILY PRN 12/05/16 Ergocalciferol [Vitamin D2] 50,000 unit PO Q7D@1000 12/05/16 Insulin (Levemir) [Levemir Flexpen 0 units SQ DAILY 12/05/16 -] Insulin (Novolog) [Novolog Flexpen 0 units SQ AC 05/23/17 -] Metoprolol Succinate [Toprol XL -] 25 mg PO DAILY 12/05/16 Olopatadine HCl [Pazeo] 1 drop OP DAILY 12/05/16 Pantoprazole Sodium [Protonix] 40 mg PO DAILY 12/05/16 Aspirin Coated [Ecotrin -] 81 mg PO DAILY tab.ec 12/07/16 Acetaminophen [Tylenol .Regular 325 mg PO Q6H PRN #0 tablet 02/11/17 Strength -] Sodium Chloride Nasal [place] [[place] 2 spray NS TID PRN #0 spray 02/11/17 [place] Nasal [place] -] REVIEW OF SYSTEMS CONSTITUTIONAL: Absent: fever, chills, diaphoresis, generalized weakness, malaise, loss of appetite, weight change HEENT: Absent: rhinorrhea, nasal congestion, throat pain, throat swelling, difficulty swallowing, mouth swelling, ear pain, eye pain, visual changes CARDIOVASCULAR: present: chest pain Absent: syncope, palpitations, irregular heart rate, lightheadedness, peripheral edema RESPIRATORY: Absent: cough, shortness of breath, dyspnea with exertion, orthopnea, wheezing, stridor, hemoptysis GASTROINTESTINAL: present: abdominal pain Absent: abdominal distension, nausea, vomiting, diarrhea, constipation, melena, hematochezia GENITOURINARY: present: dysuria Absent: frequency, urgency, hesitancy, hematuria, flank pain, genital pain MUSCULOSKELETAL: Absent: myalgia, arthralgia, joint swelling, back pain, neck pain SKIN: Absent: rash, itching, pallor HEMATOLOGIC/IMMUNOLOGIC: Absent: easy bleeding, easy bruising, lymphadenopathy, frequent infections ENDOCRINE: Absent: unexplained weight gain, unexplained weight loss, heat intolerance, cold intolerance NEUROLOGIC: Absent: headache, focal weakness or paresthesias, dizziness, unsteady gait, seizure, mental status changes, bladder or bowel incontinence PSYCHIATRIC: Absent: anxiety, depression, suicidal or homicidal ideation, hallucinations. PHYSICAL EXAMINATION Vital Signs - 24 hr 3 03/29/18 03/29/18 17:09 17:30 Temperature 98.4 F Pulse Rate 70 Respiratory 20 Rate Blood Pressure 148/75 O2 Sat by Pulse 99 99 Oximetry (%) GENERAL: Awake, alert, and fully oriented, in no acute distress. HEAD: Normal with no signs of trauma. EYES: Pupils equal, round and reactive to light, extraocular movements intact, sclera anicteric, conjunctiva clear. No lid lag. EARS, NOSE, THROAT: Ears normal, nares patent, oropharynx clear without exudates. Moist mucous membranes. NECK: Normal range of motion, supple without lymphadenopathy, JVD, or masses. LUNGS: Breath sounds equal, clear to auscultation bilaterally. No wheezes, and no crackles. No accessory muscle use. HEART: Regular rate and rhythm, normal S1 and S2 without murmur, rub or gallop. ABDOMEN: Soft, nontender, not distended, normoactive bowel sounds, no guarding, no rebound, no masses. No hepatomegaly or splenomegaly. MUSCULOSKELETAL: Normal range of motion at all joints. No bony deformities or tenderness. No CVA tenderness. UPPER EXTREMITIES: 2+ pulses, warm, well-perfused. No cyanosis. No clubbing. No peripheral edema. LOWER EXTREMITIES: 2+ pulses, warm, well-perfused. No calf tenderness. No peripheral edema. NEUROLOGICAL: Cranial nerves II-XII intact. Normal speech. Normal gait. PSYCHIATRIC: Cooperative. Good eye contact. Appropriate mood and affect. SKIN: Warm, dry, normal turgor, no rashes or lesions noted, normal capillary refill. B/L LE with petechial rash, small patches less than 1cm. Laboratory Results - last 24 hr 3 03/29/18 03/29/18 03/29/18 17:47 17:47 17:47 WBC 6.3 RBC 4.70 Hgb 14.6 Hct 43.2 MCV 91.8 MCH 31.0 MCHC 33.7 RDW 13.5 Plt Count 264 D MPV 7.4 L D Absolute Neuts (auto) 3.3 Neutrophils % 53.0 Lymphocytes % 31.5 Monocytes % 11.2 H Eosinophils % 3.1 Basophils % 1.2 Nucleated RBC % 0 PT with INR 12.50 INR 1.11 H PTT (Actin FS) 33.2 Sodium 146 H Potassium 4.1 Chloride 112 H Carbon Dioxide 24 Anion Gap 10 BUN 12 Creatinine 0.6 Creat Clearance w eGFR No Result Required. Random Glucose 98 Calcium 8.3 L Total Bilirubin 0.3 AST 29 ALT 35 Alkaline Phosphatase 62 Creatine Kinase 120 CK-MB (CK-2) 2.94 Troponin I 0.30 H* B-Natriuretic Peptide 1313.46 H Total Protein 6.9 Albumin 3.6 Urine Color Urine Appearance Urine pH Ur Specific [place] Urine Protein Urine Glucose (UA) Urine Ketones Urine Blood Urine Nitrite Urine Bilirubin Urine Urobilinogen Ur Leukocyte Esterase Urine WBC (Auto) Urine RBC (Auto) Ur Epithelial Cells Urine Mucus Blood Type B POSITIVE Antibody Screen Negative 3 Urine Color Yellow 03/29/18 19:45 Urine Appearance Slcloudy 03/29/18 19:45 Urine pH 5.0 (5.0-8.0) D 03/29/18 19:45 Ur Specific [place] 1.018 (1.001-1.035) 03/29/18 19:45 Urine Protein 1+ (NEGATIVE) H 03/29/18 19:45 Urine Glucose (UA) Negative (NEGATIVE) 03/29/18 19:45 Urine Ketones Negative (NEGATIVE) 03/29/18 19:45 Urine Blood 3+ (NEGATIVE) H 03/29/18 19:45 Urine Nitrite Negative (NEGATIVE) 03/29/18 19:45 Urine Bilirubin Negative (<2.0 mg/dL) 03/29/18 19:45 Ur Leukocyte Esterase 2+ (NEGATIVE) H 03/29/18 19:45 Urine WBC (Auto) 99 03/29/18 19:45 Urine RBC (Auto) 128 03/29/18 19:45 Ur Epithelial Cells Rare /HPF (FEW) 03/29/18 19:45 Urine Mucus Rare 03/29/18 19:45 ECG sinus rhythm vent rate 67, QTC 452 left axis deviation, no acute ST/T wave changes ASSESSMENT/PLAN: 72yF with PMH recent UT 03/18/18 at [facility] s/p 2 stents placed, UT 2016, HTN, HLD, DM, constipation, H. pylori, kidney stones, pancreatic divisum presented to the ED with abd pain radiating up into chest and back pain. Chest pain/abd pain wtih elevated trop - troponin 0.30, trend x 2 more - cardiology consult appreciated, ED D/W dr. miller who recommends trend trop - tele HTN/HLD - pt states she is only taking metoprolol, plavix, asa - she reports that [facility] sent meds to the pharmacy but she has not picked them up yet. petechial rash - ? drug reaction, Unclear etiology - trial of benadryl for itching UTI - pt has received ceftriaxone in past here, will start ceftriaxone daily, follow C/s results DM - pt reports neal was giving her levemir 12u hs, will order same - BGM AC./HS with novolog sliding scale DVT PPX - heparin deferred given expected los less than 48 FEN - toleratin po - BMP as tolerated - low sodium/diabetic diet Visit type - Emergency Visit Emergency Visit: Yes ED Registration Date: 03/29/18 Care time: The patient presented to the Emergency Department on the above date and was hospitalized for further evaluation of their emergent condition. - New Patient This patient is new to me today: Yes Date on this admission: 03/29/18 - Critical Care Critical Care patient: No Hospitalist Screening - Colonoscopy Questionnaire Colonoscopy Questionnaire: Colonoscopy Questionnaire - Patient: 50 - 75 years old and never had a screening colonoscopy: No History of colon or rectal polyps, or CA: No History of IBD, Crohn's disease or UC: No History of abdominal radiation therapy as a child: No - Relative: 1 with colon or rectal CA, or polyps at age 60 or younger: No Colon or rectal CA diagnosed at age 45 or younger: No Multiple relatives with colon or rectal CA: No - Outcome: Screening Result: Negative Screen
[2018-03-29] MEDS ORDERED: INSULIN SLIDING SCALE (NOVOLOG) 1 VIAL SQ SCH (22:00)
[2018-03-29] MEDS: INSULIN SLIDING SCALE (NOVOLOG) 1 VIAL SQ SCH (22:11)
[2018-03-29] MEDS ORDERED: INSULIN (LEVEMIR) 100 UNITS/ML UNITS SQ ONE (22:18)
[2018-03-29] MEDS: INSULIN (LEVEMIR) 100 UNITS/ML UNITS SQ SCH (22:22)
[2018-03-29] MEDS: CEFTRIAXONE 1 GM in DEXTROSE 5%-WATER - 50 ML IVPB SCH (23:33)
[2018-03-29] MEDS ORDERED: CEFTRIAXONE 1 GM/50 ML BAG ONE (23:35)
[2018-03-30] MEDS: INSULIN SLIDING SCALE (NOVOLOG) 1 VIAL SQ SCH ×4 (06:43→22:13)
[2018-03-30 07:41] LABS: BASO % 0.9 % (0-2.0); EOS % 3.6 % (0-4.5); HEMATOCRIT 43.8 % (32.4-45.2); HEMOGLOBIN 14.9 GM/dL (10.7-15.3); LYMPH % 24.8 % (8-40); MCH 31.2 pg (25.7-33.7); MCHC 34.1 g/dl (32.0-36.0); MEAN CELL VOLUME 91.4 fl (80-96); MEAN PLT VOLUME 7.7 fl (7.5-11.1); MONO % 9.8 % (3.8-10.2); NEUT % 60.9 % (42.8-82.8); PLATELET COUNT 238 K/MM3 (134-434); RBC 4.79 M/mm3 (3.60-5.2); RDW 13.5 % (11.6-15.6); WHITE BLOOD COUNT 5.8 K/mm3 (4.0-10.0)
[2018-03-30 08:24] LABS: CHLORIDE 109 mmol/L (98-107); POTASSIUM 3.9 mmol/L (3.5-5.1); SODIUM 145 mmol/L (136-145)
[2018-03-30 08:36] LABS: ANION GAP 13 MMOL/L (8-16); BLOOD UREA NITROGEN 11 mg/dL (7-18); CALCIUM 8.9 mg/dL (8.5-10.1); CO2 23 mmol/L (21-32); CREATININE 0.7 mg/dL (0.55-1.3); GLUCOSE,RANDOM 114 mg/dL (74-106); MAGNESIUM 2.3 mg/dL (1.8-2.4); PHOSPHOROUS 3.2 mg/dL (2.5-4.9)
[2018-03-30] MEDS: ASPIRIN 81 MG CHEWABLE TABLETS PO SCH (09:22)
[2018-03-30] MEDS: CHOLECALCIFEROL (VITAMIN D3) 1,000 UNIT TABLET (FP) PO SCH (09:22)
[2018-03-30] MEDS: metoPROLOL SUCCINATE 25 MG TAB.SR.24H (FP) PO SCH (09:23)
--- NOTE | 2018-03-30 09:49 | CON.CARD ---
Consult Consult Specialty:: cardio - History of Present Illness Chief Complaint: rash History of Present Illness: 72 yo female with known CAD, recent NSTEMI with PCI (nealyamile) presented with rash. evaluated in ER for rash, felt to be purpuric. also reported cp and sob sx's, admitted for serial enzymes and observation. pt has h/o remote PCIs. she has diffuse body sx's chronically including pains in neck/shoulders/back, chest and throat, abdomen as well as atypical popping and other sensations in legs, abdomen and face for many yrs. it has been impossible to confidently discriminate the non-anginal components of her back/neck/throat and cp from angina. she had significant discomfort in these regions at times of crescendo angina--> NSTEMI in 10/2016. however she has had chronic, similar pains in these regions related to mskel issues, ? underlying fibromyalgia (never saw rheum), and GERD--and she is unable to tell the difference btw these sx's and cardiac sx's. she is intolerant to the overwhelming majority of medications tried in her life , the list being very long, as they usually cause exacerbation of one or more of the above sx's. she had multiple PCIs in her RCA at time of her NSTEMI 10/2016, with residual severe stenosis in prox LAD and ramus intermedius left alone at that time due to pt's inability to tolerate prolonged DAPT (plavix caused multiple somatic complaints, and also has had chronic, relapsing hematuria related to recurrent renal stones, causing painful urination and frequent self-d/c of plavix as well as aspirin--tolerating only aspirin QOD of late). was unclear if angina sx's improved post PCI, though clinical suspicion for angina has been low since then, as the above multiple overlap sx's have not been convincingly exertional in nature and not severe. she has severely uncontrolled CAD risk factors including ongoing smoking, marked dyslipidemia, poorly controlled DM with poor diet, and very sedentary with mult attempts at conventional and unconventional treatments (e.g. accupuncture, functional medicine evaluation) unsuccessful (or pt unwilling) at modifying her risk. she has been intolerant of all statins (including livalo), zetia, and repatha and recently has been tolerating rosuvastatin 2.5mg qd with suspected pains that she can live with--on this regimen for 6 months or more. she has had in-stent restenosis at least once in past. due to her very high risk of restenosing any stents uncontrolled RFs and prior accelerated athero history), and inability to tolerate prolonged DAPT with risk of stent thrombosis, i recently referred her for CABG evaluation to at least revascularize her LAD and possibly the other vessels with all arterial approach , to maximize the likelihood of sustained revascularization in this pt with uncontrollable CAD risk factors. she is at risk of having severe post-sternotomy pain syndrome, but it was felt that the benefits to her of controlling angina, BUT ALSO OF DECREASING MORTALITY with MELENDEZ to prox LAD in diabetic, were worth that risk. furthermore, there could be consideration of robotic approach without a sternotomy (though with incomplete revascularization in that case) to minimize potential for postop pain syndromes. pt saw CTS at [place] who reviewed her cath and agreed that CABG was her best option, but pt declined to proceed. she states on 03/15 she developed intense pain in lower abdomen, chest, back and L jaw (burning quality), nausea--went to [facility] ER where she was evaluated, no signs ACS, released. sx's continued for next few days and became acutely worse on 03/18 (including dry heaving and gasping for breath), not responsive to SL nitro i had given her recently--called 911 and went to [facility]. dx'd with NSTEMI, had diagnostic cath only with revasc decisions pending, then the next day developed acute hypotension and had urgent cath with PCIs (? which vessel). was told heart function strong but treated with iv lasix at least 2 days she says. given lovenox injections she believes. she is not certain of other meds she was given at that time but sent home on ONLY ASPIRIN, PLAVIX, METOPROLOL, VIT D (rx'd atorva but hasn't picked it up yet ). she developed a marked rash for which she saw pin worker in our practice yesterday--was sent to ER for ? of vaculitis. in [facility] 03/18 to 03/26. first noted the rash 03/29--diffusely on both legs and buttocks. SINCE THE PCI'S SHE CONTINUES TO HAVE BURNING PAIN IN CHEST AND BACK AND L JAW, less severe than before. notes it at rest especially AFTER EATING, but also consistently with walking. feels sob often at rest. awoke this am in hospital with feeling "something pop or banged in her chest" and felt very sob. 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 on biopsy and serial liver MRIs (dr pittman follows) recurrent nephrolithiasis, obstruction with ureteral stent in past, recurrent hematuria GERD obesity - Past Medical History Cardio/Vascular: Yes: CAD Gastrointestinal: Yes: Constipation, GERD, Irritable Bowel Disease, Pancreatitis , Other (PANCREATIC DIVISUM) Renal/: Yes: Renal Calculi Endocrine: Yes: Diabetes Mellitus - Past Surgical History Past Surgical History: Yes: Cholecystectomy, Stent - Alcohol/Substance Use Hx Alcohol Use: No History of Substance Use: reports: None - Smoking History Smoking history: Former smoker Have you smoked in the past 12 months: Yes Aproximately how many cigarettes per day: 10 If you are a former smoker, when did you quit?: last week - Social History ADL: Independent History of Recent Travel: No Home Medications - Allergies Allergies/Adverse Reactions: Allergies Allergy/AdvReac Type Severity Reaction Status Date / Time levofloxacin [From Levaquin] Allergy Mild PAIN Verified 03/29/18 17:07 ciprofloxacin [From Cipro] Allergy PAIN Verified 03/29/18 17:07 doxycycline Allergy DIZZY Verified 03/29/18 17:07 Metronidazole HCl Allergy PAIN Verified 03/29/18 17:07 [From Flagyl] Penicillins Allergy Swelling Verified 03/29/18 17:07 - Home Medications Home Medications: Ambulatory Orders Albuterol Sulfate Inhaler - [Ventolin HFA Inhaler -] 1 - 2 inh PO QID PRN Bimatoprost [[place]] 1 drop OU DAILY 12/05/16 Docusate Sodium [Dulcoease] 100 mg PO DAILY PRN 12/05/16 Ergocalciferol [Vitamin D2] 50,000 unit PO Q7D@1000 12/05/16 Insulin (Levemir) [Levemir Flexpen -] 0 units SQ DAILY 12/05/16 Insulin (Novolog) [Novolog Flexpen -] 0 units SQ AC 12/05/16 Metoprolol Succinate [Toprol XL -] 25 mg PO DAILY 12/05/16 Olopatadine HCl [Pazeo] 1 drop OP DAILY 12/05/16 Pantoprazole Sodium [Protonix] 40 mg PO DAILY 12/05/16 Aspirin Coated [Ecotrin -] 81 mg PO DAILY tab.ec 12/07/16 Acetaminophen [Tylenol .Regular Strength -] 325 mg PO Q6H PRN #0 tablet Sodium Chloride Nasal [place] [[place] Nasal [place] -] 2 spray NS TID PRN #0 spray 02/11/17 Family Disease History - Family Disease History Family Disease History: Diabetes: Mother, Heart Disease: Mother, CA: Father, Mother Review of Systems - Review of Systems Constitutional: denies: Chills, Fever Eyes: denies: Eye Pain HENT: denies: Nasal Congestion Neck: denies: Stiffness Cardiovascular: denies: Palpitations Respiratory: denies: Orthopnea, PND Gastrointestinal: denies: Diarrhea, Rectal Bleeding Genitourinary: denies: Burning, Hematuria Musculoskeletal: denies: Muscle Pain Integumentary: denies: Rash Neurological: denies: Numbness, Seizure, Syncope Endocrine: denies: Excessive Sweating Hematology/Lymphatic: denies: Excessive Bleeding Vital Signs: Vital Signs Temperature 98.9 F 03/30/18 05:00 Pulse Rate 77 03/30/18 05:00 Respiratory Rate 18 03/30/18 05:32 Blood Pressure 139/112 03/30/18 05:00 O2 Sat by Pulse Oximetry (%) 92 L 03/30/18 05:32 Constitutional: Yes: Well Nourished, No Distress Eyes: No: Sclera Icterus HENT: No: Nasal Congestion Neck: No: Decreased ROM Respiratory: Yes: CTA Bilaterally, Rales (bases). No: Accessory Muscle Use, Wheezes Gastrointestinal: Yes: Normal Bowel Sounds. No: Distention, Hepatomegaly, Palpable Mass, Tenderness Cardiovascular: Yes: Regular Rate and Rhythm JVD: No Carotid Bruit: No PMI: Non-Displaced Heart Sounds: Yes: S1, S2. No: Gallop Murmur: No: Systolic Murmur, Diastolic Murmur Musculoskeletal: Yes: Other (No kyphosis) Extremities: No: Cool, Cyanosis Edema: No Peripheral Pulses: 2+ Left Carotid, 2+ Right Carotid, 2+ Left Doralis Pedis, 2+ Right Dorsalis Pedis Integumentary: No: Jaundice Neurological: Yes: Alert, Oriented (x3) Psychiatric: No: Agitated - Other Data Labs, Other Data: CBC, BMP 03/30/18 05:50 03/30/18 05:50 INR, PTT INR 1.11 (0.83-1.09) H 03/29/18 17:47 Troponin, BNP 03/29/18 03/29/18 03/30/18 17:47 17:47 02:00 Troponin I 0.30 H* 0.27 H* B-Natriuretic Peptide 1313.46 H 03/30/18 05:50 Troponin I 0.31 H* B-Natriuretic Peptide Troponin, BNP 03/29/18 03/29/18 03/30/18 17:47 17:47 02:00 Troponin I 0.30 H* 0.27 H* B-Natriuretic Peptide 1313.46 H 03/30/18 05:50 Troponin I 0.31 H* B-Natriuretic Peptide Laboratory Tests 11/09/16 03/29/18 03/29/18 03:33 17:47 17:47 WBC Hgb Plt Count Sodium Potassium Carbon Dioxide BUN Creatinine Troponin I 0.30 H* B-Natriuretic Peptide 138.66 H 1313.46 H 03/30/18 03/30/18 03/30/18 02:00 05:50 05:50 WBC 5.8 Hgb 14.9 Plt Count 238 Sodium 145 Potassium 3.9 Carbon Dioxide 23 BUN 11 Creatinine 0.7 Troponin I 0.27 H* B-Natriuretic Peptide 03/30/18 05:50 WBC Hgb Plt Count Sodium Potassium Carbon Dioxide BUN Creatinine Troponin I 0.31 H* B-Natriuretic Peptide Assessment/Plan prior med intolerances: plavix/ASA--diffuse, severe pain ("whole body on fire") and nausea every day for 12 mo of taking this; also worsenss hematuria crestor--body on fire, nausea, dizzy simvastatin, atorva, prava--nausea, diarrhea, "something closes up and hard to breathe...i can feel it in my blood" livalo--? which sx (intolerable to her) zetia--? which sx (intolerable to her) repatha--? which sx (intolerable) ranexa: stomach upset Ziac--severe MANZANO, pancreatitis Bystolic--"i felt sick" metoprolol, bisoprolol, carvedilol--dry membranes, ? other (intolerable to her) ECG: NSR, LAFB, no path q's, no ST-Ts (no change vs prior 01/2017) CXR (not read, image reviewed): clear lungs, no vascular redistribution, no effusions Echo 10/2016: nl lv/rv/valves LHC 10/30: 70-80% pRCA--Synergy ROGE; 30-50% mRCA; 90-95% thrombotic dRCA-- Synergy ROGE; 70-80% pLAD; patent mLAD stent; patent D1 stent with 50-60% D1 disease; 60-70% OM1 (SMALL VESSEL); 80-90% ISR (prior xience) in [place]; EDP 15, EF 50%; mild HK diaphragmatic and posterobasal monahan MPI 03/31 (pers): no STs; medium/moderate ischemia IW/inferolateral; nl EF; no TID a/p: 71 smoker with h/o CAD s/p multiple PCI (most recent in October), chronic pain syndrome with chronic pain of chest, throat, back, abdomen, joints, mouth, HTN, HL, copd, fatty liver, congenital pancreatic abnormality, IDDM, grade I esophageal varices without hx of cirrhosis, gastritis, and recent hematuria p/w abdominal pain. rash: -severe purpuric rash diffuse both legs and buttocks/flanks -only new drug that she is actively taking is plavix--took this for 3 months to 01/29 without rash. -? reactive to heparin (lovenox?), lasix or other med she received in [facility] -? not drug related -recommend derm eval, to guide future med decisions CAD, chronic cp and sob: -s/p NSTEMI 04/02 with PCI of RCA at [facility] -on max tolerable bb dose of mult previous trials (metopr 25 qd)--cont same -previously max tolerable dose of rosuva was 2.5mg qd--try to intensify for short-term anti-ischemic properties: start 20mg here -continue aspirin -would like to try empirically changing plavix to Effient or Brilinta until derm weighs in on whether this is drug rash. will d/w dr mata who knows her from 2017 admit whether she was intolerant to one or both of these, and what he rec's in the immediate post-PCI setting--further med changes TBD -has chronic, longstanding cp/throat pain, back/neck/shoulder pains which are non-cardiac, and indistinguishable overlap sx's when develops angina/ACS. -ongoing sx's of chest/back/jaw burning post-prandially and with activity-- suspect this is angina (? inferior wall ischemia). -sx's stable since her PCI, no severe episodes. -no acute isch ecg changes -troponins flat/low-level (0.2-0.3), not c/w recurrent acute ischemia (rather, the tail end of clearance of troponins from recent DC a week ago -hence clinically, she is having chronic, stable angina sx's now and does not need urgent revasc -ultimately, she will have to decide btw multi-vessel stenting and CABG. i d/w' d her at length today why i feel (as i did before) that multivessel stenting is a poor option for her and why i feel CABG is her best option: 1) hi risk of premature discontinuation of DAPT with high stent thrombosis risk if multiple stents; 2) high risk of recurrent obstructive CAD either in-stent or de german lesions, given her history and uncontrollable RFs; 3) high likelihood of severe s.e.s to new meds including anti-PLT agent; 4) much lower risk of recurrent angina or DC in future with CABG vs multi-vessel PCI based on mult RCT data; 5) mortality benefit of CABG to prox LAD in diabetic pt. -she will consider further and d/w me as outpt. -will try add low dose NTG patch for anti-anginal, since this has not previously been tried chronic diast CHF: -one prior episode of likely chf occurred in hosp when received IVF following procedure (2016). sob responded promptly to lasix then. -not on maintenance lasix as outpt (didn't help her chronic atyp sob sx's after that hospital stay) -here with SOB. BNP 1300, from 100 prior baseline. CXR clear in ER. -episode of ? PND this am, with rales on exam (chf vs ? ATX)--rpt CXR -her sob and sx of feeling diffusely bloated is suspicious for chf in pt with recent DC and ongoing active ischemia. will try lasix 40 iv x1 today and reassess sx's in am HTN - unable to tolerate mult meds in past - tolerates triamterene-hct and low dose metopr as outpt - bp mildly elevated here--same meds for now - will resume home thiazide regimen once not being diuresed with lasix anymore DM: - per primary team
[2018-03-30] MEDS ORDERED: predniSONE 20 MG TABLET (UD) PO ONE (10:19)
--- NOTE | 2018-03-30 10:37 | PN ---
Progress Note, Physician - Current Medication List Current Medications: Active Medications Aspirin (Asa -) 81 mg PO DAILY [facility] Last Admin: 03/30/18 09:22 Dose: 81 mg Cholecalciferol (Vitamin D3 -) 1,000 unit PO DAILY [facility] Last Admin: 03/30/18 09:22 Dose: 1,000 unit Clopidogrel Bisulfate (Plavix -) 75 mg PO DAILY [facility] Ceftriaxone Sodium 1 gm/ (Dextrose) 50 mls @ 100 mls/hr IVPB HS [facility]; Protocol Last Admin: 03/29/18 23:33 Dose: 100 mls/hr Insulin Aspart (Novolog Vial Sliding Scale -) 1 vial SQ ACHS [facility]; Protocol Last Admin: 03/30/18 06:43 Dose: Not Given Insulin Detemir (Levemir Vial) 12 units SQ [facility] Last Admin: 03/29/18 22:22 Dose: 12 unit Loratadine (Claritin -) 10 mg PO DAILY [facility] Metoprolol Succinate (Toprol Xl -) 25 mg PO DAILY [facility] Last Admin: 03/30/18 09:23 Dose: 25 mg Rosuvastatin Calcium (Crestor -) 2.5 mg PO [facility] - Objective Vital Signs: Vital Signs Temperature 98.9 F 03/30/18 05:00 Pulse Rate 77 03/30/18 05:00 Respiratory Rate 18 03/30/18 05:32 Blood Pressure 139/112 03/30/18 05:00 O2 Sat by Pulse Oximetry (%) 92 L 03/30/18 05:32 Labs: CBC, BMP 03/30/18 05:50 03/30/18 05:50 INR, PTT INR 1.11 (0.83-1.09) H 03/29/18 17:47 Problem List - Problems (1) Rash and nonspecific skin eruption Assessment/Plan: accordin to the patient the rash started yesterday she denied a having any type of food or new cosmetic product usage. she recently received a cardiac angiogram with a stent placement at [facility]. according to the automobile contract clerk she refused to have CABG done and wanted a stent placed. - start the patient on claritin - start the patient on prednisone - obtain VERO to evaluate the patient for possible vasculitis - will consult rheumatology for the rash and dermatology Code(s): R21 - RASH AND OTHER NONSPECIFIC SKIN ERUPTION (2) Chest pain Assessment/Plan: patient with chronic stable angina s/p cardiac angiogram with PCI. - c/w rosuvastatin - c/w aspirin - c/w clopidogrel - f/u with cardiology recommendation - obtain en ECG if the patient is complaining of severe chest pain. Code(s): R07.9 - CHEST PAIN, UNSPECIFIED Qualifiers: Chest pain type: unspecified Qualified Code(s): R07.9 - Chest pain, unspecified (3) CAD (coronary artery disease) Assessment/Plan: S/p PCI at [facility] - c/w rosuvastatin - c/w aspirin - c/w clopidogrel - f/u with cardiology recommendation - obtain en ECG if the patient is complaining of severe chest pain. 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
[2018-03-30] MEDS ORDERED: ACETAMINOPHEN 325 MG TABLET (FP) PO PRN (10:40)
[2018-03-30] MEDS ORDERED: RAMIPRIL 2.5 MG CAPSULE (FP) PO ONE (10:42)
[2018-03-30] MEDS: LORATADINE 10 MG TABLET PO SCH (10:56)
[2018-03-30] MEDS ORDERED: FUROSEMIDE 40 MG/4 ML INJECTABLE VIAL IVPUSH ONE (12:04)
[2018-03-30] MEDS: CLOPIDOGREL BISULFATE 75 MG TABLET (FP) PO SCH (13:01)
[2018-03-30] MEDS ORDERED: diphenhydrAMINE HCL 25 MG CAPSULE (FP) PO PRN (16:50)
[2018-03-30] MEDS: NITROGLYCERIN 0.3 MG/HOUR TD PATCH TD SCH (17:10)
[2018-03-30] MEDS ORDERED: INSULIN (NOVOLOG) ASPART 100 UNITS/ML 10ML VIAL ONE (17:16)
[2018-03-30] MEDS: methylPREDNISolone NA SUCC 40 MG/1 ML VIAL IVPUSH SCH (17:29)
[2018-03-30] MEDS ORDERED: cefTRIAXone SODIUM 1 GM VIAL ONE (21:53)
[2018-03-30] MEDS ORDERED: DEXTROSE 5%-WATER - 50 ML IVPB ONE (21:53)
[2018-03-30] MEDS ORDERED: ROSUVASTATIN CA 5 MG TABLET (FP) PO SCH (22:00)
[2018-03-30] MEDS ORDERED: ROSUVASTATIN CA 10 MG TABLET (FP) PO SCH (22:00)
[2018-03-30] MEDS: ROSUVASTATIN CA 10 MG TABLET (FP) PO SCH (22:12)
[2018-03-30] MEDS: CEFTRIAXONE 1 GM in DEXTROSE 5%-WATER - 50 ML IVPB SCH (22:13)
[2018-03-30] MEDS: INSULIN (LEVEMIR) 100 UNITS/ML UNITS SQ SCH (22:14)
[2018-03-31] MEDS ORDERED: ONDANSETRON 4 MG/2 ML VIAL IVPUSH ONE (02:37)
[2018-03-31] MEDS ORDERED: ONDANSETRON 4 MG/2 ML VIAL ONE (02:47)
[2018-03-31] MEDS: methylPREDNISolone NA SUCC 40 MG/1 ML VIAL IVPUSH SCH (05:17)
[2018-03-31] MEDS: INSULIN SLIDING SCALE (NOVOLOG) 1 VIAL SQ SCH ×4 (06:39→21:41)
[2018-03-31 07:43] LABS: BASO % 0.2 % (0-2.0); EOS % 0.6 % (0-4.5); HEMATOCRIT 45.3 % (32.4-45.2); HEMOGLOBIN 15.3 GM/dL (10.7-15.3); LYMPH % 8.4 % (8-40); MCH 30.9 pg (25.7-33.7); MCHC 33.8 g/dl (32.0-36.0); MEAN CELL VOLUME 91.4 fl (80-96); MEAN PLT VOLUME 7.6 fl (7.5-11.1); MONO % 6.1 % (3.8-10.2); NEUT % 84.7 % (42.8-82.8); PLATELET COUNT 275 K/MM3 (134-434); RBC 4.95 M/mm3 (3.60-5.2); RDW 13.6 % (11.6-15.6); WHITE BLOOD COUNT 8.2 K/mm3 (4.0-10.0)
[2018-03-31 08:33] LABS: CHLORIDE 104 mmol/L (98-107); POTASSIUM 4.5 mmol/L (3.5-5.1); SODIUM 142 mmol/L (136-145)
[2018-03-31 08:43] LABS: ALK PHOS 60 U/L (45-117); ANION GAP 12 MMOL/L (8-16); BILIRUBIN,TOTAL 0.6 mg/dL (0.2-1.0); BLOOD UREA NITROGEN 17 mg/dL (7-18); CALCIUM 9.7 mg/dL (8.5-10.1); CO2 26 mmol/L (21-32); CREATININE 0.8 mg/dL (0.55-1.3); GLUCOSE,RANDOM 166 mg/dL (74-106); SGOT/AST 16 U/L (15-37); SGPT/ALT 34 U/L (13-61); TOT PROT 7.9 g/dl (6.4-8.2)
--- NOTE | 2018-03-31 09:13 | PN ---
Progress Note, Physician Chief Complaint: Patient denies any chest pain or SOB at present no fever, head ache,chills, or Hematuria History of Present Illness: HTN, HLD, CAD s/p total of 8 stents, [place] 03/18/18, 01/2017, DM, constipation, H. Pylori, kidney stones, pancreatic divisum present with B/L LE erythematous palpable rash gradually extending proximally now extended up-to lower abdomen. - Current Medication List Current Medications: Active Medications Acetaminophen (Tylenol -) 650 mg PO Q6H PRN PRN Reason: MILD PAIN Last Admin: 03/30/18 10:58 Dose: 650 mg Aspirin (Asa -) 81 mg PO DAILY [facility] Last Admin: 03/31/18 09:38 Dose: 81 mg Cholecalciferol (Vitamin D3 -) 1,000 unit PO DAILY [facility] Last Admin: 03/31/18 09:38 Dose: 1,000 unit Diphenhydramine HCl (Benadryl -) 25 mg PO Q6H PRN PRN Reason: FOR ITCHING Ceftriaxone Sodium 1 gm/ (Dextrose) 50 mls @ 100 mls/hr IVPB [facility]; Protocol Last Admin: 03/30/18 22:13 Dose: 100 mls/hr Insulin Aspart (Novolog Vial Sliding Scale -) [address] [facility]; Protocol Last Admin: 03/31/18 06:39 Dose: Not Given Insulin Detemir (Levemir Vial) 12 units SQ [facility] Last Admin: 03/30/18 22:14 Dose: 12 unit Loratadine (Claritin -) 10 mg PO DAILY [facility] Last Admin: 03/31/18 09:38 Dose: 10 mg Methylprednisolone Sodium Succinate (Solu-Medrol -) 40 mg IVPUSH Q12H [facility] Last Admin: 03/31/18 05:17 Dose: 40 mg Metoprolol Succinate (Toprol Xl -) 25 mg PO DAILY [facility] Last Admin: 03/30/18 09:23 Dose: 25 mg Nitroglycerin (Nitro-Dur Patch -) 0.2 mg TD DAILY [facility] Pantoprazole Sodium (Protonix -) 40 mg PO DAILY [facility] Last Admin: 03/31/18 09:38 Dose: 40 mg Prasugrel (Effient -) 10 mg PO DAILY [facility] Rosuvastatin Calcium (Crestor -) 20 mg PO HS [facility] Last Admin: 03/30/18 22:12 Dose: 20 mg - Objective Vital Signs: Vital Signs Temperature 98.2 F 03/31/18 09:00 Pulse Rate 84 03/31/18 09:00 Respiratory Rate 18 03/31/18 09:00 Blood Pressure 92/54 03/31/18 09:00 O2 Sat by Pulse Oximetry (%) 89 L 03/31/18 09:01 Elderly F not in distress anxious about skin rash HEENT: Mm moist no pruritis rash on Conjuctiva or pral mucosa NECK: No JVd No Bruit CHEST: CTA B/L S1S2 R no M/G/R ABD: Obwse, pruritic petecheal slightly elevated rash on the lower abdomen EXT: B/L lower extremities diffuse erythematous non blenching palpably, non tender rash starting from dorsum of foot and till lower abdomen more prominent on ant aspect, no Bulls eye lesion of SJ syndrome detected. CONSUMER MARKETING MANAGER: AOX3: Non FOcal DERM: B/L lower extremities , lower abd diffuse erythematous non blenching palpably, non tender rash starting from dorsum of foot and till lower abdomen more prominent on ant aspect, no Bulls eye lesion of SJ syndrome detected. Sparing palms, sole, mucous membrane and conjunctiva, no bleeding, mild pruritis. Labs: CBC, BMP 03/31/18 05:30 03/31/18 05:30 INR, PTT INR 1.11 (0.83-1.09) H 03/29/18 17:47 Problem List - Problems (1) Rash and nonspecific skin eruption Assessment/Plan: Patient has B/L lower extremities diffuse erythematous non blenching palpable , non tender rash starting from dorsum of foot and till lower abdomen more prominent on ant aspect, no Bulls eye lesion of SJ syndrome detected. 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 Cont Benadryl. Code(s): R21 - RASH AND OTHER NONSPECIFIC SKIN ERUPTION (2) CAD (coronary artery disease) Assessment/Plan: At present asymptomatic s/p PCI will F/U Cardiology recommendation, at present no clinical evidence of platelet dysfunction, switched from plavix to effient by Plaster Maker will observe , Plateau elevation of Trop most likely post procedure , no new EKG changes, patient is chest pain free. Code(s): I25.10 - ATHSCL HEART DISEASE OF [place] CORONARY ARTERY W/O ANG PCTRS (3) T2DM (type 2 diabetes mellitus) Assessment/Plan: Optimize Glycemic control cont current management. Code(s): E11.9 - TYPE 2 DIABETES MELLITUS WITHOUT COMPLICATIONS (4) HTN (hypertension) Assessment/Plan: Well controlled cont all home meds Code(s): I10 - ESSENTIAL (PRIMARY) HYPERTENSION (5) UTI (urinary tract infection) Assessment/Plan: On Ceftriaxone + UA Urine culture is pending Code(s): N39.0 - URINARY TRACT INFECTION, SITE NOT SPECIFIED (6) GERD (gastroesophageal reflux disease) Assessment/Plan: On PPI Code(s): K21.9 - GASTRO-ESOPHAGEAL REFLUX DISEASE WITHOUT ESOPHAGITIS (7) Asthma Assessment/Plan: H/o Intermittent asthma on albuterol and IV steroids at present Lungs are clear but patient c/o subjective SOB Code(s): J45.909 - UNSPECIFIED ASTHMA, UNCOMPLICATED (8) Chronic diastolic (congestive) heart failure Assessment/Plan: Patient is on B Blockers, IV lasix and Ramipril, no BNP , chest exam and X ray no obvious congestion, evaluated by cardiology consult recommenced IV Lasix 40 for possible PND will F/U BNP Code(s): I50.32 - CHRONIC DIASTOLIC (CONGESTIVE) HEART FAILURE
[2018-03-31] MEDS ORDERED: PT OWN MED DRAWER 7, Y5N ONE (09:35)
[2018-03-31] MEDS ORDERED: NITROGLYCERIN 0.3 MG/HOUR TD PATCH TD SCH (09:37)
[2018-03-31] MEDS: NITROGLYCERIN 0.3 MG/HOUR TD PATCH TD SCH (09:38)
[2018-03-31] MEDS: CLOPIDOGREL BISULFATE 75 MG TABLET (FP) PO SCH (09:38)
[2018-03-31] MEDS: LORATADINE 10 MG TABLET PO SCH (09:38)
[2018-03-31] MEDS: ASPIRIN 81 MG CHEWABLE TABLETS PO SCH (09:38)
[2018-03-31] MEDS: PANTOPRAZOLE 40 MG TABLET (FP) PO SCH (09:38)
[2018-03-31] MEDS: CHOLECALCIFEROL (VITAMIN D3) 1,000 UNIT TABLET (FP) PO SCH (09:38)
--- NOTE | 2018-03-31 09:43 | PN ---
Progress Note, Physician Chief Complaint: cp, sob History of Present Illness: awoke with sob again overnight. clarifies history: the chest and back burning and jaw burning was happening when she ate and most times she walked PRIOR TO her PR, but not since she was home. however she still has episodes of chest and back burning (without jaw pain) sometimes at rest, much milder--including today. resolves on its own after few minutes. feels bloated/swollen still kamron in pubic and lower abdomen region, "vapor" feeling in that area sometimes. no papitations, syncope no MANZANO + cigs - Current Medication List Current Medications: Active Medications Acetaminophen (Tylenol -) 650 mg PO Q6H PRN PRN Reason: MILD PAIN Last Admin: 03/30/18 10:58 Dose: 650 mg Aspirin (Asa -) 81 mg PO DAILY [facility] Last Admin: 03/30/18 09:22 Dose: 81 mg Cholecalciferol (Vitamin D3 -) 1,000 unit PO DAILY [facility] Last Admin: 03/30/18 09:22 Dose: 1,000 unit Clopidogrel Bisulfate (Plavix -) 75 mg PO DAILY [facility] Last Admin: 03/30/18 13:01 Dose: 75 mg Diphenhydramine HCl (Benadryl -) 25 mg PO Q6H PRN PRN Reason: FOR ITCHING Ceftriaxone Sodium 1 gm/ (Dextrose) 50 mls @ 100 mls/hr IVPB HS [facility]; Protocol Last Admin: 03/30/18 22:13 Dose: 100 mls/hr Insulin Aspart (Novolog Vial Sliding Scale -) 1 vial SQ ACHS [facility]; Protocol Last Admin: 03/31/18 06:39 Dose: Not Given Insulin Detemir (Levemir Vial) 12 units SQ HS [facility] Last Admin: 03/30/18 22:14 Dose: 12 unit Loratadine (Claritin -) 10 mg PO DAILY [facility] Last Admin: 03/30/18 10:56 Dose: 10 mg Methylprednisolone Sodium Succinate (Solu-Medrol -) 40 mg IVPUSH Q12H [facility] Last Admin: 03/31/18 05:17 Dose: 40 mg Metoprolol Succinate (Toprol Xl -) 25 mg PO DAILY [facility] Last Admin: 03/30/18 09:23 Dose: 25 mg Nitroglycerin (Nitro-Dur Patch -) 0.3 mg TD DAILY [facility] Last Admin: 03/30/18 17:10 Dose: 0.3 mg Pantoprazole Sodium (Protonix -) 40 mg PO DAILY [facility] Rosuvastatin Calcium (Crestor -) 20 mg PO HS [facility] Last Admin: 03/30/18 22:12 Dose: 20 mg - Objective Vital Signs: Vital Signs Temperature 98.2 F 03/31/18 09:00 Pulse Rate 84 03/31/18 09:00 Respiratory Rate 18 03/31/18 09:00 Blood Pressure 92/54 03/31/18 09:00 O2 Sat by Pulse Oximetry (%) 89 L 03/31/18 09:01 Constitutional: Yes: No Distress, Calm Eyes: No: Sclera Icterus HENT: No: Nasal Congestion Cardiovascular: Yes: Regular Rate and Rhythm, S1, S2, Other (PMI non diplaced). No: Gallop, Murmur Respiratory: Yes: CTA Bilaterally. No: Accessory Muscle Use, Rales, Wheezes Gastrointestinal: Yes: Normal Bowel Sounds, Soft. No: Tenderness Musculoskeletal: Yes: Other (No kyphosis) Extremities: No: Cold Edema: No Integumentary: No: Jaundice Neurological: Yes: Alert, Oriented (x3) Psychiatric: No: Agitated Labs: CBC, BMP 03/31/18 05:30 03/31/18 05:30 INR, PTT INR 1.11 (0.83-1.09) H 03/29/18 17:47 Assessment/Plan prior med intolerances: plavix/ASA--diffuse, severe pain ("whole body on fire") and nausea every day for 12 mo of taking this; also worsenss hematuria crestor--body on fire, nausea, dizzy simvastatin, atorva, prava--nausea, diarrhea, "something closes up and hard to breathe...i can feel it in my blood" livalo--? which sx (intolerable to her) zetia--? which sx (intolerable to her) repatha--? which sx (intolerable) ranexa: stomach upset Ziac--severe MANZANO, pancreatitis Bystolic--"i felt sick" metoprolol, bisoprolol, carvedilol--dry membranes, ? other (intolerable to her) ECG: NSR, LAFB, no path q's, no ST-Ts (no change vs prior 01/2017) CXR reviewed--L hemidiaphragm now obscured/angle blunted ? new effusion; haziness bilat lower lobes new vs day prior Echo 10/2016: nl lv/rv/valves LHC 10/30: 70-80% pRCA--Synergy ROGE; 30-50% mRCA; 90-95% thrombotic dRCA-- Synergy ROGE; 70-80% pLAD; patent mLAD stent; patent D1 stent with 50-60% D1 disease; 60-70% OM1 (SMALL VESSEL); 80-90% ISR (prior xience) in [place]; EDP 15, EF 50%; mild HK diaphragmatic and posterobasal monahan MPI 03/31 (pers): no STs; medium/moderate ischemia IW/inferolateral; nl EF; no TID a/p: 71 smoker with h/o CAD s/p multiple PCI (most recent in October), chronic pain syndrome with chronic pain of chest, throat, back, abdomen, joints, mouth, HTN, HL, copd, fatty liver, congenital pancreatic abnormality, IDDM, grade I esophageal varices without hx of cirrhosis, gastritis, and recent hematuria p/w abdominal pain. rash: -severe purpuric rash diffuse both legs and buttocks/flanks -only new drug that she is actively taking is plavix--took this for 3 months to 01/29 without rash. -? reactive to heparin (lovenox?), lasix or other med she received in [facility] -? not drug related -recommend derm eval, to guide future med decisions CAD, chronic cp and sob: -s/p NSTEMI 04/02 with PCI of RCA at [facility] -on max tolerable bb dose of mult previous trials (metopr 25 qd)--cont same -previously max tolerable dose of rosuva was 2.5mg qd--try to intensify for short-term anti-ischemic properties: start 20mg here -continue aspirin -d/w'd dr mata who reviewed prior d/c summary--no mention of trials of Effient or Brilinta and intolerance during that stay. -he recommend trying either alternative to Plavix (must load with loading dose upon switching). -will use Effient, given pt highly likely to develop SOB side effect to Brilinta which will confound clinical picture and attempts to optimize suspected underlying CHF -has chronic, longstanding cp/throat pain, back/neck/shoulder pains which are non-cardiac, and indistinguishable overlap sx's when develops angina/ACS. -ongoing sx's of chest/back/jaw burning post-prandially and with activity-- suspect this is angina (? inferior wall ischemia). -sx's stable since her PCI, no severe episodes. -no acute isch ecg changes -troponins flat/low-level (0.2-0.3), not c/w recurrent acute ischemia (rather, the tail end of clearance of troponins from recent PR a week ago -hence clinically, she is having chronic, stable angina sx's now and does not need urgent revasc -trial of NTG patch for anti-anginal started, not previously been tried. low bp' s 90s this am--change patch 0.3 mg to 0.2 mg -ultimately, she will have to decide btw multi-vessel stenting and CABG. i d/w' d pt at length, and later dtr on phone, the pros and cons of her options and why i favor CABG over multivessel stentin) hi risk of premature discontinuation of DAPT with high stent thrombosis risk if multiple stents; 2) high risk of recurrent obstructive CAD either in-stent or de german lesions, given her history and uncontrollable RFs; 3) high likelihood of severe s.e.s to new meds including anti-PLT agent; 4) much lower risk of recurrent angina or PR in future with CABG vs multi-vessel PCI based on mult RCT data; 5) mortality benefit of CABG to prox LAD in diabetic pt. -pt and dtr to discuss further and continue discussions with me as outpt chronic diast CHF: -one prior episode of likely chf occurred in hosp when received IVF following procedure (2017). sob responded promptly to lasix then. -not on maintenance lasix as outpt (didn't help her chronic atyp sob sx's after that hospital stay) -here with SOB. BNP 1300, from 100 prior baseline. CXR clear in ER. -episode of ? PND on 03/30, with rales on exam (chf vs ? ATX). rpt CXR changed vs the day before, suspect mild congestion present -received lasix 40 iv x 1. was not weighed yesterday. 201 lbs today, ? dry wt ( she reports wt 209 prior to recent PR). -bp low today, likely nitrates effect--decr dose -again with PND overnight (? if chf related or not). recorded O2 sat 89% this AM. appears euvolemic. rales resolved. -repeat lasix 40 iv today, rpt cxr in am--if remains euvolemic appearing tomorrow and CXR improving, will likely change to po lasix and plan d/c tomorrow HTN - unable to tolerate mult meds in past - tolerates triamterene-hct and low dose metopr as outpt - bp mildly elevated here--same meds for now - will resume home thiazide regimen once not being diuresed with lasix anymore DM: - per primary team
[2018-03-31] MEDS: metoPROLOL SUCCINATE 25 MG TAB.SR.24H (FP) PO SCH (10:00)
[2018-03-31] MEDS ORDERED: PRASUGREL HCL 10 MG TAB PO ONE (10:30)
[2018-03-31] MEDS ORDERED: NITROGLYCERIN 0.2 MG/HOUR TD PATCH TD SCH (10:42)
[2018-03-31] MEDS ORDERED: FUROSEMIDE 40 MG/4 ML INJECTABLE VIAL IVPUSH ONE (12:30)
--- NOTE | 2018-03-31 16:03 | CONSULT ---
Consult Consult Specialty:: Rheumatology - History of Present Illness History of Present Illness: 71 year old female with Hx of CAD s/p multiple PCI (most recent in October), HTN , hyperlipidemia, COPD, diastolic CHF. fatty liver disease, congenital pancreatic abnormality, IDDM, kidney stones (she has 2 stones that have not been removed), chronic hematuria, grade I esophageal varices without hx of cirrhosis, gastritis and fibromyalgia, admitted with progressive purpuric rash , rule out vasculitis. HPI. Tend days ago the patient had and angioplasty at [facility] and was started on Plavix., Three days ago she took Magnesium citrate for constipation. Afterwards she developed a skin rash n lower limbs that extended to involve lower abdomen and she has few lesions in arms. The rash is slightly pruritic. 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 She was treated with Lyrica and Duloxetine withg no resposne. - with no change at the present time. She denies oral ulcers or fever. CXR on admisssion: cardiomegaly, atelectasis in both bases. CXR on 03/30/18: left hemidiaphragm abscured- new effusion. The patient was started on Prednisone 20 mg/d and then switched to Solumedrol 40 mg BID apparently for management of the skin rash , with no improvement Plavix was DC and started on Effient Laboratory work-up revealed CBC, SMA-7 and liver function tests normal. Urinalysis with protein 1+, blood 3+ and LE 2+. PT INR 1.11, PTT 33.2. ESR 58 and ANCA pending. - History Source History Provided By: Patient, Medical Record - Past Medical History Cardio/Vascular: Yes: CAD Gastrointestinal: Yes: Constipation, GERD, Irritable Bowel Disease, Pancreatitis , Other (PANCREATIC DIVISUM) Renal/: Yes: Renal Calculi Endocrine: Yes: Diabetes Mellitus - Past Surgical History Past Surgical History: Yes: Cholecystectomy, Stent - Alcohol/Substance Use Hx Alcohol Use: No History of Substance Use: reports: None - Smoking History Smoking history: Former smoker Have you smoked in the past 12 months: Yes Aproximately how many cigarettes per day: 10 If you are a former smoker, when did you quit?: last week - Social History ADL: Independent History of Recent Travel: No Home Medications - Allergies Allergies/Adverse Reactions: Allergies Allergy/AdvReac Type Severity Reaction Status Date / Time levofloxacin [From Levaquin] Allergy Mild PAIN Verified 03/29/18 17:07 ciprofloxacin [From Cipro] Allergy PAIN Verified 03/29/18 17:07 doxycycline Allergy DIZZY Verified 03/29/18 17:07 Metronidazole HCl Allergy PAIN Verified 03/29/18 17:07 [From Flagyl] Penicillins Allergy Swelling Verified 03/29/18 17:07 - Home Medications Home Medications: Ambulatory Orders Albuterol Sulfate Inhaler - [Ventolin HFA Inhaler -] 1 - 2 inh PO QID PRN Bimatoprost [Lumigan] 1 drop OU DAILY 12/05/16 Docusate Sodium [Dulcoease] 100 mg PO DAILY PRN 12/05/16 Ergocalciferol [Vitamin D2] 50,000 unit PO Q7D@1000 12/05/16 Insulin (Levemir) [Levemir Flexpen -] 0 units SQ DAILY 12/05/16 Insulin (Novolog) [Novolog Flexpen -] 0 units SQ AC 12/05/16 Metoprolol Succinate [Toprol XL -] 25 mg PO DAILY 12/05/16 Olopatadine HCl [Pazeo] 1 drop OP DAILY 12/05/16 Pantoprazole Sodium [Protonix] 40 mg PO DAILY 12/05/16 Aspirin Coated [Ecotrin -] 81 mg PO DAILY tab.ec 12/07/16 Acetaminophen [Tylenol .Regular Strength -] 325 mg PO Q6H PRN #0 tablet Sodium Chloride Nasal [place] [Itmann [place] Nasal [place] -] 2 spray NS TID PRN #0 spray 02/11/17 Family Disease History - Family Disease History Family Disease History: Diabetes: Mother, Heart Disease: Mother, CA: Father, Mother Other Family History: Celestino maternal grandfather had rheumatoid arthritis and her sister also has rheumatoid arthritis. Review of Systems - Review of Systems Constitutional: reports: Malaise Eyes: reports: No Symptoms HENT: reports: No Symptoms Neck: reports: No Symptoms Cardiovascular: reports: Chest Pain Respiratory: reports: SOB Gastrointestinal: reports: Constipation Genitourinary: reports: Dysuria Musculoskeletal: reports: Other (History of diffuse aches and pains.) Physical Exam Vital Signs: Vital Signs Temperature 98.0 F 03/31/18 13:00 Pulse Rate 71 03/31/18 13:00 Respiratory Rate 18 03/31/18 13:00 Blood Pressure 133/67 03/31/18 13:00 O2 Sat by Pulse Oximetry (%) 95 03/31/18 13:00 Constitutional: Yes: Mild Distress Eyes: Yes: WNL HENT: Yes: WNL Neck: Yes: WNL Cardiovascular: Yes: WNL Respiratory: Yes: Other (Few crackles in bases) Gastrointestinal: Yes: WNL Musculoskeletal: Yes: Other (No active joints. Tenderness in 12 out of 14 fibrositic tender points.) Integumentary: Yes: Other (Esxtensive plapable rash, probable coalescent petequial rash mainloy inlower limbs, with some lesions in lower abdomen and arms) Labs: CBC, BMP 03/31/18 05:30 03/31/18 05:30 Laboratory Tests 03/29/18 03/29/18 03/29/18 17:47 17:47 19:45 ESR PT with INR 12.50 INR 1.11 H PTT (Actin FS) 33.2 Total Bilirubin AST ALT Alkaline Phosphatase Troponin I 0.30 H* C-Reactive Protein Total Protein Albumin Urine Color Yellow Urine Appearance Slcloudy Urine pH 5.0 D Ur Specific [place]inger 1.018 Urine Protein 1+ H Urine Glucose (UA) Negative Urine Ketones Negative Urine Blood 3+ H Urine Nitrite Negative Urine Bilirubin Negative Urine Urobilinogen Negative Ur Leukocyte Esterase 2+ H Urine WBC (Auto) 99 Urine RBC (Auto) 128 Ur Epithelial Cells Rare 03/30/18 03/30/18 03/31/18 02:00 05:50 05:30 ESR PT with INR INR PTT (Actin FS) Total Bilirubin 0.6 AST 16 ALT 34 Alkaline Phosphatase 60 Troponin I 0.27 H* 0.31 H* C-Reactive Protein Total Protein 7.9 Albumin 4.0 Urine Color Urine Appearance Urine pH Ur Specific [place] Urine Protein Urine Glucose (UA) Urine Ketones Urine Blood Urine Nitrite Urine Bilirubin Urine Urobilinogen Ur Leukocyte Esterase Urine WBC (Auto) Urine RBC (Auto) Ur Epithelial Cells 03/31/18 03/31/18 09:05 09:05 ESR 58 H PT with INR INR PTT (Actin FS) Total Bilirubin AST ALT Alkaline Phosphatase Troponin I C-Reactive Protein 1.2 H Total Protein Albumin Urine Color Urine Appearance Urine pH Ur Specific [place] Urine Protein Urine Glucose (UA) Urine Ketones Urine Blood Urine Nitrite Urine Bilirubin Urine Urobilinogen Ur Leukocyte Esterase Urine WBC (Auto) Urine RBC (Auto) Ur Epithelial Cells Problem List - Problems (1) Rash and nonspecific skin eruption Assessment/Plan: Skin rash is 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 Dermatology consult is pending. A possible etiology in Plavix. There is no evidence of other organ involvement, therefore it is preferable not to treat with steroids. I will DC Solumedrol and prescribe Prednisone 20 mg/d to be tapered down and DC. I will f/u Dermatology consult. Code(s): R21 - RASH AND OTHER NONSPECIFIC SKIN ERUPTION
[2018-03-31] MEDS ORDERED: cefTRIAXone SODIUM 1 GM VIAL ONE (21:33)
[2018-03-31] MEDS ORDERED: DEXTROSE 5%-WATER - 50 ML IVPB ONE (21:33)
[2018-03-31] MEDS: ROSUVASTATIN CA 10 MG TABLET (FP) PO SCH (21:42)
[2018-03-31] MEDS: CEFTRIAXONE 1 GM in DEXTROSE 5%-WATER - 50 ML IVPB SCH (21:43)
--- NOTE | 2018-03-31 21:55 | EKG ---
Test Reason : Blood Pressure : / mmHG Vent. Rate : 067 BPM Atrial Rate : 067 BPM P-R Int : 212 ms QRS Dur : 100 ms QT Int : 428 ms P-R-T Axes : 057 -48 -06 degrees QTc Int : 452 ms SINUS RHYTHM WITH 1ST DEGREE A-V BLOCK LEFT AXIS DEVIATION ABNORMAL ECG WHEN COMPARED WITH ECG OF 01-FEB-2017 19:54, CRITERIA FOR SEPTAL INFARCT ARE NO LONGER PRESENT T WAVE INVERSION NOW EVIDENT IN INFERIOR LEADS Confirmed by MK MARCANO MD ([id number]) on 03/31/2018 9:55:18 PM Referred By: Confirmed By:MK MARCANO MD
[2018-03-31] MEDS: INSULIN (LEVEMIR) 100 UNITS/ML UNITS SQ SCH (22:16)
[2018-04-01 06:30] LABS: BASO % 0.6 % (0-2.0); EOS % 5.1 % (0-4.5); HEMATOCRIT 44.6 % (32.4-45.2); HEMOGLOBIN 14.7 GM/dL (10.7-15.3); LYMPH % 14.3 % (8-40); MCH 30.4 pg (25.7-33.7); MEAN PLT VOLUME 7.4 fl (7.5-11.1); MONO % 8.5 % (3.8-10.2); NEUT % 71.5 % (42.8-82.8); PLATELET COUNT 254 K/MM3 (134-434); RBC 4.84 M/mm3 (3.60-5.2); RDW 13.6 % (11.6-15.6); WHITE BLOOD COUNT 11.1 K/mm3 (4.0-10.0)
[2018-04-01 06:54] LABS: ANION GAP 10 MMOL/L (8-16); BLOOD UREA NITROGEN 25 mg/dL (7-18); CALCIUM 9.5 mg/dL (8.5-10.1); CHLORIDE 103 mmol/L (98-107); CO2 29 mmol/L (21-32); POTASSIUM 4.1 mmol/L (3.5-5.1); SODIUM 142 mmol/L (136-145)
[2018-04-01 07:00] LABS: CREATININE 1.1 mg/dL (0.55-1.3); GLUCOSE,RANDOM 130 mg/dL (74-106)
[2018-04-01] MEDS ORDERED: INSULIN (LEVEMIR) 100 UNITS/ML UNITS SQ SCH (07:00)
--- NOTE | 2018-04-01 07:03 | HOSP ---
Subjective - Review of Symptoms Events since last encounter: Hospitalist Encounter Notified by RN that the patient reports SOB, burning chest pain, back pain, pelvic pressure, generalized itching and internal itching. Subjective: Arrived to bedside, patient is alert, oriented and awake Patient denies CP but endorses back pain, SOB, itching and pelvic pressure. PE performed see EMR Assessment: 72yF with PMH recent ME 03/18/18 at [facility] s/p 2 stents placed, ME 2017, HTN, HLD, DM, constipation, H. pylori, kidney stones, pancreatic divisum presented to the ED with abdominal pain radiating up into chest and back pain. Plan: Stat EKG Stat Trop I Pulmonary: Yes: Dyspnea Cardiovascular: Yes: Chest Pain Gastrointestinal: Yes: Other (pelvic pressure) Other Systems: Integumentary: Generalized Pruritus Physical Examination Vital Signs: Vital Signs Temperature 98.0 F 04/01/18 05:00 Pulse Rate 92 H 04/01/18 05:00 Respiratory Rate 20 04/01/18 05:00 Blood Pressure 153/73 04/01/18 05:00 O2 Sat by Pulse Oximetry (%) 96 04/01/18 05:00 Constitutional: Yes: Anxious, Mild Distress, Obese Eyes: Yes: WNL, Conjunctiva Clear, EOM Intact, PERRL HENT: Yes: WNL, Atraumatic, Normocephalic Neck: Yes: WNL, Supple, Trachea Midline Cardiovascular: Yes: WNL, Regular Rate and Rhythm, S1, S2 Respiratory: Yes: WNL, Regular, CTA Bilaterally, On Nasal O2 Gastrointestinal: Yes: Normal Bowel Sounds, Soft, Abdomen, Obese, Tenderness, Epigastrium Renal/: Yes: WNL Breast(s): Yes: WNL Edema: No Peripheral Pulses WNL: Yes Integumentary: Yes: Erythema, Petechiae, Rash Neurological: Yes: WNL, Alert, Oriented, Cran Nerves II-XII Intact ...Motor Strength: WNL Psychiatric: Yes: WNL, Alert, Oriented Labs: CBC, BMP 04/01/18 05:30 Laboratory Results - last 24 hr 03/31/18 03/31/18 03/31/18 05:30 05:30 09:05 WBC 8.2 RBC 4.95 Hgb 15.3 Hct 45.3 H MCV 91.4 MCH 30.9 MCHC 33.8 RDW 13.6 Plt Count 275 MPV 7.6 Absolute Neuts (auto) 7.0 Neutrophils % 84.7 H D Lymphocytes % 8.4 D Monocytes % 6.1 Eosinophils % 0.6 D Basophils % 0.2 Nucleated RBC % 0 ESR Sodium 142 Potassium 4.5 Chloride 104 Carbon Dioxide 26 Anion Gap 12 BUN 17 Creatinine 0.8 Creat Clearance w eGFR > 60 POC Glucometer Random Glucose 166 H Calcium 9.7 Total Bilirubin 0.6 AST 16 ALT 34 Alkaline Phosphatase 60 C-Reactive Protein 1.2 H Total Protein 7.9 Albumin 4.0 03/31/18 03/31/18 03/31/18 09:05 12:32 17:01 WBC RBC Hgb Hct MCV MCH MCHC RDW Plt Count MPV Absolute Neuts (auto) Neutrophils % Lymphocytes % Monocytes % Eosinophils % Basophils % Nucleated RBC % ESR 58 H Sodium Potassium Chloride Carbon Dioxide Anion Gap BUN Creatinine Creat Clearance w eGFR POC Glucometer 189 146 Random Glucose Calcium Total Bilirubin AST ALT Alkaline Phosphatase C-Reactive Protein Total Protein Albumin 03/31/18 04/01/18 04/01/18 21:39 05:15 05:30 WBC RBC Hgb Hct MCV MCH MCHC RDW Plt Count MPV Absolute Neuts (auto) Neutrophils % Lymphocytes % Monocytes % Eosinophils % Basophils % Nucleated RBC % ESR Sodium 142 Potassium 4.1 Chloride 103 Carbon Dioxide 29 Anion Gap 10 BUN 25 H Creatinine 1.1 Creat Clearance w eGFR 48.55 POC Glucometer 146 130 Random Glucose 130 H Calcium 9.5 Total Bilirubin AST ALT Alkaline Phosphatase C-Reactive Protein Total Protein Albumin 04/01/18 05:30 WBC 11.1 H RBC 4.84 Hgb 14.7 Hct 44.6 MCV 92.0 MCH 30.4 MCHC 33.0 RDW 13.6 Plt Count 254 MPV 7.4 L Absolute Neuts (auto) 7.9 Neutrophils % 71.5 Lymphocytes % 14.3 D Monocytes % 8.5 Eosinophils % 5.1 H D Basophils % 0.6 Nucleated RBC % 0 ESR Sodium Potassium Chloride Carbon Dioxide Anion Gap BUN Creatinine Creat Clearance w eGFR POC Glucometer Random Glucose Calcium Total Bilirubin AST ALT Alkaline Phosphatase C-Reactive Protein Total Protein Albumin Current Medications Generic Name Dose Route Start Last Admin Trade Name Freq PRN Reason Stop Dose Admin Acetaminophen 650 mg 03/30/18 10:40 03/30/18 10:58 Tylenol - PO 650 mg Q6H PRN Administration MILD PAIN Aspirin 81 mg 03/30/18 10:00 03/31/18 09:38 Asa - PO 81 mg DAILY [facility] Administration Cholecalciferol 1,000 unit 03/30/18 10:00 03/31/18 09:38 Vitamin D3 - PO 1,000 unit DAILY AIDE Administration Diphenhydramine HCl 25 mg 03/30/18 16:50 04/01/18 00:36 Benadryl - PO 25 mg Q6H PRN Administration FOR ITCHING Ceftriaxone Sodium 1 gm/ 50 mls @ 100 mls/hr 03/29/18 23:30 03/31/18 21:43 Dextrose IVPB 100 mls/hr HS [facility] Administration Protocol Insulin Aspart 1 vial 03/30/18 10:41 03/31/18 21:41 Novolog Vial Sliding Scale - SQ Not Given ACHS [facility] Protocol Insulin Detemir 12 units 04/01/18 07:00 Levemir Vial SQ ACBK [facility] Loratadine 10 mg 03/30/18 10:30 03/31/18 09:38 Claritin - PO 10 mg DAILY [facility] Administration Metoprolol Succinate 25 mg 03/30/18 10:00 03/31/18 10:00 Toprol Xl - PO Not Given DAILY [facility] Nitroglycerin 0.2 mg 03/31/18 10:42 Nitro-Dur Patch - TD DAILY [facility] Pantoprazole Sodium 40 mg 03/31/18 10:00 03/31/18 09:38 Protonix - PO 40 mg DAILY [facility] Administration Prasugrel 10 mg 04/01/18 10:00 Effient - PO DAILY [facility] Prednisone 20 mg 04/01/18 08:00 Deltasone - PO DAILY [facility] Rosuvastatin Calcium 20 mg 03/30/18 22:00 03/31/18 21:42 Crestor - PO Not Given [facility] Intake & Output 03/29/18 03/30/18 03/31/18 04/01/18 23:59 23:59 23:59 23:59 Intake Total 870 650 50 Balance 870 650 50 Weight 92.533 kg 92.533 kg 91.535 kg Hospitalist Encounter Outcome: Trop I drawn- result pending Per RN, patient is resting comfortably RN will update PCP on overnights events
[2018-04-01] MEDS: INSULIN SLIDING SCALE (NOVOLOG) 1 VIAL SQ SCH ×4 (07:32→21:44)
[2018-04-01] MEDS: predniSONE 20 MG TABLET (UD) PO SCH ×2 (08:12→09:21)
--- NOTE | 2018-04-01 08:55 | PN ---
Progress Note, Physician Chief Complaint: rash History of Present Illness: again sob last night. clarifies sx: wakes up feeling "a pop" in suprapubic, abdomen and chest and then feels sob and very scared--resolves on its own. HAS HAD THIS SX BEFORE, INTERMITTENTLY OVER THE YEARS, UNRELATED TO ACS PRESENTATIONS--SELF-LIMITED NATURE. no jaw pain and none of her NE sx chest/back burning rash unchanged no cigs - Current Medication List Current Medications: Active Medications Acetaminophen (Tylenol -) 650 mg PO Q6H PRN PRN Reason: MILD PAIN Last Admin: 03/30/18 10:58 Dose: 650 mg Aspirin (Asa -) 81 mg PO DAILY [facility] Last Admin: 03/31/18 09:38 Dose: 81 mg Cholecalciferol (Vitamin D3 -) 1,000 unit PO DAILY [facility] Last Admin: 03/31/18 09:38 Dose: 1,000 unit Diphenhydramine HCl (Benadryl -) 25 mg PO Q6H PRN PRN Reason: FOR ITCHING Last Admin: 04/01/18 00:36 Dose: 25 mg Ceftriaxone Sodium 1 gm/ (Dextrose) 50 mls @ 100 mls/hr IVPB [facility]; Protocol Last Admin: 03/31/18 21:43 Dose: 100 mls/hr Insulin Aspart (Novolog Vial Sliding Scale -) 1 vial SQ ACHS [facility]; Protocol Last Admin: 04/01/18 07:32 Dose: Not Given Insulin Detemir (Levemir Vial) 12 units SQ ACBK [facility] Last Admin: 04/01/18 08:07 Dose: Not Given Loratadine (Claritin -) 10 mg PO DAILY [facility] Last Admin: 03/31/18 09:38 Dose: 10 mg Metoprolol Succinate (Toprol Xl -) 25 mg PO DAILY [facility] Last Admin: 03/31/18 10:00 Dose: Not Given Nitroglycerin (Nitro-Dur Patch -) 0.2 mg TD DAILY [facility] Pantoprazole Sodium (Protonix -) 40 mg PO DAILY [facility] Last Admin: 03/31/18 09:38 Dose: 40 mg Prasugrel (Effient -) 10 mg PO DAILY [facility] Prednisone (Deltasone -) 20 mg PO DAILY [facility] Last Admin: 04/01/18 08:12 Dose: 20 mg Rosuvastatin Calcium (Crestor -) 20 mg PO [facility] Last Admin: 03/31/18 21:42 Dose: Not Given - Objective Vital Signs: Vital Signs Temperature 98.0 F 04/01/18 05:00 Pulse Rate 92 H 04/01/18 05:00 Respiratory Rate 20 04/01/18 05:00 Blood Pressure 153/73 04/01/18 05:00 O2 Sat by Pulse Oximetry (%) 96 04/01/18 05:00 Constitutional: Yes: No Distress, Calm Eyes: No: Sclera Icterus HENT: No: Nasal Congestion Cardiovascular: Yes: Regular Rate and Rhythm, S1, S2, Other (PMI non diplaced). No: Gallop, Murmur Respiratory: Yes: CTA Bilaterally. No: Accessory Muscle Use, Rales, Wheezes Gastrointestinal: Yes: Normal Bowel Sounds, Soft. No: Tenderness Musculoskeletal: Yes: Other (No kyphosis) Extremities: No: Cold Edema: No Integumentary: No: Jaundice Neurological: Yes: Alert, Oriented (x3) Psychiatric: No: Agitated Labs: CBC, BMP 04/01/18 05:30 04/01/18 05:30 INR, PTT INR 1.11 (0.83-1.09) H 03/29/18 17:47 Assessment/Plan prior med intolerances: plavix/ASA--diffuse, severe pain ("whole body on fire") and nausea every day for 12 mo of taking this; also worsenss hematuria crestor--body on fire, nausea, dizzy simvastatin, atorva, prava--nausea, diarrhea, "something closes up and hard to breathe...i can feel it in my blood" livalo--? which sx (intolerable to her) zetia--? which sx (intolerable to her) repatha--? which sx (intolerable) ranexa: stomach upset Ziac--severe MANZANO, pancreatitis Bystolic--"i felt sick" metoprolol, bisoprolol, carvedilol--dry membranes, ? other (intolerable to her) ECG: NSR, LAFB, no path q's, no ST-Ts (no change vs prior 01/2017) CXR reviewed--L hemidiaphragm now obscured/angle blunted ? new effusion; haziness bilat lower lobes new vs day prior Echo 10/2016: nl lv/rv/valves LHC 10/30: 70-80% pRCA--Synergy ROGE; 30-50% mRCA; 90-95% thrombotic dRCA-- Synergy ROGE; 70-80% pLAD; patent mLAD stent; patent D1 stent with 50-60% D1 disease; 60-70% OM1 (SMALL VESSEL); 80-90% ISR (prior xience) in [place]; EDP 15, EF 50%; mild HK diaphragmatic and posterobasal monahan MPI 03/31 (pers): no STs; medium/moderate ischemia IW/inferolateral; nl EF; no TID tele: NSR, artifact. rash: -severe purpuric rash diffuse both legs and buttocks/flanks -only new drug that she is actively taking is plavix--took this for 3 months to 01/29 without rash. -? reactive to heparin (lovenox?), lasix or other med she received in [facility] -? not drug related -for derm eval--can be done as outpatient if they cannot see her today CAD, chronic cp and sob: -s/p NSTEMI 04/02 with PCI of RCA at [facility] -on max tolerable bb dose of mult previous trials (metopr 25 qd)--cont same -previously max tolerable dose of rosuva was 2.5mg qd--try to intensify for short-term anti-ischemic properties. she is already questioning whether her nocturnal sx's (which are not new) are due to QHS high dose crestor. will decre crestor from 20 to 10 qd. -continue aspirin. plavix changed to Effient (suspect she will have, or she will suspect she has, sob s.e. with Brilinta). -continue NTG patch low dose (0.2), started here. -has chronic, longstanding cp/throat pain, back/neck/shoulder pains which are non-cardiac, and indistinguishable overlap sx's when develops angina/ACS. -angina sx's were chest/back/jaw burning post-prandially and with activity--pt clarifies that this has stopped since the PCI. -no signs ACS here: no acute isch ecg changes here, troponins flat/low-level -ultimately, she will have to decide btw multi-vessel stenting and CABG. i d/w' d pt at length, and later dtr on phone, the pros and cons of her options and why i favor CABG over multivessel stentin) hi risk of premature discontinuation of DAPT with high stent thrombosis risk if multiple stents; 2) high risk of recurrent obstructive CAD either in-stent or de german lesions, given her history and uncontrollable RFs; 3) high likelihood of severe s.e.s to new meds including anti-PLT agent; 4) much lower risk of recurrent angina or NE in future with CABG vs multi-vessel PCI based on mult RCT data; 5) mortality benefit of CABG to prox LAD in diabetic pt. -pt and dtr to discuss further and continue discussions with me as outpt chronic diast CHF: -one prior episode of likely chf occurred in hosp when received IVF following procedure (2016). sob responded promptly to lasix then. -not on maintenance lasix as outpt (didn't help her chronic atyp sob sx's after that hospital stay) -here with SOB. BNP 1300, from 100 prior baseline. CXR clear in ER. -episode of ? PND on 03/30, with rales on exam (chf vs ? ATX). rpt CXR changed vs the day before, suspect mild congestion present -04/01: s/p lasix 40 IV qd the past 2 days. wt up today vs prior. rpt CXR not signif changed, though L hemidiaphragm is less blunted. bun rising -doubt ongoing CHF based on above findings and the very unusual nature of her symptomatology. she is not having sob with activity that is suspicious for chf. -change to lasix 40 po qd, plan for 1-2 weeks course at home HTN - unable to tolerate mult meds in past - tolerates triamterene-hct and low dose metopr as outpt - bp mildly elevated here--same meds for now - will resume home thiazide regimen once not being diuresed with lasix anymore DM: - per primary team OK FOR D/C FROM [facility] P[facility]. (with mick rebolledo this week as outpatient)
[2018-04-01] MEDS ORDERED: PT OWN MED DRAWER 7, Y5N ONE (09:11)
[2018-04-01] MEDS: metoPROLOL SUCCINATE 25 MG TAB.SR.24H (FP) PO SCH (09:13)
[2018-04-01] MEDS: CHOLECALCIFEROL (VITAMIN D3) 1,000 UNIT TABLET (FP) PO SCH (09:13)
[2018-04-01] MEDS: LORATADINE 10 MG TABLET PO SCH (09:13)
[2018-04-01] MEDS: ASPIRIN 81 MG CHEWABLE TABLETS PO SCH (09:13)
[2018-04-01] MEDS: PANTOPRAZOLE 40 MG TABLET (FP) PO SCH (09:14)
--- NOTE | 2018-04-01 09:56 | EKG ---
Test Reason : Blood Pressure : / mmHG Vent. Rate : 070 BPM Atrial Rate : 070 BPM P-R Int : 222 ms QRS Dur : 106 ms QT Int : 398 ms P-R-T Axes : 053 -43 004 degrees QTc Int : 429 ms SINUS RHYTHM WITH MARKED SINUS ARRHYTHMIA WITH 1ST DEGREE A-V BLOCK LEFT AXIS DEVIATION NONSPECIFIC T WAVE ABNORMALITY ABNORMAL ECG WHEN COMPARED WITH ECG OF 29-MAR-2018 17:15, NO SIGNIFICANT CHANGE WAS FOUND Confirmed by ROBERTO STEIN, DEX ([id number]) on 04/01/2018 9:55:32 AM Referred By: Confirmed By:DEX MEJIA MD
[2018-04-01] MEDS ORDERED: PRASUGREL HCL 10 MG TAB PO SCH (10:00)
[2018-04-01] MEDS ORDERED: ROSUVASTATIN CA 10 MG TABLET (FP) PO SCH ×3 (10:52→22:00)
[2018-04-01] MEDS ORDERED: FUROSEMIDE 40 MG TABLET (FP) PO SCH (11:00)
--- NOTE | 2018-04-01 12:15 | PN ---
Progress Note, Physician Chief Complaint: Ms Ocasio has multiple non-specific complaints. She says that her legs have a rash and are hurting. She says that she can feel something from her abdomen to her vagina and it's irritating. She has urinary frequency and hesitancy. She says she had this abdominal pop yesterday but has resolved. She says her arms feel like she had a flu shot. She says her blood vessels feel itchy. She complains of constipation. - Current Medication List Current Medications: Active Medications Acetaminophen (Tylenol -) 650 mg PO Q6H PRN PRN Reason: MILD PAIN Last Admin: 03/30/18 10:58 Dose: 650 mg Aspirin (Asa -) 81 mg PO DAILY [facility] Last Admin: 04/01/18 09:13 Dose: 81 mg Cholecalciferol (Vitamin D3 -) 1,000 unit PO DAILY [facility] Last Admin: 04/01/18 09:13 Dose: 1,000 unit Diphenhydramine HCl (Benadryl -) 25 mg PO Q6H PRN PRN Reason: FOR ITCHING Last Admin: 04/01/18 00:36 Dose: 25 mg Furosemide (Lasix -) 40 mg PO DAILY [facility] Last Admin: 04/01/18 11:34 Dose: 40 mg Ceftriaxone Sodium 1 gm/ (Dextrose) 50 mls @ 100 mls/hr IVPB HS [facility]; Protocol Last Admin: 03/31/18 21:43 Dose: 100 mls/hr Insulin Aspart (Novolog Vial Sliding Scale -) 1 vial SQ ACHS [facility]; Protocol Last Admin: 04/01/18 11:31 Dose: Not Given Insulin Detemir (Levemir Vial) 12 units SQ ACBK [facility] Last Admin: 04/01/18 08:07 Dose: Not Given Loratadine (Claritin -) 10 mg PO DAILY [facility] Last Admin: 04/01/18 09:13 Dose: 10 mg Metoprolol Succinate (Toprol Xl -) 25 mg PO DAILY [facility] Last Admin: 04/01/18 09:13 Dose: 25 mg Nitroglycerin (Nitro-Dur Patch -) 0.2 mg TD DAILY [facility] Last Admin: 04/01/18 09:18 Dose: Not Given Pantoprazole Sodium (Protonix -) 40 mg PO DAILY [facility] Last Admin: 04/01/18 09:14 Dose: 40 mg Prasugrel (Effient -) 10 mg PO DAILY [facility] Last Admin: 04/01/18 09:14 Dose: 10 mg Prednisone (Deltasone -) 20 mg PO DAILY [facility] Last Admin: 04/01/18 09:21 Dose: Not Given Rosuvastatin Calcium (Crestor -) 10 mg PO [facility] - Objective Vital Signs: Vital Signs Temperature 36.6 C 04/01/18 09:02 Pulse Rate 82 04/01/18 09:02 Respiratory Rate 20 04/01/18 09:45 Blood Pressure 119/69 04/01/18 09:02 O2 Sat by Pulse Oximetry (%) 94 L 04/01/18 09:45 Constitutional: Yes: No Distress, Calm, Obese Cardiovascular: Yes: Regular Rate and Rhythm. No: Gallop, Murmur, Rub Respiratory: Yes: Regular, CTA Bilaterally. No: Rales, Rhonchi, Wheezes Gastrointestinal: Yes: Normal Bowel Sounds, Soft. No: Distention, Tenderness Extremities: Yes: Erythema, Other (rash) Edema: No Labs: CBC, BMP 04/01/18 05:30 04/01/18 05:30 INR, PTT INR 1.11 (0.83-1.09) H 03/29/18 17:47 Problem List - Problems (1) UTI (urinary tract infection) Assessment/Plan: -urinalysis positive for UTI -first urine culture contaminated -repeat urine culture pending -continue rocephin -considering multiple drug allergies will await culture results to determine if needs further antibiotics Code(s): N39.0 - URINARY TRACT INFECTION, SITE NOT SPECIFIED (2) Chest pain Assessment/Plan: -case d/w Dr Ayers -stable for discharge from this standpoint -change plavix to effient, concern for drug eruption Code(s): R07.9 - CHEST PAIN, UNSPECIFIED Qualifiers: Chest pain type: unspecified Qualified Code(s): R07.9 - Chest pain, unspecified (3) Chronic diastolic (congestive) heart failure Assessment/Plan: -continue lasix Code(s): I50.32 - CHRONIC DIASTOLIC (CONGESTIVE) HEART FAILURE (4) Rash and nonspecific skin eruption Assessment/Plan: -appreciate rheumatology assistance -dermatology consulted -suspect will need outpatient dermatology follow up as well Code(s): R21 - RASH AND OTHER NONSPECIFIC SKIN ERUPTION (5) T2DM (type 2 diabetes mellitus) Assessment/Plan: -continue current regimen Code(s): E11.9 - TYPE 2 DIABETES MELLITUS WITHOUT COMPLICATIONS (6) CAD (coronary artery disease) Assessment/Plan: -continue current regimen Code(s): I25.10 - ATHSCL HEART DISEASE OF [place] CORONARY ARTERY W/O ANG PCTRS (7) GERD (gastroesophageal reflux disease) Assessment/Plan: -continue protonix Code(s): K21.9 - GASTRO-ESOPHAGEAL REFLUX DISEASE WITHOUT ESOPHAGITIS (8) HTN (hypertension) Assessment/Plan: -controlled Code(s): I10 - ESSENTIAL (PRIMARY) HYPERTENSION Assessment/Plan Dispo -d/c pending urine culture
[2018-04-01] MEDS: POLYETHYLENE GLYCOL 3350 119 GM BTL PO SCH ×2 (12:37→21:44)
[2018-04-01] MEDS: DOCUSATE SODIUM 100 MG CAPSULE (FP) PO SCH ×2 (12:37→21:44)
[2018-04-01] MEDS ORDERED: ACETAMINOPHEN 325 MG TABLET (FP) PO PRN (20:52)
[2018-04-01] MEDS ORDERED: diphenhydrAMINE HCL 25 MG CAPSULE (FP) PO PRN (20:52)
[2018-04-01] MEDS ORDERED: cefTRIAXone SODIUM 1 GM VIAL ONE (21:39)
[2018-04-01] MEDS ORDERED: DEXTROSE 5%-WATER - 50 ML IVPB ONE (21:40)
[2018-04-01] MEDS ORDERED: CEFTRIAXONE 1 GM in DEXTROSE 5%-WATER - 50 ML IVPB SCH (22:00)
[2018-04-02] MEDS ORDERED: traMADol HCL 50 MG TABLET PO ONE (03:02)
[2018-04-02 05:38] VITALS: TEMP 98.2
[2018-04-02 06:39] LABS: BASO % 0.9 % (0-2.0); EOS % 8.6 % (0-4.5); HEMATOCRIT 43.5 % (32.4-45.2); HEMOGLOBIN 14.4 GM/dL (10.7-15.3); MCH 30.4 pg (25.7-33.7); MCHC 33.2 g/dl (32.0-36.0); MEAN CELL VOLUME 91.7 fl (80-96); MEAN PLT VOLUME 7.2 fl (7.5-11.1); MONO % 10.2 % (3.8-10.2); NEUT % 54.3 % (42.8-82.8); PLATELET COUNT 256 K/MM3 (134-434); RBC 4.74 M/mm3 (3.60-5.2); RDW 13.8 % (11.6-15.6); WHITE BLOOD COUNT 7.9 K/mm3 (4.0-10.0)
[2018-04-02] MEDS: INSULIN SLIDING SCALE (NOVOLOG) 1 VIAL SQ SCH ×2 (06:40→13:04)
[2018-04-02] MEDS ORDERED: INSULIN (NOVOLOG) ASPART 100 UNITS/ML 10ML VIAL ONE (06:42)
[2018-04-02] MEDS ORDERED: INSULIN (LEVEMIR) 100 UNITS/ML UNITS SQ SCH (07:00)
[2018-04-02 07:06] LABS: ANION GAP 8 MMOL/L (8-16); BLOOD UREA NITROGEN 23 mg/dL (7-18); CALCIUM 9.5 mg/dL (8.5-10.1); CHLORIDE 101 mmol/L (98-107); CO2 30 mmol/L (21-32); CREATININE 0.9 mg/dL (0.55-1.3); GLUCOSE,RANDOM 124 mg/dL (74-106); MAGNESIUM 2.4 mg/dL (1.8-2.4); PHOSPHOROUS 3.7 mg/dL (2.5-4.9); POTASSIUM 3.8 mmol/L (3.5-5.1); SODIUM 139 mmol/L (136-145)
[2018-04-02] MEDS: DOCUSATE SODIUM 100 MG CAPSULE (FP) PO SCH (09:38)
[2018-04-02] MEDS: POLYETHYLENE GLYCOL 3350 119 GM BTL PO SCH (09:40)
[2018-04-02] MEDS ORDERED: metoPROLOL SUCCINATE 25 MG TAB.SR.24H (FP) PO SCH (10:00)
[2018-04-02] MEDS ORDERED: predniSONE 20 MG TABLET (UD) PO SCH (10:00)
[2018-04-02] MEDS ORDERED: PANTOPRAZOLE 40 MG TABLET (FP) PO SCH (10:00)
[2018-04-02] MEDS ORDERED: PRASUGREL HCL 10 MG TAB PO SCH (10:00)
[2018-04-02] MEDS ORDERED: CHOLECALCIFEROL (VITAMIN D3) 1,000 UNIT TABLET (FP) PO SCH (10:00)
[2018-04-02] MEDS ORDERED: ASPIRIN 81 MG CHEWABLE TABLETS PO SCH (10:00)
[2018-04-02] MEDS ORDERED: NITROGLYCERIN 0.2 MG/HOUR TD PATCH TD SCH (10:00)
[2018-04-02] MEDS ORDERED: LORATADINE 10 MG TABLET PO SCH (10:00)
[2018-04-02] MEDS ORDERED: FUROSEMIDE 40 MG TABLET (FP) PO SCH (10:00)
[2018-04-02 10:58] VITALS: BP 154/66; PULSE 66
--- NOTE | 2018-04-02 13:33 | DS ---
Physical Examination Vital Signs: Vital Signs Temperature 36.8 C 04/02/18 05:30 Pulse Rate 66 04/02/18 09:00 Respiratory Rate 20 04/02/18 09:00 Blood Pressure 154/66 04/02/18 09:00 O2 Sat by Pulse Oximetry (%) 96 04/02/18 06:10 Constitutional: Yes: No Distress, Calm, Obese Cardiovascular: Yes: Regular Rate and Rhythm. No: Gallop, Murmur, Rub Respiratory: Yes: Regular, CTA Bilaterally. No: Rales, Rhonchi, Wheezes Gastrointestinal: Yes: Normal Bowel Sounds, Soft. No: Distention, Tenderness Extremities: Yes: Other (BLE rash) Edema: No Labs: CBC, BMP 04/02/18 06:20 04/02/18 06:20 Discharge Summary Reason For Visit: CORONARY ARTERY DISEASE,ELEVATED TROPONIN LEVEL Current Active Problems Asthma (Acute) Chest pain (Acute) Chronic diastolic (congestive) heart failure (Acute) Rash and nonspecific skin eruption (Acute) T2DM (type 2 diabetes mellitus) (Acute) UTI (urinary tract infection) (Acute) Hospital Course: (1) UTI (urinary tract infection) Code(s): N39.0 - URINARY TRACT INFECTION, SITE NOT SPECIFIED (2) Chest pain Code(s): R07.9 - CHEST PAIN, UNSPECIFIED Qualifiers: Chest pain type: unspecified Qualified Code(s): R07.9 - Chest pain, unspecified (3) Chronic diastolic (congestive) heart failure Code(s): I50.32 - CHRONIC DIASTOLIC (CONGESTIVE) HEART FAILURE (4) Rash and nonspecific skin eruption Code(s): R21 - RASH AND OTHER NONSPECIFIC SKIN ERUPTION (5) Type 2 Diabetes Code(s): E11.9 - TYPE 2 DIABETES MELLITUS WITHOUT COMPLICATIONS (6) CAD (coronary artery disease) Code(s): I25.10 - ATHSCL HEART DISEASE OF [place] CORONARY ARTERY W/O ANG PCTRS (7) GERD (gastroesophageal reflux disease) Code(s): K21.9 - GASTRO-ESOPHAGEAL REFLUX DISEASE WITHOUT ESOPHAGITIS (8) HTN (hypertension) Code(s): I10 - ESSENTIAL (PRIMARY) HYPERTENSION Ms Ocasio is a 72 year old female who comes in with atypical chest pain and developed bilateral lower extremity rash. She was admitted to the hospital under observation. Cardiac enzymes x3 were sent and cardiology was consulted. She was cleared by cardiology. There was concern that plavix caused the rash, she was transitioned over to effient and tolerated. She was started on steroids and seen by rheumatology, however it was felt that steroids were not needed and these will be tapered as an outpatient. She is to follow up with dermatology after discharge today. She is safe for discharge home. 32 minutes spent in preparation of this discharge Condition: Good - Instructions Diet, Activity, Other Instructions: resume previous diet and activity Referrals: Jose Eduardo Samano MD [Staff Physician] - Naveen Ayers MD [Staff Physician] - Terri Thompson MD [Primary Care Provider] - Ronna Rodriguez [Staff Physician] - Disposition: HOME - Home Medications Comprehensive Discharge Medication List: Ambulatory Orders Albuterol Sulfate Inhaler - [Ventolin HFA Inhaler -] 1 - 2 inh PO QID PRN Docusate Sodium [Dulcoease] 100 mg PO DAILY PRN 12/05/16 Ergocalciferol [Vitamin D2] 800 unit PO Q7D@1000 12/05/16 Insulin (Levemir) [Levemir Flexpen -] 0 units SQ DAILY 12/05/16 Insulin (Novolog) [Novolog Flexpen -] 0 units SQ AC 12/05/16 Metoprolol Succinate [Toprol XL -] 25 mg PO DAILY 12/05/16 Aspirin Coated [Ecotrin -] 81 mg PO DAILY tab.ec 12/07/16 Acetaminophen [Tylenol .Regular Strength -] 325 mg PO Q6H PRN #0 tablet Sodium Chloride Nasal [place] [Gunbarrel [place] Nasal [place] -] 2 spray NS TID PRN #0 spray 02/11/17 Furosemide [Lasix -] 40 mg PO DAILY #30 tablet 04/02/18 Loratadine [Claritin -] 10 mg PO DAILY #30 tablet 04/02/18 Nitroglycerin Patch [Nitro-Dur Patch -] 0.2 mg TD DAILY #30 patch.[id number] 04/02/18 Pantoprazole Sodium [Protonix -] 40 mg PO DAILY #30 tablet.ec 04/02/18 Prasugrel HCl [Effient] 10 mg PO DAILY #30 tablet 04/02/18 Rosuvastatin [Crestor -] 10 mg PO HS #30 tablet 04/02/18 predniSONE [Deltasone -] 5 mg PO DAILY #7 tablet 04/02/18
[2018-04-03 14:17] LABS: ATYPICAL pANCA <1:20 titer (Neg:<1:20); C-ANCA <1:20 titer (Neg:<1:20); P-ANCA <1:20 titer (Neg:<1:20)
== END 2018-04-02 13:36 | disposition home or self-care (01) | DRG 690 ==
LOC: JER 16:50 → JERBED 20:01 → J4W 03-30 02:01 → OBSVTOIN 04-01 12:06 → J6S 04-01 20:48
PROVIDERS: ADMIT Internal Medicine; ATTEND Internal Medicine
DX: N39.0 Urinary tract infection, site not specified (principal); I50.32 Chronic diastolic (congestive) heart failure; Q45.3 Other congenital malformations of pancreas and pancreatic duct; J98.11 Atelectasis; I11.0 Hypertensive heart disease with heart failure; I25.10 Atherosclerotic heart disease of native coronary artery without angina pectoris; E11.9 Type 2 diabetes mellitus without complications; Z79.4 Long term (current) use of insulin; Z95.5 Presence of coronary angioplasty implant and graft; J44.9 Chronic obstructive pulmonary disease, unspecified; K75.81 Nonalcoholic steatohepatitis (NASH); I27.20 Pulmonary hypertension, unspecified; R21 Rash and other nonspecific skin eruption; E66.9 Obesity, unspecified; Z68.30 Body mass index [BMI] 30.0-30.9, adult; K21.9 Gastro-esophageal reflux disease without esophagitis
CPT/HCPCS: 36415; 71045-TC-FY; 71046-TC-FY; 76705-TC; 80048; 80053; 81003; 81015; 82550; 82553; 82962; 83520; 83735; 83880; 84100; 84484; 85025; 85610; 85651; 85730; 86038; 86140; 86256; 86850; 86900; 86901; 87086; 93005; 93010; 99285-25; G0378

== ENCOUNTER 2020-12-04 06:50 | Emergency (ER) | payer OTHER, BC ==
[2020-12-04 07:15] VITALS: TEMP 98; BMI 35.0
[2020-12-04] MEDS ORDERED: OXYMETAZOLINE 0.05% NASAL SOLUTION 15 ML BOTTLE NS ONE (07:46)
[2020-12-04 09:58] VITALS: BP 164/84; PULSE 78
== END 2020-12-04 10:30 | disposition home or self-care (01) ==
LOC: JER 06:50
DX: R04.0 Epistaxis (principal)
CPT/HCPCS: 99283-25

== ENCOUNTER 2022-03-23 09:52 | Inpatient (IN) | payer OTHER, BC ==
[2022-03-23 10:02] VITALS: RESP 18
[2022-03-23] MEDS ORDERED: ACETAMINOPHEN 1000 MG/100 ML BAG IVPB ONE (11:13)
[2022-03-23] MEDS ORDERED: ACETAMINOPHEN INJECTION 100 ML IVPB ONE (12:28)
[2022-03-23 13:15] LABS: BASO % 1.8 % (0-2.0); EOS % 3.2 % (0-4.5); HEMATOCRIT 46.9 % (32.4-45.2); HEMOGLOBIN 16.1 GM/dL (10.7-15.3); LYMPH % 28.9 % (8-40); MCH 31.6 pg (25.7-33.7); MCHC 34.4 g/dl (32.0-36.0); MEAN CELL VOLUME 91.9 fl (80-96); MEAN PLT VOLUME 7.4 fl (7.5-11.1); MONO % 10.4 % (3.8-10.2); NEUT % 55.7 % (42.8-82.8); PLATELET COUNT 212 10^3/uL (134-434); RDW 13.7 % (11.6-15.6); WHITE BLOOD COUNT 5.6 K/mm3 (4.0-10.0)
[2022-03-23 13:23] LABS: INR 1.14 (0.83-1.09); PROTHROMBIN TIME (PATIENT) 13.1 SEC (9.7-13.0)
[2022-03-23 13:26] LABS: ACTIVATED PTT 33.3 SECONDS (25.2-36.5)
[2022-03-23] MEDS ORDERED: ONDANSETRON 4 MG/2 ML VIAL IVPUSH ONE (13:31)
[2022-03-23] MEDS ORDERED: ONDANSETRON 4 MG/2 ML VIAL ONE (13:46)
[2022-03-23 13:47] LABS: ALBUMIN 4.2 g/dl (3.4-5.0); BLOOD UREA NITROGEN 16.6 mg/dL (7-18); CALCIUM 9.4 mg/dL (8.5-10.1); MAGNESIUM 2.3 mg/dL (1.8-2.4)
[2022-03-23 13:50] LABS: CREATININE 0.8 mg/dL (0.55-1.3)
[2022-03-23 13:52] LABS: BILIRUBIN,TOTAL 0.8 mg/dL (0.2-1)
[2022-03-23 13:55] LABS: N-TERMINAL BNP 113.7 pg/ml (5-450)
[2022-03-23 14:08] LABS: PHOSPHOROUS 2.9 mg/dL (2.5-4.9); TOT PROT 8.1 g/dl (6.4-8.2)
[2022-03-23 14:28] LABS: EPI CELLS 15 /uL (0-25.1); HYALINE CASTS 1 /uL (0-3.1); PH,URINE 5.5 (5.0-8.0); URINE APPEARANCE CLEAR; URINE BACTERIA 156 /uL (0-1359); URINE BILIRUBIN NEGATIVE (NEGATIVE); URINE COLOR YELLOW; URINE GLUCOSE (UA) TRACE (NEGATIVE); URINE KETONE NEGATIVE (NEGATIVE); URINE LEUK ESTERASE 2+ (NEGATIVE); URINE NITRITE NEGATIVE (NEGATIVE); URINE PROTEIN TRACE (NEGATIVE); URINE RBC 12 /uL (0-23.9); URINE WBC 510 /uL (0-25.8)
[2022-03-23] MEDS ORDERED: CEFTRIAXONE 1 GM in DEXTROSE 5%-WATER - 100 ML IVPB ONE (17:02)
[2022-03-23] MEDS ORDERED: MAG HYDROX/AL HYDROX/SIMETH 30 ML UNIT-DOSE CUP PO ONE (17:02)
[2022-03-23] MEDS ORDERED: METOCLOPRAMIDE HCL INJECTION 10 MG/2 ML VIAL IVPUSH ONE (17:02)
[2022-03-23] MEDS ORDERED: MAG HYDROX/AL HYDROX/SIMETH 30 ML UNIT-DOSE CUP ONE (18:42)
[2022-03-23] MEDS ORDERED: METOCLOPRAMIDE HCL INJECTION 10 MG/2 ML VIAL ONE (18:42)
[2022-03-23] MEDS ORDERED: CEFTRIAXONE 1 GM/50 ML BAG ONE (18:43)
[2022-03-23] MEDS ORDERED: FUROSEMIDE 40 MG/4 ML INJECTABLE VIAL IVPUSH ONE (22:23)
[2022-03-23] MEDS: INSULIN SLIDING SCALE (NOVOLOG) 1 VIAL SQ SCH (23:02)
[2022-03-23] MEDS: AZTREONAM 1 GM in DEXTROSE 5%-WATER - 50 ML IVPB SCH (23:04)
[2022-03-23] MEDS: ENOXAPARIN NA (PORCINE) 40 MG/0.4 ML DISP.SYRIN SQ SCH (23:04)
[2022-03-24 00:14] VITALS: BMI 33.0
[2022-03-24] MEDS ORDERED: ONDANSETRON 4 MG/2 ML VIAL IVPUSH ONE (02:13)
[2022-03-24] MEDS ORDERED: ACETAMINOPHEN 1000 MG/100 ML BAG IVPB ONE (02:13)
[2022-03-24] MEDS: INSULIN SLIDING SCALE (NOVOLOG) 1 VIAL SQ SCH ×4 (06:32→21:50)
[2022-03-24] MEDS: AZTREONAM 1 GM in DEXTROSE 5%-WATER - 50 ML IVPB SCH ×3 (07:19→13:20)
[2022-03-24] MEDS ORDERED: SODIUM CHLORIDE NASAL SPRAY 44 ML BOTTLE NS PRN (07:51)
[2022-03-24] MEDS: FUROSEMIDE 40 MG/4 ML INJECTABLE VIAL IVPUSH SCH ×2 (10:43→15:02)
[2022-03-24] MEDS: ENOXAPARIN NA (PORCINE) 40 MG/0.4 ML DISP.SYRIN SQ SCH (10:43)
[2022-03-24] MEDS: ASPIRIN COATED 81 MG TABLET.EC PO SCH (10:43)
[2022-03-24] MEDS: metoPROLOL SUCCINATE 25 MG TAB.SR.24H (FP) PO SCH (10:43)
[2022-03-24] MEDS: INSULIN (LEVEMIR) 100 UNITS/ML UNITS SQ SCH (10:44)
[2022-03-24 11:08] LABS: HEMATOCRIT 47.2 % (32.4-45.2); HEMOGLOBIN 16.4 GM/dL (10.7-15.3); MCH 31.7 pg (25.7-33.7); MCHC 34.8 g/dl (32.0-36.0); MEAN CELL VOLUME 91.1 fl (80-96); MEAN PLT VOLUME 7.3 fl (7.5-11.1); PLATELET COUNT 200 10^3/uL (134-434); RBC 5.18 M/mm3 (3.60-5.2); RDW 13.6 % (11.6-15.6); WHITE BLOOD COUNT 5.1 K/mm3 (4.0-10.0)
[2022-03-24 11:22] LABS: ALBUMIN 4.1 g/dl (3.4-5.0); BLOOD UREA NITROGEN 17.8 mg/dL (7-18); CALCIUM 9.8 mg/dL (8.5-10.1)
[2022-03-24 11:23] LABS: MAGNESIUM 2.4 mg/dL (1.8-2.4)
[2022-03-24 11:26] LABS: PHOSPHOROUS 3.2 mg/dL (2.5-4.9)
[2022-03-24 11:28] LABS: BILIRUBIN,TOTAL 0.8 mg/dL (0.2-1)
[2022-03-24] MEDS: FAMOTIDINE 20 MG TABLET PO SCH ×2 (12:29→21:51)
[2022-03-24] MEDS: LACTOBACILLUS ACIDOPHILUS 1 TABLET PO SCH (12:35)
[2022-03-24] MEDS: NYSTATIN 100,000 UNIT/GM TOPICAL CREAM 15 GM TUBE TP SCH ×2 (13:09→18:24)
[2022-03-24] MEDS: ERTAPENEM SODIUM 1 GM in SODIUM CHLORIDE 50 ML IVPB SCH (13:09)
[2022-03-24] MEDS: FLUCONAZOLE 150 MG TABLET PO ONE ×2 (13:10→15:15)
[2022-03-24 18:16] LABS: URIC ACID 5.8 mg/dL (2.6-7.2)
[2022-03-25] MEDS: NYSTATIN 100,000 UNIT/GM TOPICAL CREAM 15 GM TUBE TP SCH ×3 (00:33→11:54)
[2022-03-25] MEDS: INSULIN SLIDING SCALE (NOVOLOG) 1 VIAL SQ SCH ×2 (06:08→12:22)
[2022-03-25 09:30] LABS: BASO % 1.8 % (0-2.0); EOS % 4.2 % (0-4.5); HEMATOCRIT 48.4 % (32.4-45.2); HEMOGLOBIN 16.3 GM/dL (10.7-15.3); LYMPH % 29.7 % (8-40); MCH 30.7 pg (25.7-33.7); MCHC 33.7 g/dl (32.0-36.0); MEAN CELL VOLUME 91.2 fl (80-96); MEAN PLT VOLUME 7.4 fl (7.5-11.1); MONO % 10.8 % (3.8-10.2); NEUT % 53.5 % (42.8-82.8); PLATELET COUNT 246 10^3/uL (134-434); RBC 5.31 M/mm3 (3.60-5.2); RDW 13.9 % (11.6-15.6); WHITE BLOOD COUNT 5.5 K/mm3 (4.0-10.0)
[2022-03-25 09:35] VITALS: BP 120/62; PULSE 67; TEMP 97.7
[2022-03-25] MEDS: metoPROLOL SUCCINATE 25 MG TAB.SR.24H (FP) PO SCH (09:36)
[2022-03-25] MEDS: FAMOTIDINE 20 MG TABLET PO SCH (09:36)
[2022-03-25] MEDS: ASPIRIN COATED 81 MG TABLET.EC PO SCH (09:36)
[2022-03-25] MEDS: LACTOBACILLUS ACIDOPHILUS 1 TABLET PO SCH (09:36)
[2022-03-25] MEDS: ENOXAPARIN NA (PORCINE) 40 MG/0.4 ML DISP.SYRIN SQ SCH (09:38)
[2022-03-25] MEDS ORDERED: CHLORTHALIDONE 25 MG TABLET PO SCH (10:00)
[2022-03-25 10:04] LABS: CALCIUM 9.7 mg/dL (8.5-10.1)
[2022-03-25 10:05] LABS: BLOOD UREA NITROGEN 24.1 mg/dL (7-18); MAGNESIUM 2.2 mg/dL (1.8-2.4)
[2022-03-25 10:08] LABS: CREATININE 0.9 mg/dL (0.55-1.3)
[2022-03-25 10:10] LABS: TOT PROT 7.9 g/dl (6.4-8.2)
[2022-03-25 10:19] LABS: EPI CELLS >36 /uL (0-25.1); HYALINE CASTS 4 /uL (0-3.1); URINE APPEARANCE TURBID; URINE BACTERIA 55 /uL (0-1359); URINE BILIRUBIN NEGATIVE (NEGATIVE); URINE COLOR DK YELLOW; URINE GLUCOSE (UA) NEGATIVE (NEGATIVE); URINE KETONE NEGATIVE (NEGATIVE); URINE LEUK ESTERASE 3+ (NEGATIVE); URINE NITRITE NEGATIVE (NEGATIVE); URINE PROTEIN 1+ (NEGATIVE); URINE RBC 67 /uL (0-23.9); URINE WBC 4910 /uL (0-25.8)
[2022-03-25 10:33] LABS: YEAST NEGATIVE (NEGATIVE)
[2022-03-25] MEDS: ERTAPENEM SODIUM 1 GM in SODIUM CHLORIDE 50 ML IVPB SCH (10:33)
[2022-03-25] MEDS: INSULIN (LEVEMIR) 100 UNITS/ML UNITS SQ SCH (10:33)
== END 2022-03-25 13:22 | disposition left against medical advice (07) | DRG 291 ==
LOC: JER 09:52 → JERBED 16:33 → J5S 20:51
PROVIDERS: ADMIT Internal Medicine; ATTEND Nurse Practitioner Acute Care
DX: I11.0 Hypertensive heart disease with heart failure (principal); I50.33 Acute on chronic diastolic (congestive) heart failure; N39.0 Urinary tract infection, site not specified; I25.10 Atherosclerotic heart disease of native coronary artery without angina pectoris; E78.5 Hyperlipidemia, unspecified; K75.81 Nonalcoholic steatohepatitis (NASH); G47.33 Obstructive sleep apnea (adult) (pediatric); Z98.61 Coronary angioplasty status; K21.9 Gastro-esophageal reflux disease without esophagitis; E66.9 Obesity, unspecified; Z68.32 Body mass index [BMI] 32.0-32.9, adult; E11.65 Type 2 diabetes mellitus with hyperglycemia
CPT/HCPCS: 36415; 71045-TC-FY; 74177-TC; 80053; 80061; 81003; 82550; 82962; 83036; 83690; 83735; 83880; 84100; 84443; 84484; 84550; 85025; 85027; 85379; 85610; 85730; 86850; 86900; 86901; 87086; 93005; 93010; 93306-TC; 99285-25; C9803-CS; Q9967; U0003; U0005